=== PATIENT | male | born 1950 | race Hispanic/Latino ===

== ENCOUNTER 2018-08-22 16:34 | Inpatient (IN) | payer MEDICARE ==
[~2018-08-22] VITALS: Ht 165.1 cm; Wt 90.5 kg
[~2018-08-22 16:34] MED LIST: ASPIR 8181 MG PO; ATORVASTATIN CA40 MG PO; Albuterol/Ipratropium NEB; BENZONATATE100 MG PO; CENTRUM SILVER1 EAC4; FLAGYL500 MG PO; FLOMAX0.4 MG PO; FUROSEMIDE40 MG PO; GLIPIZIDE10 MG PO; Guaifenesin/Dextromethorphan PO; ISOSORBIDE MONO20 MG PO; ISOSORBIDE MONO30 MG PO; LEVOTHYROXINE25 MCG PO; LISINOPRIL10 MG PO; LISINOPRIL2.5 MG PO; LYRICA75 MG; METFORMIN HCL500 MG PO; METOPROLOL TART25 MG PO; NITROSTAT0.4 MG PO; NORVASC10 MG PO; OMEPRAZOLE40 MG PO; PROSCAR5 MG PO; RELION NOV100 UNIT/1 SQ; TRAZODONE HCL50 MG PO
[2018-08-22] MEDS ORDERED: METHYLPREDNISOLONE SOD SUCC 125 MG/2ML VIAL IV ONE (17:00)
[2018-08-22] MEDS ORDERED: ALBUTEROL/IPRATROPIUM 3 ML NEB NEB ONE (17:00)
[2018-08-22 17:11] LABS: BASOPHILS % 0.7 % (0.0-1.0); EOSINOPHILS # (AUTO) 0.3 (0.0-0.4); EOSINOPHILS % 6.5 % (0.0-6.0); HEMATOCRIT 31.6 % (38.2-49.6); HEMOGLOBIN 9.9 g/dL (14.0-18.0); LYMPHOCYTES # (AUTO) 0.7 (1.0-3.2); LYMPHOCYTES % 17.6 % (18.0-39.1); MEAN CORPUSCULAR HEMOGLOBIN 27.1 pg (28-32); MEAN CORPUSCULAR HGB CONC 31.3 g/dL (31-35); MEAN CORPUSCULAR VOLUME 86.6 fL (81-99); MONOCYTES # (AUTO) 0.8 (0.2-0.8); MONOCYTES % 18.8 % (4.4-11.3); NEUTROPHILS # (AUTO) 2.3 (2.1-6.9); NEUTROPHILS % 56.2 % (38.7-80.0); PLATELET COUNT 176 x10e3/uL (140-360); RED BLOOD COUNT 3.65 x10e6/uL (4.3-5.7); RED CELL DISTRIBUTION WIDTH 16.5 % (11.7-14.4)
[2018-08-22 17:19] LABS: INR 1.1; PROTHROMBIN TIME 14.7 seconds (11.9-14.5)
[2018-08-22 17:20] LABS: PARTIAL THROMBOPLASTIN TIME 34.3 seconds (23.8-35.5)
[2018-08-22 17:30] LABS: ALBUMIN 3.4 g/dL (3.5-5.0); CALCIUM 8.5 mg/dL (8.4-10.2); CREATINE KINASE MB 2.5 ng/mL (0-5.0); CREATININE, SERUM 1.49 mg/dL (0.72-1.25)
--- NOTE | 2018-08-22 18:43 | Diagnostic Imaging Report ---
EXAMINATION: CHEST 2 VIEWS INDICATION: ^WHEEZING ^[id number] ^1735 COMPARISON: None available FINDINGS: PA and lateral views. Lateral view is motion degraded. TUBES and LINES: Pacer/defibrillator wires terminate in the right atrium and right ventricle. LUNGS: Lungs are well inflated. There is no evidence of pneumonia or pulmonary edema. PLEURA: No pleural effusion or pneumothorax. Mild eventration of the right diaphragm. HEART AND MEDIASTINUM: The heart is enlarged. Pulmonary venous vasculature is prominent. BONES AND SOFT TISSUES: No focal osseous lesions. Second median sternotomy wire is fractured (counting superior to inferior). Soft tissues are unremarkable. UPPER ABDOMEN: No free air under the diaphragm. IMPRESSION: Cardiomegaly with pulmonary venous congestion. This may be chronic. No acute pulmonary process. Fractured sternotomy wire as described above. Signed by: Dr. Chanda Solis MD on 08/22/2018 6:40 PM
[2018-08-22] MEDS ORDERED: DEXTROSE 50% SYRINGE 50 ML IV PRN (19:45)
[2018-08-22] MEDS ORDERED: FUROSEMIDE INJ 10 MG/ML 4 ML VIAL IV ONE (19:45)
--- OUTSIDE RECORDS SUMMARY | 2018-08-22 20:06 | XMS REPORT ---
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 Allergies, Adverse Reactions, Alerts This patient has no known allergies or adverse reactions. Medications This patient has no known medications. Results Test Description Test Time Test Comments Text Results Atomic Results Result Comments CHEST 2 VIEWS 2018-08-22 18:38:00 [place] [address] Patient Name: KATHY DAVIES MR #: [id number] : 1950 Age/Sex: 68/M Req #: [id number] Adm Physician: Ordered by: ERICK LOZADA MD Report #: [id number] Location: ER Room/Bed: Procedure: [id number] DX/CHEST 2 VIEWS Exam Date: 08/22/18 Exam Time: 1735 REPORT STATUS: Signed EXAMINATION: CHEST 2 VIEWS INDICATION: WHEEZING [id number] COMPARISON: None available FINDINGS: PA and lateral views. Lateral view is motion degraded. TUBES and LINES: Pacer/defibrillator wires terminate in the right atrium and right ventricle. LUNGS: Lungs are well inflated. There is no evidence of pneumonia or pulmonary edema. PLEURA: No pleural effusion or pneumothorax. Mild eventration of the right diaphragm. HEART AND MEDIASTINUM: The heart is enlarged. Pulmonary venous vasculature is prominent. BONES AND SOFT TISSUES: No focal osseous lesions. Second median sternotomy wire is fractured (counting superior to inferior). Soft tissues are unremarkable. UPPER ABDOMEN: No free air under the diaphragm. IMPRESSION: Cardiomegaly with pulmonary venous congestion. This may be chronic. No acute pulmonary process. Fractured sternotomy wire as described above. Signed by: Dr. Vero Lopez MD on 08/22/2018 6:40 PM Dictated By: VERO LOPEZ MD 39 Transcribed By: JALEN on 08/22/181839 COPY TO: ERICK LOZADA MD
[2018-08-22] MEDS ORDERED: CENTRUM SILVER1 EAC3 PO (20:13)
[2018-08-22] MEDS ORDERED: TORSEMIDE20 MG PO (20:18)
[2018-08-22] MEDS ORDERED: SYMBICORT 80-10.2 GM (20:18)
[2018-08-22] MEDS ORDERED: GABAPENTIN300 MG PO (20:50)
[2018-08-22] MEDS: FUROSEMIDE INJ 10 MG/ML 4 ML VIAL IV SCH (20:52)
[2018-08-22] MEDS: INSULIN LISPRO 100 UNIT/1 ML 3ML VIAL SQ SCH (21:00)
[2018-08-22 21:32] LABS: CLARITY,URINE CLEAR (CLEAR); COLOR,URINE YELLOW (YELLOW)
[2018-08-22 21:33] LABS: BILIRUBIN,URINE NEGATIVE (NEGATIVE); KETONES,URINE NEGATIVE (NEGATIVE); LEUKOCYTE ESTERASE ,URINE NEGATIVE (NEGATIVE); NITRITE,URINE NEGATIVE (NEGATIVE); PROTEIN,URINE DIPSTICK NEGATIVE (NEGATIVE); URINE UROBILINOGEN 0.2 mg/dL (0.2 - 1)
[2018-08-22 21:34] LABS: BACTERIA,URINE FEW /HPF; EPITHELIAL CELLS,URINE FEW /LPF; WBC,URINE (MAN) 0-5 /HPF (0-5)
[2018-08-22 21:38] VITALS: BP 171/77
[2018-08-22 22:05] VITALS: BP 171/77
[2018-08-22 22:45] VITALS: BP 144/70
[2018-08-23] VITALS (8 sets, daily range): BP systolic 124–153; BP diastolic 58–73
[2018-08-23 03:04] LABS: CREATINE KINASE MB 2.1 ng/mL (0-5.0)
[2018-08-23] MEDS ORDERED: INFLUENZA VIRUS VAC SPLIT INJ 0.5 ML SYR IM SCH (04:07)
[2018-08-23] MEDS ORDERED: PNEUMOCOCCAL VACCINE POLYVALENT 23 MCG/0.5 ML VIAL IM SCH (04:07)
[2018-08-23 06:03] LABS: BASOPHILS % 0.3 % (0.0-1.0); HEMATOCRIT 31.3 % (38.2-49.6); HEMOGLOBIN 9.8 g/dL (14.0-18.0); LYMPHOCYTES # (AUTO) 0.5 (1.0-3.2); LYMPHOCYTES % 11.9 % (18.0-39.1); MEAN CORPUSCULAR HEMOGLOBIN 26.8 pg (28-32); MEAN CORPUSCULAR HGB CONC 31.3 g/dL (31-35); MEAN CORPUSCULAR VOLUME 85.5 fL (81-99); MONOCYTES # (AUTO) 0.1 (0.2-0.8); MONOCYTES % 1.6 % (4.4-11.3); NEUTROPHILS # (AUTO) 3.2 (2.1-6.9); NEUTROPHILS % 85.9 % (38.7-80.0); PLATELET COUNT 171 x10e3/uL (140-360); RED BLOOD COUNT 3.66 x10e6/uL (4.3-5.7); RED CELL DISTRIBUTION WIDTH 16.2 % (11.7-14.4)
[2018-08-23 06:49] LABS: ALBUMIN 3.4 g/dL (3.5-5.0); ANION GAP 12.3 mmol/L (8-16); CALCIUM 8.6 mg/dL (8.4-10.2); CREATININE, SERUM 1.42 mg/dL (0.72-1.25); POTASSIUM 4.3 mmol/L (3.5-5.1)
--- NOTE | 2018-08-23 07:03 | NUR ---
REPORT GIVEN TO ONCOMING NURSE,WALKING ROUNDS MADE.PT RESTING IN BED WITH NO S/S OF DISTRESS.
--- NOTE | 2018-08-23 07:20 | NUR ---
PT RESTING IN BED AA0X3. PT DENIES ANY PAIN. PT IS JAPANESE SPEAKING BUT UNDERSTANDS [place]ONE[place]. PT HAS A RIGHT WRIST 18 THAT IS SL . PATENT AND DRY. PT IS AWARE OF DAILY WEIGHTS AND DIURETIC TREATMENT FOR NOW . WILL CONTINUE TO CARE, SIDE RAILSX2, BED WHEELS LOCKED, CALL LIGHT IS WITHIN EASY REACH, INSTRUCTED TO CALL FOR ASSISTANCE IF NEEDED
[2018-08-23 07:37] LABS: LYMPHOCYTES % (MANUAL) 14 % (19-48); NEUTROPHILS % (MANUAL) 86 % (40-74); PLATELET ESTIMATE ADEQUATE; PLATELET MORPHOLOGY COMMENT NORMAL; RBC MORPHOLOGY COMMENT NORMAL
[2018-08-23] MEDS: FUROSEMIDE INJ 10 MG/ML 4 ML VIAL IV SCH ×2 (08:28→21:05)
[2018-08-23] MEDS: INSULIN LISPRO 100 UNIT/1 ML 3ML VIAL SQ SCH ×4 (08:29→21:09)
--- NOTE | 2018-08-23 12:26 | NUR ---
BLOOD SUGAR OF NOON VITALS IS 416 ORDERED A STAT BLOOD GLUCOSE PER PROTOCOL
--- NOTE | 2018-08-23 13:02 | NUR ---
NOTIFIED MD FLOOD REGARDING BS READING . STATES HE WILL TAKE CARE OF IT, ARRIVING SOON TO ROUND
[2018-08-23] MEDS ORDERED: AMLODIPINE BESYL5 MG PO (13:47)
[2018-08-23] MEDS: ALBUTEROL/IPRATROPIUM 3 ML NEB NEB SCH ×2 (15:00→21:15)
[2018-08-23] MEDS ORDERED: ISOSORBIDE DINITRATE 20 MG TAB PO SCH (17:00)
[2018-08-23] MEDS ORDERED: HYDRALAZINE HCL 10 MG TAB PO SCH (17:00)
--- NOTE | 2018-08-23 17:42 | Diagnostic Imaging Report ---
EXAM: CT Chest without contrast INDICATION: Shortness of breath. COMPARISON: Chest radiograph 08/22/2018. TECHNIQUE: Chest was scanned utilizing a multidetector helical scanner from the lung apex through the level of the adrenal glands without administration of IV contrast. Coronal and sagittal reformations were obtained. Routine protocol was performed. RADIATION DOSE: Total DLP: 535.9 mGy*cm Dose modulation, iterative reconstruction, and/or weight based adjustment of the mA/kV was utilized to reduce the radiation dose to as low as reasonably achievable. COMPLICATIONS: None FINDINGS: LINES/ TUBES: None. LUNGS AND AIRWAYS: The central airways are patent. There is diffuse mild bronchial wall thickening. There are scattered ground glass opacities in the right upper lobe, for example on series 3, image 28 and image 50 and in the left lower lobe on image 33. There are a cluster of nodules within the dependent right upper lobe on image 49. No evidence of consolidative pneumonia. PLEURA: The pleural spaces are clear. HEART AND MEDIASTINUM: The thyroid gland is normal. No mediastinal, hilar or axillary lymphadenopathy. There is four-chamber cardiomegaly. There is a left-sided AICD device with leads within the right atrium and right ventricle. There is extensive coronary atherosclerosis. Scattered atherosclerotic calcifications of the thoracic aorta and branch vessels. Aortic valve calcification. Mild dilation of the main pulmonary artery measuring 3.1 cm. UPPER ABDOMEN: Limited non-contrast views of the upper abdomen show no abnormality within the visualized liver, spleen, adrenal glands, or pancreas. BONES: No acute osseous abnormality. No suspicious lytic or blastic lesions. Status post median sternotomy with sternal wire configuration unchanged. IMPRESSION: Scattered groundglass opacities in the right upper and left lower lobe and dependent clustered nodules in the right upper lobe. Findings are likely infectious in etiology. Follow-up chest CT is suggested in 3 months to assess for resolution. Cardiomegaly. Extensive coronary atherosclerosis. Enlarged main pulmonary artery, suggestive of pulmonary arterial hypertension. Signed by: Dr. Cyrus Haskins MD on 08/23/2018 5:39 PM
[2018-08-23] MEDS ORDERED: HUMULIN 70/30 VIAL SQ SCH (21:00)
[2018-08-23] MEDS: BENZONATATE 100 MG CAP PO SCH (21:08)
[2018-08-23] MEDS: ATORVASTATIN 40 MG TAB PO SCH (21:08)
[2018-08-23] MEDS: INSULIN ASPART 70/30 100 UNITS/ML VIAL SC SCH (21:09)
[2018-08-24] VITALS (7 sets, daily range): BP systolic 130–165; BP diastolic 61–76
[2018-08-24] MEDS ORDERED: ACETAMINOPHEN/CODEINE 300MG - 30MG TAB PO PRN (05:30)
--- NOTE | 2018-08-24 05:30 | NUR ---
PT C/O COUGH AND PAIN "ALL OVER". CALL PLACED TO DR FLOOD AND NOTIFIED.N/O RECEIVED AND ENTERED.
[2018-08-24] MEDS: LEVOTHYROXINE SODIUM 25 MCG TABLET PO SCH (06:20)
[2018-08-24 06:49] LABS: BASOPHILS % 0.4 % (0.0-1.0); EOSINOPHILS # (AUTO) 0.1 (0.0-0.4); EOSINOPHILS % 0.9 % (0.0-6.0); HEMATOCRIT 30.8 % (38.2-49.6); HEMOGLOBIN 9.7 g/dL (14.0-18.0); LYMPHOCYTES # (AUTO) 0.8 (1.0-3.2); LYMPHOCYTES % 10.2 % (18.0-39.1); MEAN CORPUSCULAR HEMOGLOBIN 26.6 pg (28-32); MEAN CORPUSCULAR HGB CONC 31.5 g/dL (31-35); MEAN CORPUSCULAR VOLUME 84.6 fL (81-99); MONOCYTES # (AUTO) 1.1 (0.2-0.8); MONOCYTES % 14.5 % (4.4-11.3); NEUTROPHILS # (AUTO) 5.6 (2.1-6.9); NEUTROPHILS % 73.7 % (38.7-80.0); PLATELET COUNT 190 x10e3/uL (140-360); RED BLOOD COUNT 3.64 x10e6/uL (4.3-5.7); RED CELL DISTRIBUTION WIDTH 16.3 % (11.7-14.4)
[2018-08-24] MEDS: ALBUTEROL/IPRATROPIUM 3 ML NEB NEB SCH ×4 (07:24→20:15)
--- NOTE | 2018-08-24 07:26 | NUR ---
REPORT GIVEN TO ONCOMING NURSE,WALKING ROUNDS DONE.PT RESTING IN BED WITH NO S/S OF DISTRESS.
[2018-08-24 07:48] LABS: THYROID STIMULATING HORMONE 5.879 uIU/mL (0.350-4.940)
[2018-08-24 07:53] LABS: CHOL/HDL RATIO 3.5 (3.9-4.7)
[2018-08-24 08:27] LABS: ANION GAP 15.8 mmol/L (8-16); CALCIUM 8.2 mg/dL (8.4-10.2); CREATININE, SERUM 1.54 mg/dL (0.72-1.25); MAGNESIUM 2.4 MG/DL (1.3-2.1); POTASSIUM 3.8 mmol/L (3.5-5.1)
[2018-08-24] MEDS: HUMULIN 70/30 VIAL SQ SCH (08:30)
[2018-08-24] MEDS: INSULIN LISPRO 100 UNIT/1 ML 3ML VIAL SQ SCH ×4 (08:30→21:00)
[2018-08-24] MEDS ORDERED: ISOSORBIDE DINITRATE 20 MG TAB PO SCH (09:00)
[2018-08-24] MEDS: PANTOPRAZOLE SOD 40 MG TABEC PO SCH (09:00)
[2018-08-24] MEDS ORDERED: HYDRALAZINE HCL 10 MG TAB PO SCH (09:00)
[2018-08-24] MEDS: ASPIRIN 81 MG CHEW TAB PO SCH (10:00)
[2018-08-24] MEDS: FUROSEMIDE INJ 10 MG/ML 4 ML VIAL IV SCH (10:00)
[2018-08-24] MEDS: GABAPENTIN 300 MG CAP PO SCH (10:00)
[2018-08-24] MEDS: OCUVITE PRESERVISION TABLET PO SCH (10:00)
--- NOTE | 2018-08-24 11:11 | NUR ---
MD FLOOD INTO SEE PT, DISCUSSED POC
--- NOTE | 2018-08-24 11:45 | NUR ---
SPOKE WITH MD RUBALCAVA, AWARE OF CONSULT
[2018-08-24] MEDS: DOXYCYCLINE HYCLATE TABLET 100 MG TAB PO SCH ×2 (12:30→22:59)
[2018-08-24] MEDS: CEFEPIME 1GM/NS 0.9% 50 ML 50 ML IV SCH ×2 (15:00→22:46)
[2018-08-24] MEDS ORDERED: SODIUM CHLORIDE 0.9% 250ML 250 ML ONE (15:21)
[2018-08-24] MEDS: ISOSORBIDE DINITRATE 20 MG TAB PO SCH ×2 (16:00→21:30)
[2018-08-24] MEDS: HYDRALAZINE HCL 10 MG TAB PO SCH ×2 (16:00→21:30)
--- NOTE | 2018-08-24 17:19 | NUR ---
Nutrition Screen Note RD Recommendation for Physician: - Continue current ADA diet Plan of Care: RD following, monitoring for tolerance and adequacy Nutrition reason for involvement: Nutrition Risk Trigger- MST Primary Diagnose(s): CHF exacerbation, renal insufficiency PMH: CHF, DM2, HTN, hypercholesterolemia, CAD, CKD3, CABG Ht:65 in Wt:196 lb BMI:32.6 kg/m2 IBW:[address] Assessment: (08/24) 68 YOM admitted for CHF exacerbation, seen today per MST screen. Pt discussed during am rounds. Pt declined to answer questions and education at time of visit, stated "No, no no. Equatorial [place], Equ[place]", however pt was able to communicate clearly in Grenadian in several sentences that he wanted to see his RN and how he was feeling. No family present to provide nutrition hx. Spoke with RN, she stated he is able to speak Grenadian. RN reports good po intake and no GI distress. Pt with no signs of malnutrition per physical assessment. Chart reviewed. Skin intact. LBM 08/24 x 2. Labs and meds reviewed. Will monitor and continue to follow. Current Diet: 1500 ADA Malnutrition Evaluation (08/24/18) The patient does not meet criteria for a specified degree of malnutrition at this time. Will re-evaluate at follow-up as appropriate. Unable to complete assessment, pt reports he is unable to answer questions. No signs of malnutrition per physical assessment. Diet Education Needs Assessment: Diet education indicated, pt declined. Nutrition Care Level: Low Signed: Opal Colin RD, LD, [facility]
--- NOTE | 2018-08-24 17:29 | NUR ---
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
--- NOTE | 2018-08-24 18:04 | NUR ---
PT AMBULATING IN HALLWAY, STEADY GAIT
[2018-08-24] MEDS: INSULIN ASPART 70/30 100 UNITS/ML VIAL SC SCH (21:00)
--- NOTE | 2018-08-24 21:05 | NUR ---
spoke wit dr shook. blood sugar 84 tongiht. pt has been in the 200's throi day and tonight accu check is 84. stated to hold [facility] dose of 15u novolog.
[2018-08-24] MEDS: ATORVASTATIN 40 MG TAB PO SCH (21:30)
[2018-08-24] MEDS: BENZONATATE 100 MG CAP PO SCH (21:30)
[2018-08-24] MEDS: HEPARIN SOD (PORCINE) 5,000 UNIT/ML VIAL SC SCH (21:32)
[2018-08-24] MEDS ORDERED: PREDNISONE 20 MG TAB PO ONE (23:15)
[2018-08-25] VITALS: BP 143/65
[2018-08-25 04:00] VITALS: BP 144/75
[2018-08-25 06:17] LABS: BASOPHILS % 0.2 % (0.0-1.0); EOSINOPHILS % 0.5 % (0.0-6.0); HEMATOCRIT 30.2 % (38.2-49.6); HEMOGLOBIN 9.4 g/dL (14.0-18.0); LYMPHOCYTES # (AUTO) 0.6 (1.0-3.2); LYMPHOCYTES % 9.6 % (18.0-39.1); MEAN CORPUSCULAR HEMOGLOBIN 26.3 pg (28-32); MEAN CORPUSCULAR HGB CONC 31.1 g/dL (31-35); MEAN CORPUSCULAR VOLUME 84.6 fL (81-99); MONOCYTES # (AUTO) 0.3 (0.2-0.8); NEUTROPHILS # (AUTO) 5.6 (2.1-6.9); NEUTROPHILS % 85.4 % (38.7-80.0); PLATELET COUNT 178 x10e3/uL (140-360); RED BLOOD COUNT 3.57 x10e6/uL (4.3-5.7); RED CELL DISTRIBUTION WIDTH 16.1 % (11.7-14.4)
[2018-08-25 06:37] LABS: ANION GAP 14.4 mmol/L (8-16); CALCIUM 7.6 mg/dL (8.4-10.2); CREATININE, SERUM 1.37 mg/dL (0.72-1.25); POTASSIUM 4.4 mmol/L (3.5-5.1)
[2018-08-25] MEDS: LEVOTHYROXINE SODIUM 25 MCG TABLET PO SCH (06:41)
[2018-08-25] MEDS: CEFEPIME 1GM/NS 0.9% 50 ML 50 ML IV SCH ×2 (06:41→14:42)
--- NOTE | 2018-08-25 06:57 | Consultation ---
DATE OF CONSULTATION: 08/24/2018 Pulmonary Medicine Consult. REFERRING PHYSICIAN: Dr. Manrique. REASON FOR REFERRAL: Abnormal chest radiography. HISTORY OF PRESENT ILLNESS: Mr. Weller is a pleasant 68-year-old gentleman with abnormal chest radiography. The patient came to the emergency room on August 24, 2018. The patient complained of wheezing. Wheezing lasted for one week so far. However, he has had a cough that was probably started about two weeks ago. He was seen by his PCP and he was given a Z-Sherwin and another medication . CT chest shows very scant bilateral ground-glass opacities with mild nodular form, especially in the right upper lobe, although these are scant. Mean pulmonary artery diameter is 31 mm. No history of asthma. Zabx-rq-jnmzdhur GERD with symptoms weekly. No evidence of any significant respiratory ailments. PAST MEDICAL HISTORY: CHF, coronary artery disease, hypertension, diabetes, hyperlipidemia, thyroid disease, GERD, CKD, and CABG 2010. MEDICATIONS: Medication list reviewed per his chart record. ALLERGIES: METOPROLOL. SOCIAL HISTORY: No alcohol at this time, no drugs ever. However, from age [age], he was a smoker of one pack per day and furthermore, he had heavy drinking during this time frame. FAMILY HISTORY: Noncontributory. REVIEW OF SYSTEMS: GENERAL: No weight loss. HEENT: No thyroid disease. ENDOCRINE: No history of [place]'s. PULMONARY: No hemoptysis. CARDIAC: No recent HI. GI: No constipation. : No blood in the urine. NEUROLOGIC: No seizures. DERMATOLOGIC: No rash. PSYCHIATRIC: No depression. PHYSICAL EXAMINATION: VITAL SIGNS: Afebrile, vital signs noted per the chart record. GENERAL: In no acute distress, alert and calm with intermittent cough noted. HEENT: Normocephalic and atraumatic. NECK: Supple. Throat midline. LUNGS: Bilateral air entry, rare rhonchi, but mostly clear. CARDIOVASCULAR: S1 and S2. No murmurs, rubs, or gallops. ABDOMEN: Soft and nontender. EXTREMITIES: No clubbing. No cyanosis. There is no edema. INTEGUMENT: No rash or purpura. LABORATORY DATA: 4 white count, 32 hematocrit, and 176 platelets. Chemistries were 3.8 potassium, creatinine 1.54, and BNP 672. TSH 5.8. Albumin is 3.4. Influenza assay is negative. Echocardiogram with 35-40% LVEF, RV moderately enlarged, 3.8 to 4.1 cm, and RVSP 59.6. Moderate MR and moderate TR. IMPRESSION AND PLAN: 1. Abnormal chest radiography, scattered ground-glass opacities, most likely inflammatory/probably infectious in etiology. 2. Systolic congestive heart failure, appears stable now. Possible exacerbation on admission. However, no high evidence when the CAT scan was done the following day. 3. History of chronic smoker, quit at age 39. Possible chronic obstructive pulmonary disease. 4. Mild hypoxemia, 93% saturation on admit, room air. 5. Ykmj-ct-eszwszlv gastroesophageal reflux disease. 6. History of diabetes. 7. Hypertension. 8. Chronic kidney disease. 9. Other medical history as above. I agree to continue the antibiotics at this time. The opacities were scant and probably did not require more than a short course of antibiotics. We will have repeat CT chest in 3-6 months interval to reassess the nodularity as long as the patient keeps getting better. Check HIV test as well as LDH. Cardiac optimization per other physicians and there is a possibility that the patient could have some fluid on admit, but by the time CAT scan was done, there was no evidence of this significant. Thank you very much, Dr. Manrique, for allowing me a chance to participate in the care of Mr. Weller. Please call for any questions. MD CHRISTIE Bhatti/FAROOQ /[id number]
[2018-08-25 07:14] LABS: HIV 1&2 AB SCREEN NON-REACTIVE (NONREACTIVE)
[2018-08-25] MEDS: ALBUTEROL/IPRATROPIUM 3 ML NEB NEB SCH ×3 (07:15→14:30)
--- NOTE | 2018-08-25 07:24 | NUR ---
PATIENT IN BED RESTING WITH NO RESPIRATORY DISTRESS. DENIED PAIN AT THIS TIME. REDNESS NOTED TO LOWER EXTREMITIES. BED IN LOWER POSITION, CALL LIGHT AT REACH.
[2018-08-25 07:25] VITALS: BP 122/73
[2018-08-25] MEDS: INSULIN LISPRO 100 UNIT/1 ML 3ML VIAL SQ SCH ×3 (07:30→16:30)
[2018-08-25] MEDS: HUMULIN 70/30 VIAL SQ SCH (07:30)
[2018-08-25 08:00] VITALS: BP 122/73
[2018-08-25] MEDS: PANTOPRAZOLE SOD 40 MG TABEC PO SCH (08:02)
[2018-08-25] MEDS: HEPARIN SOD (PORCINE) 5,000 UNIT/ML VIAL SC SCH (09:00)
[2018-08-25] MEDS: HYDRALAZINE HCL 10 MG TAB PO SCH ×2 (09:20→14:43)
[2018-08-25] MEDS: OCUVITE PRESERVISION TABLET PO SCH (09:21)
[2018-08-25] MEDS: GABAPENTIN 300 MG CAP PO SCH (09:21)
[2018-08-25] MEDS: ISOSORBIDE DINITRATE 20 MG TAB PO SCH ×2 (09:21→14:43)
[2018-08-25] MEDS: ASPIRIN 81 MG CHEW TAB PO SCH (09:21)
--- NOTE | 2018-08-25 12:04 | NUR ---
PATIENT SITTING AT BED SIDE TALKING ON THE PHONE, NO COMPLAIN VOICED. CALL LIGHT AT REACH.
[2018-08-25 12:46] VITALS: BP 124/59
--- NOTE | 2018-08-25 13:00 | NUR ---
SPOKE WITH MD REGARDING FLUCTUATING HR. NO NEW ORDER RECEIVED.
[2018-08-25] MEDS: DOXYCYCLINE HYCLATE TABLET 100 MG TAB PO SCH (13:01)
--- NOTE | 2018-08-25 18:25 | NUR ---
PATIENT DISCHARGED HOME. DISCHARGE INSTRUCTIONS, PRESCRIPTIONS, AND FOLLOW UP GIVEN TO PATIENT, HE VERBALIZED UNDERSTANDING. IV TO RIGHT WRIST REMOVED WITH TIP INTACT. ALL PERSONAL ITEMS TAKEN WITH PATIENT. REFUSED WHEEL CHAIR, BUT WAS ACCOMPANIED TO FRONT LOBBY BY HOSPITAL STAFF IN STABLE CONDITION.
--- NOTE | 2018-08-25 20:37 | Progress Note ---
DATE: Pulmonary Critical Care Progress Note I am covering for Dr. Mathews today. SUBJECTIVE: The patient feels better. He is less wheezing and less coughing. He is not complaining of dyspnea and is eager to go home. OBJECTIVE: VITAL SIGNS: The patient is afebrile. The vital signs are stable. HEENT: Shows no facial swelling or erythema. CARDIAC: Reveals regular rate and rhythm with normal S1 and S2. LUNGS: Auscultation of lungs shows clear breath sounds bilaterally. There is no wheezing. ABDOMEN: Soft, nontender. There is no rebound or guarding. EXTREMITIES: Show no leg edema or calf tenderness. IMPRESSION: 1. Cudtx-zn-ryucito systolic congestive heart failure. 2. Pulmonary hypertension secondary to underlying cardiac disease. 3. Chronic obstructive pulmonary disease. 4. Diabetes. 5. Hypertension. PLAN: 1. The patient is going home. 2. Complete antibiotics at home. 3. Continue current cardiac regimen. 4. The patient to follow up with Irena Eddy. Andrés Sotelo MD [facility] /[id number]
--- NOTE | 2018-08-26 03:34 | Discharge Summary ---
PRIMARY CARE DOCTOR: Dr. Chrissie Neal. FINAL DIAGNOSES: Acute respiratory distress, likely due to pneumonia and mild acute systolic congestive heart failure. SECONDARY DIAGNOSES: 1. Pulmonary hypertension. 2. Hyponatremia. 3. Right greater than left leg swelling, but no deep venous thrombosis. 4. Uncontrolled diabetes due to steroids, but that is getting better. 5. Stage 3 chronic kidney disease, stable. CONSULTANTS: Dr. Mathews, litigation claim representative. PROCEDURES/STUDIES PERFORMED: 1. Right leg venous doppler did not show any DVT. 2. Chest CT, which shows scattered ground-glass opacity in the right upper and left lower lobe. Findings are likely infectious in etiology. 3. Echocardiogram showed an EF of 35% to 40%. HISTORY: Per H and P. HOSPITAL COURSE: The patient initially was diuresed with IV Lasix. He takes p.o. torsemide at home. The patient slowly improved. However, given unclear etiology, chest CT was done, which suggested of infectious etiology. The patient did receive a course of Z-Sherwin about 2 weeks ago without improvement. Therefore, IV cefepime and p.o. doxycycline were started. The patient did well. Currently, he is pretty much back to his baseline. I discussed with Dr. Mathews. At this time, he will go home today on three more days of Levaquin. I have updated his PCP about this hospitalization as well. The patient will follow up with his PCP in 1 week. The patient was seen and examined today. It took 33 minutes total to discharge this patient today. CONDITION ON DISCHARGE: Improved. DISCHARGE MEDICATIONS: Please see medication reconciliation form. MD VIKTORIA Napoles/FAROOQ /[id number] cc: [facility]
== END 2018-08-25 18:25 | disposition home or self-care (01) | DRG 291 ==
LOC: ER 16:34 → ERHOLD 20:03 → MED/SURG 21:29 → OBSVTOIN 08-24 17:01
PROVIDERS: ADMIT Internal Medicine; ATTEND Internal Medicine
DX: I13.0 Hypertensive heart and chronic kidney disease with heart failure and stage 1 through stage 4 chronic kidney disease, or unspecified chronic kidney disease (principal); I50.23 Acute on chronic systolic (congestive) heart failure; J18.9 Pneumonia, unspecified organism; E87.1 Hypo-osmolality and hyponatremia; D50.0 Iron deficiency anemia secondary to blood loss (chronic); I25.10 Atherosclerotic heart disease of native coronary artery without angina pectoris; Z95.1 Presence of aortocoronary bypass graft; I25.2 Old myocardial infarction; E78.5 Hyperlipidemia, unspecified; K21.9 Gastro-esophageal reflux disease without esophagitis; Z88.8 Allergy status to other drugs, medicaments and biological substances; Z83.3 Family history of diabetes mellitus; Z82.49 Family history of ischemic heart disease and other diseases of the circulatory system; E11.22 Type 2 diabetes mellitus with diabetic chronic kidney disease; N18.3 Chronic kidney disease, stage 3 (moderate); Z87.891 Personal history of nicotine dependence; R09.02 Hypoxemia; J44.9 Chronic obstructive pulmonary disease, unspecified; R06.03 Acute respiratory distress; T38.0X5A Adverse effect of glucocorticoids and synthetic analogues, initial encounter; Y92.230 Patient room in hospital as the place of occurrence of the external cause; E11.65 Type 2 diabetes mellitus with hyperglycemia; Z79.4 Long term (current) use of insulin; Z79.82 Long term (current) use of aspirin
CPT/HCPCS: 36415; 71046; 71250; 80048; 80053; 80061; 81001; 82550; 82553; 82947; 82948; 83615; 83735; 83880; 84443; 84484; 85025; 85610; 85730; 87390; 87400; 93005; 93306; 93971; 94640; 99284; G0378; G0433; G0435; J0692; J1644; J1815; J1940; J2930; J7050; J7512

== ENCOUNTER 2018-09-11 10:43 | Inpatient (IN) | payer MEDICARE ==
[~2018-09-11] VITALS: Ht 165.1 cm; Wt 91.3 kg
[~2018-09-11 10:43] MED LIST changes: +AMLODIPINE BESYL5 MG PO; +CENTRUM SILVER1 EAC3 PO; +GABAPENTIN300 MG PO; +SYMBICORT 80-10.2 GM; +TORSEMIDE20 MG PO
--- NOTE | 2018-09-11 11:40 | NUR ---
BEDSIDE BLADDER SCAN COMPLETE, APPROX 300 CC NOTED. DANIELLE COATES MADE AWARE. RECEIVED OREDERS FOR MURPHY CATH INSERTION FOR ACUTE URINARY RETENTION.
[2018-09-11 12:04] LABS: BASOPHILS % 0.4 % (0.0-1.0); EOSINOPHILS % 0.4 % (0.0-6.0); HEMATOCRIT 33.7 % (38.2-49.6); HEMOGLOBIN 10.6 g/dL (14.0-18.0); LYMPHOCYTES # (AUTO) 0.8 (1.0-3.2); LYMPHOCYTES % 11.2 % (18.0-39.1); MEAN CORPUSCULAR HGB CONC 31.5 g/dL (31-35); MEAN CORPUSCULAR VOLUME 82.8 fL (81-99); MONOCYTES # (AUTO) 0.7 (0.2-0.8); MONOCYTES % 9.7 % (4.4-11.3); NEUTROPHILS # (AUTO) 5.7 (2.1-6.9); NEUTROPHILS % 77.9 % (38.7-80.0); PLATELET COUNT 214 x10e3/uL (140-360); RED BLOOD COUNT 4.07 x10e6/uL (4.3-5.7); RED CELL DISTRIBUTION WIDTH 16.1 % (11.7-14.4)
[2018-09-11 12:24] LABS: INR 1.1; PROTHROMBIN TIME 14.7 seconds (11.9-14.5)
[2018-09-11 12:25] LABS: PARTIAL THROMBOPLASTIN TIME 33.3 seconds (23.8-35.5)
[2018-09-11 12:33] LABS: ALBUMIN 3.2 g/dL (3.5-5.0); ALBUMIN/GLOBULIN RATIO 0.8 (0.8-2.0); ANION GAP 14.4 mmol/L (8-16); CALCIUM 8.6 mg/dL (8.4-10.2); CHOL/HDL RATIO 2.2 (3.9-4.7); CREATININE, SERUM 1.52 mg/dL (0.72-1.25); MAGNESIUM 2.2 MG/DL (1.3-2.1); POTASSIUM 4.4 mmol/L (3.5-5.1)
[2018-09-11 12:35] LABS: BILIRUBIN,URINE NEGATIVE (NEGATIVE); CLARITY,URINE HAZY (CLEAR); COLOR,URINE YELLOW (YELLOW); KETONES,URINE NEGATIVE (NEGATIVE); LEUKOCYTE ESTERASE ,URINE TRACE (NEGATIVE); NITRITE,URINE POSITIVE (NEGATIVE); PROTEIN,URINE DIPSTICK NEGATIVE (NEGATIVE); URINE UROBILINOGEN 0.2 mg/dL (0.2 - 1)
[2018-09-11 12:39] LABS: CREATINE KINASE MB 2.6 ng/mL (0-5.0)
[2018-09-11] MEDS ORDERED: SODIUM CHLORIDE 0.9% 1000ML 1,000 ML IV ONE (12:45)
[2018-09-11 12:49] LABS: WBC,URINE (MAN) 0-5 /HPF (0-5)
[2018-09-11] MEDS ORDERED: SODIUM CHLORIDE 0.9% 1000ML 1,000 ML ONE (12:49)
[2018-09-11 12:50] LABS: EPITHELIAL CELLS,URINE FEW /LPF; RBC,URINE 0-5 /HPF (0-5)
[2018-09-11 12:51] LABS: BACTERIA,URINE MODERATE /HPF
--- NOTE | 2018-09-11 13:10 | Diagnostic Imaging Report ---
EXAMINATION: CHEST SINGLE (PORTABLE) INDICATION: Shortness of breath. COMPARISON: None FINDINGS: TUBES and LINES: Left-sided AICD device in unchanged position. LUNGS: Lungs are well inflated. There is central vascular congestion. There is no evidence of pneumonia or pulmonary edema. PLEURA: No pleural effusion or pneumothorax. HEART AND MEDIASTINUM: The cardiomediastinal silhouette is enlarged and unchanged. BONES AND SOFT TISSUES: No acute osseous abnormality. Status post median sternotomy. UPPER ABDOMEN: No free air under the diaphragm. IMPRESSION: Cardiomegaly with central vascular congestion. No evidence of pulmonary edema. Signed by: Dr. Cyrus Haskins MD on 09/11/2018 1:07 PM
--- NOTE | 2018-09-11 13:38 | Diagnostic Imaging Report ---
EXAMINATION: CT of the abdomen and pelvis with contrast. TECHNIQUE: Spiral CT images of the abdomen and pelvis were performed from the lung bases to the lesser trochanters after the intravenous administration of 100 cc of Isovue 370 and the oral administration of Redicat. Coronal and sagittal reformatted images were obtained. COMPARISON: CT abdomen and pelvis 09/03/2018 CLINICAL HISTORY:Abdominal swelling DISCUSSION: ABDOMEN/PELVIS: LOWER THORAX:Subsegmental atelectasis in bilateral lower lobes and right middle lobe. Mild to moderate cardiomegaly with enlargement of the right atrium. Distal portion of cardiac wires in the right atrium and right ventricle.. HEPATOBILIARY: No focal hepatic lesions. No intra or extrahepatic biliary ductal dilation. GALLBLADDER: No radio-opaque stones or sludge. No wall thickening. SPLEEN: No splenomegaly. PANCREAS: No focal masses or ductal dilatation. ADRENALS: No adrenal nodules. KIDNEYS/URETERS: No hydronephrosis, stones, or solid mass lesions. PELVIC ORGANS/BLADDER: Ware catheter in place. Small foci of air are again seen in the nondependent portion of the bladder lumen, likely related to catheter. Stable mild circumferential bladder wall thickening. Stable enlarged prostate PERITONEUM/RETROPERITONEUM: Small volume perihepatic and perisplenic ascites which measure simple fluid density, which is slightly increased since the prior exam. Small amount of ascites in the pelvis. LYMPH NODES: No intra-abdominal, retroperitoneal, pelvic or inguinal lymphadenopathy. VESSELS: The celiac trunk,superior and inferior mesenteric and bilateral renal arteries are patent The portal, superior mesenteric and splenic veins are patent. Atherosclerotic calcification of the abdominal aorta and iliac vessels. An accessory right renal artery is again identified. GI TRACT: No bowel dilation or evidence of obstruction. No pericolonic inflammatory changes. Stable small hiatal hernia. BONES AND SOFT TISSUE: No aggressive lytic lesions. Degenerative disc changes in the lumbosacral spine, predominantly L5-S1, with grade 1 anterolisthesis secondary to bilateral pars interarticularis defects. Stable L3 vertebral body hemangioma. No soft tissue abnormalities. IMPRESSION: 1. No acute abdominopelvic abnormalities. 2. Slight interval increase in small volume simple perihepatic and perisplenic ascites when compared to prior exam. 3. Stable mild circumferential bladder wall thickening, likely reflecting bladder outlet obstruction from an enlarged prostate. Signed by: Dr. Dale Ferrer M.D. on 09/11/2018 1:35 PM
[2018-09-11] MEDS ORDERED: SODIUM CHLORIDE 0.9% 1000ML 1,000 ML IV SCH (14:02)
--- NOTE | 2018-09-11 14:10 | NUR ---
PT C/O BEING HYPOGLYCEMIC. GLUCOSE CHECKED, CURRENTLY AT 49, DANIELLE COATES MADE AWARE. PT REQUESTED DIET COKEJAXON MADE AWARE OF THIS AND APPROVED. WILL CONTINUE TO MONITOR.
[2018-09-11] MEDS ORDERED: ONDANSETRON HCL INJ 2MG/ML 2ML 2 MG/ML VIAL IV PRN (14:15)
--- NOTE | 2018-09-11 14:58 | NUR ---
BEDSIDE GLUCOSE 48, PT REMAINS AAOX3, COMPLANINS OF FEELING HYPOGLYCEMIC. ENMk COATES MADE AWARE, VERBAL ORDER FOR 1 AMP D50 RECEVIVED, BEING ADMINISTERED AT THIS TIME.
[2018-09-11] MEDS ORDERED: DEXTROSE 50% SYRINGE 50 ML IV ONE (15:04)
[2018-09-11] MEDS ORDERED: SODIUM CHLORIDE 0.9% 50ML 50 ML ONE (15:10)
[2018-09-11] MEDS ORDERED: IOPAMIDOL 370 MG/ML 200 ML INFUS..BTL INJ ONE (15:11)
[2018-09-11 16:00] VITALS: BP 115/70
[2018-09-11 16:14] VITALS: BP 133/80
[2018-09-11 16:27] VITALS: BP 134/84
[2018-09-11] MEDS ORDERED: INFLUENZA VIRUS VAC SPLIT INJ 0.5 ML SYR IM SCH (16:30)
[2018-09-11] MEDS ORDERED: PNEUMOCOCCAL VACCINE POLYVALENT 23 MCG/0.5 ML VIAL IM SCH (16:30)
--- NOTE | 2018-09-11 19:07 | NUR ---
received report from day nurse. patient is resting comfortably in. bed is in lowest position and call villafana is within reach. will continue to monitor patient.
[2018-09-11 20:00] VITALS: BP 119/78
[2018-09-11 20:21] LABS: CREATINE KINASE MB 2.3 ng/mL (0-5.0)
[2018-09-12] VITALS (11 sets, daily range): BP systolic 98–139; BP diastolic 57–78
[2018-09-12 06:32] LABS: BASOPHILS % 0.4 % (0.0-1.0); EOSINOPHILS # (AUTO) 0.1 (0.0-0.4); EOSINOPHILS % 0.9 % (0.0-6.0); HEMATOCRIT 32.3 % (38.2-49.6); HEMOGLOBIN 10.3 g/dL (14.0-18.0); LYMPHOCYTES # (AUTO) 1.3 (1.0-3.2); LYMPHOCYTES % 15.7 % (18.0-39.1); MEAN CORPUSCULAR HEMOGLOBIN 25.9 pg (28-32); MEAN CORPUSCULAR HGB CONC 31.9 g/dL (31-35); MEAN CORPUSCULAR VOLUME 81.4 fL (81-99); MONOCYTES # (AUTO) 1.1 (0.2-0.8); MONOCYTES % 13.4 % (4.4-11.3); NEUTROPHILS # (AUTO) 5.5 (2.1-6.9); NEUTROPHILS % 69.2 % (38.7-80.0); PLATELET COUNT 240 x10e3/uL (140-360); RED BLOOD COUNT 3.97 x10e6/uL (4.3-5.7); RED CELL DISTRIBUTION WIDTH 16.1 % (11.7-14.4)
[2018-09-12 06:50] LABS: ANION GAP 14.3 mmol/L (8-16); CALCIUM 8.3 mg/dL (8.4-10.2); CREATININE, SERUM 1.61 mg/dL (0.72-1.25); POTASSIUM 4.3 mmol/L (3.5-5.1)
--- NOTE | 2018-09-12 06:59 | Diagnostic Imaging Report ---
EXAMINATION: CHEST SINGLE (PORTABLE) INDICATION: Shortness of breath. COMPARISON: Chest x-ray 09/11/2018 FINDINGS: TUBES and LINES: Left-sided AICD device in unchanged position. LUNGS: Lungs are well inflated. There is central vascular congestion. There is no evidence of pneumonia. PLEURA: No pleural effusion or pneumothorax. HEART AND MEDIASTINUM: The cardiomediastinal silhouette is enlarged and unchanged. BONES AND SOFT TISSUES: No acute osseous abnormality. Status post median sternotomy. UPPER ABDOMEN: No free air under the diaphragm. IMPRESSION: Cardiomegaly with central vascular congestion. Signed by: DR. Dl Lui MD on 09/12/2018 6:56 AM
--- NOTE | 2018-09-12 07:08 | NUR ---
lab called to report a blood sugar of 56. patient is alert and talking. patient has been offered 3 cups of orange juice which he drank. MD notified. MD states continue to monitor patient's blood sugar. Will continue to monitor patient.
[2018-09-12 07:09] LABS: CREATINE KINASE MB 2.5 ng/mL (0-5.0)
[2018-09-12] MEDS: FUROSEMIDE INJ 10 MG/ML 4 ML VIAL IV SCH ×2 (11:26→20:54)
[2018-09-12] MEDS: INSULIN LISPRO 100 UNIT/1 ML 3ML VIAL SQ SCH ×3 (11:30→20:55)
[2018-09-12] MEDS: GABAPENTIN 300 MG CAP PO SCH (17:41)
--- NOTE | 2018-09-12 19:00 | NUR ---
received report from day nurse. patient is resting comfortably in bed. bed is in lowest position and call villafana is within reach. no complaints of pain or discomfort noted. will continue to monitor patient.
[2018-09-12] MEDS: ATORVASTATIN 40 MG TAB PO SCH (20:54)
[2018-09-12] MEDS: HEPARIN SOD (PORCINE) 5,000 UNIT/ML VIAL SC SCH (20:54)
[2018-09-12] MEDS: TAMSULOSIN HCL 0.4 MG CAP PO SCH (20:54)
[2018-09-13] VITALS (7 sets, daily range): BP systolic 102–143; BP diastolic 56–80
[2018-09-13 05:30] LABS: BASOPHILS % 0.6 % (0.0-1.0); EOSINOPHILS # (AUTO) 0.1 (0.0-0.4); EOSINOPHILS % 1.7 % (0.0-6.0); HEMATOCRIT 29.4 % (38.2-49.6); HEMOGLOBIN 9.5 g/dL (14.0-18.0); LYMPHOCYTES # (AUTO) 0.8 (1.0-3.2); MEAN CORPUSCULAR HEMOGLOBIN 26.1 pg (28-32); MEAN CORPUSCULAR HGB CONC 32.3 g/dL (31-35); MEAN CORPUSCULAR VOLUME 80.8 fL (81-99); MONOCYTES # (AUTO) 1.1 (0.2-0.8); MONOCYTES % 16.2 % (4.4-11.3); NEUTROPHILS # (AUTO) 4.9 (2.1-6.9); NEUTROPHILS % 70.2 % (38.7-80.0); PLATELET COUNT 182 x10e3/uL (140-360); RED BLOOD COUNT 3.64 x10e6/uL (4.3-5.7); RED CELL DISTRIBUTION WIDTH 16.1 % (11.7-14.4)
[2018-09-13] MEDS: LEVOTHYROXINE SODIUM 50 MCG TAB PO SCH (05:44)
[2018-09-13 05:49] LABS: BILIRUBIN,DIRECT 0.6 mg/dL (0.0-0.5); CALCIUM 8.2 mg/dL (8.4-10.2); CREATININE, SERUM 1.46 mg/dL (0.72-1.25); MAGNESIUM 2.2 MG/DL (1.3-2.1)
--- NOTE | 2018-09-13 06:10 | Diagnostic Imaging Report ---
EXAMINATION: CHEST SINGLE (PORTABLE) INDICATION: CHF. COMPARISON: Chest x-ray 09/12/2018 FINDINGS: TUBES and LINES: Left-sided AICD device in unchanged position. LUNGS: Central vascular congestion with increased mild interstitial edema. There is no evidence of pneumonia. PLEURA: Likely small right pleural effusion. No pneumothorax. HEART AND MEDIASTINUM: The cardiomediastinal silhouette is enlarged and unchanged.. Mediastinal surgical clips. BONES AND SOFT TISSUES: No acute osseous abnormality. Status post median sternotomy. UPPER ABDOMEN: No free air under the diaphragm. IMPRESSION: Cardiomegaly with mild interstitial edema and small right pleural effusion. Signed by: DR. Dl Lui MD on 09/13/2018 6:07 AM
[2018-09-13 06:11] LABS: THYROID STIMULATING HORMONE 4.714 uIU/mL (0.350-4.940)
--- NOTE | 2018-09-13 06:49 | NUR ---
report given to day nurse. patient is resting comfortably in bed
[2018-09-13] MEDS: INSULIN LISPRO 100 UNIT/1 ML 3ML VIAL SQ SCH ×4 (08:23→20:55)
[2018-09-13] MEDS: GABAPENTIN 300 MG CAP PO SCH ×2 (08:36→16:45)
[2018-09-13] MEDS: ASPIRIN 81 MG CHEW TAB PO SCH (08:36)
[2018-09-13] MEDS: FUROSEMIDE INJ 10 MG/ML 4 ML VIAL IV SCH ×2 (08:36→20:51)
[2018-09-13] MEDS: HEPARIN SOD (PORCINE) 5,000 UNIT/ML VIAL SC SCH ×2 (08:36→20:54)
--- NOTE | 2018-09-13 12:19 | NUR ---
SW Assessment completed with [facility] spanish medical interpreter Elli [id number]: Patient lives: At home with his and son Admit/Transfer: Admit Hospital/ER visits since last admit: Patient has had 3 hospitalization within the last 6 months for the same condition. He states he has followed up with his MD after each visit. POA/Emergency contact: Rosie Weller [phone] Current/Previous Home Health: Patient has no history of home care services. PCP/Follow-up Care: Chrissie Neal MD Current/Previous DME: n/A Medications (referring to index hospitalization or the first time you were in the hospital) a. Were changes made in your medications when you were in the hospital on [date of index hospitalization]? Yes No Not sure Explain: Note: If no or not sure, please skip to question d b. Did you understand the changes? Yes No Explain: c. Were you able to obtain your new medications right away? Yes No n/a SNF only Explain: d. Were you able to take your medications like the doctor wanted you to? Yes No Explain: e. Did the hospital give you an accurate, easy to understand list of medications when you left? Yes No n/a SNF only Explain: Scale of 1-10 how comfortable does patient feel with disease management in outpatient settin and up Other Services: Employment Status: Retired Areas of Concerns: Referral Needs: for zhu. However, patient is requesting to go into the office for follow up on his zhu Education Needs: IMM/ST given and signed (if applicable): IMM Goal for discharge:
--- NOTE | 2018-09-13 12:20 | NUR ---
CM Communication for Home Health services for Zhu check. Patient would prefer to have a zhu check at the MD office or other clinic. He is willing to go out into the community for aftercare. RN has been notified regarding patient's request.
--- NOTE | 2018-09-13 19:00 | NUR ---
received report from day nurse. patient is resting comfortably in bed. bed is in lowest position and call villafana is within reach. will continue to monitor patient.
[2018-09-13] MEDS: ATORVASTATIN 40 MG TAB PO SCH (20:51)
[2018-09-13] MEDS: TAMSULOSIN HCL 0.4 MG CAP PO SCH (20:51)
[2018-09-14] VITALS: BP 128/72
[2018-09-14 04:00] VITALS: BP 126/69
[2018-09-14] MEDS: LEVOTHYROXINE SODIUM 50 MCG TAB PO SCH (05:47)
[2018-09-14 06:17] LABS: ALBUMIN 3.1 g/dL (3.5-5.0); ANION GAP 10.9 mmol/L (8-16); BILIRUBIN,DIRECT 0.7 mg/dL (0.0-0.5); CALCIUM 8.2 mg/dL (8.4-10.2); CREATININE, SERUM 1.28 mg/dL (0.72-1.25); MAGNESIUM 2.4 MG/DL (1.3-2.1); POTASSIUM 3.9 mmol/L (3.5-5.1)
--- NOTE | 2018-09-14 07:00 | NUR ---
report given to day nurse. patient is resting comfortably in bed. bed is in lowest position and call villafana is within reach.
[2018-09-14 07:30] VITALS: BP 121/74
[2018-09-14 08:30] VITALS: BP 121/74
[2018-09-14] MEDS: HEPARIN SOD (PORCINE) 5,000 UNIT/ML VIAL SC SCH (09:35)
[2018-09-14] MEDS: ASPIRIN 81 MG CHEW TAB PO SCH (09:35)
[2018-09-14] MEDS: GABAPENTIN 300 MG CAP PO SCH (09:35)
[2018-09-14] MEDS: FUROSEMIDE INJ 10 MG/ML 4 ML VIAL IV SCH (09:35)
[2018-09-14] MEDS: INSULIN LISPRO 100 UNIT/1 ML 3ML VIAL SQ SCH ×3 (09:35→16:30)
[2018-09-14 12:27] VITALS: BP 134/78
[2018-09-14] MEDS ORDERED: ONDANSETRON HCL 4 MG ORAL DISINTEGRATING TAB PO PRN (13:15)
--- NOTE | 2018-09-14 13:24 | NUR ---
MET W THE PT, DR. FLOOD AND PABLO HODGSON AT THE BEDSIDE REGARDING HOME MURPHY CARE. PT STATES HE WILL NOT NEED HH AND WILL F/U W HIS PCP.
[2018-09-14 16:00] VITALS: BP 138/84
--- NOTE | 2018-09-14 16:45 | NUR ---
patient alert and oriented. discharge instructions given to patient and concerning zhu care, both verbalized understanding. IV discontinued, catheter in tact and small dressing applied. patient to be wheeled out to personal auto for to drive home.
--- NOTE | 2018-09-15 04:50 | Discharge Summary ---
PRIMARY CARE DOCTOR: Dr. Chrissie Neal. FINAL DIAGNOSES: 1. Urinary retention with urine culture negative urinary tract infection. 2. Acute systolic congestive heart failure, better. 3. Hyponatremia, resolved. 4. Stage 3 chronic kidney disease, stable. 5. Hypertension. 6. Diabetes. 7. Hypothyroidism. CONSULTANTS: None. PROCEDURES/STUDIES PERFORMED: CT of the abdomen and pelvis, which was benign. HISTORY: Per H and P. HOSPITAL COURSE: The patient had recurrent urinary retention. Last time a week ago in the emergency room, a straight cath was done and the patient was sent home. However, same thing happened again at this time, we will leave the Ware catheter in. The patient already has been taking Flomax for a week now. Apparently, at this time has been working. The patient was instructed to continue. The patient refused home health for his Ware care. He said he knows how to take care of it. He has had it before. The patient will follow up with [facility] urologist. I have informed his [facility] primary care doctor about this already. The patient did have pyuria, hence UTI. However, his urine culture was negative, likely partially treated. The patient received three doses of IV Rocephin, which should suffice. He does not need any more antibiotics. The patient was also in acute systolic CHF. The patient diuresed well with IV Lasix. His creatinine in fact got a little better. At the time of discharge, it is 1.28. The patient will continue his oral torsemide at home. The patient was seen and examined today. His LFTs got better, likely reflecting resolving hepatic congestion and also his TSH is normal. CONDITION ON DISCHARGE: Improved. DISCHARGE MEDICATIONS: Please see medication reconciliation form. MD VIKTORIA Napoles/FAROOQ /[id number]
== END 2018-09-14 16:50 | disposition home or self-care (01) | DRG 291 ==
LOC: ER 10:43 → ERHOLD 14:04 → IMCU 15:37 → OBSVTOIN 09-12 11:22
PROVIDERS: ADMIT Internal Medicine; ATTEND Internal Medicine
DX: I13.0 Hypertensive heart and chronic kidney disease with heart failure and stage 1 through stage 4 chronic kidney disease, or unspecified chronic kidney disease (principal); I50.23 Acute on chronic systolic (congestive) heart failure; N39.0 Urinary tract infection, site not specified; E87.1 Hypo-osmolality and hyponatremia; Z95.810 Presence of automatic (implantable) cardiac defibrillator; I25.10 Atherosclerotic heart disease of native coronary artery without angina pectoris; E03.9 Hypothyroidism, unspecified; E11.9 Type 2 diabetes mellitus without complications; N18.3 Chronic kidney disease, stage 3 (moderate); R09.02 Hypoxemia; R33.9 Retention of urine, unspecified; K76.1 Chronic passive congestion of liver
CPT/HCPCS: 36415; 51700; 71045; 74177; 80048; 80053; 80061; 80076; 81001; 82150; 82550; 82553; 82948; 83690; 83735; 83880; 84443; 84484; 85025; 85610; 85730; 87086; 90732; 93005; 99285; G0378; J1644; J1940; J7030; J7799; Q9967

== ENCOUNTER 2018-09-17 17:04 | Inpatient (IN) | payer MEDICARE ==
[~2018-09-17] VITALS: Ht 165.1 cm; Wt 82.1 kg
[2018-09-17] MEDS ORDERED: MORPHINE SULFATE 2 MG/ML SYR 1ML IV STA (18:08)
[2018-09-17] MEDS ORDERED: SODIUM CHLORIDE 0.9% 1000ML 1,000 ML IV STA (18:08)
[2018-09-17] MEDS ORDERED: MORPHINE SULFATE INJ 4 MG/ML INJ 1ML IV ONE (18:15)
[2018-09-17 18:54] LABS: BASOPHILS % 0.3 % (0.0-1.0); EOSINOPHILS # (AUTO) 0.2 (0.0-0.4); EOSINOPHILS % 3.4 % (0.0-6.0); HEMATOCRIT 31.2 % (38.2-49.6); HEMOGLOBIN 9.7 g/dL (14.0-18.0); LYMPHOCYTES # (AUTO) 0.9 (1.0-3.2); LYMPHOCYTES % 12.6 % (18.0-39.1); MEAN CORPUSCULAR HEMOGLOBIN 25.9 pg (28-32); MEAN CORPUSCULAR HGB CONC 31.1 g/dL (31-35); MEAN CORPUSCULAR VOLUME 83.4 fL (81-99); MONOCYTES # (AUTO) 0.9 (0.2-0.8); MONOCYTES % 12.6 % (4.4-11.3); NEUTROPHILS % 70.7 % (38.7-80.0); PLATELET COUNT 171 x10e3/uL (140-360); RED BLOOD COUNT 3.74 x10e6/uL (4.3-5.7); RED CELL DISTRIBUTION WIDTH 16.4 % (11.7-14.4)
[2018-09-17 19:00] LABS: CLARITY,URINE SL CLOUDY (CLEAR); COLOR,URINE YELLOW (YELLOW); LEUKOCYTE ESTERASE ,URINE TRACE (NEGATIVE); NITRITE,URINE NEGATIVE (NEGATIVE); PROTEIN,URINE DIPSTICK 2+ (NEGATIVE)
[2018-09-17 19:01] LABS: BILIRUBIN,URINE NEGATIVE (NEGATIVE); KETONES,URINE NEGATIVE (NEGATIVE); URINE UROBILINOGEN 0.2 mg/dL (0.2 - 1)
[2018-09-17 19:04] LABS: INR 1.07; PROTHROMBIN TIME 14.4 seconds (11.9-14.5)
[2018-09-17 19:05] LABS: PARTIAL THROMBOPLASTIN TIME 37.3 seconds (23.8-35.5)
[2018-09-17 19:07] LABS: BACTERIA,URINE MODERATE /HPF; EPITHELIAL CELLS,URINE MODERATE /LPF; RBC,URINE >50 /HPF (0-5)
[2018-09-17 19:13] LABS: ALBUMIN 3.3 g/dL (3.5-5.0); ALBUMIN/GLOBULIN RATIO 0.9 (0.8-2.0); CALCIUM 8.6 mg/dL (8.4-10.2); CREATININE, SERUM 1.31 mg/dL (0.72-1.25); MAGNESIUM 2.1 MG/DL (1.3-2.1)
[2018-09-17 19:19] LABS: CREATINE KINASE MB 3.3 ng/mL (0-5.0)
--- NOTE | 2018-09-17 19:49 | Diagnostic Imaging Report ---
EXAM: Scrotal Ultrasound INDICATION: Testicular pain and swelling ^PAIN/swelling ^[id number] ^[birth year]05 ^Y COMPARISON: None TECHNIQUE: Transverse and longitudinal images were obtained of the scrotum with grayscale imaging, color Doppler and spectral waveform analysis. FINDINGS: Right testis: Size: 2.9 x 3.7 x 2.4 cm, normal in size. Echogenicity: Normal Mass/Cysts: None Left testis: Size: 3.4 x 2.8 x 2.4 cm, normal in size. Echogenicity: Normal Mass/Cysts: None Epididymis: Appearance: Normal in size without increased vascularity. Mass/Cysts: None Extratesticular: Masses: None Fluid collections: Small right hydrocele. Small right varicocele. Doppler: Normal arterial flow to both testes and symmetrical flow on color Doppler evaluation is seen. No evidence of testicular torsion. IMPRESSION: 1. No evidence of testicular torsion. 2. Small right hydrocele. Small right varicocele. Moderate scrotal swelling/edema. Signed by: Dr. David Fox M.D. on 09/17/2018 7:46 PM
--- NOTE | 2018-09-17 19:49 | Diagnostic Imaging Report ---
EXAM: Scrotal Ultrasound INDICATION: Testicular pain and swelling ^PAIN/swelling ^[id number] ^[birth year]05 ^Y COMPARISON: None TECHNIQUE: Transverse and longitudinal images were obtained of the scrotum with grayscale imaging, color Doppler and spectral waveform analysis. FINDINGS: Right testis: Size: 2.9 x 3.7 x 2.4 cm, normal in size. Echogenicity: Normal Mass/Cysts: None Left testis: Size: 3.4 x 2.8 x 2.4 cm, normal in size. Echogenicity: Normal Mass/Cysts: None Epididymis: Appearance: Normal in size without increased vascularity. Mass/Cysts: None Extratesticular: Masses: None Fluid collections: Small right hydrocele. Small right varicocele. Doppler: Normal arterial flow to both testes and symmetrical flow on color Doppler evaluation is seen. No evidence of testicular torsion. IMPRESSION: 1. No evidence of testicular torsion. 2. Small right hydrocele. Small right varicocele. Moderate scrotal swelling/edema. Signed by: Dr. David Fox M.D. on 09/17/2018 7:46 PM
[2018-09-17] MEDS ORDERED: CEFTRIAXONE SOD 1 GM/NS 50 ML 50 ML IV ONE (21:15)
[2018-09-17] MEDS ORDERED: SODIUM CHLORIDE 0.9% 1000ML 1,000 ML ONE (21:39)
--- NOTE | 2018-09-17 22:26 | Diagnostic Imaging Report ---
EXAMINATION: CT of the abdomen and pelvis with contrast. TECHNIQUE: Helical CT images of the abdomen and pelvis were performed from the lung bases to the lesser trochanters after the intravenous administration of 100 cc of Isovue 300. Coronal and sagittal reformatted images were obtained.Dose modulation, iterative reconstruction, and/or weight based adjustment of the mA/kV was utilized to reduce the radiation dose to as low as reasonably achievable. COMPARISON: abdominal pain CLINICAL HISTORY:Abdominal pain and distention DISCUSSION: ABDOMEN/PELVIS: LOWER THORAX:Unremarkable. HEPATOBILIARY: No focal hepatic lesions. No intra-or extrahepatic biliary ductal dilation. Probable small gallstones. SPLEEN: No splenomegaly. PANCREAS: No focal masses or ductal dilatation. ADRENALS: No adrenal nodules. KIDNEYS/URETERS: No hydronephrosis, stones, or solid mass lesions. PELVIC ORGANS/BLADDER: Ware catheter within the bladder. Circumferential wall thickening. PERITONEUM/RETROPERITONEUM: Mild ascites LYMPH NODES: No intra-abdominal, retroperitoneal, pelvic or inguinal lymphadenopathy. VESSELS: Vascular calcifications. No aneurysm. GI TRACT: Scattered diverticulosis. No distention or wall thickening. BONES AND SOFT TISSUE: No bony destructive lesions. Pars defect L5. IMPRESSION: No acute CT finding. Stable ascites. Probable small gallstones. Decompressed bladder with Ware. Signed by: Dr. Ramo Arnold M.D. on 09/17/2018 10:23 PM
[2018-09-17] MEDS ORDERED: SODIUM CHLORIDE 0.9% 50ML 50 ML ONE (22:44)
[2018-09-17] MEDS ORDERED: IOPAMIDOL 370 MG/ML 200 ML INFUS..BTL INJ ONE (22:44)
[2018-09-18] VITALS (7 sets, daily range): BP systolic 108–147; BP diastolic 71–84
[2018-09-18] MEDS ORDERED: DEXTROSE 50% SYRINGE 50 ML IV PRN
--- NOTE | 2018-09-18 01:49 | NUR ---
PATIENT RECEIVED FROM EMERGENCY DEPARTMENT PER STRETCHER AT 0015. HE'S ALERT AND ORIENTED X3, NO RESPIRATORY DISTRESS OBSERVED AND HE C/O MILD PAIN TO THE SCROTUM BUT REFUSED PAIN MEDICATION WHEN OFFER. PATIENT IS AZERI SPEAKING WITH MINIMAL SINHALA, TRACK LEADER LINE WAS ACCESS TO OBTAIN MEDICAL HISTORY FROM THE PATIENT. EDEMA TO THE PENIS AND SCROTUM, MURPHY CATHETER INTACT. NON PITTING EDEMA TO THE LEGS WITH REDNESS TO THE LEGS. IV HEPLOCK INTACT TO THE RIGHT WRIST, CALL LIGHT WITHIN EASY REACH AND BED ALARM ON.
[2018-09-18] MEDS: ONDANSETRON HCL INJ 2MG/ML 2ML 2 MG/ML VIAL IV PRN (05:13)
[2018-09-18] MEDS: MORPHINE SULFATE INJ 4 MG/ML INJ 1ML IV PRN (05:13)
--- NOTE | 2018-09-18 05:13 | NUR ---
PATIENT C/O PAIN TO THE SCROTUM WITH PAIN SCORE #8, MEDICATED WITH MORPHINE AND ZOFRAN ORDERED. BED ALARM ON, CALL LIGHT WITHIN EASY REACH AND PATIENT INSTRUCTED TO CALL FOR ASSISTANCE NEEDED.
--- NOTE | 2018-09-18 06:50 | NUR ---
HANDOFF REPORT RECEIVED, PATIENT AWARE OF CHANGE AND IN NO DISTRESS. CALL VARGAS WITHIN REACH AND BED IN LOWEST POSITION.
[2018-09-18] MEDS ORDERED: INSULIN REGULAR, HUMAN 100 UNIT/1 ML 3ML VIAL SQ SCH (07:30)
[2018-09-18 08:03] LABS: BASOPHILS % 0.4 % (0.0-1.0); EOSINOPHILS # (AUTO) 0.2 (0.0-0.4); EOSINOPHILS % 4.1 % (0.0-6.0); HEMATOCRIT 29.3 % (38.2-49.6); HEMOGLOBIN 9.1 g/dL (14.0-18.0); LYMPHOCYTES # (AUTO) 0.7 (1.0-3.2); LYMPHOCYTES % 13.9 % (18.0-39.1); MEAN CORPUSCULAR HEMOGLOBIN 26.1 pg (28-32); MEAN CORPUSCULAR HGB CONC 31.1 g/dL (31-35); MONOCYTES # (AUTO) 0.7 (0.2-0.8); MONOCYTES % 13.9 % (4.4-11.3); NEUTROPHILS # (AUTO) 3.2 (2.1-6.9); NEUTROPHILS % 67.3 % (38.7-80.0); PLATELET COUNT 133 x10e3/uL (140-360); RED BLOOD COUNT 3.49 x10e6/uL (4.3-5.7); RED CELL DISTRIBUTION WIDTH 16.7 % (11.7-14.4)
[2018-09-18 08:30] LABS: ANION GAP 13.1 mmol/L (8-16); BLOOD UREA NITROGEN 32 mg/dL (7-26); BUN/CREATININE RATIO 27 (6-25); CALCIUM 8.2 mg/dL (8.4-10.2); CARBON DIOXIDE 26 mmol/L (22-29); CHLORIDE 100 mmol/L (98-107); CREATININE, SERUM 1.17 mg/dL (0.72-1.25); EST GLOMERULAR FILTRATION RATE > 60 ML/MIN (60-); GLUCOSE 74 mg/dL (74-118); MAGNESIUM 2.5 MG/DL (1.3-2.1); POTASSIUM 4.1 mmol/L (3.5-5.1); SODIUM 135 mmol/L (136-145)
[2018-09-18] MEDS ORDERED: CEFTRIAXONE SOD 1 GM/NS 50 ML 50 ML IV SCH (09:00)
[2018-09-18] MEDS: CARVEDILOL 3.125 MG TAB PO SCH ×2 (10:52→21:00)
[2018-09-18] MEDS: GABAPENTIN 300 MG CAP PO SCH ×2 (10:52→16:38)
[2018-09-18] MEDS ORDERED: FUROSEMIDE INJ 10 MG/ML 4 ML VIAL IV NR (11:00)
--- NOTE | 2018-09-18 11:15 | Diagnostic Imaging Report ---
Chest, 1 view, 09/18/2018. History: History of CHF. Comparison: 09/13/2018. Findings: The cardiomediastinal silhouette and pulmonary vasculature are prominent. There is no focal consolidation or pleural effusion. Hazy bilateral perihilar opacities are present, grossly unchanged. Median sternotomy wires and left subclavian pacer are unchanged in position. There are no acute osseous or soft tissue abnormalities. Impression: Mild CHF without significant change. Signed by: Rex Yap on 09/18/2018 11:12 AM
[2018-09-18] MEDS: INSULIN LISPRO 100 UNIT/1 ML 3ML VIAL SQ SCH ×3 (11:29→21:32)
--- NOTE | 2018-09-18 18:55 | NUR ---
handoff report given to material handler 1st shift, patient aware of change. call villafana within reach and bed in lowest position. at bedside
--- NOTE | 2018-09-18 19:06 | NUR ---
Report received and walking rounds complete.
[2018-09-18] MEDS ORDERED: FUROSEMIDE INJ 10 MG/ML 4 ML VIAL IV SCH (21:00)
[2018-09-18] MEDS ORDERED: NON-FORMULARY MEDICATION (Atorvastatin Calcium 40 MG) PO SCH (21:00)
[2018-09-18] MEDS: FUROSEMIDE INJ 10 MG/ML 2 ML VIAL IV SCH (21:32)
[2018-09-18] MEDS: ATORVASTATIN 40 MG TAB PO SCH (21:32)
[2018-09-19] VITALS (7 sets, daily range): BP systolic 109–133; BP diastolic 71–81
[2018-09-19] MEDS: LEVOTHYROXINE SODIUM 50 MCG TAB PO SCH (05:33)
[2018-09-19 05:40] LABS: BASOPHILS # (AUTO) 0.1 (0.0-0.1); EOSINOPHILS # (AUTO) 0.3 (0.0-0.4); EOSINOPHILS % 5.3 % (0.0-6.0); HEMATOCRIT 31.2 % (38.2-49.6); HEMOGLOBIN 9.7 g/dL (14.0-18.0); LYMPHOCYTES # (AUTO) 0.9 (1.0-3.2); LYMPHOCYTES % 18.1 % (18.0-39.1); MEAN CORPUSCULAR HEMOGLOBIN 26.1 pg (28-32); MEAN CORPUSCULAR HGB CONC 31.1 g/dL (31-35); MEAN CORPUSCULAR VOLUME 84.1 fL (81-99); MONOCYTES # (AUTO) 0.9 (0.2-0.8); MONOCYTES % 17.5 % (4.4-11.3); NEUTROPHILS # (AUTO) 2.9 (2.1-6.9); NEUTROPHILS % 57.9 % (38.7-80.0); PLATELET COUNT 146 x10e3/uL (140-360); RED BLOOD COUNT 3.71 x10e6/uL (4.3-5.7); RED CELL DISTRIBUTION WIDTH 16.5 % (11.7-14.4)
[2018-09-19 05:54] LABS: ANION GAP 12.5 mmol/L (8-16); CALCIUM 8.1 mg/dL (8.4-10.2); CREATININE, SERUM 1.54 mg/dL (0.72-1.25); MAGNESIUM 2.3 MG/DL (1.3-2.1); POTASSIUM 4.5 mmol/L (3.5-5.1)
--- NOTE | 2018-09-19 06:22 | Diagnostic Imaging Report ---
Examination: Single AP view of the chest. COMPARISON: 09/18/2018 INDICATION: Congestive heart failure DISCUSSION: Lines/tubes: Sternotomy wires. Multi lead cardiac device. Lungs: Pulmonary venous congestion. Pleura: No pleural effusion or pneumothorax. Heart and mediastinum: Cardiomegaly Bones and soft tissues: No acute bony abnormalities. IMPRESSION: 1. Cardiomegaly with pulmonary venous congestion, stable Signed by: Dr. Ramo Arnold M.D. on 09/19/2018 6:19 AM
--- NOTE | 2018-09-19 07:08 | NUR ---
report given and walking rounds complete
[2018-09-19] MEDS: INSULIN LISPRO 100 UNIT/1 ML 3ML VIAL SQ SCH ×4 (07:20→21:38)
[2018-09-19] MEDS ORDERED: LEVOTHYROXINE SODIUM 25 MCG TABLET PO SCH (09:00)
[2018-09-19] MEDS: GABAPENTIN 300 MG CAP PO SCH ×2 (09:07→16:14)
[2018-09-19] MEDS: ASPIRIN 81 MG CHEW TAB PO SCH (09:07)
[2018-09-19] MEDS: CARVEDILOL 3.125 MG TAB PO SCH ×2 (09:07→21:38)
[2018-09-19] MEDS: FUROSEMIDE INJ 10 MG/ML 2 ML VIAL IV SCH ×2 (09:07→21:37)
--- NOTE | 2018-09-19 19:12 | NUR ---
Report received and walking rounds complete. Pt resting in bed and in no apparent distress. Pt family at bedside. All safety measures ensured.
[2018-09-19] MEDS: ATORVASTATIN 40 MG TAB PO SCH (21:38)
[2018-09-19] MEDS: TAMSULOSIN HCL 0.4 MG CAP PO SCH (21:38)
[2018-09-20] VITALS (8 sets, daily range): BP systolic 116–137; BP diastolic 73–82
--- NOTE | 2018-09-20 05:40 | Diagnostic Imaging Report ---
Examination: Single AP view of the chest. COMPARISON: 09/19/2018 INDICATION: Congestive heart failure DISCUSSION: Lines/tubes: Sternotomy wires. Multi lead cardiac device. Lungs: Pulmonary venous congestion. Pleura: No pleural effusion or pneumothorax. Heart and mediastinum: Cardiomegaly Bones and soft tissues: No acute bony abnormalities. Degenerative changes in the thoracic spine. IMPRESSION: 1. Cardiomegaly with pulmonary venous congestion, stable Signed by: Dr. Ramo Arnold M.D. on 09/20/2018 5:37 AM
[2018-09-20] MEDS: LEVOTHYROXINE SODIUM 50 MCG TAB PO SCH (06:09)
[2018-09-20 06:30] LABS: BASOPHILS # (AUTO) 0.1 (0.0-0.1); BASOPHILS % 0.7 % (0.0-1.0); EOSINOPHILS # (AUTO) 0.3 (0.0-0.4); EOSINOPHILS % 4.3 % (0.0-6.0); HEMATOCRIT 31.3 % (38.2-49.6); HEMOGLOBIN 9.6 g/dL (14.0-18.0); LYMPHOCYTES # (AUTO) 0.8 (1.0-3.2); LYMPHOCYTES % 11.6 % (18.0-39.1); MEAN CORPUSCULAR HEMOGLOBIN 25.9 pg (28-32); MEAN CORPUSCULAR HGB CONC 30.7 g/dL (31-35); MEAN CORPUSCULAR VOLUME 84.4 fL (81-99); MONOCYTES # (AUTO) 0.9 (0.2-0.8); MONOCYTES % 13.4 % (4.4-11.3); NEUTROPHILS # (AUTO) 4.7 (2.1-6.9); NEUTROPHILS % 69.6 % (38.7-80.0); PLATELET COUNT 156 x10e3/uL (140-360); RED BLOOD COUNT 3.71 x10e6/uL (4.3-5.7); RED CELL DISTRIBUTION WIDTH 16.3 % (11.7-14.4)
--- NOTE | 2018-09-20 07:22 | NUR ---
Report given and walking rounds complete.
[2018-09-20] MEDS: INSULIN LISPRO 100 UNIT/1 ML 3ML VIAL SQ SCH ×4 (07:30→21:29)
[2018-09-20 07:59] LABS: ANION GAP 11.4 mmol/L (8-16); CALCIUM 8.3 mg/dL (8.4-10.2); CREATININE, SERUM 1.54 mg/dL (0.72-1.25); MAGNESIUM 2.3 MG/DL (1.3-2.1); POTASSIUM 4.4 mmol/L (3.5-5.1)
[2018-09-20] MEDS: FUROSEMIDE INJ 10 MG/ML 2 ML VIAL IV SCH ×2 (09:01→21:25)
[2018-09-20] MEDS: ASPIRIN 81 MG CHEW TAB PO SCH (09:01)
[2018-09-20] MEDS: GABAPENTIN 300 MG CAP PO SCH ×2 (09:02→17:15)
[2018-09-20] MEDS: CARVEDILOL 3.125 MG TAB PO SCH ×2 (09:02→21:25)
--- NOTE | 2018-09-20 12:33 | NUR ---
TERRENCE notified Lynn pt nurse that pt has MDRO urine cx and is not on any antibiotics. She will call and notify Dr. Manrique. TERRENCE also notified Dr. Manrique of this, and that pt is 2 day obs.
[2018-09-20] MEDS ORDERED: FUROSEMIDE INJ 10 MG/ML 2 ML VIAL IV NR (13:45)
--- NOTE | 2018-09-20 17:45 | NUR ---
Pt A&O x3, no c/o pain at this time. NC at 2LPM, no breakdown noted to nares. Skin intact. Pitting edema noted to BLE, redness noted. Swelling noted to penis and scrotum, elevated at this time. Ware intact, patent and draining dark yellow urine with sediment noted. Call light within reach, bed in lowest position for pt's safety.
[2018-09-20] MEDS: MORPHINE SULFATE INJ 4 MG/ML INJ 1ML IV PRN (18:50)
[2018-09-20] MEDS: ONDANSETRON HCL INJ 2MG/ML 2ML 2 MG/ML VIAL IV PRN (18:50)
--- NOTE | 2018-09-20 18:50 | NUR ---
16Fr. zhu cath reinserted at this time. Swelling noted to scrotum and penis, c/o pain during reinsertion. Drainage noted to meatus. Dried yellow secretions noted around meatus.
--- NOTE | 2018-09-20 19:10 | NUR ---
Report received and walking rounds complete. Pt resting in bed and in no apparent distress. All safety measures ensured. Pt scrotum and penis still swollen and zhu in place.
[2018-09-20] MEDS: ATORVASTATIN 40 MG TAB PO SCH (21:25)
[2018-09-20] MEDS: HEPARIN SOD (PORCINE) 5,000 UNIT/ML VIAL SC SCH (21:25)
[2018-09-20] MEDS: TAMSULOSIN HCL 0.4 MG CAP PO SCH (21:25)
[2018-09-21] VITALS (8 sets, daily range): BP systolic 112–140; BP diastolic 66–79
[2018-09-21] MEDS: LEVOTHYROXINE SODIUM 50 MCG TAB PO SCH (06:06)
--- NOTE | 2018-09-21 06:13 | Diagnostic Imaging Report ---
Examination: Single AP view of the chest. COMPARISON: 09/20/2018 INDICATION: Congestive heart failure DISCUSSION: Lines/tubes: Sternotomy wires. Multi lead cardiac device. Lungs: Pulmonary venous congestion. Pleura: No pleural effusion or pneumothorax. Heart and mediastinum: Cardiomegaly Bones and soft tissues: No acute bony abnormalities. IMPRESSION: 1. Cardiomegaly with pulmonary venous congestion, increased Signed by: Dr. Ramo Arnold M.D. on 09/21/2018 6:10 AM
[2018-09-21 06:32] LABS: BASOPHILS # (AUTO) 0.1 (0.0-0.1); BASOPHILS % 0.9 % (0.0-1.0); EOSINOPHILS # (AUTO) 0.2 (0.0-0.4); EOSINOPHILS % 4.2 % (0.0-6.0); HEMATOCRIT 31.8 % (38.2-49.6); HEMOGLOBIN 9.7 g/dL (14.0-18.0); LYMPHOCYTES # (AUTO) 0.8 (1.0-3.2); LYMPHOCYTES % 14.8 % (18.0-39.1); MEAN CORPUSCULAR HEMOGLOBIN 25.7 pg (28-32); MEAN CORPUSCULAR HGB CONC 30.5 g/dL (31-35); MEAN CORPUSCULAR VOLUME 84.1 fL (81-99); MONOCYTES # (AUTO) 0.9 (0.2-0.8); MONOCYTES % 16.3 % (4.4-11.3); NEUTROPHILS # (AUTO) 3.4 (2.1-6.9); NEUTROPHILS % 63.6 % (38.7-80.0); PLATELET COUNT 169 x10e3/uL (140-360); RED BLOOD COUNT 3.78 x10e6/uL (4.3-5.7); RED CELL DISTRIBUTION WIDTH 16.3 % (11.7-14.4)
[2018-09-21 06:54] LABS: ANION GAP 12.6 mmol/L (8-16); CALCIUM 8.1 mg/dL (8.4-10.2); CREATININE, SERUM 1.76 mg/dL (0.72-1.25); POTASSIUM 4.6 mmol/L (3.5-5.1)
[2018-09-21] MEDS: ASPIRIN 81 MG CHEW TAB PO SCH (08:27)
[2018-09-21] MEDS: CARVEDILOL 3.125 MG TAB PO SCH ×2 (08:27→21:17)
[2018-09-21] MEDS: GABAPENTIN 300 MG CAP PO SCH ×2 (08:27→17:35)
[2018-09-21] MEDS: FUROSEMIDE INJ 10 MG/ML 2 ML VIAL IV SCH (08:27)
[2018-09-21] MEDS: HEPARIN SOD (PORCINE) 5,000 UNIT/ML VIAL SC SCH ×2 (09:00→21:26)
[2018-09-21] MEDS: INSULIN LISPRO 100 UNIT/1 ML 3ML VIAL SQ SCH ×4 (12:17→21:26)
[2018-09-21] MEDS ORDERED: FUROSEMIDE INJ 10 MG/ML 4 ML VIAL IV ONE (12:30)
[2018-09-21] MEDS ORDERED: METOLAZONE 5 MG TAB PO SCH ×2 (12:30→12:45)
[2018-09-21] MEDS ORDERED: ONDANSETRON HCL 4 MG ORAL DISINTEGRATING TAB PO PRN (14:45)
--- NOTE | 2018-09-21 16:42 | Consultation ---
DATE OF CONSULTATION: 09/21/2018 REASON FOR CONSULTATION: CHF exacerbation. HISTORY OF PRESENT ILLNESS: Mr. Weller is a 68-year-old gentleman with past medical history of hypertension, hypercholesteremia, BPH, coronary artery disease with prior history of 3-vessel CABG done to YEH to LAD on last heart catheterization, advanced ischemic cardiomyopathy with primary prevention ICD, who presents to this institution with progressively increased abdominal girth, weight gain, worsening lower extremity edema, scrotal edema, and just overall malaise with nearly upright orthopnea and difficult to control volume status. The patient reports that he had difficulty urinating from his scrotal edema and he had a catheter placed in his bladder. He denies any chest pain or discomfort. He reports his symptoms have been grossly worsening over the past month or two. He maintains that he takes his medications, but cannot recall them off the top of his head. The patient denies any ICD firing. In terms of diet, he does not seem to be entirely clear of his dietary restrictions and does not seem to be maintaining a fluid restriction either. Cardiology was consulted for further aid and management. It appears also the patient has underlying diabetes with chronic kidney stage III and his creatinine is hovering in the 1.5 range. PAST MEDICAL HISTORY: 1. Hypertension, essential. 2. Hypercholesterolemia. 3. Type 2 diabetes. 4. BPH. 5. CAD with prior history of CABG. 6. Advanced ischemic cardiomyopathy with EF in the 30% to 35% range. 7. History of ICD implantation. 8. Left heart catheterization in September 2015 showing only having a YEH to LAD as his last remaining conduit with 100% occluded mid LAD, proximal circ, and proximal RCA. FAMILY HISTORY: Mother and father in their 80s, does not known what medical issues they have. SOCIAL HISTORY: He is former smoker, quit 30 years ago. Occasional alcohol, denies any illicit drug use. ALLERGIES: NO KNOWN DRUG ALLERGIES. OUTPATIENT MEDICATIONS: Norvasc 5 mg daily, aspirin 81 mg daily, atorvastatin 40 mg at bedtime, gabapentin 300 mg b.i.d., insulin NPH 20 units subcu at bedtime, Synthroid 50 mcg daily, omeprazole 40 mg daily, and torsemide 40 mg b.i.d. REVIEW OF SYSTEMS: GENERAL: Positive for fatigue, malaise, and weight gain. HEENT: No headache, visual complaints, sore throat, stuffy nose. RESPIRATORY: Denies any pleuritic chest pain. He has exertional dyspnea with minimal activity and nonproductive cough. CARDIOVASCULAR: As per HPI. Denies any palpitations, syncope, or near syncope. GI: Denies any abdominal pain. Does have early satiety. No bright-red blood per rectum, melena, or hematemesis. Positive for constipation. : Positive for decreased urinary frequency and dysuria symptoms. MUSCULOSKELETAL: Positive for leg swelling and lower back pain. Denies any typical claudication symptoms. SKIN: No rashes or breakdown. ID: Denies any infectious issues. NEUROLOGIC: Denies any focal weakness, numbness, tingling, seizures, headache, history of TIA, or stroke. Remainder of review of systems is negative, otherwise as mentioned. PHYSICAL EXAMINATION: VITAL SIGNS: Height of 65 inches, weight of 281 pounds, and BMI is 46.8. Temperature of 98.4, pulse 113, respiratory rate 21, blood pressure is 140/66, and O2 saturation 98% on 2 L nasal cannula. GENERAL: This is a chronically ill appearing gentleman, who is lying at a 45-degree inclined on his bed. He is currently in mild respiratory distress. HEENT: Normocephalic and atraumatic. Pupils are equal, round, and reactive to light. Extraocular movements are intact. Oropharynx is clear. NECK: There is no elevation of jugular venous pulsation carotid bruits bilaterally. CARDIOVASCULAR: Tachycardiac. Normal S1 and S2. Positive 3/6 systolic murmur at left lower sternal border and 2 to 3/6 systolic murmur at apex. There is left shoulder ICD and old sternotomy scar. LUNGS: Diminished bibasilar breath sounds and some crackles at both bases compatible with volume overload. ABDOMEN: Distended with fluid wave difficult to obtain for hepatosplenomegaly. BACK: No costovertebral angle tenderness. EXTREMITIES: Warm with 3+ edema on the right and 2 to 3+ edema on the left. There is an old SVG harvest scar on the right leg. NEUROLOGIC: Cranial nerves 2 through 12 are intact. Strength is 5/5 and grossly nonfocal. : There is a Ware in place. PSYCH: Normal fluent speech. Appropriate affect. No anxiety or delusion. LABORATORY DATA: White count of 5.3, hemoglobin 9.7, hematocrit 32, and platelets of 169. Sodium 136, potassium 4.6, chloride 101, bicarb 27, BUN 48, creatinine 1.76, glucose 151, calcium 8.1, BNP 957, INR 1.07. UA showed 2+ protein. EKG revealed sinus tachycardiac, delayed R and S wave transition with no ST-T wave changes. Chest x-ray reveals pulmonary venous congestion. Echocardiogram reviewed from 09/21/2018 revealing EF to be around 30% to 35% and appears to have moderate MR and moderate TR with an ICD lead in place. DIAGNOSES: 1. Acute on chronic decompensated systolic or diastolic heart failure. 2. Chronic kidney disease, stage 3, likely secondary to hypertensive and diabetic nephrosclerosis. 3. Ascites. 4. Coronary artery disease with prior history of coronary artery bypass graft down to last remaining conduit YEH to LAD. 5. History of implantable cardioverter-defibrillator implantation. 6. Benign prostatic hypertrophy. 7. Scrotal edema. 8. Hypercholesterolemia. 9. Tachycardia secondary to increased neurohormonal activation for prognostic sign. PLAN/RECOMMENDATIONS: 1. From Cardiovascular standpoint, appreciate primary team and multidisciplinary evaluation. 2. The patient appears to be grossly volume overload, significantly short of breath. We will go ahead and resume aggressive diuretic therapy. We will give him test dose of metolazone and Lasix combination and check labs in the morning. 3. Strict I's and O's, daily weights. 4. A 2 g sodium restriction diet. 5. Telemetry monitoring. 6. The patient denies any angina. He will not pursue ischemic risk stratification at this time. 7. We will continue to follow. Thank you for this referral. MD SABIHA Franklin/FAROOQ /[id number]
[2018-09-21 16:55] LABS: CLARITY,URINE SL CLOUDY (CLEAR); COLOR,URINE YELLOW (YELLOW); LEUKOCYTE ESTERASE ,URINE TRACE (NEGATIVE); NITRITE,URINE NEGATIVE (NEGATIVE); PROTEIN,URINE DIPSTICK NEGATIVE (NEGATIVE)
[2018-09-21 16:56] LABS: BILIRUBIN,URINE NEGATIVE (NEGATIVE); KETONES,URINE NEGATIVE (NEGATIVE); RBC,URINE 21-50 /HPF (0-5); URINE UROBILINOGEN 0.2 mg/dL (0.2 - 1)
[2018-09-21 16:57] LABS: CREATININE,URINE RANDOM 20.88 mg/dL (63-166); TOTAL PROTEIN, URINE 7.2 mg/dL (1-14)
[2018-09-21] MEDS: CIPROFLOXACIN 400 MG/D5W 200ML 200 ML IV SCH (17:35)
--- NOTE | 2018-09-21 18:32 | Consultation ---
DATE OF CONSULTATION: HISTORY OF PRESENT ILLNESS: History is predominantly from the patient's . He is very sleepy and is really not participating in exam. Most of his workup and primary care physicians are in [place]. He is just here in [place]. He was admitted with congestive heart failure, edema, anasarca, and scrotal edema. Apparently, he has a history of urinary retention, I am told. Urology apparently has been consulted. Renal consulted for management of acute kidney injury and significant edema. Labs show sodium 136, potassium 4.6, chloride 101, bicarbonate 27, BUN 48, creatinine of 1.76. BNP is 957. ALLERGIES: NO APPARENT DRUG ALLERGIES. PAST MEDICAL HISTORY: Longstanding history of diabetes, hypertension, history of congestive heart failure, peripheral neuropathy, history of hypothyroidism. MEDICATIONS: He is currently on morphine p.r.n., ondansetron p.r.n., Flomax 0.4 mg at bedtime. He is also on insulin, levothyroxine, gabapentin 300 mg p.o. b.i.d., Lasix 40 mg IV q.12 which has been discontinued. Carvedilol 3.125 mg p.o. q.12, atorvastatin. PHYSICAL EXAMINATION: GENERAL: Awake, alert, and oriented x3, in no apparent distress. VITAL SIGNS: Blood pressure of 130/60, pulse rate 80. HEAD AND NECK: Cornea clear. Mucosa moist. LUNGS: Bibasilar rales. HEART: S1, S2 audible. Soft 2-3/6 ejection systolic murmur at left sternal border. ABDOMEN: Obese, soft, and nontender. Flanks full. Scrotal edema noted. LOWER EXTREMITIES: About 2+ edema bilateral. Workup also included an urinalysis, shows specific gravity of 1.020 with urine dipstick positive protein more than 50 with urine wbc of 11 to 20. Urine culture result shows Staphylococcus auricularis in the urine at any rate, which is resistant to ceftriaxone and Cipro. IMPRESSION: 1. Acute kidney injury, multifactorial. Definitely on exam suggestive of probable nephrotic syndrome, underlying diabetic nephropathy. He does see a railway switchman in [place]. 2. He has been told to have chronic kidney disease. They have not been told exactly what level. 3. He does have other stigmata of chronic kidney disease. Urology is consulted for urinary retention and BPH. Workup ordered and medications adjusted. Please see orders, discussed with . MD KYRIE Maldonado/FAROOQ /[id number]
[2018-09-21] MEDS: MORPHINE SULFATE INJ 4 MG/ML INJ 1ML IV PRN (18:43)
--- NOTE | 2018-09-21 19:00 | NUR ---
received report from day nurse. patient is resting comfortably in bed. bed is in lowest position and call villafana is within reach. will continue to monitor patient.
[2018-09-21] MEDS: ATORVASTATIN 40 MG TAB PO SCH (21:17)
[2018-09-21] MEDS: TAMSULOSIN HCL 0.4 MG CAP PO SCH (21:17)
[2018-09-21] MEDS: BUMETANIDE INJ 0.25MG/ML 4ML VIAL IV SCH (21:26)
[2018-09-22] VITALS (7 sets, daily range): BP systolic 108–133; BP diastolic 63–80
[2018-09-22] MEDS: MORPHINE SULFATE INJ 4 MG/ML INJ 1ML IV PRN (01:37)
[2018-09-22 05:34] LABS: BASOPHILS % 0.9 % (0.0-1.0); EOSINOPHILS # (AUTO) 0.4 (0.0-0.4); EOSINOPHILS % 8.4 % (0.0-6.0); HEMATOCRIT 30.3 % (38.2-49.6); HEMOGLOBIN 9.3 g/dL (14.0-18.0); LYMPHOCYTES # (AUTO) 0.8 (1.0-3.2); LYMPHOCYTES % 16.8 % (18.0-39.1); MEAN CORPUSCULAR HEMOGLOBIN 25.5 pg (28-32); MEAN CORPUSCULAR HGB CONC 30.7 g/dL (31-35); MEAN CORPUSCULAR VOLUME 83.2 fL (81-99); MONOCYTES # (AUTO) 0.8 (0.2-0.8); NEUTROPHILS # (AUTO) 2.6 (2.1-6.9); NEUTROPHILS % 56.7 % (38.7-80.0); PLATELET COUNT 156 x10e3/uL (140-360); RED BLOOD COUNT 3.64 x10e6/uL (4.3-5.7); RED CELL DISTRIBUTION WIDTH 16.1 % (11.7-14.4)
[2018-09-22] MEDS: BUMETANIDE INJ 0.25MG/ML 4ML VIAL IV SCH ×3 (05:34→22:18)
[2018-09-22] MEDS: LEVOTHYROXINE SODIUM 50 MCG TAB PO SCH (05:34)
[2018-09-22 05:57] LABS: ALBUMIN 2.9 g/dL (3.5-5.0); ALBUMIN/GLOBULIN RATIO 0.9 (0.8-2.0); ANION GAP 8.5 mmol/L (8-16); CREATININE, SERUM 1.75 mg/dL (0.72-1.25); MAGNESIUM 2.5 MG/DL (1.3-2.1); POTASSIUM 3.5 mmol/L (3.5-5.1)
--- NOTE | 2018-09-22 06:03 | Diagnostic Imaging Report ---
EXAMINATION: CHEST SINGLE (PORTABLE) INDICATION: ^CHF COMPARISON: Chest x-ray 09/21/2018 FINDINGS: AP view TUBES and LINES: Left-sided AICD with 2 leads. LUNGS: Lungs are well inflated. There are bibasilar atelectasis. There is stable perihilar interstitial opacities, consistent with interstitial edema. PLEURA: No pleural effusion or pneumothorax. HEART AND MEDIASTINUM: Cardiac size is moderately enlarged. There are atherosclerotic calcifications within the aorta. BONES AND SOFT TISSUES: No acute osseous lesion. Soft tissues are unremarkable. UPPER ABDOMEN: No free air under the diaphragm. IMPRESSION: Stable moderate cardiomegaly with interstitial edema. Signed by: Dr. Yo Coats M.D. on 09/22/2018 5:59 AM
[2018-09-22 06:17] LABS: THYROID STIMULATING HORMONE 9.009 uIU/mL (0.350-4.940)
--- NOTE | 2018-09-22 07:06 | NUR ---
Report given to day nurse. patient is resting comfortably in the bed. bed is in lowest position and call villafana is within reach.
[2018-09-22] MEDS: INSULIN LISPRO 100 UNIT/1 ML 3ML VIAL SQ SCH ×4 (07:36→22:18)
[2018-09-22] MEDS: GABAPENTIN 300 MG CAP PO SCH ×2 (08:35→16:50)
[2018-09-22] MEDS: METOLAZONE 5 MG TAB PO SCH (08:36)
[2018-09-22] MEDS: CARVEDILOL 3.125 MG TAB PO SCH ×2 (08:36→22:11)
[2018-09-22] MEDS: ASPIRIN 81 MG CHEW TAB PO SCH (08:36)
[2018-09-22] MEDS: HEPARIN SOD (PORCINE) 5,000 UNIT/ML VIAL SC SCH ×2 (08:44→22:14)
--- NOTE | 2018-09-22 12:33 | Diagnostic Imaging Report ---
EXAM: Renal Ultrasound INDICATION: Renal sufficiency. COMPARISON: CT abdomen/pelvis 09/17/2018. TECHNIQUE: Transverse and longitudinal images of the kidneys and bladder were obtained. FINDINGS: Right Kidney: Length: Measures 10.3 cm Appearance: Normal echogenicity. Collecting system: No hydronephrosis Stones: None Cyst/Mass: None Left Kidney: Length: Measures 11.4 cm Appearance: Normal echogenicity. Collecting system: No hydronephrosis Stones: None Cyst/Mass: None Bladder: Partially decompressed with Ware catheter in place. Other: The prostate is not visualized. Incidental small volume ascites in the upper abdomen. IMPRESSION: Unremarkable sonographic appearance of the kidneys. Ware catheter within a partially decompressed bladder. Incidental small volume ascites in the upper abdomen. Signed by: Dr. Cyrus Haskins MD on 09/22/2018 12:30 PM
[2018-09-22] MEDS ORDERED: LACTULOSE SYRUP 20 GM/30 ML UDC PO NR (14:30)
[2018-09-22] MEDS: CIPROFLOXACIN 400 MG/D5W 200ML 200 ML IV SCH (16:50)
[2018-09-22] MEDS: LACTOBACILLUS ACIDOPHILUS CAPSULE PO SCH (16:50)
[2018-09-22] MEDS ORDERED: POTASSIUM CHLORIDE 20 MEQ TAB CR PO NR (17:30)
--- NOTE | 2018-09-22 19:05 | NUR ---
Received report from previous nurse. Call light within reach.
[2018-09-22] MEDS: ATORVASTATIN 40 MG TAB PO SCH (22:11)
[2018-09-22] MEDS: TAMSULOSIN HCL 0.4 MG CAP PO SCH (22:11)
[2018-09-23] VITALS (8 sets, daily range): BP systolic 108–134; BP diastolic 57–74
[2018-09-23 05:56] LABS: BASOPHILS % 0.4 % (0.0-1.0); EOSINOPHILS # (AUTO) 0.3 (0.0-0.4); EOSINOPHILS % 5.1 % (0.0-6.0); HEMATOCRIT 29.7 % (38.2-49.6); HEMOGLOBIN 9.2 g/dL (14.0-18.0); LYMPHOCYTES # (AUTO) 0.7 (1.0-3.2); LYMPHOCYTES % 15.1 % (18.0-39.1); MEAN CORPUSCULAR HEMOGLOBIN 25.5 pg (28-32); MEAN CORPUSCULAR VOLUME 82.3 fL (81-99); MONOCYTES # (AUTO) 0.8 (0.2-0.8); MONOCYTES % 17.2 % (4.4-11.3); PLATELET COUNT 153 x10e3/uL (140-360); RED BLOOD COUNT 3.61 x10e6/uL (4.3-5.7); RED CELL DISTRIBUTION WIDTH 16.4 % (11.7-14.4)
[2018-09-23 06:19] LABS: ANION GAP 11.6 mmol/L (8-16); CALCIUM 8.3 mg/dL (8.4-10.2); CREATININE, SERUM 1.69 mg/dL (0.72-1.25); POTASSIUM 3.6 mmol/L (3.5-5.1)
[2018-09-23] MEDS: BUMETANIDE INJ 0.25MG/ML 4ML VIAL IV SCH ×3 (06:23→21:13)
[2018-09-23] MEDS: LEVOTHYROXINE SODIUM 50 MCG TAB PO SCH (06:23)
--- NOTE | 2018-09-23 07:21 | NUR ---
GAVE REPORT TO ONCOMING NURSE. PATIENT IN BED. SCROTUM ELEVATED. CALL LIGHT WITHIN REACH.
[2018-09-23] MEDS: INSULIN LISPRO 100 UNIT/1 ML 3ML VIAL SQ SCH ×4 (07:45→21:22)
[2018-09-23] MEDS: METOLAZONE 5 MG TAB PO SCH (09:30)
[2018-09-23] MEDS: ASPIRIN 81 MG CHEW TAB PO SCH (09:30)
[2018-09-23] MEDS: CARVEDILOL 3.125 MG TAB PO SCH ×2 (09:30→21:12)
[2018-09-23] MEDS: HEPARIN SOD (PORCINE) 5,000 UNIT/ML VIAL SC SCH ×2 (09:30→21:16)
[2018-09-23] MEDS: GABAPENTIN 300 MG CAP PO SCH ×2 (09:30→17:37)
[2018-09-23] MEDS: LACTOBACILLUS ACIDOPHILUS CAPSULE PO SCH ×2 (09:30→17:37)
[2018-09-23] MEDS ORDERED: LACTULOSE SYRUP 20 GM/30 ML UDC PO ONE (13:45)
--- NOTE | 2018-09-23 15:32 | Diagnostic Imaging Report ---
Examination: Single AP view of the chest. COMPARISON: 09/22/2018 INDICATION: Chest pain, cough DISCUSSION: See impression IMPRESSION: 1. Lungs remain well-inflated and without focal consolidation. 2. Stable moderate cardiomegaly with left subclavian approach cardiac device, postsurgical changes of the mediastinum, and interstitial edema relative to 09/22/2018. Signed by: Dr. Henok Duran M.D. on 09/23/2018 3:29 PM
[2018-09-23] MEDS: CIPROFLOXACIN 400 MG/D5W 200ML 200 ML IV SCH (17:37)
[2018-09-23] MEDS: ATORVASTATIN 40 MG TAB PO SCH (21:12)
[2018-09-23] MEDS: TAMSULOSIN HCL 0.4 MG CAP PO SCH (21:12)
--- NOTE | 2018-09-23 22:22 | NUR ---
Gave face to face report to Hayden SHAH for patient going to room 107.
[2018-09-24] VITALS (7 sets, daily range): BP systolic 109–138; BP diastolic 56–67
[2018-09-24] MEDS: LEVOTHYROXINE SODIUM 50 MCG TAB PO SCH (06:03)
[2018-09-24] MEDS: BUMETANIDE INJ 0.25MG/ML 4ML VIAL IV SCH ×3 (06:03→21:35)
[2018-09-24 06:18] LABS: BASOPHILS % 0.9 % (0.0-1.0); EOSINOPHILS # (AUTO) 0.3 (0.0-0.4); EOSINOPHILS % 6.6 % (0.0-6.0); HEMATOCRIT 30.2 % (38.2-49.6); HEMOGLOBIN 9.4 g/dL (14.0-18.0); LYMPHOCYTES % 21.6 % (18.0-39.1); MEAN CORPUSCULAR HEMOGLOBIN 25.7 pg (28-32); MEAN CORPUSCULAR HGB CONC 31.1 g/dL (31-35); MEAN CORPUSCULAR VOLUME 82.5 fL (81-99); MONOCYTES # (AUTO) 0.8 (0.2-0.8); MONOCYTES % 17.1 % (4.4-11.3); NEUTROPHILS # (AUTO) 2.5 (2.1-6.9); NEUTROPHILS % 53.6 % (38.7-80.0); PLATELET COUNT 160 x10e3/uL (140-360); RED BLOOD COUNT 3.66 x10e6/uL (4.3-5.7); RED CELL DISTRIBUTION WIDTH 16.2 % (11.7-14.4)
[2018-09-24 06:44] LABS: ALBUMIN/GLOBULIN RATIO 0.9 (0.8-2.0); ANION GAP 12.3 mmol/L (8-16); CALCIUM 8.8 mg/dL (8.4-10.2); CREATININE, SERUM 1.42 mg/dL (0.72-1.25); POTASSIUM 3.3 mmol/L (3.5-5.1)
[2018-09-24 06:57] LABS: ANION GAP 11.4 mmol/L (8-16); CALCIUM 8.5 mg/dL (8.4-10.2); CREATININE, SERUM 1.38 mg/dL (0.72-1.25); POTASSIUM 3.4 mmol/L (3.5-5.1)
[2018-09-24] MEDS: METOLAZONE 5 MG TAB PO SCH (08:55)
[2018-09-24] MEDS: LACTOBACILLUS ACIDOPHILUS CAPSULE PO SCH ×2 (08:55→17:44)
[2018-09-24] MEDS: GABAPENTIN 300 MG CAP PO SCH ×2 (08:55→17:44)
[2018-09-24] MEDS: ASPIRIN 81 MG CHEW TAB PO SCH (08:56)
[2018-09-24] MEDS: HEPARIN SOD (PORCINE) 5,000 UNIT/ML VIAL SC SCH ×2 (08:56→21:37)
[2018-09-24] MEDS: INSULIN LISPRO 100 UNIT/1 ML 3ML VIAL SQ SCH ×4 (08:56→21:37)
[2018-09-24] MEDS: CARVEDILOL 3.125 MG TAB PO SCH ×2 (08:56→21:36)
[2018-09-24] MEDS ORDERED: CITRATE OF MAGNESIA 300ML BOTTLE PO NR (16:00)
[2018-09-24] MEDS: CIPROFLOXACIN 400 MG/D5W 200ML 200 ML IV SCH (17:44)
[2018-09-24] MEDS ORDERED: POTASSIUM CHLORIDE 20 MEQ TAB CR PO ONE (21:00)
[2018-09-24] MEDS: TAMSULOSIN HCL 0.4 MG CAP PO SCH (21:35)
[2018-09-24] MEDS: ATORVASTATIN 40 MG TAB PO SCH (21:35)
[2018-09-25] VITALS (8 sets, daily range): BP systolic 111–129; BP diastolic 56–69
[2018-09-25] MEDS: BUMETANIDE INJ 0.25MG/ML 4ML VIAL IV SCH ×2 (06:09→21:51)
[2018-09-25] MEDS: LEVOTHYROXINE SODIUM 50 MCG TAB PO SCH (06:09)
[2018-09-25 06:32] LABS: BASOPHILS % 0.6 % (0.0-1.0); EOSINOPHILS # (AUTO) 0.4 (0.0-0.4); EOSINOPHILS % 6.8 % (0.0-6.0); HEMATOCRIT 31.5 % (38.2-49.6); HEMOGLOBIN 9.8 g/dL (14.0-18.0); LYMPHOCYTES # (AUTO) 1.1 (1.0-3.2); LYMPHOCYTES % 20.9 % (18.0-39.1); MEAN CORPUSCULAR HEMOGLOBIN 25.7 pg (28-32); MEAN CORPUSCULAR HGB CONC 31.1 g/dL (31-35); MEAN CORPUSCULAR VOLUME 82.7 fL (81-99); MONOCYTES % 18.8 % (4.4-11.3); NEUTROPHILS # (AUTO) 2.7 (2.1-6.9); NEUTROPHILS % 52.7 % (38.7-80.0); PLATELET COUNT 177 x10e3/uL (140-360); RED BLOOD COUNT 3.81 x10e6/uL (4.3-5.7); RED CELL DISTRIBUTION WIDTH 16.2 % (11.7-14.4)
[2018-09-25 06:54] LABS: ANION GAP 14.9 mmol/L (8-16); CALCIUM 9.4 mg/dL (8.4-10.2); CREATININE, SERUM 1.5 mg/dL (0.72-1.25); MAGNESIUM 2.3 MG/DL (1.3-2.1); POTASSIUM 3.9 mmol/L (3.5-5.1)
[2018-09-25] MEDS: INSULIN LISPRO 100 UNIT/1 ML 3ML VIAL SQ SCH ×4 (08:27→21:51)
[2018-09-25] MEDS: HEPARIN SOD (PORCINE) 5,000 UNIT/ML VIAL SC SCH ×2 (08:27→21:51)
[2018-09-25] MEDS: ASPIRIN 81 MG CHEW TAB PO SCH (08:28)
[2018-09-25] MEDS: LACTOBACILLUS ACIDOPHILUS CAPSULE PO SCH ×2 (08:28→17:42)
[2018-09-25] MEDS: GABAPENTIN 300 MG CAP PO SCH ×2 (08:28→17:42)
[2018-09-25] MEDS: CARVEDILOL 3.125 MG TAB PO SCH ×2 (08:28→21:51)
[2018-09-25] MEDS: METOLAZONE 5 MG TAB PO SCH (08:28)
[2018-09-25] MEDS ORDERED: ZOLPIDEM TARTRA10 MG PO (18:16)
[2018-09-25] MEDS ORDERED: Farxiga PO (18:16)
[2018-09-25] MEDS ORDERED: MYRBETRIQ50 MG PO (18:16)
[2018-09-25] MEDS ORDERED: LISINOPRIL2.5 MG PO (18:16)
[2018-09-25] MEDS ORDERED: PIOGLITAZONE HC45 MG PO (18:16)
[2018-09-25] MEDS ORDERED: FLOMAX0.4 MG PO (18:16)
[2018-09-25] MEDS ORDERED: METFORMIN HCL500 MG PO (18:16)
[2018-09-25] MEDS ORDERED: TYLENOL WITH C1 EACH PO (18:16)
[2018-09-25] MEDS ORDERED: PRAVASTATIN SOD10 MG PO (18:16)
[2018-09-25] MEDS ORDERED: GLUCOSAMINE CH1 EAC2 PO (18:16)
--- NOTE | 2018-09-25 19:22 | NUR ---
WALKING ROUNDS PERFORMED, RECEIVED PT LAYING SEMI FOWLERS IN BED, AAOX3, RR EVEN AND NON-LABORED, ON RA. NO S/SX OF DISTRESS NOTED. LEFT PT LAYING SEMI FOWLERS IN BED, BED IN LOW LOCKED POSITION, SIDE RAILS UPX2, CALL LIGHT AND PHONE WITHIN REACH.
[2018-09-25] MEDS: TAMSULOSIN HCL 0.4 MG CAP PO SCH (21:51)
[2018-09-25] MEDS: ATORVASTATIN 40 MG TAB PO SCH (21:51)
[2018-09-26] VITALS (7 sets, daily range): BP systolic 109–121; BP diastolic 57–73
[2018-09-26] MEDS: LEVOTHYROXINE SODIUM 50 MCG TAB PO SCH (05:51)
[2018-09-26] MEDS: BUMETANIDE INJ 0.25MG/ML 4ML VIAL IV SCH (05:51)
[2018-09-26 06:36] LABS: BASOPHILS % 0.9 % (0.0-1.0); EOSINOPHILS # (AUTO) 0.3 (0.0-0.4); EOSINOPHILS % 6.5 % (0.0-6.0); HEMATOCRIT 30.4 % (38.2-49.6); HEMOGLOBIN 9.4 g/dL (14.0-18.0); LYMPHOCYTES # (AUTO) 1.1 (1.0-3.2); LYMPHOCYTES % 24.5 % (18.0-39.1); MEAN CORPUSCULAR HEMOGLOBIN 25.7 pg (28-32); MEAN CORPUSCULAR HGB CONC 30.9 g/dL (31-35); MEAN CORPUSCULAR VOLUME 83.1 fL (81-99); MONOCYTES # (AUTO) 0.7 (0.2-0.8); MONOCYTES % 16.2 % (4.4-11.3); NEUTROPHILS # (AUTO) 2.2 (2.1-6.9); NEUTROPHILS % 51.7 % (38.7-80.0); PLATELET COUNT 170 x10e3/uL (140-360); RED BLOOD COUNT 3.66 x10e6/uL (4.3-5.7); RED CELL DISTRIBUTION WIDTH 16.1 % (11.7-14.4)
[2018-09-26 06:49] LABS: ANION GAP 11.6 mmol/L (8-16); CALCIUM 9.2 mg/dL (8.4-10.2); CREATININE, SERUM 1.43 mg/dL (0.72-1.25); POTASSIUM 3.6 mmol/L (3.5-5.1)
[2018-09-26] MEDS: CARVEDILOL 3.125 MG TAB PO SCH ×2 (09:00→21:13)
[2018-09-26] MEDS: INSULIN LISPRO 100 UNIT/1 ML 3ML VIAL SQ SCH ×4 (09:00→21:13)
[2018-09-26] MEDS: HEPARIN SOD (PORCINE) 5,000 UNIT/ML VIAL SC SCH (09:00)
[2018-09-26] MEDS: ASPIRIN 81 MG CHEW TAB PO SCH (09:00)
[2018-09-26] MEDS: LACTOBACILLUS ACIDOPHILUS CAPSULE PO SCH ×2 (09:01→16:59)
[2018-09-26] MEDS: GABAPENTIN 300 MG CAP PO SCH ×2 (09:01→16:59)
[2018-09-26] MEDS: METOLAZONE 5 MG TAB PO SCH (09:01)
[2018-09-26] MEDS: TAMSULOSIN HCL 0.4 MG CAP PO SCH (21:13)
[2018-09-26] MEDS: ATORVASTATIN 40 MG TAB PO SCH (21:13)
[2018-09-27] VITALS: BP 130/70
[2018-09-27 04:00] VITALS: BP 113/59
[2018-09-27] MEDS: LEVOTHYROXINE SODIUM 50 MCG TAB PO SCH (05:19)
[2018-09-27 06:21] LABS: ANION GAP 12.4 mmol/L (8-16); CALCIUM 9.1 mg/dL (8.4-10.2); CREATININE, SERUM 1.23 mg/dL (0.72-1.25); MAGNESIUM 2.2 MG/DL (1.3-2.1); POTASSIUM 3.4 mmol/L (3.5-5.1)
[2018-09-27 07:54] VITALS: BP 107/57
[2018-09-27] MEDS: ASPIRIN 81 MG CHEW TAB PO SCH (08:10)
[2018-09-27] MEDS: INSULIN LISPRO 100 UNIT/1 ML 3ML VIAL SQ SCH ×2 (08:10→11:30)
[2018-09-27] MEDS: GABAPENTIN 300 MG CAP PO SCH (08:11)
[2018-09-27] MEDS: CARVEDILOL 3.125 MG TAB PO SCH (08:11)
[2018-09-27] MEDS: METOLAZONE 5 MG TAB PO SCH (08:11)
[2018-09-27] MEDS: LACTOBACILLUS ACIDOPHILUS CAPSULE PO SCH (08:11)
[2018-09-27] MEDS ORDERED: BUMETANIDE 1 MG TAB PO SCH (09:00)
[2018-09-27 09:29] VITALS: BP 107/57
[2018-09-27] MEDS ORDERED: TORSEMIDE10 MG PO (11:40)
[2018-09-27 11:46] VITALS: BP 108/58
--- NOTE | 2018-09-28 08:50 | Discharge Summary ---
PRIMARY CARE DOCTOR: Dr. Chrissie Neal. FINAL DIAGNOSIS: Acute systolic decompensated congestive heart failure, resolving. SECONDARY DIAGNOSES: 1. Massive volume overload. 2. Severe scrotal edema. 3. Stage 3 chronic kidney disease, stable. 4. Diabetes. 5. Hypertension. 6. Previous AICD. 7. Hypothyroidism. 8. Coronary artery disease. 9. Urinary retention. CONSULTANTS: 1. Dr. Mccann, Urology. 2. Dr. Blanco, Cardiology. 3. Dr. Menchaca, Nephrology. PROCEDURE/STUDIES PERFORMED: 1. Scrotal ultrasound. 2. Renal ultrasound. 3. Abdominal CT. HISTORY: Per H and P. HOSPITAL COURSE: The patient was massively volume overloaded in addition to acute CHF. The patient was diuresed very aggressively with IV Bumex. Luckily, his kidney remained stable while we diuresed him. Of note, the patient was here for 9 days and we were able to achieve a negative fluid balance of almost 19 L. The patient's scrotal edema has pretty much resolved. The patient will go home and continue his torsemide. The patient will also go home with Ware catheter as well for his urinary retention. The patient will follow up with [facility] urologist. Prostate surgery was offered by Urology; however, at this time, patient will like it to be done with [facility] urologist. The patient was seen and examined today. I took 32 minutes total to discharge this patient. CONDITION ON DISCHARGE: Improved. DISCHARGE MEDICATIONS: Please see medication reconciliation form. MD VIKTORIA Napoles/FAROOQ /[id number] cc: [facility]
== END 2018-09-27 13:08 | disposition home or self-care (01) | DRG 291 ==
LOC: ER 17:04 → ERHOLD 09-18 00:08 → IMCU 09-18 02:33 → OBSVTOIN 09-21 16:07 → MED/SURG 09-23 22:55
PROVIDERS: ADMIT Internal Medicine; ATTEND Internal Medicine
DX: I13.0 Hypertensive heart and chronic kidney disease with heart failure and stage 1 through stage 4 chronic kidney disease, or unspecified chronic kidney disease (principal); I50.23 Acute on chronic systolic (congestive) heart failure; R18.8 Other ascites; N17.9 Acute kidney failure, unspecified; N18.4 Chronic kidney disease, stage 4 (severe); Z68.42 Body mass index [BMI] 45.0-49.9, adult; N50.82 Scrotal pain; N40.1 Benign prostatic hyperplasia with lower urinary tract symptoms; R33.8 Other retention of urine; I25.10 Atherosclerotic heart disease of native coronary artery without angina pectoris; N41.9 Inflammatory disease of prostate, unspecified; E11.22 Type 2 diabetes mellitus with diabetic chronic kidney disease; E78.5 Hyperlipidemia, unspecified; Z95.1 Presence of aortocoronary bypass graft; Z83.3 Family history of diabetes mellitus; Z82.49 Family history of ischemic heart disease and other diseases of the circulatory system; E78.00 Pure hypercholesterolemia, unspecified; Z95.810 Presence of automatic (implantable) cardiac defibrillator; Z87.891 Personal history of nicotine dependence; R00.0 Tachycardia, unspecified; D69.6 Thrombocytopenia, unspecified; E66.01 Morbid (severe) obesity due to excess calories; Z22.321 Carrier or suspected carrier of Methicillin susceptible Staphylococcus aureus; K59.00 Constipation, unspecified; R07.89 Other chest pain; Z79.4 Long term (current) use of insulin
CPT/HCPCS: 36415; 71045; 74177; 76770; 76870; 80048; 80053; 81001; 82150; 82550; 82553; 82570; 82948; 83605; 83690; 83735; 83880; 84156; 84443; 84484; 85025; 85610; 85730; 87040; 87086; 87186; 93005; 93976; 96372; 96374; 96376; 99284; G0378; J0696; J1644; J1940; J2270; J2405; J7030; Q9967

== ENCOUNTER 2018-10-21 10:28 | Inpatient (IN) | payer MEDICARE ==
[~2018-10-21] VITALS: Ht 167.6 cm; Wt 89.8 kg
[~2018-10-21 10:28] MED LIST changes: +Farxiga PO; +GLUCOSAMINE CH1 EAC2 PO; +MYRBETRIQ50 MG PO; +PIOGLITAZONE HC45 MG PO; +PRAVASTATIN SOD10 MG PO; +TORSEMIDE10 MG PO; +TYLENOL WITH C1 EACH PO; +ZOLPIDEM TARTRA10 MG PO
[2018-10-21 13:25] LABS: BILIRUBIN,URINE NEGATIVE (NEGATIVE); CLARITY,URINE SL CLOUDY (CLEAR); COLOR,URINE YELLOW (YELLOW); KETONES,URINE NEGATIVE (NEGATIVE); LEUKOCYTE ESTERASE ,URINE 1+ (NEGATIVE); NITRITE,URINE NEGATIVE (NEGATIVE); PROTEIN,URINE DIPSTICK TRACE (NEGATIVE); URINE UROBILINOGEN 0.2 mg/dL (0.2 - 1)
[2018-10-21 13:27] LABS: AMORPHOUS SEDIMENT,URINE MODERATE (FEW); BACTERIA,URINE MODERATE /HPF; EPITHELIAL CELLS,URINE FEW /LPF
[2018-10-21] MEDS: PHENAZOPYRIDINE HCL 100 MG TAB PO SCH ×2 (13:29→18:00)
[2018-10-21] MEDS ORDERED: CEFTRIAXONE SOD 1 GM VIAL IV ONE (14:00)
[2018-10-21] MEDS ORDERED: CEFTRIAXONE SOD 1 GM/NS 50 ML 50 ML IV ONE ×2 (14:15)
[2018-10-21 14:31] LABS: BASOPHILS % 0.4 % (0.0-1.0); EOSINOPHILS # (AUTO) 0.2 (0.0-0.4); HEMATOCRIT 31.3 % (38.2-49.6); LYMPHOCYTES # (AUTO) 1.1 (1.0-3.2); LYMPHOCYTES % 13.9 % (18.0-39.1); MEAN CORPUSCULAR HEMOGLOBIN 25.5 pg (28-32); MEAN CORPUSCULAR HGB CONC 31.9 g/dL (31-35); MEAN CORPUSCULAR VOLUME 79.8 fL (81-99); MONOCYTES # (AUTO) 0.7 (0.2-0.8); MONOCYTES % 9.3 % (4.4-11.3); NEUTROPHILS # (AUTO) 5.6 (2.1-6.9); NEUTROPHILS % 74.1 % (38.7-80.0); PLATELET COUNT 193 x10e3/uL (140-360); RED BLOOD COUNT 3.92 x10e6/uL (4.3-5.7)
[2018-10-21 14:52] LABS: ALBUMIN 3.4 g/dL (3.5-5.0); ALBUMIN/GLOBULIN RATIO 0.9 (0.8-2.0); CALCIUM 8.5 mg/dL (8.4-10.2); CREATININE, SERUM 1.54 mg/dL (0.72-1.25)
[2018-10-21] MEDS ORDERED: DEXTROSE 50% SYRINGE 50 ML IV PRN (16:15)
[2018-10-21] MEDS ORDERED: ONDANSETRON HCL INJ 2MG/ML 2ML 2 MG/ML VIAL IV PRN (16:15)
[2018-10-21] MEDS: SODIUM CHLORIDE 0.9% 1000ML 1,000 ML IV SCH ×2 (17:46→22:00)
[2018-10-21] MEDS: INSULIN REGULAR, HUMAN 100 UNIT/1 ML 3ML VIAL SQ SCH ×2 (20:33→21:00)
--- NOTE | 2018-10-21 21:30 | NUR ---
received pt from ER to room 208, AAOx3, no resp distress, 16F z[address] in place and with hematuria, pt ambulates by self with steady gait, able to verbalize needs, bed in lowest and locked position with call light in reach
[2018-10-21 23:12] VITALS: BP 124/88
[2018-10-21 23:17] VITALS: BP 124/88
[2018-10-22] VITALS (8 sets, daily range): BP systolic 97–128; BP diastolic 52–78
[2018-10-22 06:03] LABS: BASOPHILS # (AUTO) 0.1 (0.0-0.1); BASOPHILS % 0.9 % (0.0-1.0); EOSINOPHILS # (AUTO) 0.1 (0.0-0.4); EOSINOPHILS % 1.4 % (0.0-6.0); HEMOGLOBIN 9.9 g/dL (14.0-18.0); LYMPHOCYTES # (AUTO) 0.9 (1.0-3.2); LYMPHOCYTES % 13.3 % (18.0-39.1); MEAN CORPUSCULAR HEMOGLOBIN 25.1 pg (28-32); MEAN CORPUSCULAR HGB CONC 30.9 g/dL (31-35); MONOCYTES # (AUTO) 0.8 (0.2-0.8); MONOCYTES % 11.9 % (4.4-11.3); NEUTROPHILS # (AUTO) 4.7 (2.1-6.9); NEUTROPHILS % 72.2 % (38.7-80.0); PLATELET COUNT 191 x10e3/uL (140-360); RED BLOOD COUNT 3.95 x10e6/uL (4.3-5.7); RED CELL DISTRIBUTION WIDTH 16.9 % (11.7-14.4)
[2018-10-22 06:24] LABS: ANION GAP 12.5 mmol/L (8-16); CALCIUM 8.3 mg/dL (8.4-10.2); CREATININE, SERUM 1.65 mg/dL (0.72-1.25); POTASSIUM 4.5 mmol/L (3.5-5.1)
--- NOTE | 2018-10-22 07:00 | NUR ---
RCD PT AT BED PT IS ALERT AND ORIENTED PT RESTING ON BED NO SIGNS OF ANY DISTRESS NOTED MURPHY DRAINING BY GRAVITY IV PATENT BED LOW AND LOCKED CALL LIGHT IN REACH
[2018-10-22] MEDS: INSULIN REGULAR, HUMAN 100 UNIT/1 ML 3ML VIAL SQ SCH (07:30)
[2018-10-22] MEDS: PHENAZOPYRIDINE HCL 100 MG TAB PO SCH (09:00)
[2018-10-22] MEDS ORDERED: ASPIRIN 325 MG TAB PO SCH (11:00)
[2018-10-22] MEDS: ASPIRIN 81 MG CHEW TAB PO SCH (11:00)
[2018-10-22] MEDS: INSULIN LISPRO 100 UNIT/1 ML 3ML VIAL SQ SCH ×3 (11:30→21:00)
--- NOTE | 2018-10-22 13:25 | Diagnostic Imaging Report ---
EXAMINATION: CHEST SINGLE (PORTABLE) INDICATION: CHF. COMPARISON: Chest radiograph 09/23/2018. FINDINGS: TUBES and LINES: Left-sided AICD with dual leads in unchanged position. LUNGS: Lungs are moderately inflated. There are bibasilar patchy opacities, likely atelectasis. There are mild perihilar and interstitial opacities. PLEURA: No pleural effusion or pneumothorax. HEART AND MEDIASTINUM: Cardiac size is moderately enlarged. There are atherosclerotic calcifications within the aorta. BONES AND SOFT TISSUES: No acute osseous abnormality. Status post median sternotomy. The second from superior median sternotomy wire is broken, as before. UPPER ABDOMEN: No free air under the diaphragm. IMPRESSION: Moderate cardiomegaly with mild pulmonary interstitial edema. Signed by: Dr. Cyrus Haskins MD on 10/22/2018 1:22 PM
[2018-10-22] MEDS: BUMETANIDE INJ 0.25MG/ML 4ML VIAL IV SCH ×2 (14:00→21:21)
[2018-10-22] MEDS ORDERED: CEFTRIAXONE SOD 1 GM/NS 50 ML 50 ML IV SCH (15:00)
--- NOTE | 2018-10-22 15:56 | NUR ---
PT orders received from Dr. Manrique on 10/21/18. RN reported pt was walking in room with steady gait. Pt reported to live at home in single story home with . Previous level of function was independent with all ADLs and RW only for long distances. Pt owns a RW. Pt demonstrated independent bed mobility, sitting and standing balance, sit<>stand, and transfers. Pt demonstrated safe gait with and without RW for 120' each without LOB or falls. A hospital RW was left with patient to use while admitted for safety. Pt encouraged to walk in the hallways during the day with RW and notify nursing if leaving the unit. PT discharging patient from therapy services at this time. Addendum: 10/22/18 at 1557 by Izzy Hernandez PT Amended: Links added.
--- NOTE | 2018-10-22 18:39 | NUR ---
PT RESTING ON BED BED SIDE REPORT GIVEN TO ONCOMING NURSE
--- NOTE | 2018-10-22 19:05 | NUR ---
Patient visited in room during nursing rounds. Patient alert and oriented x3. No distress or discomfort noted. Patient ambulatory with walker in and out of room prn. Ware catheter in place for urinary retention draining clear yellow urine. Call villafana within reach. Will monitor closely.
[2018-10-22] MEDS ORDERED: NON-FORMULARY MEDICATION (Zolpidem Tartrate 10 MG) PO SCH (21:00)
[2018-10-22] MEDS: ZOLPIDEM TARTRATE 10 MG TAB PO SCH (21:00)
[2018-10-22] MEDS: PRAVASTATIN 20 MG TAB PO SCH (21:21)
[2018-10-22] MEDS: HEPARIN SOD (PORCINE) 5,000 UNIT/ML VIAL SC SCH (21:23)
[2018-10-23] VITALS (7 sets, daily range): BP systolic 100–127; BP diastolic 59–78
--- NOTE | 2018-10-23 06:00 | NUR ---
Patient sitting up on side of bed awake. Pt in stable condition. Will hand off to dayshift RN pt care.
[2018-10-23] MEDS: BUMETANIDE INJ 0.25MG/ML 4ML VIAL IV SCH ×3 (06:06→22:00)
[2018-10-23] MEDS: LEVOTHYROXINE SODIUM 25 MCG TABLET PO SCH (06:06)
[2018-10-23 06:42] LABS: BASOPHILS # (AUTO) 0.1 (0.0-0.1); BASOPHILS % 1.2 % (0.0-1.0); EOSINOPHILS # (AUTO) 0.1 (0.0-0.4); EOSINOPHILS % 2.2 % (0.0-6.0); HEMATOCRIT 30.7 % (38.2-49.6); HEMOGLOBIN 9.8 g/dL (14.0-18.0); LYMPHOCYTES # (AUTO) 1.1 (1.0-3.2); LYMPHOCYTES % 18.8 % (18.0-39.1); MEAN CORPUSCULAR HEMOGLOBIN 25.4 pg (28-32); MEAN CORPUSCULAR HGB CONC 31.9 g/dL (31-35); MEAN CORPUSCULAR VOLUME 79.5 fL (81-99); MONOCYTES # (AUTO) 0.8 (0.2-0.8); MONOCYTES % 13.1 % (4.4-11.3); NEUTROPHILS # (AUTO) 3.9 (2.1-6.9); NEUTROPHILS % 64.5 % (38.7-80.0); PLATELET COUNT 200 x10e3/uL (140-360); RED BLOOD COUNT 3.86 x10e6/uL (4.3-5.7); RED CELL DISTRIBUTION WIDTH 16.8 % (11.7-14.4)
[2018-10-23 07:00] LABS: ANION GAP 15.4 mmol/L (8-16); CALCIUM 8.4 mg/dL (8.4-10.2); CREATININE, SERUM 1.81 mg/dL (0.72-1.25); MAGNESIUM 2.5 MG/DL (1.3-2.1); POTASSIUM 4.4 mmol/L (3.5-5.1)
[2018-10-23 07:13] LABS: ALBUMIN 3.1 g/dL (3.5-5.0)
[2018-10-23] MEDS: TAMSULOSIN HCL 0.4 MG CAP PO SCH (08:58)
[2018-10-23] MEDS: ASPIRIN 81 MG CHEW TAB PO SCH (08:58)
[2018-10-23] MEDS: HEPARIN SOD (PORCINE) 5,000 UNIT/ML VIAL SC SCH ×2 (08:58→21:00)
[2018-10-23] MEDS ORDERED: NON-FORMULARY MEDICATION (Pravastatin Sodium 10 MG) PO SCH (09:00)
[2018-10-23] MEDS: INSULIN LISPRO 100 UNIT/1 ML 3ML VIAL SQ SCH ×4 (09:00→21:00)
[2018-10-23] MEDS ORDERED: ONDANSETRON HCL 4 MG ORAL DISINTEGRATING TAB PO PRN (10:15)
[2018-10-23] MEDS ORDERED: VANCOMYCIN 1GM/NS 250 ML 250 ML IV ONE (12:15)
[2018-10-23 12:48] LABS: ANION GAP 15.6 mmol/L (8-16); CALCIUM 8.4 mg/dL (8.4-10.2); CREATININE, SERUM 1.78 mg/dL (0.72-1.25); POTASSIUM 4.6 mmol/L (3.5-5.1)
--- NOTE | 2018-10-23 13:04 | NUR ---
BMP results called to Dr. Manrique
--- NOTE | 2018-10-23 16:46 | NUR ---
IMM EXPLAINED TO PT, SIGNED BY PT AND PLACED IN CHART COPY TO PT IN CARE TRANSITIONS FOLDER
[2018-10-23] MEDS: CARVEDILOL 3.125 MG TAB PO SCH (17:15)
--- NOTE | 2018-10-23 19:26 | NUR ---
Patient received lying in bed. AAO x 3. Patient had no complaints of pain. Penis /Scrotum noted to be swollen. MD aware. Respirations even and non-labored. Ware catheter draining clear pale yellow urine. Fall precautions implemented. Patient instructed to call for assistance when needed. Call light within reach.
[2018-10-23] MEDS: PRAVASTATIN 20 MG TAB PO SCH (21:28)
[2018-10-23] MEDS: ZOLPIDEM TARTRATE 10 MG TAB PO SCH (21:28)
--- NOTE | 2018-10-23 21:32 | NUR ---
Patient winced in pain when penis/scrotum was assessed. Dr. Kelechi Manrique notified. New order received for Tylenol #3.
[2018-10-23] MEDS: ACETAMINOPHEN/CODEINE 300MG - 30MG TAB PO PRN (22:18)
[2018-10-24] VITALS (8 sets, daily range): BP systolic 102–137; BP diastolic 59–89
[2018-10-24] MEDS: ACETAMINOPHEN/CODEINE 300MG - 30MG TAB PO PRN ×2 (04:21→15:44)
[2018-10-24] MEDS: BUMETANIDE INJ 0.25MG/ML 4ML VIAL IV SCH ×3 (05:42→22:18)
[2018-10-24] MEDS: LEVOTHYROXINE SODIUM 25 MCG TABLET PO SCH (05:42)
[2018-10-24 05:51] LABS: ALBUMIN 3.3 g/dL (3.5-5.0); ANION GAP 14.4 mmol/L (8-16); CALCIUM 8.5 mg/dL (8.4-10.2); CREATININE, SERUM 1.81 mg/dL (0.72-1.25); MAGNESIUM 2.5 MG/DL (1.3-2.1); POTASSIUM 4.4 mmol/L (3.5-5.1)
[2018-10-24 05:56] LABS: BASOPHILS # (AUTO) 0.1 (0.0-0.1); BASOPHILS % 1.2 % (0.0-1.0); EOSINOPHILS # (AUTO) 0.2 (0.0-0.4); EOSINOPHILS % 3.4 % (0.0-6.0); HEMATOCRIT 32.8 % (38.2-49.6); HEMOGLOBIN 10.6 g/dL (14.0-18.0); LYMPHOCYTES # (AUTO) 1.2 (1.0-3.2); LYMPHOCYTES % 19.9 % (18.0-39.1); MEAN CORPUSCULAR HEMOGLOBIN 25.3 pg (28-32); MEAN CORPUSCULAR HGB CONC 32.3 g/dL (31-35); MEAN CORPUSCULAR VOLUME 78.3 fL (81-99); MONOCYTES # (AUTO) 0.6 (0.2-0.8); MONOCYTES % 10.5 % (4.4-11.3); NEUTROPHILS # (AUTO) 3.8 (2.1-6.9); NEUTROPHILS % 64.8 % (38.7-80.0); PLATELET COUNT 215 x10e3/uL (140-360); RED BLOOD COUNT 4.19 x10e6/uL (4.3-5.7); RED CELL DISTRIBUTION WIDTH 16.6 % (11.7-14.4)
[2018-10-24] MEDS: INSULIN LISPRO 100 UNIT/1 ML 3ML VIAL SQ SCH ×4 (07:30→22:20)
--- NOTE | 2018-10-24 07:37 | NUR ---
Walking rounds done. Shift report given to oncoming nurse.
[2018-10-24] MEDS: TAMSULOSIN HCL 0.4 MG CAP PO SCH (09:58)
[2018-10-24] MEDS: ASPIRIN 81 MG CHEW TAB PO SCH (09:58)
[2018-10-24] MEDS: HEPARIN SOD (PORCINE) 5,000 UNIT/ML VIAL SC SCH ×2 (09:58→22:19)
[2018-10-24] MEDS: CARVEDILOL 3.125 MG TAB PO SCH ×2 (09:58→16:40)
[2018-10-24] MEDS: CIPROFLOXACIN 250 MG TAB PO SCH (16:40)
[2018-10-24] MEDS: LACTOBACILLUS ACIDOPHILUS CAPSULE PO SCH (16:40)
--- NOTE | 2018-10-24 19:07 | Diagnostic Imaging Report ---
EXAM: Scrotal Ultrasound with Duplex INDICATION: ^SCROTAL EDEMA COMPARISON: Testicular ultrasound 09/17/2018. TECHNIQUE: Transverse and longitudinal images were obtained of the scrotum with grayscale imaging, color Doppler and spectral waveform analysis. FINDINGS: Right testis: Size: 3.6 x 2.3 x 2.6 cm, normal in size. Echogenicity: Normal Mass/Cysts: None Left testis: Size: 3.2 x 2.2 x 2.8 cm, normal in size. Echogenicity: Normal Mass/Cysts: None Epididymis: Appearance: Normal in size without increased vascularity. Mass/Cysts: None Extratesticular: Masses: None Hydrocele: Small bilateral varicocele. Varicocele: None Soft tissue: Thickening and heterogeneity. Doppler: Normal arterial flow to both testes and symmetrical flow on color Doppler evaluation is seen. No evidence of testicular torsion. IMPRESSION: 1. No evidence of testicular torsion. 2. Normal testes. 3. Mild bilateral varicoceles. 4. Unchanged scrotal edema. Signed by: Dr. Yo Coats M.D. on 10/24/2018 7:03 PM
[2018-10-24] MEDS: ZOLPIDEM TARTRATE 10 MG TAB PO SCH (22:18)
[2018-10-24] MEDS: PRAVASTATIN 20 MG TAB PO SCH (22:18)
[2018-10-25] VITALS (8 sets, daily range): BP systolic 108–133; BP diastolic 57–84
[2018-10-25 05:22] LABS: BASOPHILS # (AUTO) 0.1 (0.0-0.1); EOSINOPHILS # (AUTO) 0.3 (0.0-0.4); EOSINOPHILS % 6.5 % (0.0-6.0); HEMATOCRIT 31.2 % (38.2-49.6); HEMOGLOBIN 9.7 g/dL (14.0-18.0); LYMPHOCYTES % 20.2 % (18.0-39.1); MEAN CORPUSCULAR HEMOGLOBIN 25.1 pg (28-32); MEAN CORPUSCULAR HGB CONC 31.1 g/dL (31-35); MEAN CORPUSCULAR VOLUME 80.8 fL (81-99); MONOCYTES # (AUTO) 0.6 (0.2-0.8); MONOCYTES % 12.1 % (4.4-11.3); PLATELET COUNT 193 x10e3/uL (140-360); RED BLOOD COUNT 3.86 x10e6/uL (4.3-5.7); RED CELL DISTRIBUTION WIDTH 16.7 % (11.7-14.4)
[2018-10-25] MEDS: BUMETANIDE INJ 0.25MG/ML 4ML VIAL IV SCH ×3 (05:31→21:06)
[2018-10-25] MEDS: LEVOTHYROXINE SODIUM 25 MCG TABLET PO SCH (05:31)
[2018-10-25 05:42] LABS: ALBUMIN 3.2 g/dL (3.5-5.0); ANION GAP 12.3 mmol/L (8-16); BILIRUBIN,DIRECT 0.8 mg/dL (0.0-0.5); CALCIUM 8.5 mg/dL (8.4-10.2); CREATININE, SERUM 1.62 mg/dL (0.72-1.25); MAGNESIUM 2.2 MG/DL (1.3-2.1); POTASSIUM 4.3 mmol/L (3.5-5.1)
--- NOTE | 2018-10-25 06:54 | Diagnostic Imaging Report ---
EXAMINATION: CHEST SINGLE (PORTABLE) INDICATION: ^PICKARD ^[id number] ^[id number] COMPARISON: 11/01/2018 FINDINGS: AP view TUBES and LINES: Stable dual-lead left chest wall cardiac device. LUNGS: Lungs are well inflated. Pulmonary vascular congestion and mild interstitial edema. PLEURA: No significant pleural effusion or pneumothorax. HEART AND MEDIASTINUM: The cardiomediastinal silhouette is enlarged. Median sternotomy wires are again seen. Aorta is mildly calcified and tortuous. BONES AND SOFT TISSUES: No acute osseous lesion. Soft tissues are unremarkable. UPPER ABDOMEN: No free air under the diaphragm. IMPRESSION: Enlarged cardiomediastinal silhouette, mild central vascular congestion and interstitial edema, not significantly changed from prior exam.. Signed by: Dr. Nghia Tavera MD on 10/25/2018 6:51 AM
--- NOTE | 2018-10-25 06:56 | NUR ---
report given to day nurse. patient is resting comfortably in bed. bed is in lowest position and call villafana is within reach.
[2018-10-25] MEDS: INSULIN LISPRO 100 UNIT/1 ML 3ML VIAL SQ SCH ×4 (07:30→21:06)
[2018-10-25] MEDS: ASPIRIN 81 MG CHEW TAB PO SCH (09:18)
[2018-10-25] MEDS: LACTOBACILLUS ACIDOPHILUS CAPSULE PO SCH ×2 (09:18→17:19)
[2018-10-25] MEDS: TAMSULOSIN HCL 0.4 MG CAP PO SCH (09:18)
[2018-10-25] MEDS: HEPARIN SOD (PORCINE) 5,000 UNIT/ML VIAL SC SCH ×2 (09:18→21:06)
[2018-10-25] MEDS: CIPROFLOXACIN 250 MG TAB PO SCH ×2 (09:18→17:18)
[2018-10-25] MEDS: CARVEDILOL 3.125 MG TAB PO SCH ×2 (09:19→17:19)
--- NOTE | 2018-10-25 19:56 | NUR ---
WALKING ROUNDS PERFORMED, RECEIVED PT LAYING SEMI FOWLERS IN BED, AAOX3, RR EVEN AND NON-LABORED, ON RA. NO S/SX OF DISTRESS NOTED. MURPHY INTACT DRAINING TO BEDSIDE BAG. LEFT PT LAYING SEMI FOWLERS IN BED, BED IN LOW LOCKED POSITION, SIDE RAILS UPX2, CALL LIGHT AND PHONE WITHIN REACH.
[2018-10-25] MEDS: ZOLPIDEM TARTRATE 10 MG TAB PO SCH (21:06)
[2018-10-25] MEDS: PRAVASTATIN 20 MG TAB PO SCH (21:06)
--- NOTE | 2018-10-25 23:35 | NUR ---
PT AMBULATING IN [place] WITH WALKER. STEADY GAIT NOTED.
[2018-10-26] VITALS (7 sets, daily range): BP systolic 94–123; BP diastolic 62–77
--- NOTE | 2018-10-26 00:46 | NUR ---
PT AMBULATING IN [place] WITH WALKER. STEADY GAIT NOTED.
[2018-10-26] MEDS: LEVOTHYROXINE SODIUM 25 MCG TABLET PO SCH (05:46)
[2018-10-26] MEDS: BUMETANIDE INJ 0.25MG/ML 4ML VIAL IV SCH ×3 (05:46→22:00)
[2018-10-26 06:10] LABS: ANION GAP 11.7 mmol/L (8-16); CALCIUM 8.3 mg/dL (8.4-10.2); CREATININE, SERUM 1.37 mg/dL (0.72-1.25); POTASSIUM 3.7 mmol/L (3.5-5.1)
--- NOTE | 2018-10-26 07:00 | NUR ---
RECEIVED BEDSIDE SHIFT CHANGE REPORT FROM MARY SHAH. PT DENIES NEEDS AT THIS TIME.
--- NOTE | 2018-10-26 07:03 | NUR ---
PT IS AAOX3, RR EVEN AND NON-LABORED. NO S/SX OF DISTRESS NOTED. LEFT PT LAYING SEMI FOWLERS IN BED, BED IN LOW LOCKED POSITION, SIDE RAILS UPX2, CALL LIGHT AND PHONE WITHIN REACH.
[2018-10-26] MEDS: INSULIN LISPRO 100 UNIT/1 ML 3ML VIAL SQ SCH ×4 (07:30→20:21)
[2018-10-26] MEDS: CIPROFLOXACIN 250 MG TAB PO SCH ×2 (09:50→16:12)
[2018-10-26] MEDS: ASPIRIN 81 MG CHEW TAB PO SCH (09:50)
[2018-10-26] MEDS: TAMSULOSIN HCL 0.4 MG CAP PO SCH (09:50)
[2018-10-26] MEDS: LACTOBACILLUS ACIDOPHILUS CAPSULE PO SCH ×2 (09:50→16:13)
[2018-10-26] MEDS: HEPARIN SOD (PORCINE) 5,000 UNIT/ML VIAL SC SCH ×2 (09:50→21:00)
[2018-10-26] MEDS: CARVEDILOL 3.125 MG TAB PO SCH ×2 (09:51→16:13)
--- NOTE | 2018-10-26 14:26 | NUR ---
Nutrition Screen Note RD Recommendation for Physician: - Continue current ADA diet Plan of Care: RD following, monitoring for tolerance and adequacy Nutrition reason for involvement: Early LOS Primary Diagnose(s): UTI, renal insufficiency, urinary retention PMH: CHF, DM2, HTN, hypercholesterolemia, CAD, CKD3, CABG, AICD placement, hypothyroidism Ht: 66 in Wt: 203.06 lb BMI: 32.8 kg/m2 IBW: [address] Assessment: (10/26) 68 YOM admitted for UTI, seen today for early LOS. Pt discussed during am rounds. Pt declined to answer questions at time of visit, stated "No, no no." Pt known from prior admit and is able to speak Italian, does not want to speak with RD at this time. No family present to provide nutrition hx. Pt with 50-100% meal intake and no GI distress, LBM 10/25. Skin intact. Pt with no signs of malnutrition per physical assessment. Chart reviewed. Skin intact. Labs and meds reviewed. Will monitor and continue to follow. Current Diet: 1800 ADA Malnutrition Evaluation (10/26/18) The patient does not meet criteria for a specified degree of malnutrition at this time. Will re-evaluate at follow-up as appropriate. Unable to complete assessment, pt reports he is unable to answer questions. No signs of malnutrition per physical assessment. Diet Education Needs Assessment: Diet education indicated, pt declined. Nutrition Care Level: Low Signed: Opal Colin RD, LD, [facility]
--- NOTE | 2018-10-26 19:00 | NUR ---
BEDSIDE SHIFT REPORT GIVEN TO BRICK TENDER RN. PT DENIES NEEDS AT THIS TIME.
[2018-10-26] MEDS: ZOLPIDEM TARTRATE 10 MG TAB PO SCH (20:35)
[2018-10-26] MEDS: PRAVASTATIN 20 MG TAB PO SCH (20:35)
[2018-10-27] VITALS (9 sets, daily range): BP systolic 101–124; BP diastolic 60–78
[2018-10-27] MEDS: BUMETANIDE INJ 0.25MG/ML 4ML VIAL IV SCH ×3 (05:55→21:11)
[2018-10-27] MEDS: LEVOTHYROXINE SODIUM 25 MCG TABLET PO SCH (05:58)
[2018-10-27 06:14] LABS: ANION GAP 12.9 mmol/L (8-16); CALCIUM 8.8 mg/dL (8.4-10.2); CREATININE, SERUM 1.52 mg/dL (0.72-1.25); POTASSIUM 3.9 mmol/L (3.5-5.1)
--- NOTE | 2018-10-27 07:00 | NUR ---
RECEIVED BEDSIDE SHIFT CHANGE REPORT FROM EDWARD RN. PT DENIES NEEDS AT THIS TIME.
[2018-10-27] MEDS: INSULIN LISPRO 100 UNIT/1 ML 3ML VIAL SQ SCH ×4 (07:30→20:54)
--- NOTE | 2018-10-27 09:13 | NUR ---
CALLED DR FLOOD REGARDING PT/INR BEFORE GIVING HEPARIN. PER DR FLOOD, OKAY TO GIVE SINCE SUBCUTANEOUS INJECTION.
[2018-10-27] MEDS: ASPIRIN 81 MG CHEW TAB PO SCH (09:24)
[2018-10-27] MEDS: LACTOBACILLUS ACIDOPHILUS CAPSULE PO SCH (09:24)
[2018-10-27] MEDS: TAMSULOSIN HCL 0.4 MG CAP PO SCH (09:24)
[2018-10-27] MEDS: CARVEDILOL 3.125 MG TAB PO SCH ×2 (09:24→17:19)
[2018-10-27] MEDS: CIPROFLOXACIN 250 MG TAB PO SCH (09:24)
--- NOTE | 2018-10-27 09:37 | NUR ---
CALLED DR. FLOOD ABOUT MURPHY CATH. ORDER TO KEEP AND PT WILL BE DISCHARGING HOME WITH MURPHY. Addendum: 10/27/18 at 0739 by Burt Echeverria RN ALSO RECEIVED AN ORDER FOR LACTULOSE.
[2018-10-27] MEDS: HEPARIN SOD (PORCINE) 5,000 UNIT/ML VIAL SC SCH ×2 (09:53→21:11)
[2018-10-27] MEDS ORDERED: LACTULOSE SYRUP 20 GM/30 ML UDC PO NR (10:00)
--- NOTE | 2018-10-27 19:00 | NUR ---
BEDSIDE SHIFT REPORT GIVEN TO GERIATRIC NURSE RN. PT DENIES NEEDS AT THIS TIME
[2018-10-27] MEDS: PRAVASTATIN 20 MG TAB PO SCH (21:10)
[2018-10-27] MEDS: ZOLPIDEM TARTRATE 10 MG TAB PO SCH (21:10)
[2018-10-28] VITALS (9 sets, daily range): BP systolic 98–131; BP diastolic 53–98
[2018-10-28 05:20] LABS: BASOPHILS % 0.8 % (0.0-1.0); EOSINOPHILS # (AUTO) 0.3 (0.0-0.4); EOSINOPHILS % 5.1 % (0.0-6.0); HEMATOCRIT 31.3 % (38.2-49.6); HEMOGLOBIN 9.6 g/dL (14.0-18.0); LYMPHOCYTES # (AUTO) 0.9 (1.0-3.2); LYMPHOCYTES % 18.6 % (18.0-39.1); MEAN CORPUSCULAR HEMOGLOBIN 24.8 pg (28-32); MEAN CORPUSCULAR HGB CONC 30.7 g/dL (31-35); MEAN CORPUSCULAR VOLUME 80.9 fL (81-99); MONOCYTES # (AUTO) 0.7 (0.2-0.8); MONOCYTES % 13.3 % (4.4-11.3); PLATELET COUNT 190 x10e3/uL (140-360); RED BLOOD COUNT 3.87 x10e6/uL (4.3-5.7); RED CELL DISTRIBUTION WIDTH 17.2 % (11.7-14.4)
[2018-10-28 05:36] LABS: ANION GAP 14.5 mmol/L (8-16); CALCIUM 8.9 mg/dL (8.4-10.2); CREATININE, SERUM 1.41 mg/dL (0.72-1.25); POTASSIUM 3.5 mmol/L (3.5-5.1)
[2018-10-28] MEDS: LEVOTHYROXINE SODIUM 25 MCG TABLET PO SCH (06:32)
[2018-10-28] MEDS: BUMETANIDE INJ 0.25MG/ML 4ML VIAL IV SCH ×3 (06:32→22:00)
[2018-10-28] MEDS: INSULIN LISPRO 100 UNIT/1 ML 3ML VIAL SQ SCH ×4 (09:00→21:00)
[2018-10-28] MEDS: TAMSULOSIN HCL 0.4 MG CAP PO SCH (09:00)
[2018-10-28] MEDS: ASPIRIN 81 MG CHEW TAB PO SCH (09:00)
[2018-10-28] MEDS: CARVEDILOL 3.125 MG TAB PO SCH ×2 (09:00→16:04)
[2018-10-28] MEDS: HEPARIN SOD (PORCINE) 5,000 UNIT/ML VIAL SC SCH ×2 (09:00→21:00)
[2018-10-28] MEDS ORDERED: POTASSIUM CHLORIDE 20 MEQ TAB CR PO NR (10:00)
--- NOTE | 2018-10-28 10:59 | NUR ---
IMM letter delivered and explained to pt. He verbalized understanding. Signed copy placed in chart. Copy to pt's transition of care folder.
--- NOTE | 2018-10-28 19:00 | NUR ---
Patient refused bed alarm.
--- NOTE | 2018-10-28 19:14 | NUR ---
Report given to oncoming nurse of patient's status. Resting in bed. NO s/s of acute distress noted. Call light within reach.
--- NOTE | 2018-10-28 19:46 | NUR ---
Received change of shift report from AM nurse. Walking rounds completed.
--- NOTE | 2018-10-28 20:15 | NUR ---
Patient states he fell. IV leaking and patient with scratch to right side of head. Patient states he fell on floor due to lock not on bed. Called and s/w Dr Babb. Orders received for stat CT of brain no contrast. Called nest to shanon Weller and Rosie Delaney voice mail not set up. Patient had a camera technician. Patient states dont tell no one that he is ok. Will f/up with MD after test results.
--- NOTE | 2018-10-28 20:30 | NUR ---
Post fall vitals BP 120/70 110 20 96% sat on RA. Patient IV leaking and a small cut to right side of forehead. Cut cleaned and bandaid applied. D/C IV and restart 22G to right hand x1 stick. Patient tolerated well. MD notified and orders received. CT of brain with no contrast. Called family Rhys and Joaquín Weller and both recorder unable to leave message. Q2hour Neuro check listed under interventions. Patient states I am ok dont tell anyone.
[2018-10-28] MEDS: ZOLPIDEM TARTRATE 10 MG TAB PO SCH (21:00)
[2018-10-28] MEDS: PRAVASTATIN 20 MG TAB PO SCH (21:00)
--- NOTE | 2018-10-28 21:00 | NUR ---
Post fall vitals 110/74 100 20 no temp.
--- NOTE | 2018-10-28 22:03 | Diagnostic Imaging Report ---
History:Fall, laceration to the forehead Comparison studies: None Technique: Axial images were obtained from the skull base to the vertex. Coronal and sagittal images reconstructed from the axial data. Dose modulation, iterative reconstruction, and/or weight based adjustment of the mA/kV was utilized to reduce the radiation dose to as low as reasonably achievable. Intravenous contrast: None Findings: Scalp/skull: No abnormalities. Extra-axial spaces: No masses. No fluid collections. Brain sulci: Mildly prominent. Ventricles: Mild compensatory dilatation. No hydrocephalus. Parenchyma: No abnormal densities. No masses, hemorrhage, acute or chronic cortical vascular insults. Sellar/suprasellar region: No abnormalities. Craniocervical junction: Patent foramen magnum. No Chiari one malformation. Incidental findings: Atherosclerotic calcifications in the carotid siphons and vertebral arteries. Impression: 1. No acute abnormalities. 2. Mild age-related generalized volume loss. Signed by: Dr. Fady Albarado M.D. on 10/28/2018 9:59 PM
[2018-10-29] VITALS: BP 101/63
[2018-10-29 01:00] VITALS: BP 120/77
[2018-10-29 04:00] VITALS: BP 118/73
[2018-10-29] MEDS: BUMETANIDE INJ 0.25MG/ML 4ML VIAL IV SCH ×2 (05:19→12:51)
[2018-10-29] MEDS: LEVOTHYROXINE SODIUM 25 MCG TABLET PO SCH (05:20)
[2018-10-29 05:52] LABS: CALCIUM 8.9 mg/dL (8.4-10.2); CREATININE, SERUM 1.4 mg/dL (0.72-1.25)
--- NOTE | 2018-10-29 06:00 | NUR ---
Patient up walking in room. Encourage to go to bed. Patient refused to go to bed. Walking in room.
--- NOTE | 2018-10-29 07:02 | NUR ---
Received patient semi fowlers position, side rails upx2, call light within reach. Resting with eyes closed. Arousable to verbal stimuli. Respirations even and unlabored. Will continue to monitor.
[2018-10-29 07:18] VITALS: BP 97/62
[2018-10-29 07:50] VITALS: BP 97/62
[2018-10-29] MEDS: CARVEDILOL 3.125 MG TAB PO SCH (08:32)
[2018-10-29] MEDS: TAMSULOSIN HCL 0.4 MG CAP PO SCH (08:32)
[2018-10-29] MEDS: HEPARIN SOD (PORCINE) 5,000 UNIT/ML VIAL SC SCH (08:32)
[2018-10-29] MEDS: ASPIRIN 81 MG CHEW TAB PO SCH (08:32)
[2018-10-29] MEDS: INSULIN LISPRO 100 UNIT/1 ML 3ML VIAL SQ SCH ×2 (08:33→12:51)
--- NOTE | 2018-10-29 12:19 | NUR ---
Dr. Manrique aware of HR 109. No new orders
[2018-10-29 12:25] VITALS: BP 114/72
--- NOTE | 2018-10-29 13:32 | NUR ---
Left hand IV discontinued. No signs of infiltration noted. 2x2 gauze and tape placed. Taken via wheelchair to personal car. AAOX4 to time, person, place, situation. Respirations even and unlabored. 16 F zhu draining clear yellow urine. Discharge instructions and personal belongings taken with patient. No rx available at this time.
[2018-10-29] MEDS ORDERED: SODIUM CHLORIDE 0.9% 250ML 250 ML ONE (16:01)
--- NOTE | 2018-10-29 16:14 | Discharge Summary ---
PRIMARY CARE DOCTOR: Dr. Chrissie Neal. FINAL DIAGNOSIS: Acute systolic congestive heart failure. SECONDARY DIAGNOSES: 1. Urinary retention with scrotal edema. 2. Enterococcus urinary tract infection secondary to chronic Ware catheter, present on admission. 3. Fluid overload. 4. Diabetes. 5. Coronary artery disease. 6. Hypothyroidism with normal recent TSH. CONSULTANTS: None. PROCEDURES/STUDIES PERFORMED: 1. Scrotal ultrasound shows mild bilateral varicoceles. 2. Head CT did not show any bleed. HISTORY: Per H and P. HOSPITAL COURSE: The patient came in again with urinary retention. Ware catheter was placed in the ER. I personally called his [facility] primary care doctor. We have arranged another urologist for him to see, that appointment will be tomorrow. This is likely due to prostate enlargement. The patient also regained all of the 20-30 pounds weight that I diuresed off just last month, therefore the patient was started on IV Bumex again. He has stage 3 chronic kidney disease. He tolerated his diuresis well. At this time, the patient will be going home with Ware catheter and he will see Dr. Cortez, the new urologist for further evaluation. The patient was seen and examined today. I took 32 minutes total to discharge this patient. The patient was advised to weigh himself every day. He is to continue his torsemide. If he notice a weight gain, he is supposed to call his [facility] physician. CONDITION ON DISCHARGE: Improved. DISCHARGE MEDICATIONS: Please see medication reconciliation form. MD VIKTORIA Napoles/FAROOQ /[id number] cc: [facility]
== END 2018-10-29 13:32 | disposition home or self-care (01) | DRG 698 ==
LOC: ER 10:28 → ERHOLD 17:01 → MED/SURG2 21:28
PROVIDERS: ADMIT Internal Medicine; ATTEND Internal Medicine
DX: T83.511A Infection and inflammatory reaction due to indwelling urethral catheter, initial encounter (principal); I50.21 Acute systolic (congestive) heart failure; I13.0 Hypertensive heart and chronic kidney disease with heart failure and stage 1 through stage 4 chronic kidney disease, or unspecified chronic kidney disease; E87.1 Hypo-osmolality and hyponatremia; N17.9 Acute kidney failure, unspecified; N40.1 Benign prostatic hyperplasia with lower urinary tract symptoms; N39.0 Urinary tract infection, site not specified; R33.8 Other retention of urine; N18.3 Chronic kidney disease, stage 3 (moderate); E11.22 Type 2 diabetes mellitus with diabetic chronic kidney disease; N50.89 Other specified disorders of the male genital organs; N47.1 Phimosis; Y84.6 Urinary catheterization as the cause of abnormal reaction of the patient, or of later complication, without mention of misadventure at the time of the procedure; B95.2 Enterococcus as the cause of diseases classified elsewhere; E11.42 Type 2 diabetes mellitus with diabetic polyneuropathy; E03.9 Hypothyroidism, unspecified; I25.10 Atherosclerotic heart disease of native coronary artery without angina pectoris; R53.81 Other malaise; K76.1 Chronic passive congestion of liver; I86.1 Scrotal varices; Z87.891 Personal history of nicotine dependence; Z95.1 Presence of aortocoronary bypass graft; Z95.5 Presence of coronary angioplasty implant and graft; Z79.84 Long term (current) use of oral hypoglycemic drugs
CPT/HCPCS: 36415; 51700; 70450; 71045; 76870; 80048; 80053; 80076; 81001; 82948; 83735; 83880; 84100; 85025; 87086; 87186; 93976; 97139; 99284; J0696; J1644; J3370; J7030; J7050

== ENCOUNTER 2018-11-14 14:09 | Inpatient (IN) | payer MEDICARE ==
[~2018-11-14] VITALS: Ht 165.1 cm; Wt 96.6 kg
--- OUTSIDE RECORDS SUMMARY | 2018-11-14 14:14 | XMS REPORT | Clinical Summary ---
Author Author [facility] Address Unknown Phone Unavailable Care Team Providers Care Manager Clinical Research Name Role Phone PCP Unavailable Allergies Not on File Medications Not on file Active Problems Not on file Social History Date Tobacco Use Types Packs/Day Years Used Never Assessed Sex Assigned at Date Recorded Not on file Industry Job Start Date Occupation Not on file Not on file Not on file Travel End Travel History Travel Start No recent travel history available. Last Filed Vital Signs Not on file Plan of Treatment Care Team Description Date Type Specialty Luigi Pierre MD [address] [address] [phone] 11/18/2018 Hospital Encounter Luigi Pierre MD [address] [address] [phone] L CATH & CORONARY ANGIOS 11/18/2018 Surgery Results Not on fileafter 11/13/2017 Insurance Payer Benefit Subscriber ID Type Phone Address Plan / Group [facility] xxxxxxxxxxx [facility] xxxxxxxxxxx [phone] [facility] (Home) [place] [address]
[2018-11-14] MEDS ORDERED: CEFEPIME 1GM/NS 0.9% 50 ML 50 ML IV NR (15:00)
[2018-11-14 16:23] LABS: BASOPHILS % 0.3 % (0.0-1.0); EOSINOPHILS # (AUTO) 0.2 (0.0-0.4); EOSINOPHILS % 1.7 % (0.0-6.0); HEMATOCRIT 31.4 % (38.2-49.6); HEMOGLOBIN 9.9 g/dL (14.0-18.0); LYMPHOCYTES # (AUTO) 0.3 (1.0-3.2); LYMPHOCYTES % 2.7 % (18.0-39.1); MEAN CORPUSCULAR HEMOGLOBIN 24.7 pg (28-32); MEAN CORPUSCULAR HGB CONC 31.5 g/dL (31-35); MEAN CORPUSCULAR VOLUME 78.3 fL (81-99); MONOCYTES % 9.2 % (4.4-11.3); NEUTROPHILS # (AUTO) 9.2 (2.1-6.9); NEUTROPHILS % 85.6 % (38.7-80.0); PLATELET COUNT 194 x10e3/uL (140-360); RED BLOOD COUNT 4.01 x10e6/uL (4.3-5.7); RED CELL DISTRIBUTION WIDTH 17.4 % (11.7-14.4)
[2018-11-14 16:27] LABS: BILIRUBIN,URINE NEGATIVE (NEGATIVE); CLARITY,URINE SL CLOUDY (CLEAR); COLOR,URINE YELLOW (YELLOW); KETONES,URINE NEGATIVE (NEGATIVE); LEUKOCYTE ESTERASE ,URINE LARGE (NEGATIVE); NITRITE,URINE NEGATIVE (NEGATIVE); PROTEIN,URINE DIPSTICK 1+ (NEGATIVE); URINE UROBILINOGEN 1 mg/dL (0.2 - 1)
[2018-11-14 16:47] LABS: ALBUMIN 3.6 g/dL (3.5-5.0); CALCIUM 8.7 mg/dL (8.4-10.2); CREATININE, SERUM 1.63 mg/dL (0.72-1.25)
[2018-11-14 16:48] LABS: BACTERIA,URINE MODERATE /HPF; EPITHELIAL CELLS,URINE FEW /LPF; RBC,URINE 21-50 /HPF (0-5); WBC,URINE (MAN) >50 /HPF (0-5)
[2018-11-14 16:54] LABS: B-TYPE NATRIURETIC PEPTIDE2 420.9 pg/mL (0-100)
[2018-11-14 17:00] LABS: CREATINE KINASE MB 1.5 ng/mL (0-5.0)
--- NOTE | 2018-11-14 17:10 | NUR ---
back from ct and given a snack for a blood sugar of 50 per lab
[2018-11-14] MEDS: VANCOMYCIN 1GM/NS 250 ML 250 ML IV NR ×2 (17:16→17:41)
--- NOTE | 2018-11-14 17:32 | Diagnostic Imaging Report ---
EXAMINATION: CHEST SINGLE (PORTABLE) INDICATION: Cough. Avery a pop on the chest today. COMPARISON: 11/01/2018 FINDINGS: AP view TUBES and LINES: Stable dual-lead left chest wall cardiac device. LUNGS: Lungs are well inflated. Pulmonary vascular congestion and mild interstitial edema. There is no evidence of pneumonia or pulmonary edema. PLEURA: No significant pleural effusion or pneumothorax. HEART AND MEDIASTINUM: The cardiomediastinal silhouette is enlarged. Median sternotomy wires are again seen. Aorta is mildly calcified and tortuous. BONES AND SOFT TISSUES: No acute osseous lesion. Soft tissues are unremarkable. UPPER ABDOMEN: No free air under the diaphragm. IMPRESSION: Mild bilateral pulmonary venous congestion. Signed by: Dr. Wili Roberts M.D. on 11/14/2018 5:29 PM
--- NOTE | 2018-11-14 17:45 | Diagnostic Imaging Report ---
EXAM: CT Abdomen and Pelvis WITHOUT contrast INDICATION: Fever. Pain. COMPARISON: None. TECHNIQUE: Abdomen and pelvis were scanned utilizing a multidetector helical scanner from the lung base to the pubic symphysis without administration of IV contrast. Absence of intravenous contrast decreases sensitivity for detection of focal lesions and vascular pathology. Coronal and sagittal reformations were obtained. Routine protocol was performed. IV CONTRAST: None. ORAL CONTRAST: Water RADIATION DOSE: Total DLP: 1145.09 mGy*cm Estimated effective dose: (DLP x 0.015 x size factor) mSv COMPLICATIONS: None FINDINGS: LINES and TUBES: None. LOWER THORAX: Pacemaker leads. The cardiac silhouette is mildly enlarged. Groundglass nodular densities in the posterior left lower lobe, and to lesser degree right lung base, suggestive of infectious or inflammatory etiology, or aspiration. HEPATOBILIARY: No focal hepatic lesions. No biliary ductal dilation. GALLBLADDER: There are a few small stones in the gallbladder. No wall thickening. SPLEEN: No splenomegaly. PANCREAS: No focal masses or ductal dilatation. ADRENALS: No adrenal nodules KIDNEYS/URETERS: No hydronephrosis. No cystic or solid mass lesions. No stones. GI TRACT: No abnormal distention, wall thickening, or evidence of bowel obstruction. Appendix is normal. PELVIC ORGANS/BLADDER: The prostate is enlarged measuring 6.3 cm in transverse dimension. Ware catheter within decompressed urinary bladder. LYMPH NODES: No lymphadenopathy. VESSELS: There is moderate atherosclerotic disease in the aorta and major arterial branches. PERITONEUM / RETROPERITONEUM: Small volume of ascites. BONES: Grade 1 isthmic anterolisthesis of L5 in relation to S1. SOFT TISSUES: Anasarca. Small fat-containing right inguinal hernia. There is fluid attenuation surrounding the base of the kidneys. IMPRESSION: 1. Small volume of fluid about the base of the penis and inferior pubis may be in part related to anasarca. 2. Bibasilar groundglass nodular densities, left greater than right may represent aspiration, infectious or inflammatory etiology. 3. Small volume ascites. 4. Cholelithiasis. No biliary dilatation. Signed by: Dr. Wili Roberts M.D. on 11/14/2018 5:42 PM
[2018-11-14 17:49] LABS: ANISOCYTOSIS SLIGHT; LYMPHOCYTES % (MANUAL) 2 % (19-48); MICROCYTOSIS SLIGHT; MONOCYTES % (MANUAL) 4 % (3.4-9.0); NEUTROPHILS % (MANUAL) 94 % (40-74)
[2018-11-14 17:50] LABS: OVALOCYTES FEW; PLATELET ESTIMATE ADEQUATE; PLATELET MORPHOLOGY COMMENT NORMAL; RBC MORPHOLOGY COMMENT NORMAL
[2018-11-14] MEDS ORDERED: ACETAMINOPHEN/CODEINE 300MG - 30MG TAB PO NR (18:45)
[2018-11-14] MEDS ORDERED: CEFEPIME HCL 1 GM VIAL IV SCH (18:45)
--- OUTSIDE RECORDS SUMMARY | 2018-11-14 19:04 | XMS REPORT | Clinical Summary ---
Author Author [facility] Address Unknown Phone Unavailable Care Team Providers Care Teamsite Developer Name Role Phone PCP Unavailable Allergies Not [...] Date Type Specialty Luigi Pierre MD [address] [address] [phone] 11/18/2018 Hospital Encounter Luigi Pierre MD [address] [address] [phone] L CATH & CORONARY ANGIOS 11/18/2018 Surgery Results Not on fileafter 11/13/2017 Insurance Payer Benefit Subscriber ID Type Phone Address Plan / Group [facility] xxxxxxxxxxx [facility] xxxxxxxxxxx [phone] [facility] (Home) [place] [address]
--- NOTE | 2018-11-14 20:35 | Diagnostic Imaging Report ---
CT chest without enhancement CPT code: 11035 INDICATION: Persistent cough, possible pacemaker firing TECHNIQUE: Thin collimation axial images obtained from the thoracic inlet to the level of the diaphragm without intravenous contrast. Dose reduction techniques used: Automated exposure control, adjustment of the mAs and/or kVp according to patient size, standardized low-dose protocol, and/or iterative reconstruction technique. RADIATION DOSE: Total DLP: 590.6 mGy*cm Estimated effective dose: (DLP x 0.015 x size factor) mSv CTDIvol has been reviewed. It is below the limits set by the Radiation Protocol Committee (RPC). COMPARISON: CT abdomen/pelvis 1701 hours. CHEST FINDINGS: Lymph nodes: No enlarged axillary or supraclavicular lymph nodes. Prominent mediastinal lymph nodes. A right paratracheal lymph node measures 15 mm. No enlarged subcarinal or hilar lymph nodes given the lack of intravenous contrast. Thyroid: Diminutive. No mass. Mediastinum: Cardiomegaly with cardiac bypass changes. Dual-lead pacemaker terminates in the right atrium and right ventricle. No pericardial effusion. Main pulmonary artery measures 2.9 cm. Ascending aorta measures 3.7 cm. Small hiatal hernia. Lungs: Right: Diffusely hyperinflated. Patchy airspace opacities in the posterior lower lobe. Subsegmental atelectasis in the upper lobe and middle lobe. No discrete mass. Left: Diffusely hyperinflated. Multifocal airspace opacities in the upper and lower lobes. Airways: Diffuse bronchial wall thickening. No intraluminal filling defects Pleura: No pleural effusion or pleural based mass.. ABDOMEN FINDINGS: Diffuse abdominal ascites. Subcentimeter intraluminal gallstone. No mass or lymphadenopathy in the visualized portions of the upper abdomen. Bones: Median sternotomy is well-healed there are subcentimeter bone islands in the right humeral head. No destructive lesions Soft tissues: Unremarkable.. IMPRESSION: 1. Multifocal airspace opacities, left lung more severe than the right, suggestive of pneumonia. Aspiration pneumonia is included in the differential. 2. Small hiatal hernia. 3. Prominent mediastinal lymph nodes may be reactive. 4. Cardiomegaly and postoperative changes as described above. 5. Ascites. Cholelithiasis. Signed by: Dr. Chanda Solis MD on 11/14/2018 8:32 PM
--- NOTE | 2018-11-14 20:53 | NUR ---
Pt received from ER. Pt A&O and in no apparent distress. Pt Bengali speaking. Pt on room air, tele, and zhu cath with leg bag. Pt has swelling to penis and testicles. Pt ambulates with straight cane. All safety measures ensured, bed alarm on, and pt call villafana near.
[2018-11-14 20:54] VITALS: BP 106/62
[2018-11-14 20:55] VITALS: BP 106/62
[2018-11-14] MEDS ORDERED: ACETAMINOPHEN/CODEINE 300MG - 30MG TAB PO PRN (21:30)
[2018-11-14] MEDS ORDERED: CEFEPIME 1GM/NS 0.9% 50 ML 50 ML IV SCH (22:00)
[2018-11-14] MEDS ORDERED: HYDRALAZINE HCL 20 MG/ML VIAL IV PRN (22:00)
[2018-11-14] MEDS ORDERED: DEXTROSE 50% SYRINGE 50 ML IV PRN (22:00)
[2018-11-14] MEDS: ACETAMINOPHEN/CODEINE 300MG - 30MG TAB PO SCH (22:18)
[2018-11-14] MEDS: DOXYCYCLINE 100MG/NS 100ML 100 ML IV SCH (22:50)
[2018-11-15] VITALS (8 sets, daily range): BP systolic 97–126; BP diastolic 56–70
--- NOTE | 2018-11-15 02:25 | NUR ---
Pt resting in bed and in no apparent distress. Pt states pain is "ok" for now with no complaints.
--- NOTE | 2018-11-15 04:31 | History and Physical ---
PRIMARY CARE DOCTOR: Irena PowellSurjit. HOSPITAL PHYSICIAN: Dr. Ramo Manrique. CHIEF COMPLAINT: Chest pain. HISTORY OF PRESENT ILLNESS: Mr. Weller is a pleasant 68-year-old gentleman with chest pain. Quality consistent with chest tightness. He had concerns that his ICD could have been going off. There was associated shortness of breath. For the last 2 weeks, he has had increasing chest congestion. He has had mild increased phlegm, slightly yellow. No fevers. When he came to the emergency room, the emergency room doctor evaluated on telemetry to rule out any shocks. The patient although went for CAT scan and was found to have bilateral pneumonia, mainly in the left side. The patient was admitted. PAST MEDICAL HISTORY: Hypertension, hyperlipidemia, diabetes, BPH with urinary retention and Ware, coronary artery disease, history of CABG, AICD, EF 30% to 35%, left heart catheterization results in the computer, possible thyroid disease. MEDICATIONS: Medication list reviewed per the chart record. Outpatient diuretic and torsemide. His other medicines include metformin. ALLERGIES: METOPROLOL. SOCIAL HISTORY: No drugs. No alcohol currently, but he had heavy drinking when he was younger. He smoked from age 11 to 39, one pack per day. FAMILY HISTORY: Noncontributory. REVIEW OF SYSTEMS: GENERAL: No unexplained weight gain. HEENT: No mouth ulcers. ENDOCRINE: No recent thyroid dyscontrol. PULMONARY: No asthma. CARDIAC: Surgery in 2010, no recent heart attacks. GI: No GI bleeding. : No pus from Ware. NEUROLOGIC: No seizures. DERMATOLOGIC: No rashes. PSYCHIATRIC: No depression. OBJECTIVE: VITAL SIGNS: Afebrile, vital signs noted and reviewed per the chart record. GENERAL: In no acute distress, mostly alert and calm, although there is some anxiety regarding his condition and why he is not feeling better recently. HEENT: Normocephalic and atraumatic. NECK: Supple. Throat midline. LUNGS: Bilateral air entry is decreased, rare rhonchi only on coughing, otherwise clear. CARDIOVASCULAR: S1 and S2. No murmurs, rubs, or gallops. ABDOMEN: Soft, nontender, obese. EXTREMITIES: No clubbing. No cyanosis. There is 2+ edema. INTEGUMENT: No rash or purpura. He does have thin skin with some stasis changes, venous stasis to legs partially seen. LABORATORY DATA: Sodium 134, BUN 39, creatinine 1.6, glucose 59. Hematocrit 31, white count 11, platelets 194. BNP 421. Previous HIV was negative. CT scan of chest on August 23, 2018, did not show same pattern pneumonia at that time. IMPRESSION AND PLAN: 1. Chest tightness, pneumonia. 2. Fluid overload, mainly extrapulmonary. 3. Chronic systolic heart failure. 4. Coronary artery disease, status post coronary artery bypass grafting in the past, 2010. 5. Mild hyponatremia. 6. Ntce-co-ohilhryc gastroesophageal reflux disease. 7. Diabetes. 8. Hyperlipidemia. 9. Chronic kidney disease, reported stage 3. 10. History of AICD. 11. Hypoglycemia. 12. Mild elevation of LFTs. 13. Benign prostatic hypertrophy and urinary retention with chronic Ware. At this time, we wish to continue the current treatment. Diuretics will be converted to IV and we will titrate accordingly for the body edema. Antibiotics will be expanded to cover for pneumonia. We will follow up closely. The patient's antibiotic coverage will be tailored for healthcare associated sources. Continue Ware. Follow up cultures to finalization. We will review with the emergency room regarding the pacemaker/AICD. Continue diabetes management, we will follow along closely. Thank you very much, Dr. Neal, for allowing me a chance to participate in the care of Mr. Weller. Please call for questions. MD CHRISTIE Bhatti/FAROOQ /[id number]
[2018-11-15] MEDS: CEFEPIME 1GM/NS 0.9% 50 ML 50 ML IV SCH ×2 (05:23→16:40)
[2018-11-15 05:35] LABS: BASOPHILS # (AUTO) 0.1 (0.0-0.1); BASOPHILS % 0.9 % (0.0-1.0); EOSINOPHILS # (AUTO) 1.1 (0.0-0.4); EOSINOPHILS % 13.3 % (0.0-6.0); HEMATOCRIT 31.8 % (38.2-49.6); HEMOGLOBIN 9.6 g/dL (14.0-18.0); LYMPHOCYTES # (AUTO) 0.8 (1.0-3.2); LYMPHOCYTES % 9.8 % (18.0-39.1); MEAN CORPUSCULAR HEMOGLOBIN 24.3 pg (28-32); MEAN CORPUSCULAR HGB CONC 30.2 g/dL (31-35); MEAN CORPUSCULAR VOLUME 80.5 fL (81-99); MONOCYTES % 12.3 % (4.4-11.3); NEUTROPHILS # (AUTO) 5.1 (2.1-6.9); NEUTROPHILS % 63.3 % (38.7-80.0); PLATELET COUNT 180 x10e3/uL (140-360); RED BLOOD COUNT 3.95 x10e6/uL (4.3-5.7); RED CELL DISTRIBUTION WIDTH 17.4 % (11.7-14.4)
[2018-11-15 05:59] LABS: ALBUMIN 3.3 g/dL (3.5-5.0); ANION GAP 16.5 mmol/L (8-16); CALCIUM 8.6 mg/dL (8.4-10.2); CREATININE, SERUM 2.05 mg/dL (0.72-1.25); POTASSIUM 4.5 mmol/L (3.5-5.1)
[2018-11-15] MEDS: VANCOMYCIN 1GM/NS 250 ML 250 ML IV SCH ×2 (06:13→08:46)
[2018-11-15] MEDS: ACETAMINOPHEN/CODEINE 300MG - 30MG TAB PO SCH ×4 (06:23→16:37)
--- NOTE | 2018-11-15 06:56 | Diagnostic Imaging Report ---
EXAMINATION: CHEST SINGLE (PORTABLE) COMPARISON: CT chest and chest x-ray 11/14/2018 INDICATION: Pneumonia ^?pna DISCUSSION: Frontal view of the chest obtained at 0626 hours. HEART AND MEDIASTINUM: Stable postoperative changes from cardiac bypass. LINES: Dual-lead pacemaker wires terminate in the right atrium and right ventricle LUNGS: Patchy airspace opacities in the left lung identified on CT are poorly visualized by x-ray. Mild vascular congestion. No interstitial edema. PLEURA: No large effusions. No pneumothorax. Mild eventration of the right diaphragm is stable. BONES AND SOFT TISSUES: The second median sternotomy wire is fractured, counting down. The soft tissues are normal. IMPRESSION: Cardiomegaly and pulmonary vascular congestion. Pulmonary infiltrates identified on CT are poorly visualized by x-ray. Signed by: Dr. Chanda Solis MD on 11/15/2018 6:53 AM
--- NOTE | 2018-11-15 07:03 | NUR ---
Bedside report and walking rounds complete. Pt is resting in bed in NAD. He is awake and alertx3, mostly Icelandic speaking. POC discussed. Tele#7, SR @72. Patient instructed to call for assistance as needed and verbalized understanding. Call villafana within reach.
--- NOTE | 2018-11-15 07:07 | NUR ---
Bedside report and walking rounds complete.
[2018-11-15] MEDS: INSULIN LISPRO 100 UNIT/1 ML 3ML VIAL SQ SCH ×4 (08:00→21:00)
[2018-11-15] MEDS ORDERED: VANCOMYCIN 1GM/NS 250 ML 250 ML IV SCH (09:00)
[2018-11-15] MEDS ORDERED: GABAPENTIN 300 MG CAP PO SCH (09:00)
[2018-11-15] MEDS: LISINOPRIL 2.5 MG TAB PO SCH (09:04)
[2018-11-15] MEDS: FUROSEMIDE INJ 10 MG/ML 4 ML VIAL IV SCH (09:04)
[2018-11-15] MEDS: TAMSULOSIN HCL 0.4 MG CAP PO SCH (09:04)
[2018-11-15] MEDS: LEVOTHYROXINE SODIUM 25 MCG TABLET PO SCH (09:05)
[2018-11-15] MEDS: DOXYCYCLINE 100MG/NS 100ML 100 ML IV SCH ×2 (09:08→22:16)
--- NOTE | 2018-11-15 14:41 | NUR ---
INTERNAL MEDICINE Encounter 11/15/18 Dr Manrique Coverage SUBJECTIVE: PATIENT complains of swollen scrotum still. Limits his functionality. very concerned. He received IV lasix yesterday and urinated a lot he says. cxr c/w mild overload pattern (although CT chest showed minimal overload). No large dyspnea now REVIEW OF SYSTEMS: no weight loss unexplained, no rash OBJECTIVE: VITAL SIGNS: vital signs noted and reviewed per the chart record. GENERAL: no acute distress, mostly alert and calm HEENT: Normocephalic and atraumatic. NECK: Supple. Throat midline. LUNGS: Bilateral air entry is decreased, rare rhonchi only CARDIOVASCULAR: S1 and S2. No murmurs, rubs, or gallops. ABDOMEN: Soft, nontender, mildly obese. EXTREMITIES: No clubbing. No cyanosis. 2+ edema. INTEGUMENT: No rash or purpura. +bilateral stockings LABORATORY DATA: cr 2.1. 4.5 k. 8 wbc. 32 hct. 180 plt IMPRESSION AND PLAN: 1. Health care associated pneumonia, gram negative. 2. Fluid overload, mainly extrapulmonary. Significant scrotal edema. 3. Chronic systolic heart failure. 4. Coronary artery disease, s/p coronary artery bypass grafting 2010. 5. Mild hyponatremia. 6. Poxg-qz-mjmoylpa gastroesophageal reflux disease. 7. Diabetes. 8. Hyperlipidemia. 9. Chronic kidney disease, reported stage 3. 10. Hx AICD. 11. Hypoglycemia. 12. Mild elevation of LFTs. 13. Benign prostatic hypertrophy and urinary retention with chronic Ware. Gentle diuretics , follow lytes/Cr. Scrotal elevation Antibiotics for pneumonia. Continue Ware. Cardiology consult to review AICD/chest pains if not done before Continue diabetes management, we will follow along closely. Thank you very much, Dr. Neal, for allowing me a chance to participate in the care of Mr. Weller. Please call for questions.
--- NOTE | 2018-11-15 15:00 | NUR ---
Visit made by the Spiritual Care Department Pastoral Visitor, Juan Hinojosa. PV provided pastoral presence, hospitality, and supportive listening. Pastoral Visitor informed pt/family of the scope of [employer] and availability. EDWARD AKHTAR Review Scheduling Coordinator Spiritual Care Department O: [phone] Pager: [phone] ([phone] number calling from)
--- NOTE | 2018-11-15 19:02 | NUR ---
Bedside report and walking rounds complete. Pt resting in bed and in no apparent distress. Pt on 2LNC and tele. All safety measures ensured and pt call villafana near. Pt encouraged to use call villafana for assistance.
--- NOTE | 2018-11-15 23:50 | Consultation ---
DATE OF CONSULTATION: 11/15/2018 Urology Consultation REASON FOR CONSULTATION: Urinary tract infections, edema and urinary retention. HISTORY OF PRESENT ILLNESS: Yovany Weller is a 68-year-old man with recurrent urinary retention. The patient has a chronic Ware catheter in place. It is unclear when it was changed last. The patient has had multiple admissions. He has had a history of gross hematuria in the past. He is currently admitted and was found to have urinary tract infection as well. The patient has gone to the [facility] urolog[facility] and the [facility] urologist told him that he needs to first address his heart and has gone to the vaccine key customer leader and the vaccine key customer leader has told him he first needs to address his urinary system. The patient was admitted with anasarca and urological consultation was also sort. PAST MEDICAL AND SURGICAL HISTORY: 1. Coronary artery disease, status post coronary artery bypass x4. 2. Hypertension. 3. Hyperlipidemia. 4. Diabetes mellitus. 5. BPH. 6. Status post AICD implantation. 7. Ejection fraction of 30% to 35%. 8. Possible thyroid disease. 9. Obesity. ALLERGIES: NONE KNOWN. CURRENT MEDICATIONS: Please refer to MAR. SOCIAL HISTORY: The patient quit smoking many years ago. He is retired from [employer]. He has supportive family at the bedside. FAMILY HISTORY: Noncontributory to the active urological problems. REVIEW OF SYSTEMS: Discussed as above in history of present illness and past medical history, otherwise negative for all systems. PHYSICAL EXAMINATION: GENERAL: Very pleasant 68-year-old male, lying in bed, in no apparent distress. He is currently afebrile. VITAL SIGNS: Currently stable. ABDOMEN: Soft, obese, nondistended, nontender without costovertebral angle tenderness. GENITOURINARY: The patient has severe penoscrotal edema with secondary phimosis. Testes are not well palpable in the scrotum. There is no sign of drainable abscess or infection. There is a Ware catheter in place draining yellow urine out. For the remaining physical examination systems, please refer to the admission history and physical on the chart. LABORATORY STUDIES: Urine culture shows Enterococcus species and final culture and sensitivities are pending. White blood cell count is 8040, hemoglobin 9.6 and platelets 180,000. The patient's creatinine is 2.05, it was 1.63 upon admission. Sodium is low at 130. CT scan of the abdomen and pelvis was done without contrast. It reveals gallstones, but no hydronephrosis. BPH was noted with Ware catheter in an appropriate position within the bladder. ASSESSMENT: 1. Chronic urinary retention. 2. Chronic urinary catheter. 3. Urinary tract infection, present on admission. 4. Penoscrotal edema. 5. Anemia. 6. Acute on chronic renal insufficiency. 7. Microhematuria. 8. Gross hematuria in the past. 9. Obstructive benign prostatic hypertrophy. 10. Phimosis. 11. Gallstones. PLAN: 1. Leave the Ware catheter in place for now. 2. Await urine culture and sensitivity and adjust antibiotics accordingly. 3. I instructed the nurse to elevate the scrotum at all times with a rolled towel. 4. The patient needs urological evaluation including ideally a urodynamic study, probably needs a transurethral resection of the prostate for his chronic urinary retention. Cardiac workup is pending including what sounds like a heart catheterization. 5. Ongoing urological followup as well as urological intervention is warranted. 6. I defer the hematological and electrolyte abnormalities to the primary physician. 7. Serial scrotal examinations will be warranted once the patient's edema has been corrected. Thank you very much for involving us in the care of your patient. We will be happy to follow along with you as well as outpatient. Sen Mccann MD OH/MODL /[id number]
[2018-11-16] VITALS: BP 94/59
--- NOTE | 2018-11-16 02:05 | NUR ---
Pt sleeping in bed and in no apparent distress. O2 in place.
[2018-11-16 04:00] VITALS: BP 101/67
[2018-11-16] MEDS: CEFEPIME 1GM/NS 0.9% 50 ML 50 ML IV SCH ×2 (05:31→17:16)
[2018-11-16] MEDS: ACETAMINOPHEN/CODEINE 300MG - 30MG TAB PO SCH ×5 (05:45→23:01)
[2018-11-16 06:15] LABS: ANION GAP 14.7 mmol/L (8-16); CALCIUM 8.6 mg/dL (8.4-10.2); CREATININE, SERUM 2.21 mg/dL (0.72-1.25); MAGNESIUM 2.7 MG/DL (1.3-2.1); POTASSIUM 4.7 mmol/L (3.5-5.1)
--- NOTE | 2018-11-16 07:20 | NUR ---
Bedside report and walking rounds complete.
[2018-11-16 07:53] VITALS: BP 115/64
[2018-11-16] MEDS: INSULIN LISPRO 100 UNIT/1 ML 3ML VIAL SQ SCH ×4 (08:15→21:00)
[2018-11-16] MEDS: GABAPENTIN 400 MG CAP PO SCH (09:34)
[2018-11-16] MEDS: TAMSULOSIN HCL 0.4 MG CAP PO SCH (09:34)
[2018-11-16] MEDS: FUROSEMIDE INJ 10 MG/ML 4 ML VIAL IV SCH ×2 (09:34→17:00)
[2018-11-16] MEDS: VANCOMYCIN 1GM/NS 250 ML 250 ML IV SCH (09:34)
[2018-11-16] MEDS: LISINOPRIL 2.5 MG TAB PO SCH (09:35)
[2018-11-16] MEDS: LEVOTHYROXINE SODIUM 25 MCG TABLET PO SCH (09:35)
[2018-11-16 11:11] VITALS: BP 120/74
[2018-11-16] MEDS: DOXYCYCLINE 100MG/NS 100ML 100 ML IV SCH (11:23)
[2018-11-16] MEDS ORDERED: METOLAZONE 5 MG TAB PO NR (12:00)
--- NOTE | 2018-11-16 14:29 | NUR ---
RECD PT FROM OBS UNIT VIA BED AAOX3 ,S/L TO RT HAND ,TENDER TO TOUCH ,RESTARTED TO IV TO RT FA 20 G.SCROTUM SWOLLEN ELEVATED WITH TOWELS
[2018-11-16 15:55] VITALS: BP 118/74
[2018-11-16] MEDS ORDERED: SODIUM CHLORIDE 0.9% 250ML 250 ML ONE (16:34)
[2018-11-16] MEDS: METOPROLOL TARTRATE 25 MG TAB PO SCH (17:00)
--- NOTE | 2018-11-16 18:06 | NUR ---
PT UP IN BED REFUSED PAIN MEDS ,
--- NOTE | 2018-11-16 18:58 | Consultation ---
DATE OF CONSULTATION: 11/16/2018 REASON FOR CONSULTATION: Cardiac evaluation. CHIEF COMPLAINT: Left popping sound in the chest. HISTORY OF PRESENT ILLNESS: This is a 68-year-old male with history of hypertension; hypercholesterolemia; BPH with urinary retention any recurrent UTIs; CAD, status post CABG, three vessel, status post left heart catheterization in 2015, with Dr. Kevin, showing patent YEH to LAD, advanced ischemic cardiomyopathy status post ICD. The patient presents to [facility] ER after apparently having a popping sound in his left chest wall, became frightened and thought it was his ICD, so he came to the hospital for evaluation. On CT, apparently the patient was noted with possible pneumonia, volume overload, so was admitted for further evaluation. Cardiology was consulted to evaluate the patient. The patient is seen in the room in no acute distress, reports that he was bending over prior to admission and felt a pop in his left chest, so came to the hospital for evaluation. However, does report for the past several weeks, coughing, shortness of breath, and intermittent fevers. Reports sick contacts. Also reports some orthopnea and of course lower extremity edema. The patient denies any chest pain, shortness of breath. Also reports was seeing Dr. Alba as his wound care center consultant, however, has changed and has no appointment with any wound care center consultant in the [facility] this coming Friday. Currently denies any chest pain, shortness of breath at this time. PAST MEDICAL HISTORY: Hypertension, hypercholesterolemia, diabetes, BPH with urinary retention and recurrent UTIs, CAD status post prior CABG and ischemic cardiomyopathy with an EF of 30%, status post ICD placement; history of left heart catheterization in September [address] Kevin apparently and had only a YEH to LAD that was open. SURGICAL HISTORY: 1. Left heart catheterization in 2016. 2. Dual-chamber ICD in 2016. FAMILY HISTORY: Mother and father in their 80s of unknown cause. SOCIAL HISTORY: He is a former smoker, quit about 30 years ago. Occasionally drinks alcohol. ALLERGIES: NO KNOWN ALLERGIES. HOME MEDICATIONS: Include Tylenol with codeine, gabapentin 600 mg p.o. daily, levothyroxine 0.75 mg daily, lisinopril 5 mg daily, metformin 1000 mg b.i.d., Flomax 0.4 mg daily, and torsemide 40 mg p.o. b.i.d. REVIEW OF SYSTEMS: GENERAL: Positive weight gain. Positive for fatigue, weakness, intermittent chills, fevers. SKIN: No rashes or bruises. HEENT: Denies any nausea, vomiting, vision changes, any blurred vision, double vision, any earaches, any tinnitus, epistaxis, sore throat, swollen gums. CARDIAC: Denies any chest pain. Positive for shortness of breath, dyspnea on exertion, orthopnea, PND, or lower extremity edema. RESPIRATORY: Positive shortness of breath. Positive for cough, productive. GASTROINTESTINAL: Reports good appetite. Denies any nausea, vomiting, diarrhea, constipation, any hematochezia, any melena. URINARY: Positive for frequency or urgency. Positive for dysuria. Denies any hematuria. VASCULAR: Positive for lower extremity edema. MUSCULOSKELETAL: Positive for generalized muscle weakness, generalized joint pain. HEMATOLOGY: Denies any bruising or bleeding. ENDOCRINE: Denies any heat or cold intolerance, any polyuria, positive vision. PHYSICAL EXAMINATION: VITAL SIGNS: Height is 6 feet 5 inches, weight 206 pounds, temperature 98.8, pulse 66, respiratory rate 19, blood pressure 115/64, pulse ox 100% on room air. LABORATORY DATA: Sodium 132, potassium 4.7, chloride 92, bicarb 30, BUN 55, and creatinine 2.2. BNP 420. White count 8, hemoglobin 9.6, hematocrit 31, and platelets 180. UA showing positive leukocyte esterase. Urine WBCs greater than 50,000. Chest x-ray showing pulmonary venous congestion. CT chest multifocal opacities greater on left than the right. ASSESSMENT: 1. Questionable ICD firing. 2. Pneumonia. 3. Benign prostatic hypertrophy/urinary retention/urinary tract infection. 4. Fmwoz-wv-igalbek congestive heart failure. 5. Coronary artery disease, status post CABG with a YEH to LAD, patent graft. 6. Chronic kidney disease, stage 3. PLAN: The patient presents with a popping sound in his left chest wall, questionable ICD fired. We will interrogate ICD and about to evaluate. 1. We will continue's heart failure therapy. However, his kidney function is limiting on medications that we can use. We will suggest holding off his TIMA inhibitor to his kidney function is rising. 2. The patient reports anthony an appointment with a [facility] consultant [facility] on Friday. For now we will just continued for medical therapy. Thank you very much for this consult. We will continue to monitor the patient and adjust cardiac therapy as clinic course dictates. Dictated by Henok Muniz, KALEY Blas Blanco MD DC/FAROOQ /[id number]
[2018-11-16 20:00] VITALS: BP 80/55
--- NOTE | 2018-11-16 20:00 | NUR ---
Received change of shift report from AM nurse. Rounds completed.
--- NOTE | 2018-11-16 20:49 | Consultation ---
DATE OF CONSULTATION: 11/16/2018 ID Consult REASON FOR CONSULTATION: Urinary tract infection due to Enterococcus. Thank you, Dr. Mathews, for asking me to see this patient who was admitted through the emergency department. HISTORY OF PRESENT ILLNESS: The patient is a 68-year-old man, referred for urinary tract infection due to Enterococcus. The patient speaks Belarusian only. Therefore, information was obtained through professional radio installer automobile via video. The patient was admitted through the emergency department for bilateral pneumonia. He presented to the emergency department on 11/13/2018 with a popping discomfort in the chest. He was having mild cough and shortness of breath prior. He denies fever, chills, and pleuritic chest pain. Also, he has had scrotal swelling and intermittent urethral discomfort, but denies hematuria and suprapubic or flank pain. He has chronic indwelling Ware catheter. In the emergency department, he was noted to have temperature of 100.4 degrees Fahrenheit, pulse rate 96, respiratory rate 18, blood pressure 97/63, and oxygen saturation 94% on 2 L of oxygen by nasal cannula. Initial laboratory studies show blood leukocyte count of 10,770, neutrophils 94, BUN 39, creatinine 1.63, and abnormal urinalysis. A chest CT scan showed multifocal airspace opacities. PAST MEDICAL HISTORY: Diabetes mellitus type 2, hypertension, hyperlipidemia, coronary artery disease, cardiomyopathy, hypothyroidism, BPH. PAST SURGICAL HISTORY: Coronary artery bypass and AICD implant. ALLERGIES: METOPROLOL. MEDICATIONS: The current antibiotics are cefepime 1 g IV piggyback q.12h., vancomycin 1 g IV piggyback every other day, and doxycycline 100 mg IV piggyback q.24h. IMMUNIZATIONS: Pneumococcal vaccination status cannot be verified at this time. FAMILY HISTORY: Noncontributory. SOCIAL HISTORY: He quit smoking cigarettes many years ago. He smoked for 28 years. No alcohol or recreational drug use. REVIEW OF SYSTEMS: As per history of present illness. PHYSICAL EXAMINATION: GENERAL: In no acute distress. VITAL SIGNS: T-max 98.8, pulse 70, respiratory rate 20, blood pressure 120/74. Weight 206 pounds. HEENT: Normocephalic. There is no icterus or injection of conjunctivae. There is no ear or nasal discharge. Moist oral mucosa. No pharyngeal erythema or exudate. NECK: Supple. No meningismus. LUNGS: With few basal rales bilaterally. HEART: With normal S1 and S2. ABDOMEN: Protuberant, but soft and nontender. EXTREMITIES: There is 2+ edema of the legs bilaterally. Dorsalis pedis and posterior tibial pulses are palpable. SKIN: There is no acute erythema. SHOP WELDER: Awake, alert, and oriented to person, place, and time. Nonfocal. Decreased sensation to monofilament test of the feet. LABORATORY AND DIAGNOSTICS: On 11/15/2018, WBC 8040, hemoglobin 9.6, platelet 180,000, neutrophils 63.3, lymphocytes 9.8, monocytes 12.3, eosinophils 13.3. BUN 55, creatinine 2.21, blood glucose 178. Urine culture is growing Enterococcus species. IMPRESSION: 1. Multifocal pneumonia, present on admission. 2. ? Ware catheter-associated urinary tract infection due to Enterococcus, present on admission. 3. Coronary artery disease. 4. Benign prostatic hypertrophy. 5. Diabetes mellitus type 2. 6. Hypothyroidism. PLAN: 1. Await urine isolate and sensitivity. 2. Stop doxycycline. MD LELIA Doll/FAROOQ /[id number]
[2018-11-16] MEDS: ATORVASTATIN 40 MG TAB PO SCH (21:00)
[2018-11-16] MEDS ORDERED: ATORVASTATIN 20 MG TAB PO SCH (21:00)
--- NOTE | 2018-11-16 21:10 | NUR ---
INTERNAL MEDICINE Encounter 11/16/18 Dr Manrique Coverage SUBJECTIVE: Patient with continued fluid excess. Creatinine increased minimally. i discussed with who recommends abx for the urinary culture. Cultures growing enterococcus for now, await sensitivities REVIEW OF SYSTEMS: no weight loss unexplained, no rash OBJECTIVE: VITAL SIGNS: vital signs noted and reviewed per the chart record. GENERAL: no acute distress, mostly alert and calm HEENT: Normocephalic and atraumatic. NECK: Supple. Throat midline. LUNGS: Bilateral air entry is decreased, rare rhonchi only CARDIOVASCULAR: S1 and S2. No murmurs, rubs, or gallops. ABDOMEN: Soft, nontender, mildly obese. EXTREMITIES: No clubbing. No cyanosis. 2+ edema. INTEGUMENT: No rash or purpura. +bilateral stockings LABORATORY DATA: cr 2.21, 4.7 k. 32 hct. IMPRESSION AND PLAN: 1. Health care associated pneumonia, gram negative. Acquired prior to admit. 1. Enterococcal UTI, catheter associated. Acquired prior to admit 2. Fluid overload, mainly extrapulmonary. Significant scrotal edema. 3. Chronic systolic heart failure. 4. Coronary artery disease, s/p coronary artery bypass grafting 2010. 5. Mild hyponatremia. 6. Eajb-am-zjlfpghj gastroesophageal reflux disease. 7. Diabetes. 8. Hyperlipidemia. 9. Chronic kidney disease, reported stage 3. 10. Hx AICD. 11. Hypoglycemia. 12. Mild elevation of LFTs. 13. Benign prostatic hypertrophy and urinary retention with chronic Ware. Gentle diuretics , follow lytes/Cr. Scrotal elevation Antibiotics for pneumonia. SAMUEL wants antibiotics for UTI, await sensitivity. ID consult in case home abx are warranted Continue Ware. Continue diabetes management, we will follow along closely. Hold discharge , await abx guidance Thank you very much, Dr. Neal, for allowing me a chance to participate in the care of Mr. Weller. Please call for questions.
--- NOTE | 2018-11-16 21:21 | NUR ---
Patient jumped out of bed and asked for my assisst to the bathroom with a cane. Patient legs became weak and I sat him down on the floor. BP 106/69 with no temp HR 81. Patient asst back to bed. Patient did not hit any body parts on the floor. Tiana magallon sup informed.
--- NOTE | 2018-11-16 22:17 | NUR ---
Patient placed in chair at bedside. 2 person asst.
[2018-11-17] VITALS (8 sets, daily range): BP systolic 91–140; BP diastolic 52–66
--- NOTE | 2018-11-17 01:00 | NUR ---
Patient refused siderail to be up. Also refused to stay in bed. Nausea appear to have decreased.
[2018-11-17] MEDS: ONDANSETRON HCL INJ 2MG/ML 2ML 2 MG/ML VIAL IV PRN ×2 (01:20→07:30)
[2018-11-17] MEDS ORDERED: PROMETHAZINE 12.5MG/ NACL 0.9% 12.5 MG/50 ML BAG IV PRN (02:30)
--- NOTE | 2018-11-17 04:43 | NUR ---
Patient continue to try to get out of bed. Encouraged patient several times to stay in bed. Bed alarm on.
[2018-11-17] MEDS: CEFEPIME 1GM/NS 0.9% 50 ML 50 ML IV SCH ×2 (05:16→17:06)
[2018-11-17] MEDS: LEVOTHYROXINE SODIUM 75 MCG TAB PO SCH (06:00)
[2018-11-17] MEDS: ACETAMINOPHEN/CODEINE 300MG - 30MG TAB PO SCH ×3 (06:00→17:59)
[2018-11-17 06:38] LABS: ALBUMIN 3.4 g/dL (3.5-5.0); ANION GAP 18.5 mmol/L (8-16); CALCIUM 8.5 mg/dL (8.4-10.2); CREATININE, SERUM 2.38 mg/dL (0.72-1.25); POTASSIUM 4.5 mmol/L (3.5-5.1)
--- NOTE | 2018-11-17 07:01 | NUR ---
S/W DR Mathews regarding coffee ground emesis. Orders received and completed.
[2018-11-17] MEDS: INSULIN LISPRO 100 UNIT/1 ML 3ML VIAL SQ SCH ×4 (07:30→21:00)
--- NOTE | 2018-11-17 07:30 | NUR ---
pt up on side of bed vomiting,coffe ground emesis,dr notified,medicated.
--- NOTE | 2018-11-17 08:45 | NUR ---
PT ASSISTED UP TO BR C/O NAUSEA AGAIN,REFUSED MEDICATION,STATED FEELS TO SICK
[2018-11-17] MEDS: GABAPENTIN 400 MG CAP PO SCH (09:00)
[2018-11-17] MEDS: TAMSULOSIN HCL 0.4 MG CAP PO SCH (09:00)
[2018-11-17] MEDS: VANCOMYCIN 1GM/NS 250 ML 250 ML IV SCH (09:00)
[2018-11-17] MEDS: FUROSEMIDE INJ 10 MG/ML 4 ML VIAL IV SCH (09:00)
[2018-11-17] MEDS: METOPROLOL TARTRATE 25 MG TAB PO SCH ×2 (09:00→17:06)
[2018-11-17] MEDS: ASPIRIN 81 MG ENTERIC COATED PO SCH (09:00)
[2018-11-17 09:42] LABS: BASOPHILS % 0.6 % (0.0-1.0); EOSINOPHILS % 0.3 % (0.0-6.0); HEMATOCRIT 32.1 % (38.2-49.6); HEMOGLOBIN 10.3 g/dL (14.0-18.0); LYMPHOCYTES # (AUTO) 0.5 (1.0-3.2); LYMPHOCYTES % 6.8 % (18.0-39.1); MEAN CORPUSCULAR HEMOGLOBIN 25.1 pg (28-32); MEAN CORPUSCULAR HGB CONC 32.1 g/dL (31-35); MEAN CORPUSCULAR VOLUME 78.1 fL (81-99); MONOCYTES # (AUTO) 0.6 (0.2-0.8); MONOCYTES % 8.1 % (4.4-11.3); NEUTROPHILS % 83.9 % (38.7-80.0); PLATELET COUNT 188 x10e3/uL (140-360); RED BLOOD COUNT 4.11 x10e6/uL (4.3-5.7); RED CELL DISTRIBUTION WIDTH 17.5 % (11.7-14.4)
[2018-11-17] MEDS ORDERED: PANTOPRAZOLE 40 MG 10ML VIAL IV SCH (10:00)
--- NOTE | 2018-11-17 12:00 | NUR ---
PT SLEEPING DENIESPAIN,REFUSES PAIN MEDS.
--- NOTE | 2018-11-17 15:00 | NUR ---
PT TRANSPORTED TO [facility] VIA W/C.
[2018-11-17] MEDS ORDERED: BISACODYL 10 MG SUPP PR NR (15:15)
--- NOTE | 2018-11-17 16:00 | NUR ---
RETURNED TO ROOM.
--- NOTE | 2018-11-17 16:24 | Diagnostic Imaging Report ---
Exam: Abdominal film Clinical History: Anasarca, vomiting Comparison: CT abdomen and pelvis 11/14/2018 DISCUSSION: The bowel gas pattern shows no dilated, air-filled loops of bowel. Gas and fecal material is noted throughout the colon. No mass effect or organomegaly. No abnormal calcifications. Multiple phleboliths. Regional skeletal structures intact. Median sternotomy wires and AICD leads partially visualized. IMPRESSION: Nonobstructive bowel gas pattern. Signed by: Dr. Henok Duran M.D. on 11/17/2018 4:20 PM
--- NOTE | 2018-11-17 16:33 | Diagnostic Imaging Report ---
EXAMINATION: Renal ultrasound. CLINICAL HISTORY :Chronic kidney disease COMPARISON: CT abdomen and pelvis 11/14/2018 TECHNIQUE: Grayscale and color Doppler evaluation of the kidneys and bladder was performed in transverse and longitudinal planes. DISCUSSION: RIGHT KIDNEY: The right kidney measures 10.2 cm in length and shows normal echogenicity. No hydronephrosis, shadowing calculi or solid mass lesions. LEFT KIDNEY: The left kidney measures 11.3 cm in length and shows normal echogenicity. No hydronephrosis, shadowing calculi or solid mass lesions. BLADDER: Decompressed around a Ware catheter. Incidental note of ascites. IMPRESSION: Unremarkable sonographic appearance of the kidneys. Signed by: Dr. Henok Duran M.D. on 11/17/2018 4:30 PM
[2018-11-17] MEDS ORDERED: METOLAZONE 5 MG TAB PO STA (16:43)
[2018-11-17] MEDS: LACTOBACILLUS ACIDOPHILUS CAPSULE PO SCH (17:06)
[2018-11-17] MEDS: ENOXAPARIN 30 MG/0.3 ML SYR SC SCH (17:06)
--- NOTE | 2018-11-17 17:31 | NUR ---
Nutrition Screen Note RD Recommendation for Physician: -Rec ADAT to cardiac/ ADA 1800 diet Plan of Care: RD following, monitoring for tolerance and adequacy Nutrition reason for involvement: Diagnosis Primary Diagnose(s): PNA, UTI, fluid overload, CHF PMH: Hypertension, hyperlipidemia, diabetes, BPH with urinary retention and Ware, coronary artery disease, history of CABG, AICD, EF 30% to 35%, left heart catheterization results in the computer, possible thyroid disease. Ht: 65in Wt:206lb BMI: 34.3kg/m2 IBW: 136lb RD Assessment: (11/17) Chart reviewed. Labs and meds reviewed. 68yo M, who was admitted for chest pain and SOB. Czech speaking only. Pt was discussed during AM rounds. Per RN, pt had coffee ground emesis this AM and was given medications for nausea. + Bowel sound. Currently on clear liquid diet. KUB showed non-obstructive bowel gas pattern. Last admission on 10/2018 showed weight at 198lb; no recent weight loss suspected. Will continue to monitor and follow. Current Diet: clear liquid diet Malnutrition Evaluation (11/17/2018) The patient does not meet criteria for a specified degree of malnutrition at this time. Will re-evaluate at follow-up as appropriate. Diet Education Needs Assessment: Diet education indicated, pt is not appropriate at this time. Nutrition Care Level: low Signed: Nakia Linares, MS, RD, LD
--- NOTE | 2018-11-17 18:00 | NUR ---
PT IN BED RESTING NO DISTRESS NOTED,DENIES PAIN ,REFUSES MEDS
[2018-11-17 18:17] LABS: BILIRUBIN,URINE NEGATIVE (NEGATIVE); CLARITY,URINE CLEAR (CLEAR); COLOR,URINE YELLOW (YELLOW); KETONES,URINE NEGATIVE (NEGATIVE); LEUKOCYTE ESTERASE ,URINE SMALL (NEGATIVE); NITRITE,URINE NEGATIVE (NEGATIVE); PROTEIN,URINE DIPSTICK NEGATIVE (NEGATIVE); URINE UROBILINOGEN 0.2 mg/dL (0.2 - 1)
[2018-11-17 18:30] LABS: BACTERIA,URINE MODERATE /HPF; EPITHELIAL CELLS,URINE FEW /LPF; WBC,URINE (MAN) 0-5 /HPF (0-5)
[2018-11-17 18:53] LABS: TOTAL PROTEIN, URINE < 6.8 mg/dL (1-14)
[2018-11-17 18:58] LABS: CREATININE,URINE RANDOM 36.82 mg/dL (63-166)
--- NOTE | 2018-11-17 19:00 | NUR ---
Report and round completed, Patient resting in bed with family at bedside. Call light within reach. Will continue to monitor.
[2018-11-17] MEDS: ATORVASTATIN 40 MG TAB PO SCH (21:10)
--- NOTE | 2018-11-17 21:18 | NUR ---
Left message with Kay Cohen office: Dr Simpson sew on operator: paged. Awaiting call back.
--- NOTE | 2018-11-17 21:23 | NUR ---
Dr Simpson called back: Clarification on bumetanide 2 mg IV Q 8hrs. Patient BP earlier 99/57, 61, rechecked and current bp 92/53, 60. Hold for SBP less than 85.
[2018-11-17] MEDS: BUMETANIDE INJ 0.25MG/ML 4ML VIAL IV SCH (22:06)
[2018-11-18] VITALS (8 sets, daily range): BP systolic 94–124; BP diastolic 52–80
--- NOTE | 2018-11-18 | Consultation ---
DATE OF CONSULTATION: 11/17/2018 HISTORY OF PRESENT ILLNESS: This is a 68-year-old gentleman with longstanding history of diabetes at least 30 years duration with diabetic retinopathy, neuropathy and nephropathy, history of coronary artery disease, status post coronary artery bypass surgery, history of recurrent admission due to congestive heart failure, anasarca, and scrotal edema. He has been admitted with the similar complaints. He does not see any inspector of weights and measures as an outpatient. Currently, he is lying supine, in no apparent distress. Admits to dyspnea on exertion. Denies PND. Denies fever, cough. Does have abdominal pain. No nausea, vomiting, or diarrhea. Workup here showed right kidney 10.2 cm, left kidney 11.3 cm. He has an indwelling Ware catheter. Had an abdominal x-ray done, please see official report, shows nonobstructive bowel gas pattern. Had a chest x-ray, please see official report, shows cardiomegaly, pulmonary vascular congestion. LABORATORY TEST: Shows white count 7.1, hemoglobin 10.3. Sodium 131, potassium 4.5 with a creatinine 2.38. Bilirubin 1.7, AST 35, alkaline phosphate 153, albumin 3.4, total protein 6.8. Urinalysis shows specific gravity 1.010, dipstick positive protein with 21 to 50 RBC, more than 50 WBC. Urine culture shows Enterococcus faecalis, which is resistant only to tetracycline, was sensitive to ampicillin and Cipro, vancomycin and linezolid. SOCIAL HISTORY: Does not smoke or drink. Used to drink in the past, as quit. FAMILY HISTORY: Significant for diabetes. PAST MEDICAL HISTORY: History of hypothyroidism, hyperlipidemia, type 2 diabetes with end-organ damage, history of hypertension. CURRENT MEDICATIONS: Gabapentin 400 mg daily, insulin sliding scale, metoprolol 25 p.o. b.i.d., levothyroxine 75 mcg daily, promethazine p.r.n., Flomax 0.4 mg daily, aspirin enteric-coated one tablet once a day. He is on daily IV vancomycin, cefepime 1 g IV q.12 hours. PHYSICAL EXAMINATION: GENERAL: Awake, alert, lying supine in no apparent distress with a prominent abdomen. VITAL SIGNS: Blood pressure is 119/58, pulse rate 63, afebrile, oxygen saturation 97% on room air. HEAD AND NECK: Cornea clear. Mucosa moist. Neck veins distended. LUNGS: Decreased air entry bilateral in lower zones. HEART: 2 to 3/6 ejection systolic murmur heard over left sternal border. ABDOMEN: Distended, soft, flanks full, 1+ flank edema. : Penile and scrotal edema. EXTREMITIES: Lower extremity about 2 to 3+ edema with chronic skin changes, some excoriations. IMPRESSION: Significant 3rd spacing edema, cztvh-sy-topyqry kidney failure, congestive heart failure, generalized edema, anasarca. Plan on diuresing. Total bilirubin is elevated. Suspect passive liver congestion, must rule out underlying fatty liver and cirrhosis. Most likely nephrotic syndrome due to diabetic nephropathy and diabetic kidney disease, which is chronic with an acute kidney injury component, workup ordered. Back in August this year, his serum creatinine was 1.37. Plan on discontinuing Lasix, discontinue vancomycin. We will obtain vancomycin random level in the morning, diurese with Bumex, one time dose of Zaroxolyn today. Serum sodium level noted most likely secondary to increased total body water. Please see orders. MD KYRIE Maldonado/FAROOQ /[id number]
[2018-11-18] MEDS: LEVOTHYROXINE SODIUM 75 MCG TAB PO SCH (05:54)
[2018-11-18] MEDS: CEFEPIME 1GM/NS 0.9% 50 ML 50 ML IV SCH (05:54)
[2018-11-18] MEDS: BUMETANIDE INJ 0.25MG/ML 4ML VIAL IV SCH ×3 (05:54→21:30)
[2018-11-18] MEDS: ACETAMINOPHEN/CODEINE 300MG - 30MG TAB PO SCH ×5 (05:54→20:07)
--- NOTE | 2018-11-18 06:00 | NUR ---
Patient resting in bed, no issues or concerns. Call light within reach. Will continue to monitor.
[2018-11-18 06:06] LABS: ANION GAP 12.9 mmol/L (8-16); CALCIUM 8.3 mg/dL (8.4-10.2); CREATININE, SERUM 2.51 mg/dL (0.72-1.25); POTASSIUM 3.9 mmol/L (3.5-5.1)
[2018-11-18 06:12] LABS: BASOPHILS % 0.7 % (0.0-1.0); EOSINOPHILS # (AUTO) 0.1 (0.0-0.4); EOSINOPHILS % 1.7 % (0.0-6.0); HEMATOCRIT 28.2 % (38.2-49.6); HEMOGLOBIN 9.1 g/dL (14.0-18.0); LYMPHOCYTES # (AUTO) 0.9 (1.0-3.2); LYMPHOCYTES % 17.1 % (18.0-39.1); MEAN CORPUSCULAR HEMOGLOBIN 24.7 pg (28-32); MEAN CORPUSCULAR HGB CONC 32.3 g/dL (31-35); MEAN CORPUSCULAR VOLUME 76.4 fL (81-99); MONOCYTES # (AUTO) 0.8 (0.2-0.8); MONOCYTES % 15.3 % (4.4-11.3); NEUTROPHILS # (AUTO) 3.5 (2.1-6.9); NEUTROPHILS % 64.8 % (38.7-80.0); PLATELET COUNT 187 x10e3/uL (140-360); RED BLOOD COUNT 3.69 x10e6/uL (4.3-5.7); RED CELL DISTRIBUTION WIDTH 17.3 % (11.7-14.4)
--- NOTE | 2018-11-18 07:15 | NUR ---
PATIENT IN BED RESTING WITH NO RESPIRATORY DISTRESS. REDNESS AND SWELLING TO SCROTUM, ELEVATED; MURPHY CATHETER WITH CLEAR YELLOW URINE, TELE BOX [address] BED IN LOWER POSITION, CALL LIGHT AT REACH.
[2018-11-18] MEDS: INSULIN LISPRO 100 UNIT/1 ML 3ML VIAL SQ SCH ×4 (07:30→20:05)
--- NOTE | 2018-11-18 07:30 | NUR ---
Left message with Dr Menchaca answering service ( [place]) lab alert. Awaiting call back.
--- NOTE | 2018-11-18 07:36 | NUR ---
Return call from MD Dr Menchaca. Notified vanc trough level 23.7. Last dose vanc 11/17/18 0900 and vanc d/c. No new orders.
[2018-11-18] MEDS: METOPROLOL TARTRATE 25 MG TAB PO SCH ×2 (08:51→17:00)
[2018-11-18] MEDS: GABAPENTIN 400 MG CAP PO SCH (08:51)
[2018-11-18] MEDS: ASPIRIN 81 MG ENTERIC COATED PO SCH (08:51)
[2018-11-18] MEDS: TAMSULOSIN HCL 0.4 MG CAP PO SCH (08:51)
[2018-11-18] MEDS: LACTOBACILLUS ACIDOPHILUS CAPSULE PO SCH ×2 (08:51→17:24)
[2018-11-18] MEDS ORDERED: ALBUMIN 5% 0.05 GM/ML BTL IV ONE (10:30)
--- NOTE | 2018-11-18 11:42 | NUR ---
MD IN TO SEE PATIENT, NEW ORDER RECEIVED TO ADVANCE DIET FROM CLEAR LIQUID TO RENAL DIET. PATIENT IN BED WITH CALL ,LIGHT AT REACH.
[2018-11-18] MEDS ORDERED: ALBUMIN 5% 250ML 500 ML IV ONE (12:00)
[2018-11-18] MEDS ORDERED: LACTULOSE SYRUP 20 GM/30 ML UDC PO NR (12:00)
[2018-11-18] MEDS: PIPER-TAZ 3.375 GM 50 ML IV SCH (14:13)
[2018-11-18] MEDS ORDERED: ONDANSETRON HCL 4 MG ORAL DISINTEGRATING TAB PO PRN (15:30)
--- NOTE | 2018-11-18 16:19 | NUR ---
PATIENT AMBULATED IN ROOM WITH PHYSICAL THERAPY, BACK IN BED WITH CALL LIGHT AT REACH.
[2018-11-18] MEDS: ENOXAPARIN 30 MG/0.3 ML SYR SC SCH (17:24)
[2018-11-18 20:28] LABS: CREATININE,URINE RANDOM 22.07 mg/dL (63-166)
[2018-11-18 20:32] LABS: TOTAL PROTEIN, URINE < 6.8 mg/dL (1-14)
[2018-11-18] MEDS: ATORVASTATIN 40 MG TAB PO SCH (21:30)
[2018-11-19] VITALS (8 sets, daily range): BP systolic 103–119; BP diastolic 53–65
[2018-11-19] MEDS: ACETAMINOPHEN/CODEINE 300MG - 30MG TAB PO SCH ×4 (00:32→18:00)
[2018-11-19] MEDS: PIPER-TAZ 3.375 GM 50 ML IV SCH ×2 (01:27→14:24)
[2018-11-19 05:36] LABS: BASOPHILS % 0.7 % (0.0-1.0); EOSINOPHILS # (AUTO) 0.4 (0.0-0.4); EOSINOPHILS % 9.3 % (0.0-6.0); HEMATOCRIT 28.3 % (38.2-49.6); HEMOGLOBIN 8.8 g/dL (14.0-18.0); LYMPHOCYTES # (AUTO) 0.9 (1.0-3.2); LYMPHOCYTES % 20.6 % (18.0-39.1); MEAN CORPUSCULAR HEMOGLOBIN 24.4 pg (28-32); MEAN CORPUSCULAR HGB CONC 31.1 g/dL (31-35); MEAN CORPUSCULAR VOLUME 78.6 fL (81-99); MONOCYTES # (AUTO) 0.7 (0.2-0.8); MONOCYTES % 15.5 % (4.4-11.3); NEUTROPHILS # (AUTO) 2.3 (2.1-6.9); NEUTROPHILS % 53.7 % (38.7-80.0); PLATELET COUNT 171 x10e3/uL (140-360); RED CELL DISTRIBUTION WIDTH 17.2 % (11.7-14.4)
[2018-11-19 05:44] LABS: ANION GAP 12.4 mmol/L (8-16); CALCIUM 8.5 mg/dL (8.4-10.2); CREATININE, SERUM 2.2 mg/dL (0.72-1.25); MAGNESIUM 2.4 MG/DL (1.3-2.1); POTASSIUM 3.4 mmol/L (3.5-5.1)
[2018-11-19] MEDS: LEVOTHYROXINE SODIUM 75 MCG TAB PO SCH (06:34)
[2018-11-19] MEDS: BUMETANIDE INJ 0.25MG/ML 4ML VIAL IV SCH ×3 (06:34→23:00)
--- NOTE | 2018-11-19 07:05 | NUR ---
PATIENT IN BED RESTING WITH NO RESPIRATORY DISTRESS. SCROTUM SWELLING ELEVATED. MURPHY CATHETER WITH CLEAR YELLOW URINE. DENIED PAIN, BED IN LOWER POSITION, CALL LIGHT AT REACH.
--- NOTE | 2018-11-19 07:09 | NUR ---
REPORT GIVEN TO DAY NURSE. PATIENT IS STABLE, VOICES NO PAIN OR DISTRESS.
[2018-11-19] MEDS: INSULIN LISPRO 100 UNIT/1 ML 3ML VIAL SQ SCH ×4 (07:30→21:00)
[2018-11-19] MEDS: ASPIRIN 81 MG ENTERIC COATED PO SCH (08:52)
[2018-11-19] MEDS: TAMSULOSIN HCL 0.4 MG CAP PO SCH (08:52)
[2018-11-19] MEDS: GABAPENTIN 400 MG CAP PO SCH (08:53)
[2018-11-19] MEDS: METOPROLOL TARTRATE 25 MG TAB PO SCH ×2 (08:53→17:10)
[2018-11-19] MEDS: LACTOBACILLUS ACIDOPHILUS CAPSULE PO SCH ×2 (08:53→17:10)
--- NOTE | 2018-11-19 11:03 | NUR ---
PATIENT SITTING AT BED SIDE TALKING ON THE PHONE, NO COMPLAIN VOICED. CALL LIGHT AT REACH.
[2018-11-19] MEDS ORDERED: LACTULOSE SYRUP 20 GM/30 ML UDC PO ONE (11:30)
--- NOTE | 2018-11-19 12:44 | NUR ---
PATIENT C/O CONSTIPATION, MD NOTIFIED, NEW ORDER RECEIVED FOR LACTULOSE. PATIENT REFUSED MEDICATION, MD NOTIFIED AND NEW ORDER RECEIVED.
[2018-11-19] MEDS ORDERED: BISACODYL 5 MG TAB EC PO ONE ×2 (13:00→13:30)
[2018-11-19] MEDS ORDERED: BISACODYL 5 MG TAB EC PO SCH (13:15)
--- NOTE | 2018-11-19 14:19 | NUR ---
DISCUSSED IN ROUNDS SCROTAL EDEMA IS LESS PLAN IS TO DISCHARGE 6/7.
--- NOTE | 2018-11-19 16:28 | NUR ---
PATIENT AMBULATING IN HALLWAY WITH PHYSICAL THERAPY, NO DISTRESS NOTED. WILL CONTINUE TO MONITOR.
[2018-11-19] MEDS: ENOXAPARIN 30 MG/0.3 ML SYR SC SCH (17:10)
[2018-11-19] MEDS ORDERED: POTASSIUM CHLORIDE 20 MEQ TAB CR PO ONE (18:39)
[2018-11-19] MEDS ORDERED: METOLAZONE 5 MG TAB PO ONE (18:45)
[2018-11-19] MEDS ORDERED: ALBUMIN 25% 25GM 100ML 0.25 GM/ML BTL IV ONE (18:45)
[2018-11-19] MEDS ORDERED: ALBUMIN 25% 12.5GM 50ML 200 ML IV ONE (19:00)
[2018-11-19] MEDS: ATORVASTATIN 40 MG TAB PO SCH (20:45)
[2018-11-20] VITALS: BP 105/56
[2018-11-20] MEDS: ACETAMINOPHEN/CODEINE 300MG - 30MG TAB PO SCH ×2 (00:20→05:23)
[2018-11-20 03:47] LABS: BASOPHILS % 0.4 % (0.0-1.0); EOSINOPHILS # (AUTO) 0.3 (0.0-0.4); EOSINOPHILS % 6.9 % (0.0-6.0); HEMATOCRIT 29.3 % (38.2-49.6); LYMPHOCYTES # (AUTO) 0.6 (1.0-3.2); LYMPHOCYTES % 12.4 % (18.0-39.1); MEAN CORPUSCULAR HEMOGLOBIN 24.5 pg (28-32); MEAN CORPUSCULAR HGB CONC 30.7 g/dL (31-35); MEAN CORPUSCULAR VOLUME 79.6 fL (81-99); MONOCYTES # (AUTO) 0.7 (0.2-0.8); MONOCYTES % 15.1 % (4.4-11.3); NEUTROPHILS # (AUTO) 2.9 (2.1-6.9); PLATELET COUNT 151 x10e3/uL (140-360); RED BLOOD COUNT 3.68 x10e6/uL (4.3-5.7); RED CELL DISTRIBUTION WIDTH 17.3 % (11.7-14.4)
[2018-11-20 04:00] VITALS: BP 97/53
[2018-11-20 04:04] LABS: ANION GAP 14.7 mmol/L (8-16); CALCIUM 8.6 mg/dL (8.4-10.2); POTASSIUM 3.7 mmol/L (3.5-5.1)
[2018-11-20] MEDS: PIPER-TAZ 3.375 GM 50 ML IV SCH ×2 (04:30→13:55)
[2018-11-20] MEDS: LEVOTHYROXINE SODIUM 75 MCG TAB PO SCH (05:22)
[2018-11-20] MEDS: BUMETANIDE INJ 0.25MG/ML 4ML VIAL IV SCH ×2 (05:22→14:04)
--- NOTE | 2018-11-20 07:30 | NUR ---
REC'D PT AAOX3, MURPHY HANGING BELOW BLADDER HANGING ON TO BED RAIL, IV TO RIGHT FA 20 GAUGE. ASSISTED PATIENT TO WASH HANDS FOR BREAKFAST. NO S/S OF DISTRESS. PATIENT ON ROOM AIR. NON-SKID SOCKS TO BILATERAL FEET. PT SITTING ON SIDE OF THE BED TO EAT BREAKFAST. SIDE RAILS UPX2, CALL VARGAS WITHIN REACH, AND BED IN LOWEST POSITION.
[2018-11-20] MEDS: INSULIN LISPRO 100 UNIT/1 ML 3ML VIAL SQ SCH ×2 (07:45→11:45)
[2018-11-20 08:00] VITALS: BP 107/53
[2018-11-20] MEDS: METOPROLOL TARTRATE 25 MG TAB PO SCH (09:00)
[2018-11-20] MEDS: GABAPENTIN 400 MG CAP PO SCH (09:51)
[2018-11-20] MEDS: LACTOBACILLUS ACIDOPHILUS CAPSULE PO SCH (09:51)
[2018-11-20] MEDS: ASPIRIN 81 MG ENTERIC COATED PO SCH (09:51)
[2018-11-20] MEDS: TAMSULOSIN HCL 0.4 MG CAP PO SCH (09:51)
--- NOTE | 2018-11-20 11:00 | NUR ---
CALL RECEIVED FROM PT'S SON DUC TO DISCUSS PT'S DC PLAN. STATES HE THOUGHT THE FATHER WOULD BE TRANSFERRING TO [facility] FOR HIS HEART CATH. CM EXPLAINED THE PT WILL NEED TO RESCHEDULE HIS PROCEDURE W THE SUPERVIS[employer]ESSING. EXPLAINED TO THE SON I SPOKE W HIS FATHER ON 11/18/18 REGARDING THE TRANSFER REQUEST AND FATHER AGREED TO F/U W HIS SUPER[employer]ESS[employer] PRIOR TO DC. SON VERBALIZED UNDERSTANDING. STATES IT WOULD BE EASIER, BECAUSE HE WORKED AT [employer] IN [place] [facility]. DISCUSSED THE IMPORTANCE OF THE PT MAKING AND KEEPING ALL F/U APPOINTMENTS. SON VERIFIED PT HAS A MANAGER TRANSITION AND PCP PARTICIPATING IN HIS FATHER'S CARE AN OUTPT. INSTRUCTED THE SON TO MAKE ALL APPOINTMENTS NOW TO PREVENT THE PT FROM MISSING HIS F/U CARE. VERBALIZED UNDERSTANDING. INFORMED THE SON THE PT WILL PROBABLY DC HOME TODAY OR TOMORROW. VERBALIZED UNDERSTANDING.
[2018-11-20 12:00] VITALS: BP 116/56
--- NOTE | 2018-11-20 12:52 | NUR ---
CM SPOKE W DR. FLOOD REGARDING DC PLAN. DOC STATES THE PT IS RESPONDING WELL TO HIS TREATMENT AND ANTICIPATE DC DATE TOMORROW. WE DISCUSSED HOME HEALTH FOR THE PT. DOC STATES THE PT WILL NEED PHYSICAL THERAPY, BUT IN THE PAST HAS BEEN RESISTANT TO ASSISTANCE FROM A NURSE WITH HIS MURPHY CARE. CM WILL ENTER ORDER FOR HOME PT AND SN TO EVAL AND TREAT. CM ENCOURAGED PT AND SON TO MAKE HIS APPOINTMENTS PRIOR TO DC. DR. FLOOD HAS ORDERED A WALKER FOR THE PT.
--- NOTE | 2018-11-20 13:10 | NUR ---
Patient weighed on standing scale. Dr. Manrique standing next to patient evaluating disease process. Assisted patient back to bed. Side rails up x2, call villafana within reach, and bed in lowest position.
--- NOTE | 2018-11-20 13:47 | NUR ---
HOME HEALTH DISCHARGE NOTE PATIENT ADDRESS WHERE SERVICE WILL BE RECEIVED: [address] [place] [id number] PATIENT CONTACT NUMBER: [phone] NAME OF HOME HEALTH COMPANY: [facility] TELEPHONE/FAX NUMBER OF COMPANY: OFF: [phone] / FAX: [phone] ADDRESS OF [facility]: [address] [place] [address] [address], [place] [address] SERVICES TO RECEIVE: SKILLED NURSE TO EVALUATE AND TREAT ( FOR ADMISSION ), PHYSICAL THERAPY TO EVALUATE AND TREAT ANTICIPATED DATE SERVICES WILL BEGIN: 11/21/2018 Please call the company above if you have not received a call to schedule a home visit within 24 hours of discharge.
[2018-11-20] MEDS ORDERED: BUMETANIDE2 MG PO (15:35)
[2018-11-20 16:00] VITALS: BP 112/58
--- NOTE | 2018-11-20 16:45 | NUR ---
Patient IV removed and no complications to site. Discharge instructions given and explained to patient and . Explained the follow ups for cardiology, nephrology, PCP, and to also make appointment for heart cath procedure outpatient. Also educated on wearing MIRA hose to prevent edema per Dr. Menchaca. Patient escorted via wheelchair and taken to 's car.
--- NOTE | 2018-11-21 05:05 | Discharge Summary ---
FINAL DIAGNOSIS: Acute CHF. SECONDARY DIAGNOSES: 1. AICD firing correctly. 2. Urinary retention with chronic Ware catheter. 3. Pneumonia, status post IV antibiotics. 4. Stage 3 chronic kidney disease, stable. 5. Diabetes, stable. CONSULTANTS: 1. Dr. Plummer, ID. 2. Dr. Menchaca, Nephrology. 3. Dr. Blanco, Cardiology. 4. Dr. Mccann, Urology. PROCEDURES/STUDIES PERFORMED: 1. Renal ultrasound. 2. Chest CT. 3. Abdominal CT. HISTORY: Per H and P. HOSPITAL COURSE: The patient was admitted for chest pain and this was due to his AICD firing correctly. The patient was also found to be volume overloaded with acute systolic CHF. Initially, IV Lasix was started, however, the patient did not diurese well with it . Nephrology was consulted and this was switched to IV Bumex, which he diuresed very well. On the day of discharge, the patient's weight is 190 pounds. He lost about more than 30 pounds while here. His creatinine remained stable. Again, he underwent a course of IV antibiotics for his pneumonia and UTI. 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 We will have to reschedule this. This is done for cardiac clearance for his TURP. We will also switch his torsemide at home to p.o. Bumex 2 mg p.o. b.i.d. The patient will follow up with his primary care doctor in one week. I have updated her about this hospitalization. The patient was seen and examined today. It took 33 minutes total to discharge this patient. CONDITION ON DISCHARGE: Improved. DISCHARGE MEDICATIONS: Please see medication reconciliation form. Yiching MD VIKTORIA Arreguin/FAROOQ /[id number]
== END 2018-11-20 16:48 | disposition home or self-care (01) | DRG 698 ==
LOC: ER 14:09 → ERHOLD 18:44 → IMCU 21:52 → OBSVTOIN 11-15 16:10 → MED/SURG3 11-16 14:45
PROVIDERS: ADMIT Internal Medicine; ATTEND Internal Medicine
DX: T83.518A Infection and inflammatory reaction due to other urinary catheter, initial encounter (principal); J15.9 Unspecified bacterial pneumonia; I50.23 Acute on chronic systolic (congestive) heart failure; N39.0 Urinary tract infection, site not specified; I13.0 Hypertensive heart and chronic kidney disease with heart failure and stage 1 through stage 4 chronic kidney disease, or unspecified chronic kidney disease; E87.1 Hypo-osmolality and hyponatremia; N18.3 Chronic kidney disease, stage 3 (moderate); E11.22 Type 2 diabetes mellitus with diabetic chronic kidney disease; Z79.4 Long term (current) use of insulin; Z95.810 Presence of automatic (implantable) cardiac defibrillator; I25.10 Atherosclerotic heart disease of native coronary artery without angina pectoris; Z95.1 Presence of aortocoronary bypass graft; K21.9 Gastro-esophageal reflux disease without esophagitis; E11.649 Type 2 diabetes mellitus with hypoglycemia without coma; N40.1 Benign prostatic hyperplasia with lower urinary tract symptoms; R33.8 Other retention of urine; R94.5 Abnormal results of liver function studies; B95.2 Enterococcus as the cause of diseases classified elsewhere; E03.9 Hypothyroidism, unspecified
CPT/HCPCS: 36415; 71045; 71250; 74018; 74176; 76770; 80048; 80053; 80202; 81001; 82550; 82553; 82570; 82948; 83605; 83690; 83735; 83880; 84156; 84484; 85025; 87086; 87186; 97139; 99284; G0378; J0692; J1650; J1940; J2405; J2543; J2550; J3370; J7050; P9047

== ENCOUNTER 2019-04-07 10:48 | Inpatient (IN) | payer MEDICARE ==
[~2019-04-07] VITALS: Ht 165.1 cm; Wt 67.7 kg
[~2019-04-07 10:48] MED LIST changes: +BUMETANIDE2 MG PO
--- NOTE | 2019-04-07 11:04 | NUR ---
ATTEMPTED EKG IN TRIAGE MULTIPLE TIMES, BUT COULD NOT D/T ELECTRICAL INTERFERRENCE. WILL DO IN ROOM
[2019-04-07 11:18] LABS: BASOPHILS % 0.8 % (0.0-1.0); EOSINOPHILS # (AUTO) 0.2 (0.0-0.4); EOSINOPHILS % 3.9 % (0.0-6.0); HEMATOCRIT 31.4 % (38.2-49.6); HEMOGLOBIN 10.1 g/dL (14.0-18.0); LYMPHOCYTES # (AUTO) 0.7 (1.0-3.2); LYMPHOCYTES % 17.1 % (18.0-39.1); MEAN CORPUSCULAR HEMOGLOBIN 28.4 pg (28-32); MEAN CORPUSCULAR HGB CONC 32.2 g/dL (31-35); MEAN CORPUSCULAR VOLUME 88.2 fL (81-99); MONOCYTES # (AUTO) 0.4 (0.2-0.8); MONOCYTES % 11.1 % (4.4-11.3); NEUTROPHILS # (AUTO) 2.6 (2.1-6.9); NEUTROPHILS % 67.1 % (38.7-80.0); PLATELET COUNT 142 x10e3/uL (140-360); RED BLOOD COUNT 3.56 x10e6/uL (4.3-5.7); RED CELL DISTRIBUTION WIDTH 15.6 % (11.7-14.4)
[2019-04-07] MEDS ORDERED: DEXTROSE 50% SYRINGE 50 ML IV PRN (11:30)
[2019-04-07 11:32] LABS: BILIRUBIN,URINE NEGATIVE (NEGATIVE); CLARITY,URINE CLEAR (CLEAR); COLOR,URINE YELLOW (YELLOW); INR 1.3; KETONES,URINE NEGATIVE (NEGATIVE); LEUKOCYTE ESTERASE ,URINE SMALL (NEGATIVE); NITRITE,URINE NEGATIVE (NEGATIVE); PROTEIN,URINE DIPSTICK 1+ (NEGATIVE); PROTHROMBIN TIME 16.8 seconds (11.9-14.5); URINE UROBILINOGEN 0.2 mg/dL (0.2 - 1)
[2019-04-07 11:33] LABS: PARTIAL THROMBOPLASTIN TIME 39.1 seconds (23.8-35.5)
[2019-04-07 11:44] LABS: ALANINE AMINOTRANSFERASE 14 IU/L (0-55); ALBUMIN 3.6 g/dL (3.5-5.0); ALBUMIN/GLOBULIN RATIO 0.8 (0.8-2.0); ALKALINE PHOSPHATASE 280 IU/L (40-150); ANION GAP 12.9 mmol/L (8-16); BLOOD UREA NITROGEN 22 mg/dL (7-26); BUN/CREATININE RATIO 20 (6-25); CALCIUM 9.7 mg/dL (8.4-10.2); CARBON DIOXIDE 27 mmol/L (22-29); CHLORIDE 96 mmol/L (98-107); CREATINE KINASE 75 IU/L (30-200); CREATININE, SERUM 1.08 mg/dL (0.72-1.25); EST GLOMERULAR FILTRATION RATE > 60 ML/MIN (60-); GLUCOSE 175 mg/dL (74-118); LIPASE 12 U/L (8-78); POTASSIUM 3.9 mmol/L (3.5-5.1); SODIUM 132 mmol/L (136-145)
[2019-04-07] MEDS ORDERED: FAMOTIDINE 20 MG/2 ML VIAL IV ONE (12:00)
[2019-04-07] MEDS ORDERED: FUROSEMIDE INJ 10 MG/ML 4 ML VIAL IV SCH ×2 (12:00)
[2019-04-07 12:02] LABS: AMORPHOUS SEDIMENT,URINE FEW (FEW); BACTERIA,URINE MANY /HPF; EPITHELIAL CELLS,URINE MODERATE /LPF
--- NOTE | 2019-04-07 12:14 | Diagnostic Imaging Report ---
Chest, 1 view, 04/07/2019. History: Shortness of breath. Comparison: 11/15/2018. Findings: The right cardiac silhouette is completely obscured by dense right mid and lower lung opacity which also obscures the right hemidiaphragm. Vascular prominence is noted on the left without evidence of left consolidation or effusion. Left subclavian dual-lead pacer and median sternotomy wires are again noted. There are no acute osseous or soft tissue abnormalities. Impression: Findings suggestive of right middle and lower lung consolidation/atelectasis with probable right pleural effusion. Signed by: Rex Yap on 04/07/2019 12:11 PM
[2019-04-07] MEDS: INSULIN REGULAR, HUMAN 100 UNIT/1 ML 3ML VIAL SQ SCH ×3 (12:44→21:00)
[2019-04-07] MEDS ORDERED: METOLAZONE 5 MG TAB PO ONE (12:45)
--- NOTE | 2019-04-07 14:45 | NUR ---
patient arrived to unit via stretcher, alert and oriented. call villafana within reach and bed in lowest position.
[2019-04-07 14:50] VITALS: BP 165/68
[2019-04-07 14:54] VITALS: BP 165/68
[2019-04-07] MEDS: GABAPENTIN 300 MG CAP PO SCH ×2 (15:50→21:05)
[2019-04-07] MEDS: APIXABAN 5 MG TABLET PO SCH (17:10)
[2019-04-07] MEDS: CARVEDILOL 3.125 MG TAB PO SCH (17:10)
--- NOTE | 2019-04-07 19:37 | History and Physical ---
PRIMARY CARE PHYSICIAN: Dr. Neal with [facility]. CHIEF COMPLAINT: Dyspnea and cough. HISTORY OF PRESENT ILLNESS: This is a 68-year-old male with past medical history of CHF, diabetes, CAD, hypothyroidism, and BPH, presented to the ER with complaints of dyspnea that has been going on for few days. He reports having cough, yellowish with chills and mild chest pain that is nonradiating. He denies any fever, dizziness, diaphoresis, nausea, vomiting, abdominal pain. He was admitted for further evaluation and management of dyspnea, given his history of systolic CHF. PAST MEDICAL HISTORY: 1. Systolic congestive heart failure. 2. Diabetes type 2. 3. CAD. 4. Hypothyroidism. 5. Prostate enlargement. 6. Gastroesophageal reflux disease. PAST SURGICAL HISTORY: Pacemaker placement. FAMILY MEDICAL HISTORY: The patient does not know of his family medical history. SOCIAL HISTORY: He denies any tobacco, alcohol, or illicit drug use. ALLERGIES: NO KNOWN DRUG ALLERGIES. REVIEW OF SYSTEMS: GENERAL: Fatigue. HEENT: No head trauma. LUNGS: No shortness of breath with exertion. CARDIOVASCULAR: No chest pain. GI: No nausea or vomiting. NEUROLOGIC: Alert and oriented. MUSCULOSKELETAL: Bilateral lower extremity 2+ edema. SKIN: No rash. PSYCH: No hallucination. PHYSICAL EXAMINATION: VITAL SIGNS: Temperature 98.2, pulse is 74, respirations 16, blood pressure is 138/74, pulse ox is 99% on room air. GENERAL: No acute distress. HEENT: Normocephalic, atraumatic. PERRLA. NECK: Supple. LUNGS: Decreased breath sounds. CARDIOVASCULAR: Pacemaker in place. Regular rate and rhythm. GI: Abdomen is soft and nontender. NEUROLOGIC: Alert, awake and oriented x3. MUSCULOSKELETAL: Moves all extremities. Bilateral lower extremity edema noted, pitting. SKIN: Dry and intact. LABORATORY DATA: WBC 3.8, hemoglobin 10.1, hematocrit 31.4, platelets 142. Sodium 132, potassium is 3.9, BUN is 22, creatinine is 1.08, estimated GFR is greater than 50, glucose is 175, lactic acid is 0.7, calcium is 9.7, magnesium is 4.0, AST 23, ALT 14. Troponin 0.05, BNP 1474. Lipase is 12. Coagulation PT is 16.8, INR 1.3, APTT 39.1. Urine is yellow and clear, small leukocyte esterase, +1 protein and RBCs 11 to 20, and many bacteria. Blood and urine culture pending. Chest x-ray findings suggestive of right middle and lower lobe consolidation, atelectasis with probable right pleural effusion. IMPRESSION AND PLAN: 1. Acute systolic congestive heart failure exacerbation. He was started on Lasix 80 mg IV in the ER. We will continue per Cardiology. Echocardiogram has been ordered, pending results. We will continue beta-blockers, TIMA inhibitors and Lasix. 2. Hyponatremia sodium 132. We will continue to monitor. 3. Diabetes type 2. We will continue sliding scale coverage as needed. We will check hemoglobin A1c. Last one was in 2016, which was 9.2. 4. Hypothyroidism. We will continue levothyroxine at 75 mcg. 5. Coronary artery disease. Continue home medication. 6. Benign prostatic hypertrophy. We will continue Flomax. 7. Gastroesophageal reflux disease. We will start Pepcid. 8. Has history of urinary retention, likely due to benign prostatic hyperplasia. We will continue to monitor and place a Ware as needed. 9. Deep vein thrombosis prophylaxis, is on Eliquis. We will continue diuresing, we will await on blood and urine cultures. We will hold off on antibiotics as this is most likely CHF exacerbation and not pneumonia. Await on echo and repeat BMP in the morning. Dictated by INA Caballero Ady Manrique MD MY/MODL /[id number] Seen and examined on 04/09/19. Agree with the findings and plan as documented by INA Romero. MTDD
--- NOTE | 2019-04-07 19:57 | Consultation ---
DATE OF CONSULTATION: 04/07/2019 Cardiology Consultation REASON FOR CONSULTATION: CHF. HISTORY OF PRESENT ILLNESS: Mr. Weller is a 68-year-old gentleman with history of hypertension, hypercholesterolemia, advanced ischemic cardiomyopathy with CAD, prior history of CABG with only one patent graft YEH to LAD supplying his heart, CHF, EF of about 20%, [place] [employer] 3 to 4 heart failure symptoms at baseline, has a previous dual-chamber ICD with the last ICD shock back in November of 2018 for appropriate indication. The patient is on systemic anticoagulant therapy for presumed atrial fibrillation and takes Eliquis 5 mg b.i.d. He presents to this institution with one month history of progressively worsening exertional fatigue, increased lower extremity swelling, right greater than left lower extremity, increased abdominal girth, early satiety and upright orthopnea and PND. He reports taking his diuretic therapy, which is Bumex 2 mg b.i.d., however, may not be entirely compliant with his dietary therapy and has missed some medications on occasion. The patient comes back in. His x-ray shows severe large right-sided pleural effusion, pulmonary edema pattern and a BNP that is elevated at 1474. The patient denies any chest pain or discomfort. He has not had any more ICD shocks. Denies any anginal symptoms. PAST MEDICAL HISTORY: 1. Hypertension, essential. 2. Hypercholesterolemia. 3. Type 2 diabetes. 4. BPH with prior history of urinary retention and recurrent UTIs. 5. CAD with prior history of CABG with known only one vessel remaining YEH to the LAD as evidenced on his last heart catheterization in 2015. 6. ICD implanted back in 2016, dual-chamber. PAST SURGICAL HISTORY: 1. History of left heart cardiac catheterization in 2016. 2. History of CABG three-vessel in the remote past. 3. History of dual-chamber ICD in 2016. FAMILY HISTORY: Mother and father in their 80s, unknown cause. SOCIAL HISTORY: He is a former smoker, quit 30 years ago. Occasionally drinks alcohol. No illicit drug use. ALLERGIES: NO KNOWN DRUG ALLERGIES. HOME MEDICATIONS: Include gabapentin 300 mg t.i.d., Synthroid 75 mcg daily, lisinopril 5 mg daily, Coreg 3.125 mg b.i.d., Bumex 2 mg b.i.d., and Flomax. REVIEW OF SYSTEMS: GENERAL: Positive for weight gain, fatigue, and generalized malaise. No fevers or chills. HEENT: No headaches, visual complaints, sore throat, or stuffy nose. RESPIRATORY: Denies any pleuritic chest pain. Has severe exertional dyspnea and dyspnea at rest. CARDIOVASCULAR: As per HPI. GI: Denies any abdominal pain. Positive for early satiety. No nausea or vomiting, bright red blood per rectum, melena, or hematemesis. : Positive for urinary frequency, urgency, and dysuria. MUSCULOSKELETAL: Positive for generalized weakness. HEMATOLOGY: Positive for easy bruising. No bleeding. MUSCULOSKELETAL: Positive for severe edema, right greater than left lower extremity. ENDOCRINE: Denies any heat or cold intolerance. NEUROLOGIC: Denies any focal weakness, numbness, or tingling. He does utilize a cane for ambulatory aid. PSYCH: Denies any anxiety or depression. PHYSICAL EXAMINATION: VITAL SIGNS: Height of 65 inches, weight of 213 pounds, BMI is 35.4, temperature of 97.5, pulse 62, respiratory rate of 22, O2 saturation 95% on room air, and blood pressure 140/63. GENERAL: This is a well-nourished, well-developed gentleman, who is currently in no apparent distress. HEENT: Normocephalic and atraumatic. Pupils are equal, round, and reactive to light. Extraocular movements are intact. Oropharynx is clear. NECK: Elevation of jugular venous pulsation to the angle of the mandible. CARDIOVASCULAR: Regular rate and rhythm. Normal S1 and S2. Positive S3 and gallop. LUNGS: Show absent breath sounds one-half to two-thirds of upper lung field on the right and trace crackles on the left. There is a left shoulder ICD site and there is an old sternotomy scar. ABDOMEN: Soft, protuberant, and distended with positive fluid wave. No hepatosplenomegaly. BACK: No costovertebral angle tenderness. EXTREMITIES: Warm with 3 to 4+ edema on the right leg, 2+ edema to the left leg. NEUROLOGIC: Cranial nerves II through XII are intact. Strength is 5/5. Grossly nonfocal. PSYCH: Normal fluent speech. Appropriate affect. No anxiety or delusions. LABORATORY DATA: White count of 3.8, hemoglobin 10.1, hematocrit 31.4, and platelets of 142. Sodium 132, potassium 3.9, chloride 96, bicarb 27, BUN 22, creatinine 1.08, glucose of 175, and calcium of 9.7. AST 23, ALT 14, and alkaline phosphatase 280. Total protein of 8.2 and albumin of 3.6. BNP is 1474. Troponin is less than 0.05. INR is 1.3. UA shows 0 white cells. EKG reveals sinus rhythm with a lot of artifact, delayed R and S wave transition, and no ST-T wave changes. Chest x-ray is remarkable for large right middle and lower lung consolidation type pattern with right pleural effusion. DIAGNOSES: 1. [id number] decompensated systolic/diastolic heart failure with known EF of about 20% to 25%. 2. History of dual-chamber ICD. 3. Coronary artery disease with prior history of coronary artery bypass grafting with only last remaining conduit YEH to LAD. 4. Hypertension, essential. 5. Hypercholesterolemia. 6. Type 2 diabetes with complications. PLAN/RECOMMENDATIONS: 1. We will switch his IV diuretic therapy to IV Lasix, as I suspect that the bioavailability of the Bumex is pretty much poorer, as he is with significant abdominal edema and gut edema. 2. We will check lower extremity venous duplex to evaluate asymmetry in his lower extremities. 3. We will continue his Eliquis therapy to try to ascertain more information that the indication for maybe it is atrial fibrillation. 4. Continue Coreg and lisinopril therapy. 5. Aggressive risk factor modification and medical therapy. 6. We will continue to follow this patient with you. Thank you for this referral. MD SABIHA Franklin/MODL /[id number]
[2019-04-07 20:00] VITALS: BP 153/70
[2019-04-07 20:30] LABS: CREATINE KINASE MB 1.9 ng/mL (0-5.0)
[2019-04-07 21:00] VITALS: BP 153/70
[2019-04-07] MEDS ORDERED: FAMOTIDINE 20 MG/2 ML VIAL IV SCH (21:00)
[2019-04-07] MEDS: FUROSEMIDE INJ 10 MG/ML 4 ML VIAL IV SCH (21:05)
[2019-04-08] VITALS (8 sets, daily range): BP systolic 113–155; BP diastolic 57–70
[2019-04-08 05:23] LABS: BASOPHILS % 0.7 % (0.0-1.0); EOSINOPHILS # (AUTO) 0.2 (0.0-0.4); EOSINOPHILS % 4.5 % (0.0-6.0); HEMATOCRIT 31.5 % (38.2-49.6); HEMOGLOBIN 10.1 g/dL (14.0-18.0); LYMPHOCYTES # (AUTO) 0.8 (1.0-3.2); LYMPHOCYTES % 20.2 % (18.0-39.1); MEAN CORPUSCULAR HEMOGLOBIN 28.5 pg (28-32); MEAN CORPUSCULAR HGB CONC 32.1 g/dL (31-35); MEAN CORPUSCULAR VOLUME 88.7 fL (81-99); MONOCYTES # (AUTO) 0.6 (0.2-0.8); MONOCYTES % 13.7 % (4.4-11.3); NEUTROPHILS # (AUTO) 2.4 (2.1-6.9); NEUTROPHILS % 60.7 % (38.7-80.0); PLATELET COUNT 138 x10e3/uL (140-360); RED BLOOD COUNT 3.55 x10e6/uL (4.3-5.7); RED CELL DISTRIBUTION WIDTH 15.6 % (11.7-14.4)
[2019-04-08 05:45] LABS: CHOL/HDL RATIO 3.1 (3.9-4.7)
[2019-04-08 05:47] LABS: ALANINE AMINOTRANSFERASE 18 IU/L (0-55); ALBUMIN 3.4 g/dL (3.5-5.0); ALBUMIN/GLOBULIN RATIO 0.8 (0.8-2.0); ALKALINE PHOSPHATASE 253 IU/L (40-150); ANION GAP 17.8 mmol/L (8-16); BLOOD UREA NITROGEN 26 mg/dL (7-26); BUN/CREATININE RATIO 55 (6-25); CALCIUM 9.5 mg/dL (8.4-10.2); CARBON DIOXIDE 28 mmol/L (22-29); CHLORIDE 98 mmol/L (98-107); CREATININE, SERUM 0.47 mg/dL (0.72-1.25); EST GLOMERULAR FILTRATION RATE > 60 ML/MIN (60-); GLUCOSE 107 mg/dL (74-118); POTASSIUM 3.8 mmol/L (3.5-5.1); SODIUM 140 mmol/L (136-145)
[2019-04-08 05:52] LABS: CREATINE KINASE MB 2.3 ng/mL (0-5.0)
[2019-04-08] MEDS: LEVOTHYROXINE SODIUM 75 MCG TAB PO SCH (05:58)
[2019-04-08 06:07] LABS: THYROID STIMULATING HORMONE 3.081 uIU/mL (0.350-4.940)
[2019-04-08] MEDS: INSULIN REGULAR, HUMAN 100 UNIT/1 ML 3ML VIAL SQ SCH ×4 (07:30→20:49)
--- NOTE | 2019-04-08 08:57 | Diagnostic Imaging Report ---
EXAMINATION: CHEST SINGLE (PORTABLE) INDICATION: Shortness of breath COMPARISON: Chest radiograph of 04/07/2019 FINDINGS: LINES/TUBES:Left chest AICD unchanged. EKG leads overlie the chest. LUNGS:The left lung is well inflated. The right lung remains low in volume. Unchanged patchy opacities at the right lung base. There is perihilar fullness and indistinctness of the pulmonary vasculature. PLEURA:Unchanged moderate right pleural effusion. MEDIASTINUM: Cardiomediastinal silhouette is stably enlarged. Atherosclerotic calcifications of the thoracic aorta. BONES/SOFT TISSUES:No acute osseous injury. ABDOMEN:No free air under the diaphragm. IMPRESSION: Unchanged moderate left pleural effusion and patchy opacity at the right lower lung zone, most likely subsegmental atelectasis. Unchanged cardiomegaly and mild pulmonary edema. Signed by: Avril Cordoba MD on 04/08/2019 8:53 AM
[2019-04-08] MEDS: LISINOPRIL 2.5 MG TAB PO SCH (09:00)
[2019-04-08] MEDS: APIXABAN 5 MG TABLET PO SCH ×2 (09:00→17:05)
[2019-04-08] MEDS ORDERED: LISINOPRIL 2.5 MG TAB PO SCH (09:00)
[2019-04-08] MEDS: GABAPENTIN 300 MG CAP PO SCH ×3 (09:00→20:44)
[2019-04-08] MEDS: FUROSEMIDE INJ 10 MG/ML 4 ML VIAL IV SCH ×2 (09:00→20:44)
[2019-04-08] MEDS: CARVEDILOL 3.125 MG TAB PO SCH ×2 (09:00→17:05)
--- NOTE | 2019-04-08 11:45 | NUR ---
spoke with Henok ROCHE concerning patient's fluid intake. Per [employer] LIBRARY CLERK, restrict to 1500 mL/day.
[2019-04-08] MEDS ORDERED: METOLAZONE 5 MG TAB PO SCH (12:15)
--- NOTE | 2019-04-08 16:00 | NUR ---
PT DISCUSSED IN BARRIER ROUNDS PT DIAERESIS HAS 3PLUS EDEMA GMLOS OF 2 PROJECTED DC IS 04/09.
--- NOTE | 2019-04-08 17:02 | NUR ---
Nutrition Screen Note RD Recommendation for Physician: - Add 2 gm Na to current diet. Fluid restriction per MD. Plan of Care: RD following, monitoring for tolerance and adequacy Nutrition reason for involvement: Nutrition Risk Trigger- dx screen Primary Diagnose(s): CHD, dyspnea PMH: CHF, DM, CAD, GERD Ht: 65 in Wt: 170.19 lb BMI: 28.3 kg/m2 IBW: [address] Assessment: (04/08) 68 YOM admitted for CHF, seen today per dx screen for HF. Pt discussed during am rounds, RN provided CHD education per reported lack of understanding of the dx. Pt Polish speaking only, no family present. No reported poor intake or wt loss at admit, no poor meal intake or GI distress per RN. Pt receptive to diet education at time of visit, RD provided diet education materials in Polish, pt read through them, and verbalized understanding. Chart reviewed. Labs and meds reviewed. Will monitor and continue to follow. Current Diet: 1600 ADA Malnutrition Evaluation (04/08/19) The patient does not meet criteria for a specified degree of malnutrition at this time. Will re-evaluate at follow-up as appropriate. Diet Education Needs Assessment: Diet education indicated, materials provided 04/08. Learner(s): pt Barriers: language- pt is Polish speaking only Cultural/Language Modifications: education materials provided in Polish Readiness: ready Method: handouts Topics: heart failure nutrition therapy- Na and fluid emphasized Understanding/Compliance: LUKAS Diet tolerance: tolerating po Nutrition Care Level: Low Signed: Opal Colin RD, LD, [facility]
[2019-04-08] MEDS: CEFTRIAXONE SOD 1 GM/NS 50 ML 50 ML IV SCH (17:05)
[2019-04-08] MEDS ORDERED: SODIUM CHLORIDE 0.9% 250ML 250 ML ONE (17:08)
--- NOTE | 2019-04-08 18:04 | Progress Note ---
DATE: 04/08/2019 DRESSING ROOM ATTENDANT: Dr. Blanco with Cardiology. CHIEF COMPLAINT: Shortness of breath and bilateral lower extremity edema. SUBJECTIVE: Seen lying in bed with improved shortness of breath. He still has 2+ bilateral lower extremity swelling, right greater than left. He denies any cough, any fever, chills, nausea, or vomiting. He denies any chest pain. We will continue strict I and O. PHYSICAL EXAMINATION: VITAL SIGNS: Temperature is 96.2, pulse is 60, respirations 19, blood pressure is 144/69, pulse ox is 94% on room air. GENERAL: No acute distress. HEENT: Normocephalic and atraumatic. NECK: Supple and midline. CARDIOVASCULAR: Pacemaker in place, regular rate. LUNGS: Decreased breath sounds. ABDOMEN: Soft and nontender. NEUROLOGIC: Alert, awake, and oriented x3. MUSCULOSKELETAL: Moves all extremities. 2+ edema noted in the bilateral lower extremities. SKIN: Dry and intact. PSYCH: Calm. LABORATORY DATA: WBC is 4.0, hemoglobin is 10.1, hematocrit is 31.5, platelet is 138. Sodium is 140, potassium is 3.8, BUN is 26, creatinine is 0.47, estimated GFR is greater than 50. Glucose is 107. MICROBIOLOGY: Urine culture is positive for gram-negative bacilli, identification and susceptibility pending. Blood culture is negative. IMPRESSION AND PLAN: 1. Acute systolic congestive heart failure exacerbation. Continue Lasix at 80 mg IV q.8 hours. Cardiology has been on the case. We will resume his other medications, beta-blockers, TIMA inhibitors, and statin. Echo pending final results. 2. Urinary tract infection. Urine culture is positive for gram-negative bacillus. We will start on Rocephin until sensitivity comes back. 3. Hyponatremia, now resolved. 4. Diabetes type 2. We will continue with sliding scale coverage as needed. 5. Hypothyroidism. We will continue on Synthroid 75 mcg. 6. Coronary artery disease. Continue on carvedilol, Eliquis and TIMA inhibitors. 7. Benign prostatic hypertrophy. We will continue Flomax. 8. Gastroesophageal reflux disease. Continue Pepcid. 9. Deep vein thrombosis prophylaxis. Continue Eliquis. We will continue with Lasix, start Rocephin for UTI. Anticipate discharge home tomorrow if continues to improve. Dictated by INA Caballero Yiching MD ADILIA Arreguin /[id number]
[2019-04-09] VITALS (8 sets, daily range): BP systolic 117–144; BP diastolic 59–73
[2019-04-09] MEDS: LEVOTHYROXINE SODIUM 75 MCG TAB PO SCH (05:40)
--- NOTE | 2019-04-09 07:10 | NUR ---
The pt. is awake and alert at rounds and denies pain or discomfort at this time.
[2019-04-09] MEDS: INSULIN REGULAR, HUMAN 100 UNIT/1 ML 3ML VIAL SQ SCH ×4 (07:30→20:55)
[2019-04-09] MEDS: FUROSEMIDE INJ 10 MG/ML 4 ML VIAL IV SCH ×2 (09:50→21:02)
[2019-04-09] MEDS: CARVEDILOL 3.125 MG TAB PO SCH ×2 (09:51→17:00)
[2019-04-09] MEDS: GABAPENTIN 300 MG CAP PO SCH ×3 (09:51→21:02)
[2019-04-09] MEDS: APIXABAN 5 MG TABLET PO SCH ×2 (09:51→17:45)
[2019-04-09] MEDS: LISINOPRIL 2.5 MG TAB PO SCH (09:51)
--- NOTE | 2019-04-09 11:09 | NUR ---
IMM GIVEN HENNY, FILED IN CHART AND COPY LEFT IN ROOM FOR PT AND FAMILY, PT STATES UNABLE TO SIGN BUT UNDERSTANDS AND WILL GIVE HIS COPY TO FAMILY.
--- NOTE | 2019-04-09 16:31 | NUR ---
DISCUSSED IN BARRIER ROUNDS NOT GETTING THORACENTESIS BECAUSE ON BLOOD THINNERS AND CANT DO FOR 48 HOURS PT WAS DIAERESED ON LASIX, AND STILL HAS EDEMA.
[2019-04-09] MEDS: CEFTRIAXONE SOD 1 GM/NS 50 ML 50 ML IV SCH (16:45)
--- NOTE | 2019-04-09 17:00 | NUR ---
I spoke with "s associate concerning the Thoracentesis being on hold due to the pt. being on blood thinner.
--- NOTE | 2019-04-09 17:10 | Diagnostic Imaging Report ---
Examination: Single AP view of the chest. COMPARISON: None. INDICATION: Pleural effusion DISCUSSION: Lines/tubes: Multi lead cardiac device. Sternotomy wires. Lungs: Pulmonary venous congestion. Right lower lung atelectasis/consolidation. Pleura: Stable moderate size right pleural effusion. Heart and mediastinum: Prominent heart size. Bones and soft tissues: No acute bony abnormalities. IMPRESSION: Stable right pleural effusion and adjacent atelectasis/consolidation. Stable pulmonary venous congestion Signed by: Dr. Ramo Arnold M.D. on 04/09/2019 5:06 PM
--- NOTE | 2019-04-09 18:10 | Progress Note ---
DATE: 04/09/2019 CONSULTING PHYSICIAN: Dr. Blanco with Cardiology. CHIEF COMPLAINT: Shortness of breath and bilateral lower extremity edema. SUBJECTIVE: In bed with no acute distress. Shortness of breath is improving some. He denies any fever, chills, cough, nausea, vomiting, or dysuria. PHYSICAL EXAMINATION: VITAL SIGNS: Temperature is 97.6, pulse is 60, respirations 18, blood pressure 136/62, and pulse is 97% on room air. GENERAL: No acute distress. HEENT: Normocephalic, atraumatic. NECK: Supple. Midline. CARDIOVASCULAR: Pacemaker in place. Regular rate. LUNGS: Decreased breath sounds. ABDOMEN: Soft and nontender. NEUROLOGIC: Alert, awake, and oriented x3. MUSCULOSKELETAL: Moves all extremities. 2+ edema on right greater than the left. SKIN: Dry and intact. PSYCH: Normal affect. LABORATORY DATA: Labs have been reviewed. Urine culture shows E. coli. Blood culture has been negative. Venous Doppler negative for DVT. IMPRESSION AND PLAN: 1. Acute systolic congestive heart failure with exacerbation. Continue aggressive diuresis with Lasix 80 mg IV q.8 hours. Echo with ejection fraction of 35% with moderate MR. We will continue with beta-blockers, TIMA, and statin. 2. Urinary tract infection. Urine culture is positive for Escherichia coli. Continue Rocephin while he is here. 3. Pleural effusion. Chest x-ray from yesterday showed moderate pleural effusion. Since his breathing has improved, we will repeat chest x-ray to re-evaluate. 4. Hyponatremia, now resolved. 5. Diabetes type 2. Continue sliding scale insulin coverage as needed. 6. Hypothyroidism. We will continue with Synthroid 75 mcg daily. 7. Coronary artery disease. Continue carvedilol, statin, and TIMA inhibitors. 8. Benign prostatic hyperplasia. Continue Flomax. 9. Gastroesophageal reflux disease. Continue Pepcid. 10. Deep vein thrombosis prophylaxis. Continue Eliquis. PLAN: We will continue with aggressive diuresis with Lasix 80 mg IV, and Rocephin for urinary tract infection. We will repeat chest x-ray to evaluate pleural effusion. Dictated by Kitty Romero, INA Ady Manrique MD MY/MODL /[id number]
[2019-04-10] VITALS (7 sets, daily range): BP systolic 121–128; BP diastolic 58–60
[2019-04-10] MEDS: LEVOTHYROXINE SODIUM 75 MCG TAB PO SCH (05:47)
[2019-04-10 06:02] LABS: BASOPHILS # (AUTO) 0.1 (0.0-0.1); BASOPHILS % 1.5 % (0.0-1.0); EOSINOPHILS # (AUTO) 0.3 (0.0-0.4); HEMATOCRIT 32.7 % (38.2-49.6); HEMOGLOBIN 10.6 g/dL (14.0-18.0); LYMPHOCYTES # (AUTO) 1.1 (1.0-3.2); LYMPHOCYTES % 26.2 % (18.0-39.1); MEAN CORPUSCULAR HEMOGLOBIN 28.3 pg (28-32); MEAN CORPUSCULAR HGB CONC 32.4 g/dL (31-35); MEAN CORPUSCULAR VOLUME 87.4 fL (81-99); MONOCYTES # (AUTO) 0.6 (0.2-0.8); NEUTROPHILS % 49.1 % (38.7-80.0); PLATELET COUNT 178 x10e3/uL (140-360); RED BLOOD COUNT 3.74 x10e6/uL (4.3-5.7); RED CELL DISTRIBUTION WIDTH 15.6 % (11.7-14.4)
[2019-04-10 06:24] LABS: ALBUMIN 3.6 g/dL (3.5-5.0); ALBUMIN/GLOBULIN RATIO 0.8 (0.8-2.0); ANION GAP 14.7 mmol/L (8-16); CREATININE, SERUM 1.32 mg/dL (0.72-1.25); POTASSIUM 3.7 mmol/L (3.5-5.1)
--- NOTE | 2019-04-10 07:00 | NUR ---
Morning rounds completed and the pt. is currently sleeping peacefully. Bed rails are up times 2.
[2019-04-10] MEDS: INSULIN REGULAR, HUMAN 100 UNIT/1 ML 3ML VIAL SQ SCH ×4 (07:30→21:00)
[2019-04-10] MEDS: FUROSEMIDE INJ 10 MG/ML 4 ML VIAL IV SCH ×2 (08:59→21:00)
[2019-04-10] MEDS: APIXABAN 5 MG TABLET PO SCH ×2 (09:01→17:58)
[2019-04-10] MEDS: CARVEDILOL 3.125 MG TAB PO SCH ×2 (09:01→17:58)
[2019-04-10] MEDS: GABAPENTIN 300 MG CAP PO SCH ×3 (09:01→21:00)
[2019-04-10] MEDS: LISINOPRIL 2.5 MG TAB PO SCH (09:02)
--- NOTE | 2019-04-10 13:23 | Progress Note ---
DATE: 04/10/2019 CONSULTING PHYSICIAN: Dr. Blanco with Cardiology. CHIEF COMPLAINT: Shortness of breath and bilateral lower extremity edema. SUBJECTIVE: Sitting up in chair with improving shortness of breath. He denies any fever, chills, cough, nausea, or vomiting. Bilateral lower extremities are improving some. PHYSICAL EXAMINATION: VITAL SIGNS: Temperature 96.9, pulse is 60, respirations 18, blood pressure is 127/59, pulse ox is 96% on room air. GENERAL: No acute distress. HEENT: Normocephalic, atraumatic. NECK: Supple and midline. CARDIOVASCULAR: Pacemaker in place. Regular rate. LUNGS: Decreased breath sounds. ABDOMEN: Soft and nontender. NEUROLOGIC: Alert, awake, and oriented x3. MUSCULOSKELETAL: Moves all extremities. 2+ edema, right greater than left. SKIN: Dry and intact. PSYCH: Normal affect. LABORATORY DATA: WBC 4.13, hemoglobin is 10.6, hematocrit is 32.7, and platelet is 178. Chemistry; sodium is 136, potassium is 3.7, CO2 is 32, anion gap 14.7, BUN is 36, creatinine is 1.32. Estimated GFR is 54. Chest x-ray as of yesterday, stable right pleural effusion and consolidation, stable pulmonary venous congestion. IMPRESSION AND PLAN: 1. Acute systolic congestive heart failure with exacerbation. Continue aggressive diuresis with Lasix IV. Echo with ejection fraction of 35% with moderate to severe MR. Continue beta blockers, TIMA inhibitors, and statin as blood pressure allows. 2. Acute kidney injury. Creatinine is 1.3. We will continue to monitor closely. 3. Urinary tract infection. Urine culture positive for Escherichia coli. We will continue with Rocephin. 4. Moderate pleural effusion. Chest x-ray has been stable, breathing is improving some with diuresis. We will continue to monitor closely. 5. Hyponatremia, now resolved. 6. Diabetes type 2. Continue sliding scale insulin coverage as needed. 7. Hypothyroidism. We will continue with Synthroid 75 mcg daily. 8. Coronary artery disease, last heart catheterization was a few weeks ago per patient. Continue beta blockers, statin, aspirin and blood thinners. 9. Benign prostatic hypertrophy. Continue Flomax. 10. Gastroesophageal reflux disease. Continue Pepcid. 11. Deep vein thrombosis prophylaxis, on Eliquis. Plan is to continue with aggressive diuresis and antibiotics for UTI. Dictated by Kitty Romero, ANP Haliching MD NAI Arreguin/FAROOQ /[id number]
[2019-04-10] MEDS: CEFTRIAXONE SOD 1 GM/NS 50 ML 50 ML IV SCH (17:58)
[2019-04-11] VITALS (9 sets, daily range): BP systolic 125–142; BP diastolic 58–63
[2019-04-11 05:29] LABS: ALBUMIN 3.5 g/dL (3.5-5.0); ALBUMIN/GLOBULIN RATIO 0.8 (0.8-2.0); ANION GAP 16.6 mmol/L (8-16); CALCIUM 8.9 mg/dL (8.4-10.2); CREATININE, SERUM 1.21 mg/dL (0.72-1.25); POTASSIUM 3.6 mmol/L (3.5-5.1)
[2019-04-11] MEDS: LEVOTHYROXINE SODIUM 75 MCG TAB PO SCH (05:50)
[2019-04-11] MEDS: INSULIN REGULAR, HUMAN 100 UNIT/1 ML 3ML VIAL SQ SCH ×4 (07:30→22:00)
[2019-04-11] MEDS: CARVEDILOL 3.125 MG TAB PO SCH ×2 (10:46→17:23)
[2019-04-11] MEDS: GABAPENTIN 300 MG CAP PO SCH ×3 (10:46→22:00)
[2019-04-11] MEDS: FUROSEMIDE INJ 10 MG/ML 4 ML VIAL IV SCH ×2 (10:46→22:00)
[2019-04-11] MEDS: LISINOPRIL 2.5 MG TAB PO SCH (10:46)
[2019-04-11] MEDS: APIXABAN 5 MG TABLET PO SCH ×2 (10:46→17:23)
--- NOTE | 2019-04-11 16:55 | Progress Note ---
DATE: 04/11/2019 CONSULTING PHYSICIAN: Dr. Blanco with Cardiology. CHIEF COMPLAINT: Shortness of breath and bilateral lower extremity edema. SUBJECTIVE: In bed with improving shortness of breath and bilateral lower extremity edema. No events overnight, resting with no acute distress. PHYSICAL EXAMINATION: VITAL SIGNS: Temperature 96.9, pulse is 60, respirations 18, blood pressure is 142/62, and pulse ox is 98% on room air. GENERAL: No acute distress. HEENT: Normocephalic and atraumatic. NECK: Supple and midline. CARDIOVASCULAR: Regular rate. Pacemaker in place. LUNGS: Decreased breath sounds. ABDOMEN: Soft and nontender. NEUROLOGIC: Alert, awake, and oriented x3. MUSCULOSKELETAL: Moves all extremities. Bilateral lower extremity edema +1. SKIN: Dry and intact. LABORATORY DATA: Sodium 137, potassium 3.6, carbon dioxide 31, creatinine is 1.21, BUN is 37, and glucose 150. IMPRESSION AND PLAN: 1. Acute systolic congestive heart failure with exacerbation. Continue aggressive diuresis with Lasix 80 mg IV every 12 hours. We will continue with beta lila, TIMA inhibitors, and statin. 2. Acute kidney injury. Creatinine is 1.2, improving. 3. Urinary tract infection. Urine culture positive with Escherichia coli. We will continue with Rocephin per sensitivity. 4. Moderate pleural effusion. Chest x-ray has been stable, breathing is improving. We will continue with diuresis and monitor closely. 5. Hyponatremia, now resolved. 6. Diabetes type 2. Continue sliding scale insulin coverage. 7. Hypothyroidism. Continue Synthroid 75 mcg daily. 8. Coronary artery disease. Continue on beta lila, statin, and aspirin. 9. History of atrial fibrillation. Rate is controlled on beta lila. Continue Eliquis for CVA prophylaxis. 10. Benign prostatic hypertrophy. Continue Flomax. 11. Gastroesophageal reflux disease. Continue Pepcid. 12. Deep vein thrombosis prophylaxis, on Eliquis. 13. Disposition. Anticipate discharge home in 1 to 2 days once cleared by Cardiology. Dictated by INA Caballero Haliching Ramo Manrique MD MY/MODL /[id number]
[2019-04-11] MEDS: CEFTRIAXONE SOD 1 GM/NS 50 ML 50 ML IV SCH (17:59)
[2019-04-12] VITALS: BP 114/58
[2019-04-12 04:00] VITALS: BP 119/60
[2019-04-12 05:57] LABS: ALBUMIN 3.4 g/dL (3.5-5.0); ALBUMIN/GLOBULIN RATIO 0.7 (0.8-2.0); ANION GAP 16.6 mmol/L (8-16); CALCIUM 9.7 mg/dL (8.4-10.2); CREATININE, SERUM 1.22 mg/dL (0.72-1.25); POTASSIUM 3.6 mmol/L (3.5-5.1)
[2019-04-12] MEDS: LEVOTHYROXINE SODIUM 75 MCG TAB PO SCH (05:57)
--- NOTE | 2019-04-12 07:00 | NUR ---
BEDSIDE SHIFT REPORT RECEIVED FROM THE HEALTH SAFETY SPECIALIST RN. PT DENIES NEEDS AT THIS TIME.
[2019-04-12] MEDS: INSULIN REGULAR, HUMAN 100 UNIT/1 ML 3ML VIAL SQ SCH ×3 (07:30→17:05)
--- NOTE | 2019-04-12 07:30 | NUR ---
EDUCATED PT ABOUT FALL PRECAUTIONS. CALL LIGHT WITH IN EASY REACH. INSTRUCTED PT TO USE CALL LIGHT FOR ALL NEEDS. PT VERBALIZED UNDERSTANDING. BED IS LOCKED AND LOW. SIDE RAILS X2. BED ALARM IS ON. DENIES NEEDS AT THIS TIME.
[2019-04-12 08:00] VITALS: BP 107/55
[2019-04-12] MEDS ORDERED: LIDOCAINE HCL 1% LOCAL INJ 20 ML VIAL ONE (08:34)
[2019-04-12 08:42] VITALS: BP 107/55
[2019-04-12] MEDS: FUROSEMIDE INJ 10 MG/ML 4 ML VIAL IV SCH (08:51)
[2019-04-12] MEDS: APIXABAN 5 MG TABLET PO SCH ×2 (08:52→16:10)
[2019-04-12] MEDS: CARVEDILOL 3.125 MG TAB PO SCH ×2 (08:52→16:10)
[2019-04-12] MEDS: GABAPENTIN 300 MG CAP PO SCH ×2 (08:52→15:55)
[2019-04-12] MEDS: LISINOPRIL 2.5 MG TAB PO SCH (10:00)
--- NOTE | 2019-04-12 11:00 | NUR ---
BEKA RIVERO NP REGARDING THORACENTESIS ORDER. CANCEL ORDER. INFORMED THE SAME TO ORION BROOKS.
[2019-04-12 12:00] VITALS: BP 120/66
--- NOTE | 2019-04-12 13:32 | NUR ---
IMM letter delivered and discussed with pt. He verbalized understanding. States he is ready to go home. Signed copy placed in chart. Serbian copy to pt. Pt states he will call his family and they will be able to provide transportation on discharge.
[2019-04-12] MEDS ORDERED: LASIX40 MG PO (13:33)
[2019-04-12] MEDS ORDERED: CIPRO500 MG PO (13:35)
--- NOTE | 2019-04-12 13:45 | NUR ---
PAGEGuilherme HAHN REGARDING PT D/C. OKAY TO D/C PT PER DR. HAHN.
--- NOTE | 2019-04-12 13:50 | NUR ---
INFORMED PT ABOUT D/C ORDER. PT IS WAITING FOR FAMILY MEMBER TO COME AND FILM CRITIC. PER THE PT, HIS WILL BE HERE BY 5.30 PM. INFORMED THE SAME TO CALL CENTER OPERATOR.
--- NOTE | 2019-04-12 14:05 | NUR ---
CULTURAL LINK USED TO COMMUNICATE BETTER WITH THE PT. ID NO [id number], KHLOE. PT IS OKAY WITH THE RIDE . PT FAMILY WILL BE HOME BY 5.30 PER THE PT.
--- NOTE | 2019-04-12 14:15 | NUR ---
PT INFORMED HE LIKES TO GO HOME WITH HIS . PT INFORMED HIS ALREADY TO COME AND PICK HIM. EXPECTED ARRIVAL 5.30 PM. INFORMED THE SAME TO HAND FORMER.
[2019-04-12] MEDS: CEFTRIAXONE SOD 1 GM/NS 50 ML 50 ML IV SCH (15:58)
[2019-04-12 16:00] VITALS: BP 142/67
--- NOTE | 2019-04-12 17:50 | NUR ---
PT ARRIVED TO FARM [employer]W LEADER THE PT.
--- NOTE | 2019-04-12 18:00 | NUR ---
PT DISCHARGED HOME SAFELY WITH . PT ESCORTED VIA WHEEL CHAIR TO THE FRONT ENTRANCE.RX GIVEN. TELE AND IV REMOVED. TIP INTACT. PRESSURE DRESSING APPLIED. PT DENIED FURTHER NEEDS.
--- NOTE | 2019-04-13 05:24 | Discharge Summary ---
PRIMARY CARE DOCTOR: Dr. Neal with [facility]. FINAL DIAGNOSES: 1. Acute systolic congestive heart failure with exacerbation. 2. Diabetes type 2. 3. Hyponatremia. 4. Urinary tract infection. 5. Hypothyroidism. 6. Coronary artery disease. 7. Benign prostatic hypertrophy. 8. Gastroesophageal reflux disease. 9. Atrial fibrillation. 10. Urinary retention. CONSULTANTS: Dr. Blanco with Cardiology. PROCEDURES: None. HISTORY: Per HPI. HOSPITAL COURSE: This is a 68-year-old male, who presented to the ER with complaints of shortness of breath and bilateral lower extremity edema, pitting +2 to 3. He was started on aggressive IV diuresis, Lasix 80 mg q.12. Cardiology was consulted for further evaluation. He was resumed on his home medication for CAD. Echo was done, which showed EF of 35% with [id number] MR. Bilateral lower extremity venous Doppler was done, which was negative for DVT. Chest x-ray was suggestive of right middle and lower lobe consolidation with atelectases, probable with pleural effusion, which was stable. His shortness of breath continued to improve with diuresis. UA and urine culture showed E coli, for which he was started on Rocephin. He will be discharged on Cipro for the remainder of the days to complete his treatment for UTI. Today, he is cleared by Cardiology and will discharge home to follow up with Cardiology and his PCP in 1 to 2 weeks. PHYSICAL EXAMINATION: VITAL SIGNS: Temperature is 96.4, pulse is 60, respirations 15, blood pressure 107/55, and pulse ox 91% on room air. GENERAL: No acute distress. HEENT: Normocephalic, atraumatic. NECK: Supple. CARDIOVASCULAR: Regular rate. Pacemaker in place. LUNGS: Decreased breath sounds. ABDOMEN: Soft and nontender. NEUROLOGIC: Alert, awake, and oriented x3. MUSCULOSKELETAL: Moves all extremities. Trace edema noted. SKIN: Dry and intact. CONDITION AT DISCHARGE: Improved and stable. DISCHARGE MEDICATIONS: Please see med list. FOLLOWUP: Follow up with PCP and Cardiology in 1 to 2 weeks. TIME SPENT: Total time of discharge is 35 minutes. Dictated by INA Caballero Ady Manrique MD MY/MODL /[id number] cc: Dr. Ángel Verduzco
== END 2019-04-12 18:18 | disposition home or self-care (01) | DRG 291 ==
LOC: ER 10:48 → ERHOLD 12:02 → MED/SURG2 14:55
PROVIDERS: ADMIT Internal Medicine; ATTEND Internal Medicine
DX: I13.0 Hypertensive heart and chronic kidney disease with heart failure and stage 1 through stage 4 chronic kidney disease, or unspecified chronic kidney disease (principal); I50.21 Acute systolic (congestive) heart failure; E87.1 Hypo-osmolality and hyponatremia; N39.0 Urinary tract infection, site not specified; N17.9 Acute kidney failure, unspecified; E03.9 Hypothyroidism, unspecified; I25.10 Atherosclerotic heart disease of native coronary artery without angina pectoris; K21.9 Gastro-esophageal reflux disease without esophagitis; E78.00 Pure hypercholesterolemia, unspecified; N18.3 Chronic kidney disease, stage 3 (moderate); E11.22 Type 2 diabetes mellitus with diabetic chronic kidney disease; I25.5 Ischemic cardiomyopathy; Z95.1 Presence of aortocoronary bypass graft; Z95.810 Presence of automatic (implantable) cardiac defibrillator; I48.0 Paroxysmal atrial fibrillation; Z79.01 Long term (current) use of anticoagulants; B96.20 Unspecified Escherichia coli [E. coli] as the cause of diseases classified elsewhere; N40.1 Benign prostatic hyperplasia with lower urinary tract symptoms; R33.8 Other retention of urine
CPT/HCPCS: 36415; 71045; 80053; 80061; 81001; 82550; 82553; 82948; 83036; 83605; 83690; 83735; 83880; 84443; 84484; 85025; 85610; 85730; 87040; 87086; 87186; 93005; 93306; 93970; 96372; 99284; J0696; J1817; J1940; J2001; J7050

== ENCOUNTER 2020-09-22 19:18 | Inpatient (IN) | payer MEDICARE ==
[~2020-09-22] VITALS: Ht 165.1 cm; Wt 67.6 kg
[~2020-09-22 19:18] MED LIST changes: +CIPRO500 MG PO; +LASIX40 MG PO
[2020-09-22 19:41] LABS: BASOPHILS % 0.6 % (0.0-1.0); EOSINOPHILS # (AUTO) 0.2 (0.0-0.4); EOSINOPHILS % 3.7 % (0.0-6.0); HEMATOCRIT 30.9 % (38.2-49.6); HEMOGLOBIN 9.9 g/dL (14.0-18.0); LYMPHOCYTES % 19.3 % (18.0-39.1); MEAN CORPUSCULAR HEMOGLOBIN 27.1 pg (28-32); MEAN CORPUSCULAR VOLUME 84.7 fL (81-99); MONOCYTES # (AUTO) 0.5 (0.2-0.8); NEUTROPHILS # (AUTO) 3.4 (2.1-6.9); PLATELET COUNT 190 x10e3/uL (140-360); RED BLOOD COUNT 3.65 x10e6/uL (4.3-5.7); RED CELL DISTRIBUTION WIDTH 15.8 % (11.7-14.4)
[2020-09-22 19:59] LABS: ALBUMIN 2.1 g/dL (3.5-5.0); ALBUMIN/GLOBULIN RATIO 0.8 (0.8-2.0); ANION GAP 12.7 mmol/L (8-16); CREATININE, SERUM 1.33 mg/dL (0.72-1.25); POTASSIUM 3.7 mmol/L (3.5-5.1)
[2020-09-22 20:03] LABS: CALCIUM 6.9 mg/dL (8.4-10.2)
[2020-09-22 20:06] LABS: CREATINE KINASE MB 4.3 ng/mL (0-5.0)
[2020-09-22] MEDS ORDERED: CALCIUM GLUCONATE 10% INJ 4.65 MEQ in SODIUM CHLORIDE 0.9% 50ML 50 ML IV ONE (21:00)
[2020-09-22] MEDS ORDERED: DEXTROSE 50% SYRINGE 50 ML IV PRN (21:15)
[2020-09-22] MEDS ORDERED: SODIUM CHLORIDE FLUSH 10 ML SYR INJ PRN (21:15)
[2020-09-22] MEDS: FUROSEMIDE INJ 10 MG/ML 4 ML VIAL IV SCH (21:15)
[2020-09-22 21:56] LABS: CLARITY,URINE CLEAR (CLEAR); COLOR,URINE YELLOW (YELLOW); KETONES,URINE NEGATIVE (NEGATIVE); LEUKOCYTE ESTERASE ,URINE TRACE (NEGATIVE); NITRITE,URINE NEGATIVE (NEGATIVE); PROTEIN,URINE DIPSTICK NEGATIVE (NEGATIVE); URINE UROBILINOGEN 0.2 mg/dL (0.2 - 1)
[2020-09-22 22:54] VITALS: BP 119/70
[2020-09-22] MEDS ORDERED: BUMETANIDE1 MG PO (22:59)
[2020-09-22] MEDS ORDERED: OMEPRAZOLE40 MG PO (22:59)
[2020-09-22] MEDS ORDERED: ELIQUIS5 MG PO (22:59)
[2020-09-22] MEDS ORDERED: CARVEDILOL3.125 MG PO (22:59)
[2020-09-22] MEDS ORDERED: ALFUZOSIN HCL10 MG PO (22:59)
[2020-09-22] MEDS ORDERED: ATORVASTATIN CA20 MG PO (22:59)
[2020-09-22] MEDS ORDERED: ASPIRIN81 MG PO (22:59)
[2020-09-22] MEDS ORDERED: FINASTERIDE5 MG PO (22:59)
[2020-09-22 23:00] VITALS: BP 119/70
[2020-09-22 23:18] VITALS: BP 119/70
[2020-09-23] VITALS (8 sets, daily range): BP systolic 110–119; BP diastolic 54–69
[2020-09-23 05:23] LABS: BASOPHILS % 0.9 % (0.0-1.0); EOSINOPHILS # (AUTO) 0.2 (0.0-0.4); EOSINOPHILS % 4.4 % (0.0-6.0); HEMATOCRIT 30.3 % (38.2-49.6); HEMOGLOBIN 9.6 g/dL (14.0-18.0); LYMPHOCYTES # (AUTO) 0.9 (1.0-3.2); LYMPHOCYTES % 19.9 % (18.0-39.1); MEAN CORPUSCULAR HEMOGLOBIN 26.8 pg (28-32); MEAN CORPUSCULAR HGB CONC 31.7 g/dL (31-35); MEAN CORPUSCULAR VOLUME 84.6 fL (81-99); MONOCYTES # (AUTO) 0.6 (0.2-0.8); MONOCYTES % 12.7 % (4.4-11.3); NEUTROPHILS # (AUTO) 2.7 (2.1-6.9); NEUTROPHILS % 61.6 % (38.7-80.0); PLATELET COUNT 181 x10e3/uL (140-360); RED BLOOD COUNT 3.58 x10e6/uL (4.3-5.7); RED CELL DISTRIBUTION WIDTH 15.8 % (11.7-14.4)
[2020-09-23 05:47] LABS: ALBUMIN 2.1 g/dL (3.5-5.0); ALBUMIN/GLOBULIN RATIO 0.8 (0.8-2.0); ANION GAP 10.6 mmol/L (8-16); CALCIUM 7.1 mg/dL (8.4-10.2); CREATININE, SERUM 1.35 mg/dL (0.72-1.25); POTASSIUM 3.6 mmol/L (3.5-5.1)
[2020-09-23 06:11] LABS: CREATINE KINASE MB 3.2 ng/mL (0-5.0)
[2020-09-23] MEDS: INSULIN REGULAR, HUMAN 100 UNIT/1 ML 3ML VIAL SQ SCH ×4 (07:30→21:00)
[2020-09-23] MEDS: FUROSEMIDE INJ 10 MG/ML 4 ML VIAL IV SCH ×2 (08:48→17:17)
[2020-09-23] MEDS: PANTOPRAZOLE SOD 40 MG TABEC PO SCH (10:01)
[2020-09-23] MEDS: LEVOTHYROXINE SODIUM 75 MCG TAB PO SCH (10:01)
[2020-09-23] MEDS: ASPIRIN 81 MG CHEW TAB PO SCH (10:01)
[2020-09-23] MEDS: ALFUZOSIN HCL 10 MG TAB.ER.24H PO SCH (10:14)
[2020-09-23] MEDS: ACETAMINOPHEN/CODEINE 300MG - 30MG TAB PO SCH ×2 (12:14→18:00)
[2020-09-23 16:48] LABS: CREATINE KINASE MB 2.3 ng/mL (0-5.0)
[2020-09-23] MEDS: CARVEDILOL 3.125 MG TAB PO SCH (17:00)
[2020-09-23] MEDS: APIXABAN 5 MG TABLET PO SCH (17:18)
[2020-09-23] MEDS: ATORVASTATIN 20 MG TAB PO SCH (21:35)
[2020-09-24] VITALS (7 sets, daily range): BP systolic 101–132; BP diastolic 49–86
[2020-09-24] MEDS: ACETAMINOPHEN/CODEINE 300MG - 30MG TAB PO SCH ×5 (00:51→23:23)
[2020-09-24] MEDS: LEVOTHYROXINE SODIUM 75 MCG TAB PO SCH (05:51)
[2020-09-24 07:04] LABS: BASOPHILS # (AUTO) 0.1 (0.0-0.1); EOSINOPHILS # (AUTO) 0.3 (0.0-0.4); HEMATOCRIT 31.5 % (38.2-49.6); HEMOGLOBIN 9.9 g/dL (14.0-18.0); LYMPHOCYTES % 18.4 % (18.0-39.1); MEAN CORPUSCULAR HEMOGLOBIN 27.3 pg (28-32); MEAN CORPUSCULAR HGB CONC 31.4 g/dL (31-35); MEAN CORPUSCULAR VOLUME 86.8 fL (81-99); MONOCYTES # (AUTO) 0.6 (0.2-0.8); NEUTROPHILS # (AUTO) 3.3 (2.1-6.9); NEUTROPHILS % 64.4 % (38.7-80.0); PLATELET COUNT 181 x10e3/uL (140-360); RED BLOOD COUNT 3.63 x10e6/uL (4.3-5.7); RED CELL DISTRIBUTION WIDTH 15.9 % (11.7-14.4)
[2020-09-24] MEDS: INSULIN REGULAR, HUMAN 100 UNIT/1 ML 3ML VIAL SQ SCH ×4 (07:23→21:00)
[2020-09-24 07:37] LABS: ALBUMIN 2.1 g/dL (3.5-5.0); ALBUMIN/GLOBULIN RATIO 0.8 (0.8-2.0); ANION GAP 11.4 mmol/L (8-16); CALCIUM 7.1 mg/dL (8.4-10.2); CHOL/HDL RATIO 3.3 (3.9-4.7); CREATININE, SERUM 1.3 mg/dL (0.72-1.25); POTASSIUM 3.4 mmol/L (3.5-5.1)
[2020-09-24 07:57] LABS: THYROID STIMULATING HORMONE 5.931 uIU/mL (0.350-4.940)
[2020-09-24] MEDS: ASPIRIN 81 MG CHEW TAB PO SCH (08:42)
[2020-09-24] MEDS: FUROSEMIDE INJ 10 MG/ML 4 ML VIAL IV SCH ×3 (08:42→21:11)
[2020-09-24] MEDS: CARVEDILOL 3.125 MG TAB PO SCH ×2 (08:42→16:54)
[2020-09-24] MEDS: APIXABAN 5 MG TABLET PO SCH ×2 (08:42→16:54)
[2020-09-24] MEDS: ALFUZOSIN HCL 10 MG TAB.ER.24H PO SCH (08:42)
[2020-09-24] MEDS: FINASTERIDE 5 MG TAB PO SCH (08:43)
[2020-09-24] MEDS: PANTOPRAZOLE SOD 40 MG TABEC PO SCH (08:43)
[2020-09-24] MEDS: GABAPENTIN 300 MG CAP PO SCH (08:43)
[2020-09-24] MEDS ORDERED: POTASSIUM CHLORIDE 10MEQ EA PO ONE (11:30)
[2020-09-24] MEDS: ATORVASTATIN 20 MG TAB PO SCH (21:11)
[2020-09-25] VITALS (9 sets, daily range): BP systolic 92–128; BP diastolic 50–78
[2020-09-25] MEDS: FUROSEMIDE INJ 10 MG/ML 4 ML VIAL IV SCH ×2 (05:52→14:00)
[2020-09-25] MEDS: ACETAMINOPHEN/CODEINE 300MG - 30MG TAB PO SCH ×3 (05:52→18:00)
[2020-09-25 05:58] LABS: BASOPHILS # (AUTO) 0.1 (0.0-0.1); BASOPHILS % 1.2 % (0.0-1.0); EOSINOPHILS # (AUTO) 0.3 (0.0-0.4); EOSINOPHILS % 6.4 % (0.0-6.0); HEMATOCRIT 32.1 % (38.2-49.6); LYMPHOCYTES % 22.9 % (18.0-39.1); MEAN CORPUSCULAR HEMOGLOBIN 26.7 pg (28-32); MEAN CORPUSCULAR HGB CONC 31.2 g/dL (31-35); MEAN CORPUSCULAR VOLUME 85.6 fL (81-99); MONOCYTES # (AUTO) 0.5 (0.2-0.8); MONOCYTES % 10.6 % (4.4-11.3); NEUTROPHILS # (AUTO) 2.5 (2.1-6.9); NEUTROPHILS % 58.7 % (38.7-80.0); PLATELET COUNT 182 x10e3/uL (140-360); RED BLOOD COUNT 3.75 x10e6/uL (4.3-5.7); RED CELL DISTRIBUTION WIDTH 15.9 % (11.7-14.4)
[2020-09-25] MEDS ORDERED: LEVOTHYROXINE SODIUM 50 MCG TAB PO SCH (06:00)
[2020-09-25 06:46] LABS: ALBUMIN 2.2 g/dL (3.5-5.0); ALBUMIN/GLOBULIN RATIO 0.8 (0.8-2.0); ANION GAP 10.2 mmol/L (8-16); CALCIUM 7.3 mg/dL (8.4-10.2); CREATININE, SERUM 1.32 mg/dL (0.72-1.25); POTASSIUM 4.2 mmol/L (3.5-5.1)
[2020-09-25] MEDS: INSULIN REGULAR, HUMAN 100 UNIT/1 ML 3ML VIAL SQ SCH ×4 (07:30→21:00)
[2020-09-25] MEDS: CARVEDILOL 3.125 MG TAB PO SCH (08:15)
[2020-09-25] MEDS: GABAPENTIN 300 MG CAP PO SCH (09:00)
[2020-09-25] MEDS: PANTOPRAZOLE SOD 40 MG TABEC PO SCH (09:00)
[2020-09-25] MEDS: ASPIRIN 81 MG CHEW TAB PO SCH (09:00)
[2020-09-25] MEDS: ALFUZOSIN HCL 10 MG TAB.ER.24H PO SCH (09:00)
[2020-09-25] MEDS: FINASTERIDE 5 MG TAB PO SCH (09:00)
[2020-09-25] MEDS: APIXABAN 5 MG TABLET PO SCH ×2 (09:00→17:00)
[2020-09-25] MEDS: METOPROLOL TARTRATE 25 MG TAB PO SCH ×3 (09:26→18:00)
[2020-09-25] MEDS: ATORVASTATIN 20 MG TAB PO SCH (20:34)
[2020-09-26] VITALS (8 sets, daily range): BP systolic 90–124; BP diastolic 61–80
[2020-09-26] MEDS: ACETAMINOPHEN/CODEINE 300MG - 30MG TAB PO SCH
[2020-09-26] MEDS ORDERED: ACETAMINOPHEN/CODEINE 300MG - 30MG TAB PO PRN (00:45)
[2020-09-26] MEDS: METOPROLOL TARTRATE 25 MG TAB PO SCH ×4 (04:54→17:48)
[2020-09-26] MEDS: LEVOTHYROXINE SODIUM 88 MCG TAB PO SCH (05:28)
[2020-09-26 05:30] LABS: ANION GAP 12.2 mmol/L (8-16); CALCIUM 7.3 mg/dL (8.4-10.2); CREATININE, SERUM 1.4 mg/dL (0.72-1.25); POTASSIUM 4.2 mmol/L (3.5-5.1)
[2020-09-26] MEDS ORDERED: LEVOTHYROXINE SODIUM 50 MCG TAB PO SCH (06:00)
[2020-09-26] MEDS: INSULIN REGULAR, HUMAN 100 UNIT/1 ML 3ML VIAL SQ SCH ×4 (07:30→21:00)
[2020-09-26] MEDS: ASPIRIN 81 MG CHEW TAB PO SCH (08:30)
[2020-09-26] MEDS: FINASTERIDE 5 MG TAB PO SCH (08:30)
[2020-09-26] MEDS: APIXABAN 5 MG TABLET PO SCH ×2 (08:30→17:47)
[2020-09-26] MEDS: ALFUZOSIN HCL 10 MG TAB.ER.24H PO SCH (08:30)
[2020-09-26] MEDS: GABAPENTIN 300 MG CAP PO SCH (08:30)
[2020-09-26] MEDS: PANTOPRAZOLE SOD 40 MG TABEC PO SCH (08:30)
[2020-09-26] MEDS ORDERED: FUROSEMIDE INJ 10 MG/ML 4 ML VIAL IV SCH (09:00)
[2020-09-26] MEDS: FUROSEMIDE INJ 10 MG/ML 4 ML VIAL IV SCH (17:47)
[2020-09-26] MEDS: ATORVASTATIN 20 MG TAB PO SCH (21:06)
[2020-09-27 01:34] VITALS: BP 88/66
[2020-09-27 05:44] VITALS: BP 155/59
[2020-09-27 05:50] LABS: ANION GAP 9.9 mmol/L (8-16); CALCIUM 7.1 mg/dL (8.4-10.2); CREATININE, SERUM 1.39 mg/dL (0.72-1.25); POTASSIUM 3.9 mmol/L (3.5-5.1)
[2020-09-27] MEDS: METOPROLOL TARTRATE 25 MG TAB PO SCH ×3 (05:56→12:00)
[2020-09-27] MEDS: LEVOTHYROXINE SODIUM 88 MCG TAB PO SCH (05:56)
[2020-09-27 07:50] VITALS: BP 107/69
[2020-09-27] MEDS: INSULIN REGULAR, HUMAN 100 UNIT/1 ML 3ML VIAL SQ SCH ×3 (08:00→16:30)
[2020-09-27 08:06] VITALS: BP 107/69
[2020-09-27] MEDS: ALFUZOSIN HCL 10 MG TAB.ER.24H PO SCH (08:15)
[2020-09-27] MEDS: FUROSEMIDE INJ 10 MG/ML 4 ML VIAL IV SCH ×2 (08:15→16:35)
[2020-09-27] MEDS: FINASTERIDE 5 MG TAB PO SCH (08:16)
[2020-09-27] MEDS: PANTOPRAZOLE SOD 40 MG TABEC PO SCH (08:16)
[2020-09-27] MEDS: ASPIRIN 81 MG CHEW TAB PO SCH (08:16)
[2020-09-27] MEDS: GABAPENTIN 300 MG CAP PO SCH (08:16)
[2020-09-27] MEDS: APIXABAN 5 MG TABLET PO SCH ×2 (08:16→16:35)
[2020-09-27] MEDS ORDERED: METOLAZONE 5 MG TAB PO ONE (09:55)
[2020-09-27 11:36] VITALS: BP 94/60
[2020-09-27] MEDS ORDERED: LASIX40 MG PO (15:38)
[2020-09-27] MEDS ORDERED: Levothyroxine Sodium PO (15:38)
[2020-09-27] MEDS ORDERED: METOPROLOL TART50 MG PO (15:40)
[2020-09-27 16:08] VITALS: BP 97/56
== END 2020-09-27 17:40 | disposition home or self-care (01) | DRG 291 ==
LOC: ER 19:24 → ERHOLD 21:06 → MED/SURG2 22:38
PROVIDERS: ADMIT Internal Medicine; ATTEND Internal Medicine
DX: I13.0 Hypertensive heart and chronic kidney disease with heart failure and stage 1 through stage 4 chronic kidney disease, or unspecified chronic kidney disease (principal); I50.23 Acute on chronic systolic (congestive) heart failure; N17.9 Acute kidney failure, unspecified; I48.91 Unspecified atrial fibrillation; E03.9 Hypothyroidism, unspecified; R60.0 Localized edema; E83.51 Hypocalcemia; E11.42 Type 2 diabetes mellitus with diabetic polyneuropathy; Z95.1 Presence of aortocoronary bypass graft; I25.10 Atherosclerotic heart disease of native coronary artery without angina pectoris; K21.9 Gastro-esophageal reflux disease without esophagitis; N40.0 Benign prostatic hyperplasia without lower urinary tract symptoms; Z95.810 Presence of automatic (implantable) cardiac defibrillator; E78.00 Pure hypercholesterolemia, unspecified; N18.9 Chronic kidney disease, unspecified; E11.22 Type 2 diabetes mellitus with diabetic chronic kidney disease; Z79.01 Long term (current) use of anticoagulants; Z20.822 Contact with and (suspected) exposure to COVID-19
CPT/HCPCS: 36415; 71045; 80048; 80053; 80061; 81001; 82550; 82553; 82948; 83880; 84443; 84484; 85025; 93005; 93306; 93970; 96372; 99284; J0610; J1940; U0002

== ENCOUNTER 2020-10-14 08:29 | Emergency (ER) | payer MEDICARE ==
[~2020-10-14] VITALS: Ht 165.1 cm; Wt 67.6 kg
[~2020-10-14 08:29] MED LIST changes: +ALFUZOSIN HCL10 MG PO; +ASPIRIN81 MG PO; +ATORVASTATIN CA20 MG PO; +BUMETANIDE1 MG PO; +CARVEDILOL3.125 MG PO; +ELIQUIS5 MG PO; +FINASTERIDE5 MG PO; +Levothyroxine Sodium PO; +METOPROLOL TART50 MG PO
[2020-10-14 09:24] LABS: BASOPHILS # (AUTO) 0.1 (0.0-0.1); BASOPHILS % 1.4 % (0.0-1.0); EOSINOPHILS # (AUTO) 0.3 (0.0-0.4); EOSINOPHILS % 6.3 % (0.0-6.0); HEMATOCRIT 30.6 % (38.2-49.6); HEMOGLOBIN 9.6 g/dL (14.0-18.0); LYMPHOCYTES # (AUTO) 0.8 (1.0-3.2); MEAN CORPUSCULAR HEMOGLOBIN 26.2 pg (28-32); MEAN CORPUSCULAR HGB CONC 31.4 g/dL (31-35); MEAN CORPUSCULAR VOLUME 83.4 fL (81-99); MONOCYTES # (AUTO) 0.6 (0.2-0.8); MONOCYTES % 12.4 % (4.4-11.3); NEUTROPHILS # (AUTO) 2.7 (2.1-6.9); NEUTROPHILS % 61.7 % (38.7-80.0); PLATELET COUNT 182 x10e3/uL (140-360); RED BLOOD COUNT 3.67 x10e6/uL (4.3-5.7); RED CELL DISTRIBUTION WIDTH 15.3 % (11.7-14.4)
[2020-10-14 09:29] LABS: CLARITY,URINE CLEAR (CLEAR); COLOR,URINE YELLOW (YELLOW)
[2020-10-14 09:30] LABS: KETONES,URINE NEGATIVE (NEGATIVE); LEUKOCYTE ESTERASE ,URINE NEGATIVE (NEGATIVE); NITRITE,URINE NEGATIVE (NEGATIVE); PROTEIN,URINE DIPSTICK NEGATIVE (NEGATIVE); URINE UROBILINOGEN 0.2 mg/dL (0.2 - 1)
[2020-10-14 09:42] LABS: INR 1.06; PARTIAL THROMBOPLASTIN TIME 34.6 seconds (23.8-35.5); PROTHROMBIN TIME 14.4 seconds (11.9-14.5)
[2020-10-14 09:43] LABS: ALBUMIN 2.3 g/dL (3.5-5.0); ALBUMIN/GLOBULIN RATIO 0.8 (0.8-2.0); ANION GAP 11.9 mmol/L (8-16); CALCIUM 7.2 mg/dL (8.4-10.2); CREATININE, SERUM 1.38 mg/dL (0.72-1.25); POTASSIUM 3.9 mmol/L (3.5-5.1)
[2020-10-14 09:50] LABS: CREATINE KINASE MB 4.1 ng/mL (0-5.0)
[2020-10-14 09:55] LABS: BACTERIA,URINE RARE /HPF; EPITHELIAL CELLS,URINE FEW /LPF; RBC,URINE 0-5 /HPF (0-5); WBC,URINE (MAN) 0-5 /HPF (0-5)
[2020-10-14] MEDS ORDERED: FUROSEMIDE INJ 10 MG/ML 4 ML VIAL IV NR (10:15)
== END 2020-10-14 13:03 | disposition home or self-care (01) ==
LOC: ER 08:35
DX: I50.9 Heart failure, unspecified (principal); R06.02 Shortness of breath; E11.65 Type 2 diabetes mellitus with hyperglycemia; I10 Essential (primary) hypertension; R94.31 Abnormal electrocardiogram [ECG] [EKG]; Z20.822 Contact with and (suspected) exposure to COVID-19
CPT/HCPCS: 36415; 71045; 80053; 81001; 82550; 82553; 83735; 83880; 84484; 85025; 85610; 85730; 87086; 93005; 99284; J1940; U0002

== ENCOUNTER 2020-10-18 09:08 | Emergency (ER) | payer MEDICARE ==
[~2020-10-18] VITALS: Ht 165.1 cm; Wt 67.6 kg
[2020-10-18] MEDS ORDERED: FUROSEMIDE INJ 10 MG/ML 4 ML VIAL IV ONE (12:00)
[2020-10-18 12:05] LABS: BASOPHILS % 0.7 % (0.0-1.0); EOSINOPHILS # (AUTO) 0.2 (0.0-0.4); EOSINOPHILS % 4.4 % (0.0-6.0); HEMATOCRIT 31.6 % (38.2-49.6); LYMPHOCYTES % 17.9 % (18.0-39.1); MEAN CORPUSCULAR HEMOGLOBIN 26.2 pg (28-32); MEAN CORPUSCULAR HGB CONC 31.6 g/dL (31-35); MEAN CORPUSCULAR VOLUME 82.7 fL (81-99); MONOCYTES # (AUTO) 0.6 (0.2-0.8); MONOCYTES % 10.4 % (4.4-11.3); NEUTROPHILS # (AUTO) 3.6 (2.1-6.9); NEUTROPHILS % 66.4 % (38.7-80.0); PLATELET COUNT 158 x10e3/uL (140-360); RED BLOOD COUNT 3.82 x10e6/uL (4.3-5.7); RED CELL DISTRIBUTION WIDTH 15.4 % (11.7-14.4)
[2020-10-18 12:21] LABS: INR 0.93; PROTHROMBIN TIME 13.1 seconds (11.9-14.5)
[2020-10-18 12:22] LABS: PARTIAL THROMBOPLASTIN TIME 34.8 seconds (23.8-35.5)
[2020-10-18 12:28] LABS: ALBUMIN 2.5 g/dL (3.5-5.0); ALBUMIN/GLOBULIN RATIO 0.8 (0.8-2.0); ANION GAP 12.1 mmol/L (8-16); CALCIUM 7.8 mg/dL (8.4-10.2); CREATININE, SERUM 1.39 mg/dL (0.72-1.25); MAGNESIUM 2.1 MG/DL (1.3-2.1); POTASSIUM 4.1 mmol/L (3.5-5.1)
[2020-10-18 12:48] LABS: CREATINE KINASE MB 3.1 ng/mL (0-5.0)
[2020-10-18 13:18] LABS: CLARITY,URINE CLEAR (CLEAR); COLOR,URINE YELLOW (YELLOW); KETONES,URINE NEGATIVE (NEGATIVE); LEUKOCYTE ESTERASE ,URINE NEGATIVE (NEGATIVE); NITRITE,URINE NEGATIVE (NEGATIVE); PROTEIN,URINE DIPSTICK NEGATIVE (NEGATIVE); URINE UROBILINOGEN 0.2 mg/dL (0.2 - 1)
[2020-10-18 13:31] LABS: BACTERIA,URINE FEW /HPF; EPITHELIAL CELLS,URINE FEW /LPF; RBC,URINE 0-5 /HPF (0-5); WBC,URINE (MAN) 0-5 /HPF (0-5)
[2020-10-18 16:23] VITALS: BP 124/61
== END 2020-10-18 15:40 | disposition home or self-care (01) ==
LOC: ER 09:24
DX: I50.9 Heart failure, unspecified (principal); R60.9 Edema, unspecified; E11.65 Type 2 diabetes mellitus with hyperglycemia; E11.40 Type 2 diabetes mellitus with diabetic neuropathy, unspecified; I10 Essential (primary) hypertension; I25.10 Atherosclerotic heart disease of native coronary artery without angina pectoris; I25.2 Old myocardial infarction; R94.31 Abnormal electrocardiogram [ECG] [EKG]; Z95.1 Presence of aortocoronary bypass graft; Z95.0 Presence of cardiac pacemaker
CPT/HCPCS: 36415; 71045; 80053; 81001; 82550; 82553; 83735; 83880; 84484; 85025; 85610; 85730; 87086; 93005; 93971; 99284; J1940

== ENCOUNTER 2021-01-22 07:18 | Emergency (ER) | payer MEDICARE ==
[~2021-01-22] VITALS: Ht 165.1 cm; Wt 89.7 kg
[2021-01-22 08:13] LABS: BASOPHILS # (AUTO) 0.1 (0.0-0.1); EOSINOPHILS # (AUTO) 0.3 (0.0-0.4); EOSINOPHILS % 4.6 % (0.0-6.0); HEMATOCRIT 35.2 % (38.2-49.6); LYMPHOCYTES # (AUTO) 1.1 (1.0-3.2); LYMPHOCYTES % 18.6 % (18.0-39.1); MEAN CORPUSCULAR HEMOGLOBIN 26.3 pg (28-32); MEAN CORPUSCULAR HGB CONC 31.3 g/dL (31-35); MONOCYTES # (AUTO) 0.7 (0.2-0.8); MONOCYTES % 11.3 % (4.4-11.3); NEUTROPHILS # (AUTO) 3.9 (2.1-6.9); NEUTROPHILS % 64.3 % (38.7-80.0); PLATELET COUNT 218 x10e3/uL (140-360); RED BLOOD COUNT 4.19 x10e6/uL (4.3-5.7)
[2021-01-22 08:49] LABS: ALBUMIN/GLOBULIN RATIO 0.7 (0.8-2.0); ANION GAP 10.5 mmol/L (8-16); CALCIUM 7.1 mg/dL (8.4-10.2); CREATININE, SERUM 1.34 mg/dL (0.72-1.25); POTASSIUM 4.5 mmol/L (3.5-5.1)
[2021-01-22 08:56] LABS: CREATINE KINASE MB 4.3 ng/mL (0-5.0)
[2021-01-22 09:01] LABS: INR 1.08; PROTHROMBIN TIME 14.2 seconds (11.9-14.5)
[2021-01-22 09:02] LABS: PARTIAL THROMBOPLASTIN TIME 34.3 seconds (23.8-35.5)
[2021-01-22] MEDS ORDERED: LASIX40 MG PO (10:06)
[2021-01-22] MEDS: FUROSEMIDE INJ 10 MG/ML 2 ML VIAL IV ONE (10:35)
[2021-01-22 11:38] VITALS: BP 112/59
== END 2021-01-22 11:40 | disposition home or self-care (01) ==
LOC: ER 07:55
DX: I11.0 Hypertensive heart disease with heart failure (principal); I50.9 Heart failure, unspecified; I25.10 Atherosclerotic heart disease of native coronary artery without angina pectoris; I25.2 Old myocardial infarction; Z98.61 Coronary angioplasty status; Z95.1 Presence of aortocoronary bypass graft; Z95.0 Presence of cardiac pacemaker; K21.9 Gastro-esophageal reflux disease without esophagitis; E11.40 Type 2 diabetes mellitus with diabetic neuropathy, unspecified; N40.1 Benign prostatic hyperplasia with lower urinary tract symptoms; R33.8 Other retention of urine; Z79.01 Long term (current) use of anticoagulants; Z79.899 Other long term (current) drug therapy; Z79.82 Long term (current) use of aspirin
CPT/HCPCS: 36415; 71045; 80053; 82550; 82553; 83880; 84484; 85025; 85610; 85730; 93005; 99284; J1940

== ENCOUNTER 2021-05-21 11:45 | Inpatient (IN) | payer MEDICARE ==
[~2021-05-21] VITALS: Ht 162.6 cm; Wt 84.8 kg
[2021-05-21] MEDS ORDERED: FUROSEMIDE INJ 10 MG/ML 4 ML VIAL IV ONE (12:45)
[2021-05-21 13:02] LABS: BASOPHILS % 0.7 % (0.0-1.0); EOSINOPHILS # (AUTO) 0.1 (0.0-0.4); EOSINOPHILS % 3.3 % (0.0-6.0); HEMATOCRIT 35.1 % (38.2-49.6); HEMOGLOBIN 10.7 g/dL (14.0-18.0); LYMPHOCYTES # (AUTO) 0.8 (1.0-3.2); LYMPHOCYTES % 18.5 % (18.0-39.1); MEAN CORPUSCULAR HEMOGLOBIN 26.4 pg (28-32); MEAN CORPUSCULAR HGB CONC 30.5 g/dL (31-35); MEAN CORPUSCULAR VOLUME 86.5 fL (81-99); MONOCYTES # (AUTO) 0.4 (0.2-0.8); MONOCYTES % 10.4 % (4.4-11.3); NEUTROPHILS # (AUTO) 2.8 (2.1-6.9); NEUTROPHILS % 67.1 % (38.7-80.0); PLATELET COUNT 179 x10e3/uL (140-360); RED BLOOD COUNT 4.06 x10e6/uL (4.3-5.7); RED CELL DISTRIBUTION WIDTH 15.3 % (11.7-14.4)
[2021-05-21 13:12] LABS: INR 0.96; PROTHROMBIN TIME 13.5 seconds (11.9-14.5)
[2021-05-21 13:13] LABS: PARTIAL THROMBOPLASTIN TIME 31.6 seconds (23.8-35.5)
[2021-05-21 13:14] LABS: ANION GAP 10.6 mmol/L (8-16); CALCIUM 7.1 mg/dL (8.4-10.2); POTASSIUM 3.6 mmol/L (3.5-5.1)
[2021-05-21 13:25] LABS: CREATINE KINASE MB 9.3 ng/mL (0-5.0)
[2021-05-21 13:38] LABS: ALBUMIN 1.7 g/dL (3.5-5.0); ALBUMIN/GLOBULIN RATIO 0.6 (0.8-2.0); CREATININE, SERUM 0.96 mg/dL (0.72-1.25)
[2021-05-21] MEDS ORDERED: PROMETHAZINE HCL (IM) 25 MG/ML VIAL IM PRN (14:15)
[2021-05-21] MEDS ORDERED: ONDANSETRON HCL INJ 2MG/ML 2ML 2 MG/ML VIAL IV PRN (14:15)
[2021-05-21] MEDS ORDERED: SODIUM CHLORIDE FLUSH 10 ML SYR INJ PRN (14:15)
[2021-05-21] MEDS ORDERED: Morphine 4mg Syringe 4 MG/ML INJ IV PRN (14:15)
[2021-05-21] MEDS ORDERED: ACETAMINOPHEN 325 MG TAB PO PRN (15:00)
[2021-05-21] MEDS: FAMOTIDINE 20 MG TAB PO SCH (15:32)
[2021-05-21] MEDS: METOLAZONE 5 MG TAB PO SCH (16:30)
[2021-05-21 16:31] LABS: CLARITY,URINE CLEAR (CLEAR); COLOR,URINE YELLOW (YELLOW); KETONES,URINE NEGATIVE (NEGATIVE); LEUKOCYTE ESTERASE ,URINE NEGATIVE (NEGATIVE); MUCUS,URINE FEW (RARE); NITRITE,URINE NEGATIVE (NEGATIVE); PROTEIN,URINE DIPSTICK NEGATIVE (NEGATIVE); RBC,URINE 0-5 /HPF (0-5); URINE UROBILINOGEN 0.2 mg/dL (0.2 - 1); WBC,URINE (MAN) 0-5 /HPF (0-5)
[2021-05-21] MEDS: APIXABAN 5 MG TABLET PO SCH (17:05)
[2021-05-21 17:40] VITALS: BP 112/62
[2021-05-21 18:50] VITALS: BP 112/62
[2021-05-21 18:56] VITALS: BP 112/62
[2021-05-21 20:00] VITALS: BP 111/60
[2021-05-21 20:03] LABS: CREATINE KINASE MB 9.1 ng/mL (0-5.0)
[2021-05-21 21:00] VITALS: BP 111/60
[2021-05-21] MEDS ORDERED: FUROSEMIDE INJ 10 MG/ML 4 ML VIAL IV SCH (21:00)
[2021-05-21] MEDS: METOPROLOL TARTRATE 25 MG TAB PO SCH (21:04)
[2021-05-21] MEDS: ATORVASTATIN 40 MG TAB PO SCH (21:05)
[2021-05-21] MEDS: FUROSEMIDE INJ 10 MG/ML 4 ML VIAL IV SCH (21:05)
[2021-05-22] VITALS (8 sets, daily range): BP systolic 94–119; BP diastolic 42–71
[2021-05-22] MEDS: FAMOTIDINE 20 MG TAB PO SCH (02:15)
[2021-05-22 05:07] LABS: BASOPHILS % 0.7 % (0.0-1.0); EOSINOPHILS # (AUTO) 0.2 (0.0-0.4); EOSINOPHILS % 3.9 % (0.0-6.0); HEMATOCRIT 31.5 % (38.2-49.6); HEMOGLOBIN 9.7 g/dL (14.0-18.0); LYMPHOCYTES # (AUTO) 0.7 (1.0-3.2); LYMPHOCYTES % 17.8 % (18.0-39.1); MEAN CORPUSCULAR HEMOGLOBIN 26.1 pg (28-32); MEAN CORPUSCULAR HGB CONC 30.8 g/dL (31-35); MEAN CORPUSCULAR VOLUME 84.7 fL (81-99); MONOCYTES # (AUTO) 0.5 (0.2-0.8); NEUTROPHILS # (AUTO) 2.6 (2.1-6.9); NEUTROPHILS % 64.4 % (38.7-80.0); PLATELET COUNT 173 x10e3/uL (140-360); RED BLOOD COUNT 3.72 x10e6/uL (4.3-5.7); RED CELL DISTRIBUTION WIDTH 15.1 % (11.7-14.4)
[2021-05-22 05:37] LABS: ALBUMIN 1.7 g/dL (3.5-5.0); ALBUMIN/GLOBULIN RATIO 0.7 (0.8-2.0); ANION GAP 10.5 mmol/L (8-16); CREATININE, SERUM 1.08 mg/dL (0.72-1.25); POTASSIUM 3.5 mmol/L (3.5-5.1)
[2021-05-22 05:39] LABS: THYROID STIMULATING HORMONE 5.653 uIU/mL (0.350-4.940)
[2021-05-22 05:46] LABS: CALCIUM 6.9 mg/dL (8.4-10.2)
[2021-05-22 05:57] LABS: CHOL/HDL RATIO 3.7 (3.9-4.7)
[2021-05-22 06:08] LABS: CREATINE KINASE MB 4.1 ng/mL (0-5.0)
[2021-05-22] MEDS ORDERED: CALCIUM GLUCONATE 10% INJ 4.65 MEQ in SODIUM CHLORIDE 0.9% 50ML 50 ML IV ONE (07:00)
[2021-05-22] MEDS: ASPIRIN 81 MG CHEW TAB PO SCH (08:51)
[2021-05-22] MEDS: ALFUZOSIN HCL 10 MG TAB.ER.24H PO SCH (08:51)
[2021-05-22] MEDS: APIXABAN 5 MG TABLET PO SCH ×2 (08:51→16:57)
[2021-05-22] MEDS: FUROSEMIDE INJ 10 MG/ML 4 ML VIAL IV SCH ×2 (08:51→21:03)
[2021-05-22] MEDS: METOLAZONE 5 MG TAB PO SCH (08:52)
[2021-05-22] MEDS: GABAPENTIN 300 MG CAP PO SCH (08:52)
[2021-05-22] MEDS: FINASTERIDE 5 MG TAB PO SCH (08:52)
[2021-05-22] MEDS: PANTOPRAZOLE SOD 40 MG TABEC PO SCH (08:52)
[2021-05-22] MEDS: METOPROLOL TARTRATE 25 MG TAB PO SCH ×2 (08:52→16:57)
[2021-05-22] MEDS ORDERED: LEVOTHYROXINE SODIUM 100 MCG/VIAL IV SCH (09:00)
[2021-05-22] MEDS: ATORVASTATIN 40 MG TAB PO SCH (21:03)
[2021-05-23] VITALS (8 sets, daily range): BP systolic 104–118; BP diastolic 48–64
[2021-05-23] MEDS: LEVOTHYROXINE SODIUM 100 MCG TAB PO SCH (06:20)
[2021-05-23 07:43] LABS: BASOPHILS % 0.7 % (0.0-1.0); EOSINOPHILS # (AUTO) 0.1 (0.0-0.4); HEMATOCRIT 31.9 % (38.2-49.6); HEMOGLOBIN 9.7 g/dL (14.0-18.0); LYMPHOCYTES # (AUTO) 0.8 (1.0-3.2); LYMPHOCYTES % 18.7 % (18.0-39.1); MEAN CORPUSCULAR HEMOGLOBIN 26.1 pg (28-32); MEAN CORPUSCULAR HGB CONC 30.4 g/dL (31-35); MONOCYTES # (AUTO) 0.6 (0.2-0.8); MONOCYTES % 12.5 % (4.4-11.3); NEUTROPHILS # (AUTO) 2.9 (2.1-6.9); NEUTROPHILS % 65.1 % (38.7-80.0); PLATELET COUNT 172 x10e3/uL (140-360); RED BLOOD COUNT 3.71 x10e6/uL (4.3-5.7); RED CELL DISTRIBUTION WIDTH 15.3 % (11.7-14.4)
[2021-05-23 07:51] LABS: ANION GAP 12.3 mmol/L (8-16); CALCIUM 7.3 mg/dL (8.4-10.2); CREATININE, SERUM 1.22 mg/dL (0.72-1.25); POTASSIUM 3.3 mmol/L (3.5-5.1)
[2021-05-23] MEDS: GABAPENTIN 300 MG CAP PO SCH (09:23)
[2021-05-23] MEDS: ASPIRIN 81 MG CHEW TAB PO SCH (09:23)
[2021-05-23] MEDS: METOPROLOL TARTRATE 25 MG TAB PO SCH ×2 (09:23→16:38)
[2021-05-23] MEDS: FINASTERIDE 5 MG TAB PO SCH (09:23)
[2021-05-23] MEDS: APIXABAN 5 MG TABLET PO SCH ×2 (09:23→16:37)
[2021-05-23] MEDS: ALFUZOSIN HCL 10 MG TAB.ER.24H PO SCH (09:23)
[2021-05-23] MEDS: FUROSEMIDE INJ 10 MG/ML 4 ML VIAL IV SCH ×2 (09:23→20:50)
[2021-05-23] MEDS: PANTOPRAZOLE SOD 40 MG TABEC PO SCH (09:23)
[2021-05-23] MEDS: METOLAZONE 5 MG TAB PO SCH (09:24)
[2021-05-23] MEDS ORDERED: POTASSIUM CHLORIDE 20 MEQ TAB CR PO ONE (10:15)
[2021-05-23] MEDS ORDERED: METOLAZONE 5 MG TAB PO ONE (10:15)
[2021-05-23] MEDS ORDERED: ONDANSETRON HCL 4 MG ORAL DISINTEGRATING TAB PO PRN (15:30)
[2021-05-23] MEDS: ATORVASTATIN 40 MG TAB PO SCH (20:50)
[2021-05-24] VITALS (8 sets, daily range): BP systolic 101–122; BP diastolic 44–68
[2021-05-24] MEDS: LEVOTHYROXINE SODIUM 100 MCG TAB PO SCH (05:10)
[2021-05-24 06:54] LABS: ALBUMIN 1.7 g/dL (3.5-5.0); ALBUMIN/GLOBULIN RATIO 0.6 (0.8-2.0); ANION GAP 11.4 mmol/L (8-16); CALCIUM 7.8 mg/dL (8.4-10.2); CREATININE, SERUM 1.39 mg/dL (0.72-1.25); MAGNESIUM 1.9 MG/DL (1.3-2.1); POTASSIUM 3.4 mmol/L (3.5-5.1)
[2021-05-24] MEDS: ALFUZOSIN HCL 10 MG TAB.ER.24H PO SCH (08:49)
[2021-05-24] MEDS: FUROSEMIDE INJ 10 MG/ML 4 ML VIAL IV SCH ×2 (08:49→20:41)
[2021-05-24] MEDS: ASPIRIN 81 MG CHEW TAB PO SCH (08:49)
[2021-05-24] MEDS: PANTOPRAZOLE SOD 40 MG TABEC PO SCH (08:50)
[2021-05-24] MEDS: FINASTERIDE 5 MG TAB PO SCH (08:50)
[2021-05-24] MEDS: APIXABAN 5 MG TABLET PO SCH ×2 (08:50→16:15)
[2021-05-24] MEDS: GABAPENTIN 300 MG CAP PO SCH (08:50)
[2021-05-24] MEDS: METOPROLOL TARTRATE 25 MG TAB PO SCH ×2 (08:50→16:15)
[2021-05-24] MEDS: METOLAZONE 5 MG TAB PO SCH (08:51)
[2021-05-24] MEDS ORDERED: POTASSIUM CHLORIDE 20 MEQ TAB CR PO ONE (11:15)
[2021-05-24] MEDS ORDERED: MAGNESIUM OXIDE 400 MG TAB PO ONE (11:15)
[2021-05-24] MEDS: ATORVASTATIN 40 MG TAB PO SCH (20:41)
[2021-05-25] VITALS (7 sets, daily range): BP systolic 100–122; BP diastolic 50–64
[2021-05-25] MEDS: LEVOTHYROXINE SODIUM 100 MCG TAB PO SCH (05:18)
[2021-05-25 07:02] LABS: ALBUMIN 1.8 g/dL (3.5-5.0); ALBUMIN/GLOBULIN RATIO 0.6 (0.8-2.0); ANION GAP 13.5 mmol/L (8-16); CALCIUM 7.9 mg/dL (8.4-10.2); CREATININE, SERUM 1.49 mg/dL (0.72-1.25); POTASSIUM 3.5 mmol/L (3.5-5.1)
[2021-05-25] MEDS: METOPROLOL TARTRATE 25 MG TAB PO SCH ×2 (09:00→17:00)
[2021-05-25] MEDS: GABAPENTIN 300 MG CAP PO SCH (09:00)
[2021-05-25] MEDS: ASPIRIN 81 MG CHEW TAB PO SCH (09:23)
[2021-05-25] MEDS: PANTOPRAZOLE SOD 40 MG TABEC PO SCH (09:23)
[2021-05-25] MEDS: ALFUZOSIN HCL 10 MG TAB.ER.24H PO SCH (09:23)
[2021-05-25] MEDS: APIXABAN 5 MG TABLET PO SCH ×2 (09:23→17:00)
[2021-05-25] MEDS: FUROSEMIDE INJ 10 MG/ML 4 ML VIAL IV SCH ×2 (09:23→22:10)
[2021-05-25] MEDS: FINASTERIDE 5 MG TAB PO SCH (09:23)
[2021-05-25] MEDS: METOLAZONE 5 MG TAB PO SCH (09:31)
[2021-05-25] MEDS ORDERED: DEXTROSE 50% SYRINGE 50 ML IV PRN (13:15)
[2021-05-25] MEDS: INSULIN LISPRO 100 UNIT/1 ML 3ML VIAL SQ SCH ×2 (16:29→21:00)
[2021-05-25] MEDS: ATORVASTATIN 40 MG TAB PO SCH (22:10)
[2021-05-26 00:43] VITALS: BP 110/67
[2021-05-26 05:20] VITALS: BP 122/52
[2021-05-26] MEDS: LEVOTHYROXINE SODIUM 100 MCG TAB PO SCH (05:58)
[2021-05-26 06:56] LABS: ALBUMIN 1.9 g/dL (3.5-5.0); ALBUMIN/GLOBULIN RATIO 0.7 (0.8-2.0); ANION GAP 12.1 mmol/L (8-16); CALCIUM 7.5 mg/dL (8.4-10.2); CREATININE, SERUM 1.3 mg/dL (0.72-1.25); POTASSIUM 3.1 mmol/L (3.5-5.1)
[2021-05-26 08:03] VITALS: BP 111/58
[2021-05-26 08:13] VITALS: BP 111/58
[2021-05-26] MEDS ORDERED: POTASSIUM CHLORIDE 20 MEQ TAB CR PO STA (08:23)
[2021-05-26] MEDS: INSULIN LISPRO 100 UNIT/1 ML 3ML VIAL SQ SCH ×4 (08:30→20:26)
[2021-05-26] MEDS: ASPIRIN 81 MG CHEW TAB PO SCH (08:54)
[2021-05-26] MEDS: FUROSEMIDE INJ 10 MG/ML 4 ML VIAL IV SCH ×2 (08:54→21:04)
[2021-05-26] MEDS: PANTOPRAZOLE SOD 40 MG TABEC PO SCH (08:54)
[2021-05-26] MEDS: METOLAZONE 5 MG TAB PO SCH (08:54)
[2021-05-26] MEDS: FINASTERIDE 5 MG TAB PO SCH (08:54)
[2021-05-26] MEDS: APIXABAN 5 MG TABLET PO SCH ×2 (08:54→16:19)
[2021-05-26] MEDS: GABAPENTIN 300 MG CAP PO SCH (08:54)
[2021-05-26] MEDS: ALFUZOSIN HCL 10 MG TAB.ER.24H PO SCH (08:54)
[2021-05-26] MEDS: METOPROLOL TARTRATE 25 MG TAB PO SCH ×2 (08:55→16:20)
[2021-05-26] MEDS: POTASSIUM CHLORIDE 20 MEQ TAB CR PO SCH ×2 (12:06→14:00)
[2021-05-26 20:18] VITALS: BP 105/58
[2021-05-26 21:00] VITALS: BP 105/58
[2021-05-26] MEDS: ATORVASTATIN 40 MG TAB PO SCH (21:04)
[2021-05-27] VITALS (8 sets, daily range): BP systolic 98–122; BP diastolic 48–69
[2021-05-27 06:12] LABS: ALBUMIN 1.9 g/dL (3.5-5.0); ALBUMIN/GLOBULIN RATIO 0.6 (0.8-2.0); ANION GAP 11.6 mmol/L (8-16); CALCIUM 7.8 mg/dL (8.4-10.2); CREATININE, SERUM 1.51 mg/dL (0.72-1.25); MAGNESIUM 1.9 MG/DL (1.3-2.1); POTASSIUM 3.6 mmol/L (3.5-5.1)
[2021-05-27] MEDS: LEVOTHYROXINE SODIUM 100 MCG TAB PO SCH (06:43)
[2021-05-27] MEDS: GABAPENTIN 300 MG CAP PO SCH (08:25)
[2021-05-27] MEDS: METOLAZONE 5 MG TAB PO SCH (08:25)
[2021-05-27] MEDS: APIXABAN 5 MG TABLET PO SCH ×2 (08:25→16:03)
[2021-05-27] MEDS: PANTOPRAZOLE SOD 40 MG TABEC PO SCH (08:25)
[2021-05-27] MEDS: ALFUZOSIN HCL 10 MG TAB.ER.24H PO SCH (08:25)
[2021-05-27] MEDS: FINASTERIDE 5 MG TAB PO SCH (08:25)
[2021-05-27] MEDS: ASPIRIN 81 MG CHEW TAB PO SCH (08:25)
[2021-05-27] MEDS: FUROSEMIDE INJ 10 MG/ML 4 ML VIAL IV SCH (08:25)
[2021-05-27] MEDS: METOPROLOL TARTRATE 25 MG TAB PO SCH ×2 (08:26→16:03)
[2021-05-27] MEDS: INSULIN LISPRO 100 UNIT/1 ML 3ML VIAL SQ SCH ×4 (08:30→21:10)
[2021-05-27] MEDS: BUMETANIDE 1 MG TAB PO SCH (16:03)
[2021-05-27] MEDS: ATORVASTATIN 40 MG TAB PO SCH (21:09)
[2021-05-28 00:51] VITALS: BP 115/48
[2021-05-28 05:20] LABS: BASOPHILS % 0.6 % (0.0-1.0); EOSINOPHILS # (AUTO) 0.3 (0.0-0.4); EOSINOPHILS % 6.3 % (0.0-6.0); HEMATOCRIT 30.7 % (38.2-49.6); HEMOGLOBIN 9.4 g/dL (14.0-18.0); LYMPHOCYTES # (AUTO) 0.8 (1.0-3.2); LYMPHOCYTES % 17.7 % (18.0-39.1); MEAN CORPUSCULAR HEMOGLOBIN 26.2 pg (28-32); MEAN CORPUSCULAR HGB CONC 30.6 g/dL (31-35); MEAN CORPUSCULAR VOLUME 85.5 fL (81-99); MONOCYTES # (AUTO) 0.6 (0.2-0.8); MONOCYTES % 13.4 % (4.4-11.3); NEUTROPHILS # (AUTO) 2.8 (2.1-6.9); NEUTROPHILS % 61.1 % (38.7-80.0); PLATELET COUNT 182 x10e3/uL (140-360); RED BLOOD COUNT 3.59 x10e6/uL (4.3-5.7); RED CELL DISTRIBUTION WIDTH 15.1 % (11.7-14.4)
[2021-05-28 05:34] LABS: ALBUMIN 1.8 g/dL (3.5-5.0); ALBUMIN/GLOBULIN RATIO 0.6 (0.8-2.0); CALCIUM 7.5 mg/dL (8.4-10.2); CREATININE, SERUM 1.36 mg/dL (0.72-1.25)
[2021-05-28 05:53] VITALS: BP 110/57
[2021-05-28] MEDS: LEVOTHYROXINE SODIUM 100 MCG TAB PO SCH (06:15)
[2021-05-28] MEDS: INSULIN LISPRO 100 UNIT/1 ML 3ML VIAL SQ SCH ×2 (07:30→11:30)
[2021-05-28 08:10] VITALS: BP 110/57
[2021-05-28 08:28] VITALS: BP 109/52
[2021-05-28] MEDS ORDERED: POTASSIUM CHLORIDE 10MEQ EA PO ONE (08:30)
[2021-05-28] MEDS: ALFUZOSIN HCL 10 MG TAB.ER.24H PO SCH (08:41)
[2021-05-28] MEDS: METOPROLOL TARTRATE 25 MG TAB PO SCH (08:42)
[2021-05-28] MEDS: ASPIRIN 81 MG CHEW TAB PO SCH (08:42)
[2021-05-28] MEDS: METOLAZONE 5 MG TAB PO SCH (08:42)
[2021-05-28] MEDS: APIXABAN 5 MG TABLET PO SCH (08:42)
[2021-05-28] MEDS: FINASTERIDE 5 MG TAB PO SCH (08:42)
[2021-05-28] MEDS: BUMETANIDE 1 MG TAB PO SCH (08:42)
[2021-05-28] MEDS: PANTOPRAZOLE SOD 40 MG TABEC PO SCH (08:42)
[2021-05-28] MEDS: GABAPENTIN 300 MG CAP PO SCH (08:42)
[2021-05-28] MEDS ORDERED: POTASSIUM CHLORIDE 20 MEQ TAB CR PO ONE (10:30)
[2021-05-28] MEDS ORDERED: SYNTHROID100 MCG PO (12:26)
[2021-05-28] MEDS ORDERED: BUMETANIDE1 MG PO (12:26)
[2021-05-28] MEDS ORDERED: METOLAZONE5 MG PO (12:26)
[2021-05-28] MEDS ORDERED: K-DUR10 MEQ PO (12:26)
[2021-05-28] MEDS ORDERED: LOPRESSOR25 MG PO (12:27)
[2021-05-28 12:29] VITALS: BP 103/60
[2021-05-28] MEDS ORDERED: CALCIUM ACETATE 667 MG GELCAP PO ONE (12:45)
== END 2021-05-28 14:31 | disposition home or self-care (01) | DRG 291 ==
LOC: ER 12:05 → ERHOLD 14:16 → MED/SURG2 17:35 → OBSVTOIN 05-22 15:49
PROVIDERS: ADMIT Internal Medicine; ATTEND Internal Medicine
DX: I11.0 Hypertensive heart disease with heart failure (principal); I50.43 Acute on chronic combined systolic (congestive) and diastolic (congestive) heart failure; E43 Unspecified severe protein-calorie malnutrition; N17.9 Acute kidney failure, unspecified; N50.89 Other specified disorders of the male genital organs; I25.10 Atherosclerotic heart disease of native coronary artery without angina pectoris; D64.9 Anemia, unspecified; E87.6 Hypokalemia; I48.91 Unspecified atrial fibrillation; Z79.01 Long term (current) use of anticoagulants; E78.00 Pure hypercholesterolemia, unspecified; Z95.1 Presence of aortocoronary bypass graft; E11.9 Type 2 diabetes mellitus without complications; E88.09 Other disorders of plasma-protein metabolism, not elsewhere classified; Z68.32 Body mass index [BMI] 32.0-32.9, adult; Z20.822 Contact with and (suspected) exposure to COVID-19
CPT/HCPCS: 36415; 71045; 80048; 80053; 80061; 81001; 82550; 82553; 82948; 83735; 83880; 84443; 84484; 85025; 85610; 85730; 93005; 93306; 94799; 99284; G0378; J0610; J1940; U0002

== ENCOUNTER 2021-06-19 13:39 | Inpatient (IN) | payer MEDICARE ==
[~2021-06-19] VITALS: Ht 162.6 cm; Wt 68.0 kg
[~2021-06-19 13:39] MED LIST changes: +K-DUR10 MEQ PO; +LOPRESSOR25 MG PO; +METOLAZONE5 MG PO; +SYNTHROID100 MCG PO
[2021-06-19] MEDS ORDERED: SODIUM CHLORIDE 0.9% 500ML 500 ML IV ONE (14:45)
[2021-06-19 14:47] LABS: BASOPHILS % 0.2 % (0.0-1.0); HEMATOCRIT 29.7 % (38.2-49.6); HEMOGLOBIN 9.3 g/dL (14.0-18.0); LYMPHOCYTES # (AUTO) 0.7 (1.0-3.2); LYMPHOCYTES % 5.5 % (18.0-39.1); MEAN CORPUSCULAR HEMOGLOBIN 26.4 pg (28-32); MEAN CORPUSCULAR HGB CONC 31.3 g/dL (31-35); MEAN CORPUSCULAR VOLUME 84.4 fL (81-99); MONOCYTES # (AUTO) 1.1 (0.2-0.8); MONOCYTES % 9.3 % (4.4-11.3); NEUTROPHILS # (AUTO) 10.2 (2.1-6.9); NEUTROPHILS % 84.3 % (38.7-80.0); PLATELET COUNT 193 x10e3/uL (140-360); RED BLOOD COUNT 3.52 x10e6/uL (4.3-5.7); RED CELL DISTRIBUTION WIDTH 15.6 % (11.7-14.4)
[2021-06-19 14:55] LABS: INR 1.29; PROTHROMBIN TIME 17.1 seconds (11.9-14.5)
[2021-06-19 14:56] LABS: PARTIAL THROMBOPLASTIN TIME 40.6 seconds (23.8-35.5)
[2021-06-19 15:06] LABS: ALBUMIN 2.3 g/dL (3.5-5.0); ALBUMIN/GLOBULIN RATIO 0.5 (0.8-2.0); ANION GAP 13.8 mmol/L (8-16); CALCIUM 8.3 mg/dL (8.4-10.2); CREATININE, SERUM 1.99 mg/dL (0.72-1.25)
[2021-06-19 15:09] LABS: POTASSIUM 2.8 mmol/L (3.5-5.1)
[2021-06-19] MEDS ORDERED: DEXTROSE 50% SYRINGE 50 ML IV STA ×3 (15:10→17:16)
[2021-06-19 15:13] LABS: CREATINE KINASE MB 0.6 ng/mL (0-5.0)
[2021-06-19] MEDS ORDERED: ACETAMINOPHEN 325 MG TAB ONE (15:16)
[2021-06-19] MEDS ORDERED: ACETAMINOPHEN 1000 MG/100 ML IV ONE (15:30)
[2021-06-19] MEDS ORDERED: ACETAMINOPHEN 325 MG TAB PO ONE (15:30)
[2021-06-19] MEDS ORDERED: POTASSIUM CHLORIDE 20 MEQ TAB CR PO NR (15:30)
[2021-06-19 15:31] LABS: CLARITY,URINE SL CLOUDY (CLEAR); COLOR,URINE YELLOW (YELLOW); KETONES,URINE NEGATIVE (NEGATIVE); LEUKOCYTE ESTERASE ,URINE SMALL (NEGATIVE); NITRITE,URINE NEGATIVE (NEGATIVE); PROTEIN,URINE DIPSTICK 1+ (NEGATIVE); URINE UROBILINOGEN 0.2 mg/dL (0.2 - 1)
[2021-06-19 15:36] LABS: BACTERIA,URINE MANY /HPF; WBC,URINE (MAN) 21-50 /HPF (0-5)
[2021-06-19] MEDS ORDERED: Vancomycin IV 1 GM in SODIUM CHLORIDE 0.9% 250ML 250 ML IV ONE (15:45)
[2021-06-19] MEDS ORDERED: ONDANSETRON HCL INJ 2MG/ML 2ML 2 MG/ML VIAL IV PRN ×2 (16:30→18:15)
[2021-06-19] MEDS ORDERED: D5NS/KCL 20MEQ 1,000 ML IV SCH (17:30)
[2021-06-19] MEDS ORDERED: D5.45%NS/KCL 20MEQ 1,000 ML IV ONE (17:33)
[2021-06-19] MEDS: CEFEPIME 1 GM in SODIUM CHLORIDE 0.9% 50ML 50 ML IV SCH (17:38)
[2021-06-19] MEDS: ACETAMINOPHEN 325 MG TAB PO PRN ×2 (17:39→23:37)
[2021-06-19] MEDS ORDERED: ACETAMINOPHEN 325 MG TAB PO STA (23:24)
[2021-06-20 00:06] LABS: CREATINE KINASE MB 0.6 ng/mL (0-5.0)
[2021-06-20] MEDS: CEFEPIME 1 GM in SODIUM CHLORIDE 0.9% 50ML 50 ML IV SCH ×2 (05:58→17:46)
[2021-06-20 06:02] LABS: BASOPHILS % 0.2 % (0.0-1.0); HEMOGLOBIN 8.5 g/dL (14.0-18.0); LYMPHOCYTES # (AUTO) 0.5 (1.0-3.2); LYMPHOCYTES % 4.8 % (18.0-39.1); MEAN CORPUSCULAR HEMOGLOBIN 26.5 pg (28-32); MEAN CORPUSCULAR HGB CONC 31.5 g/dL (31-35); MEAN CORPUSCULAR VOLUME 84.1 fL (81-99); MONOCYTES # (AUTO) 0.9 (0.2-0.8); MONOCYTES % 9.2 % (4.4-11.3); NEUTROPHILS # (AUTO) 8.1 (2.1-6.9); NEUTROPHILS % 85.2 % (38.7-80.0); PLATELET COUNT 173 x10e3/uL (140-360); RED BLOOD COUNT 3.21 x10e6/uL (4.3-5.7); RED CELL DISTRIBUTION WIDTH 15.9 % (11.7-14.4)
[2021-06-20 06:22] LABS: ALBUMIN 1.8 g/dL (3.5-5.0); ALBUMIN/GLOBULIN RATIO 0.5 (0.8-2.0); ANION GAP 14.2 mmol/L (8-16); CALCIUM 7.4 mg/dL (8.4-10.2); CREATININE, SERUM 2.09 mg/dL (0.72-1.25); POTASSIUM 3.2 mmol/L (3.5-5.1)
[2021-06-20 06:43] LABS: CREATINE KINASE MB 0.7 ng/mL (0-5.0)
[2021-06-20 07:01] LABS: CHOL/HDL RATIO 4.8 (3.9-4.7)
[2021-06-20] MEDS ORDERED: POTASSIUM CHLORIDE 20 MEQ TAB CR PO STA (11:55)
[2021-06-20] MEDS ORDERED: TORSEMIDE20 MG PO (15:41)
[2021-06-20 15:50] VITALS: BP 102/85
[2021-06-20 16:20] VITALS: BP 103/60
[2021-06-20] MEDS ORDERED: SODIUM CHLORIDE 0.9% 250ML 250 ML ONE (16:45)
[2021-06-20 17:14] LABS: CREATINE KINASE MB 0.3 ng/mL (0-5.0)
[2021-06-20 20:58] VITALS: BP 98/61
[2021-06-20] MEDS: GABAPENTIN 300 MG CAP PO SCH (21:20)
[2021-06-20] MEDS: METOPROLOL TARTRATE 25 MG TAB PO SCH (21:20)
[2021-06-20] MEDS: ATORVASTATIN 40 MG TAB PO SCH (21:20)
[2021-06-20] MEDS: APIXABAN 5 MG TABLET PO SCH (21:20)
[2021-06-20 21:21] VITALS: BP 98/61
[2021-06-20] MEDS ORDERED: DEXTROSE 50% SYRINGE 50 ML IV PRN (22:00)
[2021-06-21] VITALS (7 sets, daily range): BP systolic 95–113; BP diastolic 53–65
[2021-06-21] MEDS: CEFEPIME 1 GM in SODIUM CHLORIDE 0.9% 50ML 50 ML IV SCH (04:30)
[2021-06-21 05:00] LABS: BASOPHILS % 0.3 % (0.0-1.0); EOSINOPHILS % 0.4 % (0.0-6.0); HEMATOCRIT 28.8 % (38.2-49.6); LYMPHOCYTES # (AUTO) 0.8 (1.0-3.2); LYMPHOCYTES % 10.8 % (18.0-39.1); MEAN CORPUSCULAR HEMOGLOBIN 26.3 pg (28-32); MEAN CORPUSCULAR HGB CONC 31.3 g/dL (31-35); MEAN CORPUSCULAR VOLUME 84.2 fL (81-99); MONOCYTES # (AUTO) 1.1 (0.2-0.8); MONOCYTES % 14.9 % (4.4-11.3); NEUTROPHILS # (AUTO) 5.2 (2.1-6.9); NEUTROPHILS % 72.8 % (38.7-80.0); PLATELET COUNT 198 x10e3/uL (140-360); RED BLOOD COUNT 3.42 x10e6/uL (4.3-5.7); RED CELL DISTRIBUTION WIDTH 15.9 % (11.7-14.4)
[2021-06-21] MEDS: LEVOTHYROXINE SODIUM 100 MCG TAB PO SCH (05:27)
[2021-06-21 05:36] LABS: ANION GAP 15.1 mmol/L (8-16); CALCIUM 7.4 mg/dL (8.4-10.2); CREATININE, SERUM 2.31 mg/dL (0.72-1.25); MAGNESIUM 2.5 MG/DL (1.3-2.1); POTASSIUM 4.1 mmol/L (3.5-5.1)
[2021-06-21] MEDS ORDERED: ONDANSETRON HCL 4 MG ORAL DISINTEGRATING TAB PO PRN (07:45)
[2021-06-21] MEDS ORDERED: SODIUM CHLORIDE 0.9% 1000ML 500 ML IV ONE (08:15)
[2021-06-21] MEDS: ASPIRIN 81 MG CHEW TAB PO SCH (08:40)
[2021-06-21] MEDS: APIXABAN 5 MG TABLET PO SCH ×2 (08:41→16:49)
[2021-06-21] MEDS: METOPROLOL TARTRATE 25 MG TAB PO SCH ×2 (08:50→16:49)
[2021-06-21] MEDS: INSULIN LISPRO 100 UNIT/1 ML 3ML VIAL SQ SCH ×4 (08:50→20:47)
[2021-06-21] MEDS: INSULIN GLARGINE 100 UNITS/ML VIAL SQ SCH (10:25)
[2021-06-21] MEDS: IRON SUCROSE 100 MG in SODIUM CHLORIDE 0.9% 100 ML 100 ML IV SCH (11:51)
[2021-06-21] MEDS ORDERED: CENTRUM ADULTS1 EACH PO (16:38)
[2021-06-21] MEDS ORDERED: BUMETANIDE1 MG PO (16:38)
[2021-06-21] MEDS ORDERED: CEFTRIAXONE 1 GM in SODIUM CHLORIDE 0.9% 50ML 50 ML IV SCH (17:00)
[2021-06-21] MEDS: ATORVASTATIN 40 MG TAB PO SCH (20:45)
[2021-06-21] MEDS: GABAPENTIN 300 MG CAP PO SCH (20:46)
[2021-06-22 01:42] VITALS: BP 108/54
[2021-06-22 04:59] VITALS: BP 113/56
[2021-06-22 05:04] LABS: BASOPHILS % 0.5 % (0.0-1.0); EOSINOPHILS # (AUTO) 0.4 (0.0-0.4); EOSINOPHILS % 5.7 % (0.0-6.0); LYMPHOCYTES # (AUTO) 0.9 (1.0-3.2); LYMPHOCYTES % 14.1 % (18.0-39.1); MEAN CORPUSCULAR VOLUME 83.8 fL (81-99); MONOCYTES # (AUTO) 0.8 (0.2-0.8); MONOCYTES % 12.6 % (4.4-11.3); NEUTROPHILS # (AUTO) 4.3 (2.1-6.9); NEUTROPHILS % 66.6 % (38.7-80.0); PLATELET COUNT 238 x10e3/uL (140-360); RED BLOOD COUNT 3.46 x10e6/uL (4.3-5.7); RED CELL DISTRIBUTION WIDTH 15.6 % (11.7-14.4)
[2021-06-22 05:25] LABS: ANION GAP 12.5 mmol/L (8-16); CALCIUM 7.4 mg/dL (8.4-10.2); CREATININE, SERUM 1.93 mg/dL (0.72-1.25); POTASSIUM 3.5 mmol/L (3.5-5.1)
[2021-06-22] MEDS: LEVOTHYROXINE SODIUM 100 MCG TAB PO SCH (05:28)
[2021-06-22] MEDS: INSULIN LISPRO 100 UNIT/1 ML 3ML VIAL SQ SCH ×2 (07:30→12:35)
[2021-06-22 08:21] VITALS: BP 100/70
[2021-06-22] MEDS: ASPIRIN 81 MG CHEW TAB PO SCH (08:49)
[2021-06-22] MEDS: APIXABAN 5 MG TABLET PO SCH (08:49)
[2021-06-22] MEDS: METOPROLOL TARTRATE 25 MG TAB PO SCH (08:50)
[2021-06-22] MEDS: INSULIN GLARGINE 100 UNITS/ML VIAL SQ SCH (09:00)
[2021-06-22 09:16] VITALS: BP 100/70
[2021-06-22 12:09] VITALS: BP 99/58
[2021-06-22] MEDS ORDERED: CIPRO250 MG PO (12:16)
[2021-06-22] MEDS: IRON SUCROSE 100 MG in SODIUM CHLORIDE 0.9% 100 ML 100 ML IV SCH (12:34)
[2021-06-22 16:06] VITALS: BP 108/66
== END 2021-06-22 17:04 | disposition home or self-care (01) | DRG 871 ==
LOC: ER 14:12 → ERHOLD 16:52 → MED/SURG2 06-20 15:48
PROVIDERS: ADMIT Internal Medicine; ATTEND Internal Medicine
DX: A41.51 Sepsis due to Escherichia coli [E. coli] (principal); G93.41 Metabolic encephalopathy; N39.0 Urinary tract infection, site not specified; I13.0 Hypertensive heart and chronic kidney disease with heart failure and stage 1 through stage 4 chronic kidney disease, or unspecified chronic kidney disease; I50.22 Chronic systolic (congestive) heart failure; N17.9 Acute kidney failure, unspecified; E87.1 Hypo-osmolality and hyponatremia; R65.20 Severe sepsis without septic shock; N18.30 Chronic kidney disease, stage 3 unspecified; I48.91 Unspecified atrial fibrillation; I25.10 Atherosclerotic heart disease of native coronary artery without angina pectoris; E87.6 Hypokalemia; E03.9 Hypothyroidism, unspecified; D50.9 Iron deficiency anemia, unspecified; Z95.810 Presence of automatic (implantable) cardiac defibrillator; Z95.1 Presence of aortocoronary bypass graft; Z82.49 Family history of ischemic heart disease and other diseases of the circulatory system; Z20.822 Contact with and (suspected) exposure to COVID-19; N40.0 Benign prostatic hyperplasia without lower urinary tract symptoms
CPT/HCPCS: 36415; 51700; 70450; 71045; 80048; 80053; 80061; 81001; 82140; 82550; 82553; 82948; 83540; 83605; 83735; 83880; 84466; 84484; 85025; 85610; 85730; 87040; 87071; 87086; 87186; 87205; 93005; 94799; 97139; 99285; J0692; J0696; J1756; J1815; J2405; J3370; J7030; J7040; J7050; J7799; U0002

== ENCOUNTER 2021-07-15 05:50 | Inpatient (IN) | payer MEDICARE ==
[~2021-07-15] VITALS: Ht 157.5 cm; Wt 78.0 kg
[~2021-07-15 05:50] MED LIST changes: +CENTRUM ADULTS1 EACH PO; +CIPRO250 MG PO
[2021-07-15 06:44] LABS: BASOPHILS % 0.9 % (0.0-1.0); EOSINOPHILS # (AUTO) 0.2 (0.0-0.4); EOSINOPHILS % 4.6 % (0.0-6.0); HEMATOCRIT 33.7 % (38.2-49.6); HEMOGLOBIN 10.3 g/dL (14.0-18.0); LYMPHOCYTES # (AUTO) 0.8 (1.0-3.2); LYMPHOCYTES % 22.9 % (18.0-39.1); MEAN CORPUSCULAR HEMOGLOBIN 26.1 pg (28-32); MEAN CORPUSCULAR HGB CONC 30.6 g/dL (31-35); MEAN CORPUSCULAR VOLUME 85.5 fL (81-99); MONOCYTES # (AUTO) 0.4 (0.2-0.8); MONOCYTES % 10.9 % (4.4-11.3); NEUTROPHILS # (AUTO) 2.1 (2.1-6.9); NEUTROPHILS % 60.4 % (38.7-80.0); PLATELET COUNT 192 x10e3/uL (140-360); RED BLOOD COUNT 3.94 x10e6/uL (4.3-5.7); RED CELL DISTRIBUTION WIDTH 17.1 % (11.7-14.4)
[2021-07-15 06:51] LABS: INR 1.07; PROTHROMBIN TIME 14.7 seconds (11.9-14.5)
[2021-07-15 06:52] LABS: PARTIAL THROMBOPLASTIN TIME 33.6 seconds (23.8-35.5)
[2021-07-15 06:58] LABS: ALBUMIN 1.8 g/dL (3.5-5.0); ALBUMIN/GLOBULIN RATIO 0.6 (0.8-2.0); ANION GAP 13.6 mmol/L (8-16); CALCIUM 7.8 mg/dL (8.4-10.2); CREATININE, SERUM 1.11 mg/dL (0.72-1.25); POTASSIUM 4.6 mmol/L (3.5-5.1)
[2021-07-15 07:05] LABS: CREATINE KINASE MB 4.8 ng/mL (0-5.0)
[2021-07-15] MEDS ORDERED: FUROSEMIDE INJ 10 MG/ML 4 ML VIAL IV ONE (08:15)
[2021-07-15 08:20] LABS: ABG HCO3 34 mmol/L (22-26); ABG PCO2 60 mmHg (35-45); ABG PH 7.36 (7.35-7.45); ABG PO2 115 mmHg (80-105); ABG TCO2 35
[2021-07-15 08:44] LABS: COLOR,URINE YELLOW (YELLOW)
[2021-07-15 08:45] LABS: CLARITY,URINE CLEAR (CLEAR); LEUKOCYTE ESTERASE ,URINE NEGATIVE (NEGATIVE); NITRITE,URINE NEGATIVE (NEGATIVE); PROTEIN,URINE DIPSTICK NEGATIVE (NEGATIVE)
[2021-07-15 08:46] LABS: KETONES,URINE 1+ (NEGATIVE); URINE UROBILINOGEN 0.2 mg/dL (0.2 - 1)
[2021-07-15 08:59] LABS: BACTERIA,URINE FEW /HPF; RBC,URINE 0-5 /HPF (0-5); WBC,URINE (MAN) 0-5 /HPF (0-5)
[2021-07-15 09:00] VITALS: BP 126/66
[2021-07-15] MEDS: APIXABAN 5 MG TABLET PO SCH ×2 (09:45→16:35)
[2021-07-15 09:54] VITALS: BP 126/66
[2021-07-15] MEDS ORDERED: ACETAMINOPHEN 325 MG TAB PO PRN (10:45)
[2021-07-15] MEDS ORDERED: ACETAMINOPHEN/CODEINE 300MG - 30MG TAB PO PRN (10:45)
[2021-07-15] MEDS ORDERED: ONDANSETRON HCL INJ 2MG/ML 2ML 2 MG/ML VIAL IV PRN (10:45)
[2021-07-15] MEDS ORDERED: METOPROLOL SUCC25 MG PO (11:13)
[2021-07-15] MEDS ORDERED: ACETAZOLAMIDE 250 MG TAB PO ONE (11:30)
[2021-07-15 11:37] VITALS: BP 120/67
[2021-07-15] MEDS: ALFUZOSIN HCL 10 MG TAB.ER.24H PO SCH (14:27)
[2021-07-15 15:44] VITALS: BP 121/73
[2021-07-15] MEDS: FUROSEMIDE INJ 10 MG/ML 4 ML VIAL IV SCH ×2 (16:35→20:46)
[2021-07-15] MEDS: METOPROLOL TARTRATE 25 MG TAB PO SCH (16:35)
[2021-07-15] MEDS ORDERED: FUROSEMIDE INJ 10 MG/ML 4 ML VIAL IV SCH (17:00)
[2021-07-15] MEDS ORDERED: ALBUMIN 25% 12.5GM 0.25 GM/ML BTL IV ONE (19:00)
[2021-07-15 20:00] VITALS: BP 108/70
[2021-07-15] MEDS: GABAPENTIN 300 MG CAP PO SCH (20:46)
[2021-07-15] MEDS: ATORVASTATIN 40 MG TAB PO SCH (20:46)
[2021-07-15 21:30] VITALS: BP 108/70
[2021-07-16] VITALS (8 sets, daily range): BP systolic 105–117; BP diastolic 53–95
[2021-07-16] MEDS: LEVOTHYROXINE SODIUM 100 MCG TAB PO SCH (06:00)
[2021-07-16 06:15] LABS: EOSINOPHILS # (AUTO) 0.3 (0.0-0.4); EOSINOPHILS % 8.6 % (0.0-6.0); HEMATOCRIT 31.5 % (38.2-49.6); HEMOGLOBIN 9.6 g/dL (14.0-18.0); LYMPHOCYTES # (AUTO) 0.7 (1.0-3.2); LYMPHOCYTES % 24.1 % (18.0-39.1); MEAN CORPUSCULAR HEMOGLOBIN 26.5 pg (28-32); MEAN CORPUSCULAR HGB CONC 30.5 g/dL (31-35); MONOCYTES # (AUTO) 0.6 (0.2-0.8); MONOCYTES % 19.3 % (4.4-11.3); NEUTROPHILS # (AUTO) 1.4 (2.1-6.9); NEUTROPHILS % 46.7 % (38.7-80.0); PLATELET COUNT 183 x10e3/uL (140-360); RED BLOOD COUNT 3.62 x10e6/uL (4.3-5.7)
[2021-07-16 06:33] LABS: ALBUMIN 1.9 g/dL (3.5-5.0); ALBUMIN/GLOBULIN RATIO 0.7 (0.8-2.0); CALCIUM 7.8 mg/dL (8.4-10.2); CREATININE, SERUM 1.21 mg/dL (0.72-1.25)
[2021-07-16 07:37] LABS: MAGNESIUM 2.3 MG/DL (1.3-2.1)
[2021-07-16] MEDS: APIXABAN 5 MG TABLET PO SCH ×2 (09:00→17:00)
[2021-07-16] MEDS: METOLAZONE 5 MG TAB PO SCH (09:00)
[2021-07-16] MEDS: ALFUZOSIN HCL 10 MG TAB.ER.24H PO SCH (09:00)
[2021-07-16] MEDS: FUROSEMIDE INJ 10 MG/ML 4 ML VIAL IV SCH (09:00)
[2021-07-16] MEDS: METOPROLOL TARTRATE 25 MG TAB PO SCH ×2 (09:00→17:00)
[2021-07-16] MEDS: FINASTERIDE 5 MG TAB PO SCH (09:00)
[2021-07-16] MEDS: ASPIRIN 81 MG CHEW TAB PO SCH (09:00)
[2021-07-16] MEDS ORDERED: ONDANSETRON HCL 4 MG ORAL DISINTEGRATING TAB PO PRN (09:30)
[2021-07-16] MEDS ORDERED: FUROSEMIDE INJ 10 MG/ML 4 ML VIAL IV ONE ×2 (17:15→17:50)
[2021-07-16] MEDS ORDERED: FUROSEMIDE IV SCH (17:30)
[2021-07-16] MEDS ORDERED: SODIUM CHLORIDE 0.9% IV SCH (17:30)
[2021-07-16] MEDS: FUROSEMIDE INJ 100 MG in SODIUM CHLORIDE 0.9% 100 ML 90 ML IV SCH (18:43)
[2021-07-16] MEDS: ATORVASTATIN 40 MG TAB PO SCH (21:42)
[2021-07-16] MEDS: GABAPENTIN 300 MG CAP PO SCH (21:42)
[2021-07-16] MEDS ORDERED: CEFTRIAXONE 1 GM in SODIUM CHLORIDE 0.9% 50ML 50 ML IV ONE (22:30)
[2021-07-17] VITALS (8 sets, daily range): BP systolic 104–131; BP diastolic 50–67
[2021-07-17] MEDS: FUROSEMIDE INJ 100 MG in SODIUM CHLORIDE 0.9% 100 ML 90 ML IV SCH ×2 (04:35→14:00)
[2021-07-17 06:11] LABS: BASOPHILS % 0.8 % (0.0-1.0); EOSINOPHILS # (AUTO) 0.1 (0.0-0.4); EOSINOPHILS % 3.9 % (0.0-6.0); HEMATOCRIT 31.7 % (38.2-49.6); HEMOGLOBIN 9.7 g/dL (14.0-18.0); LYMPHOCYTES # (AUTO) 0.7 (1.0-3.2); LYMPHOCYTES % 20.7 % (18.0-39.1); MEAN CORPUSCULAR HEMOGLOBIN 26.2 pg (28-32); MEAN CORPUSCULAR HGB CONC 30.6 g/dL (31-35); MEAN CORPUSCULAR VOLUME 85.7 fL (81-99); MONOCYTES # (AUTO) 0.5 (0.2-0.8); MONOCYTES % 14.2 % (4.4-11.3); NEUTROPHILS # (AUTO) 2.1 (2.1-6.9); NEUTROPHILS % 59.8 % (38.7-80.0); PLATELET COUNT 189 x10e3/uL (140-360); RED CELL DISTRIBUTION WIDTH 16.6 % (11.7-14.4)
[2021-07-17 06:38] LABS: ALBUMIN 1.9 g/dL (3.5-5.0); ALBUMIN/GLOBULIN RATIO 0.7 (0.8-2.0); CALCIUM 7.7 mg/dL (8.4-10.2); CREATININE, SERUM 1.36 mg/dL (0.72-1.25); POTASSIUM 3.5 mmol/L (3.5-5.1)
[2021-07-17] MEDS: LEVOTHYROXINE SODIUM 100 MCG TAB PO SCH (06:45)
[2021-07-17 06:57] LABS: THYROID STIMULATING HORMONE 7.393 uIU/mL (0.350-4.940)
[2021-07-17 07:20] LABS: ANION GAP 13.5 mmol/L (8-16)
[2021-07-17] MEDS: METOLAZONE 5 MG TAB PO SCH (09:00)
[2021-07-17] MEDS: FINASTERIDE 5 MG TAB PO SCH (09:00)
[2021-07-17] MEDS: ALFUZOSIN HCL 10 MG TAB.ER.24H PO SCH (09:00)
[2021-07-17] MEDS: METOPROLOL TARTRATE 25 MG TAB PO SCH ×2 (09:00→17:04)
[2021-07-17] MEDS: APIXABAN 5 MG TABLET PO SCH ×2 (09:00→17:03)
[2021-07-17] MEDS: ASPIRIN 81 MG CHEW TAB PO SCH (09:00)
[2021-07-17] MEDS: SPIRONOLACTONE 25 MG TAB PO SCH (09:00)
[2021-07-17] MEDS ORDERED: POTASSIUM CHLORIDE 20 MEQ TAB CR PO ONE (10:35)
[2021-07-17] MEDS ORDERED: CEFTRIAXONE 1 GM in SODIUM CHLORIDE 0.9% 50ML 50 ML IV ONE (18:30)
[2021-07-17] MEDS: ATORVASTATIN 40 MG TAB PO SCH (20:34)
[2021-07-17] MEDS: GABAPENTIN 300 MG CAP PO SCH (20:34)
[2021-07-18] VITALS (9 sets, daily range): BP systolic 98–114; BP diastolic 49–58
[2021-07-18] MEDS: FUROSEMIDE INJ 100 MG in SODIUM CHLORIDE 0.9% 100 ML 90 ML IV SCH ×3 (02:20→20:34)
[2021-07-18 05:51] LABS: BASOPHILS % 1.2 % (0.0-1.0); EOSINOPHILS # (AUTO) 0.2 (0.0-0.4); EOSINOPHILS % 7.3 % (0.0-6.0); HEMATOCRIT 31.2 % (38.2-49.6); HEMOGLOBIN 9.7 g/dL (14.0-18.0); LYMPHOCYTES # (AUTO) 0.8 (1.0-3.2); MEAN CORPUSCULAR HEMOGLOBIN 26.2 pg (28-32); MEAN CORPUSCULAR HGB CONC 31.1 g/dL (31-35); MEAN CORPUSCULAR VOLUME 84.3 fL (81-99); MONOCYTES # (AUTO) 0.7 (0.2-0.8); MONOCYTES % 19.8 % (4.4-11.3); NEUTROPHILS # (AUTO) 1.6 (2.1-6.9); NEUTROPHILS % 47.4 % (38.7-80.0); PLATELET COUNT 186 x10e3/uL (140-360); RED CELL DISTRIBUTION WIDTH 16.5 % (11.7-14.4)
[2021-07-18 06:35] LABS: ALBUMIN 1.8 g/dL (3.5-5.0); ALBUMIN/GLOBULIN RATIO 0.7 (0.8-2.0); ANION GAP 10.5 mmol/L (8-16); CALCIUM 7.5 mg/dL (8.4-10.2); CREATININE, SERUM 1.44 mg/dL (0.72-1.25); POTASSIUM 3.5 mmol/L (3.5-5.1)
[2021-07-18] MEDS: LEVOTHYROXINE SODIUM 100 MCG TAB PO SCH (06:43)
[2021-07-18] MEDS: METOPROLOL TARTRATE 25 MG TAB PO SCH ×2 (10:00→17:07)
[2021-07-18] MEDS: APIXABAN 5 MG TABLET PO SCH ×2 (10:00→17:07)
[2021-07-18] MEDS: METOLAZONE 5 MG TAB PO SCH (10:00)
[2021-07-18] MEDS: ALFUZOSIN HCL 10 MG TAB.ER.24H PO SCH (10:00)
[2021-07-18] MEDS: SPIRONOLACTONE 25 MG TAB PO SCH (10:00)
[2021-07-18] MEDS: ASPIRIN 81 MG CHEW TAB PO SCH (10:00)
[2021-07-18] MEDS: FINASTERIDE 5 MG TAB PO SCH (10:00)
[2021-07-18] MEDS: GABAPENTIN 300 MG CAP PO SCH (20:34)
[2021-07-18] MEDS: ATORVASTATIN 40 MG TAB PO SCH (20:34)
[2021-07-18] MEDS: INSULIN LISPRO 100 UNIT/1 ML 3ML VIAL SQ SCH (21:18)
[2021-07-18] MEDS: INSULIN GLARGINE 100 UNITS/ML VIAL SQ SCH (21:19)
[2021-07-19] VITALS (10 sets, daily range): BP systolic 103–112; BP diastolic 45–57
[2021-07-19] MEDS: LEVOTHYROXINE SODIUM 100 MCG TAB PO SCH (05:50)
[2021-07-19] MEDS: FUROSEMIDE INJ 100 MG in SODIUM CHLORIDE 0.9% 100 ML 90 ML IV SCH ×2 (05:50→15:24)
[2021-07-19 05:57] LABS: BASOPHILS % 1.2 % (0.0-1.0); EOSINOPHILS # (AUTO) 0.3 (0.0-0.4); HEMATOCRIT 31.5 % (38.2-49.6); HEMOGLOBIN 9.6 g/dL (14.0-18.0); LYMPHOCYTES # (AUTO) 0.9 (1.0-3.2); MEAN CORPUSCULAR HEMOGLOBIN 26.1 pg (28-32); MEAN CORPUSCULAR HGB CONC 30.5 g/dL (31-35); MEAN CORPUSCULAR VOLUME 85.6 fL (81-99); MONOCYTES # (AUTO) 0.7 (0.2-0.8); MONOCYTES % 19.5 % (4.4-11.3); NEUTROPHILS # (AUTO) 1.4 (2.1-6.9); PLATELET COUNT 182 x10e3/uL (140-360); RED BLOOD COUNT 3.68 x10e6/uL (4.3-5.7); RED CELL DISTRIBUTION WIDTH 16.2 % (11.7-14.4)
[2021-07-19 06:31] LABS: ALBUMIN 1.8 g/dL (3.5-5.0); ALBUMIN/GLOBULIN RATIO 0.7 (0.8-2.0); ANION GAP 9.4 mmol/L (8-16); CALCIUM 7.7 mg/dL (8.4-10.2); CREATININE, SERUM 1.39 mg/dL (0.72-1.25); POTASSIUM 3.4 mmol/L (3.5-5.1)
[2021-07-19] MEDS: INSULIN LISPRO 100 UNIT/1 ML 3ML VIAL SQ SCH ×4 (07:11→21:05)
[2021-07-19] MEDS: FINASTERIDE 5 MG TAB PO SCH (09:11)
[2021-07-19] MEDS: APIXABAN 5 MG TABLET PO SCH ×2 (09:11→17:19)
[2021-07-19] MEDS: ASPIRIN 81 MG CHEW TAB PO SCH (09:11)
[2021-07-19] MEDS: METOLAZONE 5 MG TAB PO SCH (09:11)
[2021-07-19] MEDS: ALFUZOSIN HCL 10 MG TAB.ER.24H PO SCH (09:11)
[2021-07-19] MEDS: METOPROLOL TARTRATE 25 MG TAB PO SCH ×2 (09:11→17:19)
[2021-07-19] MEDS: SPIRONOLACTONE 25 MG TAB PO SCH (09:11)
[2021-07-19] MEDS ORDERED: POTASSIUM CHLORIDE 20 MEQ TAB CR PO ONE (16:45)
[2021-07-19] MEDS ORDERED: ACETAZOLAMIDE SODIUM 500 MG/VIAL IV ONE (17:00)
[2021-07-19] MEDS: ATORVASTATIN 40 MG TAB PO SCH (21:04)
[2021-07-19] MEDS: GABAPENTIN 300 MG CAP PO SCH (21:04)
[2021-07-19] MEDS: INSULIN GLARGINE 100 UNITS/ML VIAL SQ SCH (21:05)
[2021-07-20 01:00] VITALS: BP 101/50
[2021-07-20] MEDS: FUROSEMIDE INJ 100 MG in SODIUM CHLORIDE 0.9% 100 ML 90 ML IV SCH ×2 (01:59→12:02)
[2021-07-20] MEDS: LEVOTHYROXINE SODIUM 100 MCG TAB PO SCH (05:20)
[2021-07-20 05:32] VITALS: BP 96/48
[2021-07-20 05:59] LABS: ANION GAP 10.2 mmol/L (8-16); CALCIUM 8.4 mg/dL (8.4-10.2); CREATININE, SERUM 1.46 mg/dL (0.72-1.25); POTASSIUM 3.2 mmol/L (3.5-5.1)
[2021-07-20 08:00] VITALS: BP 96/48
[2021-07-20] MEDS: FINASTERIDE 5 MG TAB PO SCH (09:00)
[2021-07-20] MEDS: ALFUZOSIN HCL 10 MG TAB.ER.24H PO SCH (09:39)
[2021-07-20] MEDS: SPIRONOLACTONE 25 MG TAB PO SCH (09:39)
[2021-07-20] MEDS: INSULIN LISPRO 100 UNIT/1 ML 3ML VIAL SQ SCH ×3 (09:39→16:53)
[2021-07-20] MEDS: APIXABAN 5 MG TABLET PO SCH ×2 (09:39→16:53)
[2021-07-20] MEDS: METOLAZONE 5 MG TAB PO SCH (09:40)
[2021-07-20] MEDS: METOPROLOL TARTRATE 25 MG TAB PO SCH ×2 (09:40→16:54)
[2021-07-20 09:59] VITALS: BP 98/58
[2021-07-20] MEDS ORDERED: POTASSIUM CHLORIDE 20 MEQ TAB CR PO ONE ×2 (11:00→16:00)
[2021-07-20 12:25] VITALS: BP 97/60
[2021-07-20] MEDS ORDERED: ALDACTONE25 MG PO (13:35)
[2021-07-20] MEDS ORDERED: TORSEMIDE20 MG PO (13:35)
[2021-07-20] MEDS ORDERED: METOLAZONE5 MG PO (13:35)
[2021-07-20] MEDS ORDERED: ACETAZOLAMIDE SODIUM 500 MG/VIAL IV SCH (18:00)
== END 2021-07-20 18:18 | disposition home or self-care (01) | DRG 291 ==
LOC: ER 06:45 → ERHOLD 08:50 → MED/SURG2 09:47
PROVIDERS: ADMIT Internal Medicine; ATTEND Internal Medicine
DX: I11.0 Hypertensive heart disease with heart failure (principal); I50.43 Acute on chronic combined systolic (congestive) and diastolic (congestive) heart failure; E87.3 Alkalosis; E03.9 Hypothyroidism, unspecified; I25.10 Atherosclerotic heart disease of native coronary artery without angina pectoris; N40.0 Benign prostatic hyperplasia without lower urinary tract symptoms; I48.91 Unspecified atrial fibrillation; E78.00 Pure hypercholesterolemia, unspecified; R82.71 Bacteriuria; B96.89 Other specified bacterial agents as the cause of diseases classified elsewhere; E11.65 Type 2 diabetes mellitus with hyperglycemia; E88.09 Other disorders of plasma-protein metabolism, not elsewhere classified; E11.21 Type 2 diabetes mellitus with diabetic nephropathy; Z79.02 Long term (current) use of antithrombotics/antiplatelets; I25.2 Old myocardial infarction; Z68.31 Body mass index [BMI] 31.0-31.9, adult; Z95.1 Presence of aortocoronary bypass graft; Z95.810 Presence of automatic (implantable) cardiac defibrillator; Z82.49 Family history of ischemic heart disease and other diseases of the circulatory system; Z20.822 Contact with and (suspected) exposure to COVID-19; Z79.82 Long term (current) use of aspirin
CPT/HCPCS: 36415; 36600; 71045; 80048; 80053; 81001; 82550; 82553; 82805; 82948; 83735; 83880; 84443; 84484; 85025; 85610; 85730; 87086; 87186; 93005; 94799; 97139; 99251; 99284; 99285; J0696; J1815; J1940; U0002

== ENCOUNTER 2021-09-03 06:49 | Inpatient (IN) | payer MEDICARE ==
[~2021-09-03] VITALS: Ht 157.5 cm; Wt 77.3 kg
[~2021-09-03 06:49] MED LIST changes: +ALDACTONE25 MG PO; +METOPROLOL SUCC25 MG PO
[2021-09-03 07:26] LABS: BASOPHILS % 0.7 % (0.0-1.0); EOSINOPHILS # (AUTO) 0.1 (0.0-0.4); HEMATOCRIT 31.7 % (38.2-49.6); LYMPHOCYTES # (AUTO) 0.8 (1.0-3.2); MEAN CORPUSCULAR HGB CONC 31.5 g/dL (31-35); MEAN CORPUSCULAR VOLUME 82.3 fL (81-99); MONOCYTES # (AUTO) 0.6 (0.2-0.8); MONOCYTES % 12.3 % (4.4-11.3); NEUTROPHILS # (AUTO) 3.1 (2.1-6.9); NEUTROPHILS % 66.8 % (38.7-80.0); PLATELET COUNT 219 x10e3/uL (140-360); RED BLOOD COUNT 3.85 x10e6/uL (4.3-5.7)
[2021-09-03] MEDS ORDERED: BUMETANIDE2 MG PO (07:35)
[2021-09-03] MEDS ORDERED: ACETAMIN-CODE12.5 ML (07:35)
[2021-09-03 07:36] LABS: INR 1.1; PROTHROMBIN TIME 15.2 seconds (11.9-14.5)
[2021-09-03 07:37] LABS: PARTIAL THROMBOPLASTIN TIME 31.7 seconds (23.8-35.5)
[2021-09-03 07:43] LABS: ALBUMIN 1.7 g/dL (3.5-5.0); ALBUMIN/GLOBULIN RATIO 0.6 (0.8-2.0); ANION GAP 10.1 mmol/L (8-16); CALCIUM 7.1 mg/dL (8.4-10.2); CREATININE, SERUM 1.23 mg/dL (0.72-1.25); POTASSIUM 4.1 mmol/L (3.5-5.1)
[2021-09-03 07:49] LABS: CREATINE KINASE MB 4.3 ng/mL (0-5.0)
[2021-09-03] MEDS ORDERED: ONDANSETRON HCL INJ 2MG/ML 2ML 2 MG/ML VIAL IV PRN ×2 (08:15→10:45)
[2021-09-03] MEDS ORDERED: FUROSEMIDE INJ 10 MG/ML 4 ML VIAL IV ONE (08:15)
[2021-09-03 10:31] VITALS: BP 125/62
[2021-09-03] MEDS ORDERED: ACETAMINOPHEN/CODEINE 300MG - 30MG TAB PO PRN (10:45)
[2021-09-03] MEDS ORDERED: ACETAMINOPHEN 325 MG TAB PO PRN (10:45)
[2021-09-03 12:08] VITALS: BP 115/54
[2021-09-03] MEDS: FUROSEMIDE INJ 10 MG/ML 4 ML VIAL IV SCH ×2 (12:30→17:29)
[2021-09-03 16:02] VITALS: BP 107/57
[2021-09-03] MEDS: APIXABAN 5 MG TABLET PO SCH (17:29)
[2021-09-03 17:38] VITALS: BP 107/57
[2021-09-03 20:00] VITALS: BP_SYST 107; BP_SYST 135; BP_DIAS 62; BP_DIAS 98
[2021-09-03] MEDS: GABAPENTIN 300 MG CAP PO SCH (20:59)
[2021-09-03] MEDS: ATORVASTATIN 40 MG TAB PO SCH (20:59)
[2021-09-03] MEDS: INSULIN LISPRO 100 UNIT/1 ML 3ML VIAL SQ SCH (21:13)
[2021-09-04] VITALS (7 sets, daily range): BP systolic 104–121; BP diastolic 45–60
[2021-09-04 05:45] LABS: BASOPHILS % 0.4 % (0.0-1.0); EOSINOPHILS # (AUTO) 0.2 (0.0-0.4); EOSINOPHILS % 3.2 % (0.0-6.0); HEMATOCRIT 30.4 % (38.2-49.6); HEMOGLOBIN 9.4 g/dL (14.0-18.0); LYMPHOCYTES # (AUTO) 0.9 (1.0-3.2); LYMPHOCYTES % 18.2 % (18.0-39.1); MEAN CORPUSCULAR HEMOGLOBIN 25.5 pg (28-32); MEAN CORPUSCULAR HGB CONC 30.9 g/dL (31-35); MEAN CORPUSCULAR VOLUME 82.4 fL (81-99); MONOCYTES # (AUTO) 0.6 (0.2-0.8); MONOCYTES % 12.2 % (4.4-11.3); NEUTROPHILS # (AUTO) 3.3 (2.1-6.9); NEUTROPHILS % 65.8 % (38.7-80.0); PLATELET COUNT 208 x10e3/uL (140-360); RED BLOOD COUNT 3.69 x10e6/uL (4.3-5.7); RED CELL DISTRIBUTION WIDTH 16.2 % (11.7-14.4)
[2021-09-04] MEDS ORDERED: LEVOTHYROXINE SODIUM 100 MCG TAB PO SCH (06:00)
[2021-09-04 06:05] LABS: ALBUMIN 1.6 g/dL (3.5-5.0); ALBUMIN/GLOBULIN RATIO 0.6 (0.8-2.0); ANION GAP 9.6 mmol/L (8-16); CALCIUM 7.1 mg/dL (8.4-10.2); CREATININE, SERUM 1.05 mg/dL (0.72-1.25); POTASSIUM 3.6 mmol/L (3.5-5.1)
[2021-09-04 06:06] LABS: CHOL/HDL RATIO 3.8 (3.9-4.7); MAGNESIUM 1.9 MG/DL (1.3-2.1)
[2021-09-04 06:28] LABS: THYROID STIMULATING HORMONE 6.543 uIU/mL (0.350-4.940)
[2021-09-04] MEDS: INSULIN LISPRO 100 UNIT/1 ML 3ML VIAL SQ SCH ×4 (07:30→20:38)
[2021-09-04] MEDS: PANTOPRAZOLE SOD 40 MG TABEC PO SCH (08:03)
[2021-09-04] MEDS: FUROSEMIDE INJ 10 MG/ML 4 ML VIAL IV SCH ×3 (08:03→17:11)
[2021-09-04] MEDS: ALFUZOSIN HCL 10 MG TAB.ER.24H PO SCH (08:04)
[2021-09-04] MEDS: ASPIRIN 81 MG CHEW TAB PO SCH (08:04)
[2021-09-04] MEDS: APIXABAN 5 MG TABLET PO SCH ×2 (08:04→17:11)
[2021-09-04] MEDS: METOPROLOL SUCCINATE 25 MG TAB XL PO SCH (08:13)
[2021-09-04] MEDS: IRON SUCROSE 100 MG in SODIUM CHLORIDE 0.9% 100 ML 100 ML IV SCH (13:30)
[2021-09-04] MEDS ORDERED: GUAIFENESIN/CODEINE 5 ML LIQD PO PRN (14:00)
[2021-09-04] MEDS: ATORVASTATIN 40 MG TAB PO SCH (20:32)
[2021-09-04] MEDS: GABAPENTIN 300 MG CAP PO SCH (20:32)
[2021-09-05] VITALS (10 sets, daily range): BP systolic 93–142; BP diastolic 50–90
[2021-09-05 05:28] LABS: BASOPHILS % 0.9 % (0.0-1.0); EOSINOPHILS # (AUTO) 0.3 (0.0-0.4); EOSINOPHILS % 6.2 % (0.0-6.0); HEMATOCRIT 29.5 % (38.2-49.6); HEMOGLOBIN 9.2 g/dL (14.0-18.0); LYMPHOCYTES # (AUTO) 0.8 (1.0-3.2); LYMPHOCYTES % 19.2 % (18.0-39.1); MEAN CORPUSCULAR HEMOGLOBIN 25.8 pg (28-32); MEAN CORPUSCULAR HGB CONC 31.2 g/dL (31-35); MEAN CORPUSCULAR VOLUME 82.9 fL (81-99); MONOCYTES # (AUTO) 0.6 (0.2-0.8); NEUTROPHILS # (AUTO) 2.7 (2.1-6.9); NEUTROPHILS % 60.7 % (38.7-80.0); PLATELET COUNT 190 x10e3/uL (140-360); RED BLOOD COUNT 3.56 x10e6/uL (4.3-5.7); RED CELL DISTRIBUTION WIDTH 16.1 % (11.7-14.4)
[2021-09-05] MEDS: LEVOTHYROXINE SODIUM 112 MCG TAB PO SCH (06:06)
[2021-09-05 06:12] LABS: ANION GAP 9.6 mmol/L (8-16); CREATININE, SERUM 1.08 mg/dL (0.72-1.25); MAGNESIUM 2.1 MG/DL (1.3-2.1); POTASSIUM 3.6 mmol/L (3.5-5.1)
[2021-09-05 06:21] LABS: CALCIUM 6.9 mg/dL (8.4-10.2)
[2021-09-05] MEDS ORDERED: CALCIUM GLUC 1 G/50 ML NACL 50 ML IV ONE (07:00)
[2021-09-05] MEDS: INSULIN LISPRO 100 UNIT/1 ML 3ML VIAL SQ SCH ×4 (07:30→21:25)
[2021-09-05] MEDS: PANTOPRAZOLE SOD 40 MG TABEC PO SCH (08:20)
[2021-09-05] MEDS: ALFUZOSIN HCL 10 MG TAB.ER.24H PO SCH (08:21)
[2021-09-05] MEDS: ASPIRIN 81 MG CHEW TAB PO SCH (08:21)
[2021-09-05] MEDS: APIXABAN 5 MG TABLET PO SCH ×2 (08:21→18:19)
[2021-09-05] MEDS: METOPROLOL SUCCINATE 25 MG TAB XL PO SCH (08:21)
[2021-09-05] MEDS: FUROSEMIDE INJ 10 MG/ML 4 ML VIAL IV SCH ×3 (08:27→18:19)
[2021-09-05] MEDS: IRON SUCROSE 100 MG in SODIUM CHLORIDE 0.9% 100 ML 100 ML IV SCH (11:43)
[2021-09-05] MEDS: BENZONATATE 100 MG CAP PO PRN (14:31)
[2021-09-05] MEDS: ATORVASTATIN 40 MG TAB PO SCH (21:24)
[2021-09-05] MEDS: GABAPENTIN 300 MG CAP PO SCH (21:24)
[2021-09-06] VITALS (8 sets, daily range): BP systolic 105–123; BP diastolic 50–63
[2021-09-06 05:56] LABS: BASOPHILS % 0.6 % (0.0-1.0); EOSINOPHILS # (AUTO) 0.2 (0.0-0.4); EOSINOPHILS % 4.9 % (0.0-6.0); HEMATOCRIT 30.1 % (38.2-49.6); HEMOGLOBIN 9.3 g/dL (14.0-18.0); LYMPHOCYTES # (AUTO) 0.8 (1.0-3.2); LYMPHOCYTES % 16.2 % (18.0-39.1); MEAN CORPUSCULAR HEMOGLOBIN 25.8 pg (28-32); MEAN CORPUSCULAR HGB CONC 30.9 g/dL (31-35); MEAN CORPUSCULAR VOLUME 83.4 fL (81-99); MONOCYTES # (AUTO) 0.5 (0.2-0.8); MONOCYTES % 10.2 % (4.4-11.3); NEUTROPHILS # (AUTO) 3.2 (2.1-6.9); NEUTROPHILS % 67.9 % (38.7-80.0); PLATELET COUNT 190 x10e3/uL (140-360); RED BLOOD COUNT 3.61 x10e6/uL (4.3-5.7); RED CELL DISTRIBUTION WIDTH 16.1 % (11.7-14.4)
[2021-09-06] MEDS: LEVOTHYROXINE SODIUM 112 MCG TAB PO SCH (06:17)
[2021-09-06 06:22] LABS: ANION GAP 7.6 mmol/L (8-16); CALCIUM 7.1 mg/dL (8.4-10.2); CREATININE, SERUM 0.97 mg/dL (0.72-1.25); POTASSIUM 3.6 mmol/L (3.5-5.1)
[2021-09-06] MEDS: INSULIN LISPRO 100 UNIT/1 ML 3ML VIAL SQ SCH ×4 (07:30→20:05)
[2021-09-06] MEDS: PANTOPRAZOLE SOD 40 MG TABEC PO SCH (08:30)
[2021-09-06] MEDS: ALFUZOSIN HCL 10 MG TAB.ER.24H PO SCH (08:30)
[2021-09-06] MEDS: APIXABAN 5 MG TABLET PO SCH ×2 (08:30→17:09)
[2021-09-06] MEDS: ASPIRIN 81 MG CHEW TAB PO SCH (08:30)
[2021-09-06] MEDS: METOPROLOL SUCCINATE 25 MG TAB XL PO SCH (08:31)
[2021-09-06] MEDS: FUROSEMIDE INJ 10 MG/ML 4 ML VIAL IV SCH ×3 (08:33→17:09)
[2021-09-06] MEDS: INSULIN GLARGINE 100 UNITS/ML VIAL SQ SCH (08:33)
[2021-09-06] MEDS: IRON SUCROSE 100 MG in SODIUM CHLORIDE 0.9% 100 ML 100 ML IV SCH (12:12)
[2021-09-06] MEDS: METOLAZONE 5 MG TAB PO SCH (13:44)
[2021-09-06] MEDS: ATORVASTATIN 40 MG TAB PO SCH (20:05)
[2021-09-06] MEDS: GABAPENTIN 300 MG CAP PO SCH (20:05)
[2021-09-07 04:00] VITALS: BP 131/48
[2021-09-07 06:15] LABS: ANION GAP 10.2 mmol/L (8-16); CALCIUM 7.1 mg/dL (8.4-10.2); CREATININE, SERUM 1.1 mg/dL (0.72-1.25); POTASSIUM 3.2 mmol/L (3.5-5.1)
[2021-09-07] MEDS: LEVOTHYROXINE SODIUM 112 MCG TAB PO SCH (06:30)
[2021-09-07] MEDS: BENZONATATE 100 MG CAP PO PRN (07:14)
[2021-09-07] MEDS: INSULIN LISPRO 100 UNIT/1 ML 3ML VIAL SQ SCH ×4 (07:30→20:47)
[2021-09-07 08:29] VITALS: BP 100/62
[2021-09-07] MEDS ORDERED: ONDANSETRON HCL 4 MG ORAL DISINTEGRATING TAB PO PRN (08:45)
[2021-09-07] MEDS: METOPROLOL SUCCINATE 25 MG TAB XL PO SCH (09:00)
[2021-09-07] MEDS: PANTOPRAZOLE SOD 40 MG TABEC PO SCH (09:49)
[2021-09-07] MEDS: ASPIRIN 81 MG CHEW TAB PO SCH (09:50)
[2021-09-07] MEDS: APIXABAN 5 MG TABLET PO SCH ×2 (09:50→17:37)
[2021-09-07] MEDS: ALFUZOSIN HCL 10 MG TAB.ER.24H PO SCH (09:50)
[2021-09-07] MEDS: METOLAZONE 5 MG TAB PO SCH (09:51)
[2021-09-07] MEDS: INSULIN GLARGINE 100 UNITS/ML VIAL SQ SCH (09:54)
[2021-09-07] MEDS: FUROSEMIDE INJ 10 MG/ML 4 ML VIAL IV SCH (09:57)
[2021-09-07 10:37] VITALS: BP 100/62
[2021-09-07] MEDS ORDERED: POTASSIUM CHLORIDE 10MEQ EA PO ONE (12:30)
[2021-09-07 13:03] VITALS: BP 126/92
[2021-09-07] MEDS ORDERED: FUROSEMIDE INJ 100 MG in SODIUM CHLORIDE 0.9% 90 ML IV SCH (14:00)
[2021-09-07] MEDS ORDERED: SODIUM CHLORIDE 0.9% 250ML 250 ML ONE (14:42)
[2021-09-07] MEDS ORDERED: ALBUMIN 25% 12.5GM 0.25 GM/ML BTL IV ONE (15:00)
[2021-09-07] MEDS: FUROSEMIDE INJ 100 MG in SODIUM CHLORIDE 0.9% 90 ML IV SCH (15:14)
[2021-09-07 17:24] VITALS: BP 125/60
[2021-09-07 20:00] VITALS: BP 110/55
[2021-09-07] MEDS: GABAPENTIN 300 MG CAP PO SCH (20:46)
[2021-09-07] MEDS: ATORVASTATIN 40 MG TAB PO SCH (20:46)
[2021-09-08] VITALS (8 sets, daily range): BP systolic 92–114; BP diastolic 53–73
[2021-09-08] MEDS: FUROSEMIDE INJ 100 MG in SODIUM CHLORIDE 0.9% 90 ML IV SCH ×3 (03:24→21:08)
[2021-09-08] MEDS: LEVOTHYROXINE SODIUM 112 MCG TAB PO SCH (05:51)
[2021-09-08 05:53] LABS: BASOPHILS % 0.5 % (0.0-1.0); EOSINOPHILS # (AUTO) 0.2 (0.0-0.4); EOSINOPHILS % 4.8 % (0.0-6.0); LYMPHOCYTES # (AUTO) 0.8 (1.0-3.2); MEAN CORPUSCULAR HEMOGLOBIN 25.7 pg (28-32); MEAN CORPUSCULAR VOLUME 82.9 fL (81-99); MONOCYTES # (AUTO) 0.5 (0.2-0.8); MONOCYTES % 11.5 % (4.4-11.3); NEUTROPHILS # (AUTO) 2.7 (2.1-6.9); NEUTROPHILS % 64.7 % (38.7-80.0); PLATELET COUNT 201 x10e3/uL (140-360); RED CELL DISTRIBUTION WIDTH 16.4 % (11.7-14.4)
[2021-09-08 06:14] LABS: ANION GAP 9.9 mmol/L (8-16); CALCIUM 7.5 mg/dL (8.4-10.2); CREATININE, SERUM 1.02 mg/dL (0.72-1.25)
[2021-09-08 06:17] LABS: POTASSIUM 2.9 mmol/L (3.5-5.1)
[2021-09-08] MEDS ORDERED: POTASSIUM CHLORIDE 20 MEQ TAB CR PO STA (06:27)
[2021-09-08] MEDS: INSULIN LISPRO 100 UNIT/1 ML 3ML VIAL SQ SCH ×4 (07:30→21:00)
[2021-09-08] MEDS ORDERED: POTASSIUM CHLORIDE 20 MEQ TAB CR PO ONE (08:30)
[2021-09-08] MEDS: ASPIRIN 81 MG CHEW TAB PO SCH (09:46)
[2021-09-08] MEDS: APIXABAN 5 MG TABLET PO SCH ×2 (09:46→17:00)
[2021-09-08] MEDS: ALFUZOSIN HCL 10 MG TAB.ER.24H PO SCH (09:46)
[2021-09-08] MEDS: METOPROLOL SUCCINATE 25 MG TAB XL PO SCH (09:46)
[2021-09-08] MEDS: PANTOPRAZOLE SOD 40 MG TABEC PO SCH (09:46)
[2021-09-08] MEDS: METOLAZONE 5 MG TAB PO SCH (09:47)
[2021-09-08] MEDS: POTASSIUM CHLORIDE 20 MEQ TAB CR PO ONE ×2 (10:12→10:25)
[2021-09-08] MEDS: INSULIN GLARGINE 100 UNITS/ML VIAL SQ SCH (13:00)
[2021-09-08] MEDS: ACETAZOLAMIDE SODIUM 500 MG/VIAL IV SCH ×2 (15:00→22:30)
[2021-09-08] MEDS: ATORVASTATIN 40 MG TAB PO SCH (21:08)
[2021-09-08] MEDS: GABAPENTIN 300 MG CAP PO SCH (21:08)
[2021-09-09] VITALS: BP 112/56
[2021-09-09 04:00] VITALS: BP 101/51
[2021-09-09 06:06] LABS: BASOPHILS % 0.6 % (0.0-1.0); EOSINOPHILS # (AUTO) 0.2 (0.0-0.4); EOSINOPHILS % 4.2 % (0.0-6.0); HEMOGLOBIN 9.5 g/dL (14.0-18.0); LYMPHOCYTES # (AUTO) 1.2 (1.0-3.2); LYMPHOCYTES % 24.4 % (18.0-39.1); MEAN CORPUSCULAR HEMOGLOBIN 25.9 pg (28-32); MEAN CORPUSCULAR HGB CONC 30.6 g/dL (31-35); MEAN CORPUSCULAR VOLUME 84.5 fL (81-99); MONOCYTES # (AUTO) 0.6 (0.2-0.8); NEUTROPHILS # (AUTO) 2.8 (2.1-6.9); NEUTROPHILS % 58.6 % (38.7-80.0); PLATELET COUNT 226 x10e3/uL (140-360); RED BLOOD COUNT 3.67 x10e6/uL (4.3-5.7); RED CELL DISTRIBUTION WIDTH 16.7 % (11.7-14.4)
[2021-09-09] MEDS: ACETAZOLAMIDE SODIUM 500 MG/VIAL IV SCH ×2 (06:33→14:00)
[2021-09-09] MEDS: LEVOTHYROXINE SODIUM 112 MCG TAB PO SCH (06:33)
[2021-09-09] MEDS: FUROSEMIDE INJ 100 MG in SODIUM CHLORIDE 0.9% 90 ML IV SCH (06:34)
[2021-09-09 06:50] LABS: ALBUMIN 2.1 g/dL (3.5-5.0); ALBUMIN/GLOBULIN RATIO 0.7 (0.8-2.0); CREATININE, SERUM 1.28 mg/dL (0.72-1.25)
[2021-09-09] MEDS: INSULIN LISPRO 100 UNIT/1 ML 3ML VIAL SQ SCH ×2 (07:30→11:30)
[2021-09-09] MEDS ORDERED: POTASSIUM CHLORIDE 20 MEQ TAB CR PO ONE ×2 (08:00→12:30)
[2021-09-09 08:15] VITALS: BP 96/54
[2021-09-09] MEDS: PANTOPRAZOLE SOD 40 MG TABEC PO SCH (08:30)
[2021-09-09 08:31] VITALS: BP 96/54
[2021-09-09] MEDS: INSULIN GLARGINE 100 UNITS/ML VIAL SQ SCH (09:00)
[2021-09-09] MEDS: METOPROLOL SUCCINATE 25 MG TAB XL PO SCH (09:00)
[2021-09-09] MEDS: METOLAZONE 5 MG TAB PO SCH (09:45)
[2021-09-09] MEDS: APIXABAN 5 MG TABLET PO SCH (09:45)
[2021-09-09] MEDS: ALFUZOSIN HCL 10 MG TAB.ER.24H PO SCH (09:45)
[2021-09-09] MEDS: ASPIRIN 81 MG CHEW TAB PO SCH (09:45)
[2021-09-09] MEDS ORDERED: BUMETANIDE2 MG PO (11:57)
[2021-09-09] MEDS ORDERED: ROBITUSSIN COU118 M4 PO (11:57)
[2021-09-09] MEDS ORDERED: METOLAZONE5 MG PO (11:57)
[2021-09-09 12:20] VITALS: BP 109/57
== END 2021-09-09 14:56 | disposition home or self-care (01) | DRG 291 ==
LOC: ER 08:13 → ERHOLD 08:15 → MED/SURG 09:45 → OBSVTOIN 20:28
PROVIDERS: ADMIT Internal Medicine; ATTEND Internal Medicine
DX: I11.0 Hypertensive heart disease with heart failure (principal); J81.0 Acute pulmonary edema; I50.23 Acute on chronic systolic (congestive) heart failure; E87.1 Hypo-osmolality and hyponatremia; E87.6 Hypokalemia; I48.91 Unspecified atrial fibrillation; I25.10 Atherosclerotic heart disease of native coronary artery without angina pectoris; Z95.1 Presence of aortocoronary bypass graft; E03.9 Hypothyroidism, unspecified; Z79.01 Long term (current) use of anticoagulants; N40.0 Benign prostatic hyperplasia without lower urinary tract symptoms; D64.9 Anemia, unspecified; E11.9 Type 2 diabetes mellitus without complications; D50.9 Iron deficiency anemia, unspecified; Z20.822 Contact with and (suspected) exposure to COVID-19
CPT/HCPCS: 36415; 71045; 80048; 80053; 80061; 82550; 82553; 82948; 83540; 83735; 83880; 84132; 84443; 84466; 84484; 85025; 85610; 85730; 93005; 94799; 99284; J1756; J1940; J7050; U0002

== ENCOUNTER 2021-10-23 05:58 | Emergency (ER) | payer MEDICARE ==
[~2021-10-23] VITALS: Ht 309.9 cm; Wt 77.1 kg
[~2021-10-23 05:58] MED LIST changes: +ACETAMIN-CODE12.5 ML; +ROBITUSSIN COU118 M4 PO
[2021-10-23 06:18] LABS: BASOPHILS # (AUTO) 0.1 (0.0-0.1); BASOPHILS % 1.3 % (0.0-1.0); EOSINOPHILS # (AUTO) 0.2 (0.0-0.4); EOSINOPHILS % 5.1 % (0.0-6.0); HEMOGLOBIN 9.6 g/dL (14.0-18.0); LYMPHOCYTES # (AUTO) 0.9 (1.0-3.2); MEAN CORPUSCULAR HEMOGLOBIN 26.3 pg (28-32); MEAN CORPUSCULAR VOLUME 84.9 fL (81-99); MONOCYTES # (AUTO) 0.5 (0.2-0.8); MONOCYTES % 11.9 % (4.4-11.3); NEUTROPHILS # (AUTO) 2.8 (2.1-6.9); NEUTROPHILS % 62.5 % (38.7-80.0); PLATELET COUNT 223 x10e3/uL (140-360); RED BLOOD COUNT 3.65 x10e6/uL (4.3-5.7); RED CELL DISTRIBUTION WIDTH 16.4 % (11.7-14.4)
[2021-10-23 06:46] LABS: ALBUMIN 1.7 g/dL (3.5-5.0); ALBUMIN/GLOBULIN RATIO 0.7 (0.8-2.0); ANION GAP 7.7 mmol/L (8-16); CREATININE, SERUM 1.05 mg/dL (0.72-1.25); POTASSIUM 4.7 mmol/L (3.5-5.1)
[2021-10-23] MEDS ORDERED: FUROSEMIDE INJ 10 MG/ML 4 ML VIAL IV ONE (07:15)
[2021-10-23 07:40] VITALS: BP 122/70
== END 2021-10-23 07:45 | disposition home or self-care (01) ==
LOC: ER 06:06
DX: R06.00 Dyspnea, unspecified (principal); I50.9 Heart failure, unspecified; E11.65 Type 2 diabetes mellitus with hyperglycemia; I10 Essential (primary) hypertension; I48.91 Unspecified atrial fibrillation; E03.9 Hypothyroidism, unspecified; E78.5 Hyperlipidemia, unspecified; R94.31 Abnormal electrocardiogram [ECG] [EKG]; I25.2 Old myocardial infarction; Z95.1 Presence of aortocoronary bypass graft; Z95.810 Presence of automatic (implantable) cardiac defibrillator
CPT/HCPCS: 36415; 71045; 80053; 83880; 84484; 85025; 93005; 99284; J1940

== ENCOUNTER 2021-11-05 12:50 | Inpatient (IN) | payer MEDICARE ==
[~2021-11-05] VITALS: Ht 309.9 cm; Wt 64.9 kg
[2021-11-05 14:05] LABS: BASOPHILS % 0.7 % (0.0-1.0); EOSINOPHILS # (AUTO) 0.2 (0.0-0.4); EOSINOPHILS % 3.8 % (0.0-6.0); HEMATOCRIT 32.6 % (38.2-49.6); LYMPHOCYTES # (AUTO) 1.2 (1.0-3.2); LYMPHOCYTES % 21.4 % (18.0-39.1); MEAN CORPUSCULAR HEMOGLOBIN 26.1 pg (28-32); MEAN CORPUSCULAR HGB CONC 30.7 g/dL (31-35); MEAN CORPUSCULAR VOLUME 85.1 fL (81-99); MONOCYTES # (AUTO) 0.6 (0.2-0.8); MONOCYTES % 10.3 % (4.4-11.3); NEUTROPHILS # (AUTO) 3.7 (2.1-6.9); NEUTROPHILS % 63.6 % (38.7-80.0); PLATELET COUNT 189 x10e3/uL (140-360); RED BLOOD COUNT 3.83 x10e6/uL (4.3-5.7); RED CELL DISTRIBUTION WIDTH 16.5 % (11.7-14.4)
[2021-11-05] MEDS ORDERED: BUMETANIDE INJ 0.25MG/ML 4ML VIAL IV ONE (14:15)
[2021-11-05] MEDS ORDERED: BUMETANIDE 10 MG in SODIUM CHLORIDE 0.9% 100 ML 60 ML IV SCH (14:15)
[2021-11-05 14:28] LABS: INR 1.02; PARTIAL THROMBOPLASTIN TIME 29.3 seconds (23.8-35.5); PROTHROMBIN TIME 14.3 seconds (11.9-14.5)
[2021-11-05 14:37] LABS: ALBUMIN 1.6 g/dL (3.5-5.0); ALBUMIN/GLOBULIN RATIO 0.6 (0.8-2.0); ANION GAP 7.3 mmol/L (8-16); CALCIUM 7.1 mg/dL (8.4-10.2); CREATININE, SERUM 0.96 mg/dL (0.72-1.25); POTASSIUM 4.3 mmol/L (3.5-5.1)
[2021-11-05] MEDS ORDERED: ONDANSETRON HCL INJ 2MG/ML 2ML 2 MG/ML VIAL IV PRN (16:00)
[2021-11-05] MEDS ORDERED: ASPIRIN 81 MG CHEW TAB PO ONE (16:00)
[2021-11-05] MEDS ORDERED: SODIUM CHLORIDE FLUSH 10 ML SYR INJ PRN (16:00)
[2021-11-05] MEDS ORDERED: DEXTROSE 50% SYRINGE 50 ML IV PRN (16:15)
[2021-11-05] MEDS ORDERED: ACETAMINOPHEN 325 MG TAB PO PRN (16:15)
[2021-11-05] MEDS: INSULIN REGULAR, HUMAN 100 UNIT/1 ML SQ SCH ×2 (16:30→21:00)
[2021-11-05 17:15] VITALS: BP_SYST 111; BP_SYST 117; BP_DIAS 58; BP_DIAS 65
[2021-11-05] MEDS: APIXABAN 5 MG TABLET PO SCH (17:44)
[2021-11-05 20:00] VITALS: BP 130/61
[2021-11-05] MEDS: ATORVASTATIN 40 MG TAB PO SCH (21:00)
[2021-11-05] MEDS: GABAPENTIN 300 MG CAP PO SCH (21:00)
[2021-11-05] MEDS: FUROSEMIDE INJ 10 MG/ML 4 ML VIAL IV SCH (22:00)
[2021-11-06] VITALS (8 sets, daily range): BP systolic 88–111; BP diastolic 54–63
[2021-11-06] MEDS: LEVOTHYROXINE SODIUM 100 MCG TAB PO SCH (05:32)
[2021-11-06] MEDS: FUROSEMIDE INJ 10 MG/ML 4 ML VIAL IV SCH ×3 (05:32→22:11)
[2021-11-06 07:10] LABS: ANION GAP 8.8 mmol/L (8-16); CALCIUM 7.3 mg/dL (8.4-10.2); CREATININE, SERUM 0.9 mg/dL (0.72-1.25); POTASSIUM 3.8 mmol/L (3.5-5.1)
[2021-11-06] MEDS: INSULIN REGULAR, HUMAN 100 UNIT/1 ML SQ SCH ×4 (07:30→22:15)
[2021-11-06] MEDS: PANTOPRAZOLE SOD 40 MG TABEC PO SCH (08:10)
[2021-11-06 08:33] LABS: CREATINE KINASE MB 4.5 ng/mL (0-5.0)
[2021-11-06] MEDS: METOPROLOL SUCCINATE 25 MG TAB XL PO SCH (09:00)
[2021-11-06] MEDS: SPIRONOLACTONE 25 MG TAB PO SCH (09:12)
[2021-11-06] MEDS: ASPIRIN 81 MG CHEW TAB PO SCH (09:12)
[2021-11-06] MEDS: FINASTERIDE 5 MG TAB PO SCH (09:12)
[2021-11-06] MEDS: MULTIVITAMINS/MINERALS TAB PO SCH (09:12)
[2021-11-06] MEDS: METOLAZONE 5 MG TAB PO SCH (09:12)
[2021-11-06] MEDS: APIXABAN 5 MG TABLET PO SCH ×2 (09:12→17:31)
[2021-11-06] MEDS: ALFUZOSIN HCL 10 MG TAB.ER.24H PO SCH (11:09)
[2021-11-06] MEDS ORDERED: ALBUMIN 25% 25GM 100ML 0.25 GM/ML BTL IV ONE (15:15)
[2021-11-06] MEDS ORDERED: ALBUMIN 25% 25GM 100ML 100 ML IV ONE (15:30)
[2021-11-06 16:42] LABS: CREATINE KINASE MB 5.1 ng/mL (0-5.0)
[2021-11-06] MEDS ORDERED: SODIUM CHLORIDE 0.9% 100 ML ONE (17:37)
[2021-11-06] MEDS: ATORVASTATIN 40 MG TAB PO SCH (20:18)
[2021-11-06] MEDS: GABAPENTIN 300 MG CAP PO SCH (20:18)
[2021-11-07] VITALS (8 sets, daily range): BP systolic 97–134; BP diastolic 46–74
[2021-11-07] MEDS: LEVOTHYROXINE SODIUM 100 MCG TAB PO SCH (05:50)
[2021-11-07] MEDS: FUROSEMIDE INJ 10 MG/ML 4 ML VIAL IV SCH ×4 (05:50→23:00)
[2021-11-07 06:36] LABS: ANION GAP 10.5 mmol/L (8-16); CALCIUM 7.4 mg/dL (8.4-10.2); CREATININE, SERUM 1.03 mg/dL (0.72-1.25); POTASSIUM 3.5 mmol/L (3.5-5.1)
[2021-11-07] MEDS: INSULIN REGULAR, HUMAN 100 UNIT/1 ML SQ SCH ×4 (07:30→21:03)
[2021-11-07] MEDS: METOPROLOL SUCCINATE 25 MG TAB XL PO SCH (08:03)
[2021-11-07] MEDS: PANTOPRAZOLE SOD 40 MG TABEC PO SCH (08:30)
[2021-11-07] MEDS: FINASTERIDE 5 MG TAB PO SCH (09:48)
[2021-11-07] MEDS: ASPIRIN 81 MG CHEW TAB PO SCH (09:48)
[2021-11-07] MEDS: APIXABAN 5 MG TABLET PO SCH ×2 (09:48→16:33)
[2021-11-07] MEDS: ALFUZOSIN HCL 10 MG TAB.ER.24H PO SCH (09:48)
[2021-11-07] MEDS: MULTIVITAMINS/MINERALS TAB PO SCH (09:48)
[2021-11-07] MEDS: SPIRONOLACTONE 25 MG TAB PO SCH (09:48)
[2021-11-07] MEDS: METOLAZONE 5 MG TAB PO SCH (09:49)
[2021-11-07] MEDS: GABAPENTIN 300 MG CAP PO SCH (20:14)
[2021-11-07] MEDS: ATORVASTATIN 40 MG TAB PO SCH (20:14)
[2021-11-08] VITALS (7 sets, daily range): BP systolic 104–122; BP diastolic 41–58
[2021-11-08] MEDS: LEVOTHYROXINE SODIUM 100 MCG TAB PO SCH (05:13)
[2021-11-08] MEDS: FUROSEMIDE INJ 10 MG/ML 4 ML VIAL IV SCH ×2 (05:13→15:00)
[2021-11-08 06:20] LABS: ANION GAP 11.4 mmol/L (8-16); CALCIUM 7.3 mg/dL (8.4-10.2); CREATININE, SERUM 1.1 mg/dL (0.72-1.25); POTASSIUM 3.4 mmol/L (3.5-5.1)
[2021-11-08] MEDS: INSULIN REGULAR, HUMAN 100 UNIT/1 ML SQ SCH ×4 (07:30→21:00)
[2021-11-08] MEDS: PANTOPRAZOLE SOD 40 MG TABEC PO SCH (08:30)
[2021-11-08] MEDS: ALFUZOSIN HCL 10 MG TAB.ER.24H PO SCH (08:45)
[2021-11-08] MEDS: ASPIRIN 81 MG CHEW TAB PO SCH (08:45)
[2021-11-08] MEDS: APIXABAN 5 MG TABLET PO SCH ×2 (08:45→16:25)
[2021-11-08] MEDS: SPIRONOLACTONE 25 MG TAB PO SCH (08:45)
[2021-11-08] MEDS: MULTIVITAMINS/MINERALS TAB PO SCH (08:46)
[2021-11-08] MEDS: FINASTERIDE 5 MG TAB PO SCH (08:46)
[2021-11-08] MEDS: METOPROLOL SUCCINATE 25 MG TAB XL PO SCH (08:46)
[2021-11-08] MEDS: METOLAZONE 5 MG TAB PO SCH (08:47)
[2021-11-08] MEDS ORDERED: POTASSIUM CHLORIDE 10MEQ EA PO ONE (11:00)
[2021-11-08] MEDS: ATORVASTATIN 40 MG TAB PO SCH (22:26)
[2021-11-08] MEDS: GABAPENTIN 300 MG CAP PO SCH (22:26)
[2021-11-09 04:00] VITALS: BP 126/53
[2021-11-09] MEDS: FUROSEMIDE INJ 10 MG/ML 4 ML VIAL IV SCH ×3 (06:00→22:30)
[2021-11-09] MEDS: LEVOTHYROXINE SODIUM 100 MCG TAB PO SCH (06:39)
[2021-11-09] MEDS: INSULIN REGULAR, HUMAN 100 UNIT/1 ML SQ SCH ×4 (07:30→21:00)
[2021-11-09 07:44] LABS: ALBUMIN 1.9 g/dL (3.5-5.0); ALBUMIN/GLOBULIN RATIO 0.7 (0.8-2.0); ANION GAP 11.3 mmol/L (8-16); CALCIUM 7.3 mg/dL (8.4-10.2); CREATININE, SERUM 1.26 mg/dL (0.72-1.25); POTASSIUM 3.3 mmol/L (3.5-5.1)
[2021-11-09 08:10] VITALS: BP 111/63
[2021-11-09 08:34] VITALS: BP 111/63
[2021-11-09] MEDS: METOLAZONE 5 MG TAB PO SCH (08:52)
[2021-11-09] MEDS: METOPROLOL SUCCINATE 25 MG TAB XL PO SCH (08:53)
[2021-11-09] MEDS: PANTOPRAZOLE SOD 40 MG TABEC PO SCH (08:53)
[2021-11-09] MEDS: ASPIRIN 81 MG CHEW TAB PO SCH (08:53)
[2021-11-09] MEDS: MULTIVITAMINS/MINERALS TAB PO SCH (08:53)
[2021-11-09] MEDS: ALFUZOSIN HCL 10 MG TAB.ER.24H PO SCH (08:53)
[2021-11-09] MEDS: FINASTERIDE 5 MG TAB PO SCH (08:53)
[2021-11-09] MEDS: SPIRONOLACTONE 25 MG TAB PO SCH (08:53)
[2021-11-09] MEDS: APIXABAN 5 MG TABLET PO SCH ×2 (09:00→16:31)
[2021-11-09] MEDS ORDERED: POTASSIUM CHLORIDE 10MEQ EA PO ONE (11:00)
[2021-11-09 11:27] VITALS: BP 114/50
[2021-11-09] MEDS ORDERED: ONDANSETRON HCL 4 MG ORAL DISINTEGRATING TAB SL PRN (15:15)
[2021-11-09 15:58] VITALS: BP 103/46
[2021-11-09 20:00] VITALS: BP_SYST 104; BP_SYST 115; BP_DIAS 54; BP_DIAS 57
[2021-11-09] MEDS: ATORVASTATIN 40 MG TAB PO SCH (22:30)
[2021-11-09] MEDS: GABAPENTIN 300 MG CAP PO SCH (22:30)
[2021-11-10] VITALS: BP 112/49
[2021-11-10] MEDS: LEVOTHYROXINE SODIUM 100 MCG TAB PO SCH (05:15)
[2021-11-10] MEDS: FUROSEMIDE INJ 10 MG/ML 4 ML VIAL IV SCH ×2 (05:15→14:00)
[2021-11-10 07:07] LABS: ALBUMIN 1.9 g/dL (3.5-5.0); ALBUMIN/GLOBULIN RATIO 0.8 (0.8-2.0); ANION GAP 11.3 mmol/L (8-16); CALCIUM 7.7 mg/dL (8.4-10.2); CREATININE, SERUM 1.29 mg/dL (0.72-1.25); POTASSIUM 3.3 mmol/L (3.5-5.1)
[2021-11-10] MEDS: INSULIN REGULAR, HUMAN 100 UNIT/1 ML SQ SCH ×2 (07:30→11:30)
[2021-11-10] MEDS: PANTOPRAZOLE SOD 40 MG TABEC PO SCH (07:30)
[2021-11-10 08:00] VITALS: BP 112/49
[2021-11-10 08:34] VITALS: BP 106/49
[2021-11-10] MEDS: APIXABAN 5 MG TABLET PO SCH (09:00)
[2021-11-10] MEDS: METOLAZONE 5 MG TAB PO SCH (09:00)
[2021-11-10] MEDS: METOPROLOL SUCCINATE 25 MG TAB XL PO SCH (09:00)
[2021-11-10] MEDS: ALFUZOSIN HCL 10 MG TAB.ER.24H PO SCH (09:00)
[2021-11-10] MEDS: MULTIVITAMINS/MINERALS TAB PO SCH (09:00)
[2021-11-10] MEDS: SPIRONOLACTONE 25 MG TAB PO SCH (09:00)
[2021-11-10] MEDS: ASPIRIN 81 MG CHEW TAB PO SCH (09:00)
[2021-11-10] MEDS: FINASTERIDE 5 MG TAB PO SCH (09:00)
[2021-11-10] MEDS ORDERED: BUMETANIDE2 MG PO (11:28)
[2021-11-10] MEDS ORDERED: METOLAZONE5 MG PO (11:28)
[2021-11-10 12:00] VITALS: BP 101/49
[2021-11-10] MEDS ORDERED: POTASSIUM CHLORIDE 20 MEQ TAB CR PO NR (12:30)
== END 2021-11-10 14:30 | disposition home or self-care (01) | DRG 291 ==
LOC: ER 13:19 → INTOOBSV 15:11 → ERHOLD 15:11 → MED/SURG3 17:00 → OBSVTOIN 11-07 14:34
PROVIDERS: ADMIT Internal Medicine; ATTEND Internal Medicine
DX: I11.0 Hypertensive heart disease with heart failure (principal); I50.23 Acute on chronic systolic (congestive) heart failure; N17.9 Acute kidney failure, unspecified; N40.0 Benign prostatic hyperplasia without lower urinary tract symptoms; I25.10 Atherosclerotic heart disease of native coronary artery without angina pectoris; E11.9 Type 2 diabetes mellitus without complications; I48.91 Unspecified atrial fibrillation; Z79.01 Long term (current) use of anticoagulants; E03.9 Hypothyroidism, unspecified; E78.00 Pure hypercholesterolemia, unspecified; K21.9 Gastro-esophageal reflux disease without esophagitis; I25.2 Old myocardial infarction; Z95.0 Presence of cardiac pacemaker; Z95.1 Presence of aortocoronary bypass graft; Z20.822 Contact with and (suspected) exposure to COVID-19
CPT/HCPCS: 36415; 71045; 80048; 80053; 82550; 82553; 82948; 83735; 83880; 84484; 85025; 85610; 85730; 93005; 94799; 99284; G0378; J1817; J1940; J7050; P9047; U0002

== ENCOUNTER 2021-12-18 06:31 | Inpatient (IN) | payer MEDICARE ==
[~2021-12-18] VITALS: Ht 177.8 cm; Wt 79.1 kg
[~2021-12-18 06:31] MED LIST changes: +SODIUM CHLORIDE FLUSH 10 ML SYR IV PRN
[2021-12-18] MEDS ORDERED: FUROSEMIDE INJ 10 MG/ML 4 ML VIAL IV ONE ×2 (06:45→12:00)
[2021-12-18] MEDS ORDERED: ASPIRIN 325 MG TAB PO ONE (06:45)
[2021-12-18 06:55] LABS: BASOPHILS % 0.8 % (0.0-1.0); EOSINOPHILS # (AUTO) 0.3 (0.0-0.4); EOSINOPHILS % 5.7 % (0.0-6.0); HEMATOCRIT 32.2 % (38.2-49.6); HEMOGLOBIN 9.6 g/dL (14.0-18.0); LYMPHOCYTES # (AUTO) 0.8 (1.0-3.2); MEAN CORPUSCULAR HEMOGLOBIN 25.1 pg (28-32); MEAN CORPUSCULAR HGB CONC 29.8 g/dL (31-35); MEAN CORPUSCULAR VOLUME 84.3 fL (81-99); MONOCYTES # (AUTO) 0.5 (0.2-0.8); MONOCYTES % 10.9 % (4.4-11.3); NEUTROPHILS # (AUTO) 3.2 (2.1-6.9); NEUTROPHILS % 66.4 % (38.7-80.0); PLATELET COUNT 242 x10e3/uL (140-360); RED BLOOD COUNT 3.82 x10e6/uL (4.3-5.7)
[2021-12-18 07:05] LABS: INR 1.01; PARTIAL THROMBOPLASTIN TIME 33.6 seconds (23.8-35.5); PROTHROMBIN TIME 14.2 seconds (11.9-14.5)
[2021-12-18 07:14] LABS: ALBUMIN 1.6 g/dL (3.5-5.0); ALBUMIN/GLOBULIN RATIO 0.6 (0.8-2.0); ANION GAP 12.2 mmol/L (8-16); CREATININE, SERUM 0.92 mg/dL (0.72-1.25); POTASSIUM 4.2 mmol/L (3.5-5.1)
[2021-12-18] MEDS ORDERED: POTASSIUM CHLO20 ME1 PO (07:15)
[2021-12-18] MEDS ORDERED: BUMETANIDE1 MG PO (07:15)
[2021-12-18] MEDS ORDERED: ENTRESTO 24 MG1 EACH PO (07:15)
[2021-12-18] MEDS ORDERED: OMEPRAZOLE40 MG PO (07:15)
[2021-12-18] MEDS ORDERED: TYLENOL #3 PO (07:17)
[2021-12-18 07:55] LABS: CLARITY,URINE CLEAR (CLEAR); COLOR,URINE YELLOW (YELLOW); KETONES,URINE NEGATIVE (NEGATIVE); LEUKOCYTE ESTERASE ,URINE SMALL (NEGATIVE); NITRITE,URINE NEGATIVE (NEGATIVE); PROTEIN,URINE DIPSTICK NEGATIVE (NEGATIVE); URINE UROBILINOGEN 0.2 mg/dL (0.2 - 1)
[2021-12-18 08:03] LABS: BACTERIA,URINE RARE /HPF; EPITHELIAL CELLS,URINE FEW /LPF; RBC,URINE 0-5 /HPF (0-5)
[2021-12-18] MEDS ORDERED: ASPIRIN 81 MG CHEW TAB PO ONE (09:00)
[2021-12-18] MEDS ORDERED: ONDANSETRON HCL INJ 2MG/ML 2ML 2 MG/ML VIAL IV PRN (09:00)
[2021-12-18] MEDS ORDERED: METOLAZONE 5 MG TAB PO ONE (12:00)
[2021-12-18 16:53] LABS: CREATINE KINASE MB 6.4 ng/mL (0-5.0)
[2021-12-18] MEDS: APIXABAN 5 MG TABLET PO SCH (17:00)
[2021-12-18] MEDS ORDERED: ACETAMINOPHEN/CODEINE 300MG - 30MG TAB PO PRN (17:15)
[2021-12-18 17:25] VITALS: BP 110/67
[2021-12-18 20:00] VITALS: BP 102/56
[2021-12-18 20:30] VITALS: BP 102/56
[2021-12-18 20:45] VITALS: BP 102/56
[2021-12-18] MEDS: FUROSEMIDE INJ 10 MG/ML 4 ML VIAL IV SCH (21:45)
[2021-12-18] MEDS: ATORVASTATIN 40 MG TAB PO SCH (21:46)
[2021-12-18] MEDS: GABAPENTIN 300 MG CAP PO SCH (21:46)
[2021-12-19] VITALS (8 sets, daily range): BP systolic 95–116; BP diastolic 53–72
[2021-12-19] MEDS ORDERED: LEVOTHYROXINE SODIUM 100 MCG TAB PO SCH (06:00)
[2021-12-19 06:32] LABS: BASOPHILS # (AUTO) 0.1 (0.0-0.1); BASOPHILS % 0.9 % (0.0-1.0); EOSINOPHILS # (AUTO) 0.4 (0.0-0.4); EOSINOPHILS % 6.4 % (0.0-6.0); HEMOGLOBIN 9.4 g/dL (14.0-18.0); LYMPHOCYTES # (AUTO) 0.8 (1.0-3.2); LYMPHOCYTES % 14.6 % (18.0-39.1); MEAN CORPUSCULAR HEMOGLOBIN 25.4 pg (28-32); MEAN CORPUSCULAR HGB CONC 30.3 g/dL (31-35); MEAN CORPUSCULAR VOLUME 83.8 fL (81-99); MONOCYTES # (AUTO) 0.6 (0.2-0.8); MONOCYTES % 11.3 % (4.4-11.3); NEUTROPHILS # (AUTO) 3.6 (2.1-6.9); NEUTROPHILS % 66.4 % (38.7-80.0); PLATELET COUNT 236 x10e3/uL (140-360); RED CELL DISTRIBUTION WIDTH 15.9 % (11.7-14.4)
[2021-12-19 07:12] LABS: ALBUMIN 1.5 g/dL (3.5-5.0); ALBUMIN/GLOBULIN RATIO 0.6 (0.8-2.0); CREATININE, SERUM 1.08 mg/dL (0.72-1.25)
[2021-12-19 07:13] LABS: MAGNESIUM 1.5 MG/DL (1.3-2.1); THYROID STIMULATING HORMONE 11.609 uIU/mL (0.350-4.940)
[2021-12-19 07:18] LABS: CALCIUM 6.6 mg/dL (8.4-10.2)
[2021-12-19] MEDS: FINASTERIDE 5 MG TAB PO SCH (09:00)
[2021-12-19] MEDS: APIXABAN 5 MG TABLET PO SCH ×2 (09:00→17:18)
[2021-12-19] MEDS: FUROSEMIDE INJ 10 MG/ML 4 ML VIAL IV SCH ×2 (09:00→17:18)
[2021-12-19] MEDS: ALFUZOSIN HCL 10 MG TAB.ER.24H PO SCH (09:00)
[2021-12-19] MEDS: METOPROLOL SUCCINATE 25 MG TAB XL PO SCH (09:00)
[2021-12-19] MEDS: ASPIRIN 81 MG CHEW TAB PO SCH (09:00)
[2021-12-19] MEDS ORDERED: VALSARTAN/SACUBITRIL 24MG/26MG 1 EA TAB PO SCH (09:00)
[2021-12-19] MEDS ORDERED: CALCIUM GLUC 1 G/50 ML NACL 50 ML IV ONE (09:30)
[2021-12-19] MEDS ORDERED: METOLAZONE 5 MG TAB PO ONE (10:00)
[2021-12-19] MEDS ORDERED: SODIUM CHLORIDE 0.9% 250ML 250 ML ONE (10:12)
[2021-12-19] MEDS: MAGNESIUM SULFATE 2GM/50ML 50 ML IV SCH ×2 (10:23→12:55)
[2021-12-19] MEDS ORDERED: IRON SUCROSE 100 MG in SODIUM CHLORIDE 0.9% 100 ML 100 ML IV SCH (14:00)
[2021-12-19] MEDS: IRON SUCROSE 100 MG in SODIUM CHLORIDE 0.9% 100 ML 100 ML IV SCH (20:00)
[2021-12-19] MEDS: ATORVASTATIN 40 MG TAB PO SCH (21:12)
[2021-12-19] MEDS: VALSARTAN/SACUBITRIL 24MG/26MG 1 EA TAB PO SCH (21:12)
[2021-12-19] MEDS: GABAPENTIN 300 MG CAP PO SCH (21:13)
[2021-12-20] VITALS (8 sets, daily range): BP systolic 97–120; BP diastolic 45–62
[2021-12-20 05:31] LABS: ALBUMIN 1.5 g/dL (3.5-5.0); ALBUMIN/GLOBULIN RATIO 0.6 (0.8-2.0); ANION GAP 10.3 mmol/L (8-16); CREATININE, SERUM 0.97 mg/dL (0.72-1.25); MAGNESIUM 2.1 MG/DL (1.3-2.1); POTASSIUM 3.3 mmol/L (3.5-5.1)
[2021-12-20 05:34] LABS: CALCIUM 6.8 mg/dL (8.4-10.2)
[2021-12-20] MEDS: LEVOTHYROXINE SODIUM 112 MCG TAB PO SCH (06:00)
[2021-12-20] MEDS: VALSARTAN/SACUBITRIL 24MG/26MG 1 EA TAB PO SCH ×2 (09:00→20:29)
[2021-12-20] MEDS: APIXABAN 5 MG TABLET PO SCH ×2 (09:00→16:37)
[2021-12-20] MEDS: ASPIRIN 81 MG CHEW TAB PO SCH (09:00)
[2021-12-20] MEDS: FUROSEMIDE INJ 10 MG/ML 4 ML VIAL IV SCH ×2 (09:00→16:30)
[2021-12-20] MEDS: ALFUZOSIN HCL 10 MG TAB.ER.24H PO SCH (09:00)
[2021-12-20] MEDS ORDERED: ACETAZOLAMIDE SODIUM 500 MG/VIAL IV ONE ×2 (09:30→11:30)
[2021-12-20] MEDS ORDERED: POTASSIUM CHLORIDE 20 MEQ TAB CR PO ONE (10:00)
[2021-12-20] MEDS: METOPROLOL SUCCINATE 25 MG TAB XL PO SCH (11:53)
[2021-12-20] MEDS: FINASTERIDE 5 MG TAB PO SCH (11:54)
[2021-12-20] MEDS: GABAPENTIN 300 MG CAP PO SCH (20:28)
[2021-12-20] MEDS: ATORVASTATIN 40 MG TAB PO SCH (20:28)
[2021-12-20] MEDS: IRON SUCROSE 100 MG in SODIUM CHLORIDE 0.9% 100 ML 100 ML IV SCH (20:29)
[2021-12-21 00:49] VITALS: BP 102/51
[2021-12-21 05:44] VITALS: BP 100/57
[2021-12-21] MEDS: LEVOTHYROXINE SODIUM 112 MCG TAB PO SCH (06:00)
[2021-12-21 06:18] LABS: BASOPHILS # (AUTO) 0.1 (0.0-0.1); BASOPHILS % 1.1 % (0.0-1.0); EOSINOPHILS # (AUTO) 0.4 (0.0-0.4); EOSINOPHILS % 8.8 % (0.0-6.0); HEMATOCRIT 30.6 % (38.2-49.6); HEMOGLOBIN 9.2 g/dL (14.0-18.0); LYMPHOCYTES # (AUTO) 0.9 (1.0-3.2); LYMPHOCYTES % 19.3 % (18.0-39.1); MEAN CORPUSCULAR HEMOGLOBIN 25.3 pg (28-32); MEAN CORPUSCULAR HGB CONC 30.1 g/dL (31-35); MEAN CORPUSCULAR VOLUME 84.1 fL (81-99); MONOCYTES # (AUTO) 0.7 (0.2-0.8); MONOCYTES % 15.1 % (4.4-11.3); NEUTROPHILS # (AUTO) 2.5 (2.1-6.9); NEUTROPHILS % 55.5 % (38.7-80.0); PLATELET COUNT 236 x10e3/uL (140-360); RED BLOOD COUNT 3.64 x10e6/uL (4.3-5.7); RED CELL DISTRIBUTION WIDTH 15.9 % (11.7-14.4)
[2021-12-21 06:48] LABS: ANION GAP 9.7 mmol/L (8-16); CREATININE, SERUM 0.91 mg/dL (0.72-1.25); POTASSIUM 3.7 mmol/L (3.5-5.1)
[2021-12-21 06:59] LABS: CALCIUM 6.8 mg/dL (8.4-10.2)
[2021-12-21 08:18] VITALS: BP 113/58
[2021-12-21 08:46] VITALS: BP 113/58
[2021-12-21] MEDS: ALFUZOSIN HCL 10 MG TAB.ER.24H PO SCH (08:56)
[2021-12-21] MEDS: ASPIRIN 81 MG CHEW TAB PO SCH (08:57)
[2021-12-21] MEDS: FUROSEMIDE INJ 10 MG/ML 4 ML VIAL IV SCH ×3 (09:00→21:07)
[2021-12-21] MEDS: FINASTERIDE 5 MG TAB PO SCH (09:01)
[2021-12-21] MEDS: VALSARTAN/SACUBITRIL 24MG/26MG 1 EA TAB PO SCH ×2 (09:01→21:08)
[2021-12-21] MEDS: APIXABAN 5 MG TABLET PO SCH ×2 (09:01→17:06)
[2021-12-21] MEDS: METOPROLOL SUCCINATE 25 MG TAB XL PO SCH (09:02)
[2021-12-21] MEDS ORDERED: ALBUMIN 25% 25GM 100ML 0.25 GM/ML BTL IV ONE (14:00)
[2021-12-21] MEDS ORDERED: DEXTROSE 50% SYRINGE 50 ML IV PRN (14:15)
[2021-12-21] MEDS ORDERED: ALBUMIN 25% 12.5GM 50ML 100 ML IV ONE (14:30)
[2021-12-21] MEDS ORDERED: ACETAZOLAMIDE SODIUM 500 MG/VIAL IV ONE (14:30)
[2021-12-21] MEDS ORDERED: METOLAZONE 5 MG TAB PO ONE (16:00)
[2021-12-21] MEDS: SPIRONOLACTONE 25 MG TAB PO SCH (16:00)
[2021-12-21 16:51] VITALS: BP 97/46
[2021-12-21] MEDS ORDERED: ONDANSETRON HCL 4 MG ORAL DISINTEGRATING TAB PO PRN (17:00)
[2021-12-21] MEDS: INSULIN LISPRO 100 UNIT/1 ML 3ML VIAL SQ SCH ×2 (17:09→21:00)
[2021-12-21 20:00] VITALS: BP 92/51
[2021-12-21] MEDS: ATORVASTATIN 40 MG TAB PO SCH (21:08)
[2021-12-21] MEDS: TEMAZEPAM 15 MG CAP PO PRN (21:08)
[2021-12-21] MEDS: GABAPENTIN 300 MG CAP PO SCH (21:09)
[2021-12-21] MEDS: IRON SUCROSE 100 MG in SODIUM CHLORIDE 0.9% 100 ML 100 ML IV SCH (21:09)
[2021-12-22] VITALS (7 sets, daily range): BP systolic 79–103; BP diastolic 45–58
[2021-12-22] MEDS: LEVOTHYROXINE SODIUM 112 MCG TAB PO SCH (05:42)
[2021-12-22 06:54] LABS: BASOPHILS % 1.3 % (0.0-1.0); EOSINOPHILS # (AUTO) 0.3 (0.0-0.4); EOSINOPHILS % 8.2 % (0.0-6.0); HEMOGLOBIN 8.7 g/dL (14.0-18.0); LYMPHOCYTES # (AUTO) 0.5 (1.0-3.2); LYMPHOCYTES % 16.6 % (18.0-39.1); MEAN CORPUSCULAR HEMOGLOBIN 25.4 pg (28-32); MEAN CORPUSCULAR VOLUME 84.8 fL (81-99); MONOCYTES # (AUTO) 0.5 (0.2-0.8); MONOCYTES % 14.1 % (4.4-11.3); NEUTROPHILS # (AUTO) 1.9 (2.1-6.9); NEUTROPHILS % 59.5 % (38.7-80.0); PLATELET COUNT 172 x10e3/uL (140-360); RED BLOOD COUNT 3.42 x10e6/uL (4.3-5.7); RED CELL DISTRIBUTION WIDTH 15.9 % (11.7-14.4)
[2021-12-22 07:24] LABS: ANION GAP 8.4 mmol/L (8-16); CALCIUM 7.1 mg/dL (8.4-10.2); POTASSIUM 3.4 mmol/L (3.5-5.1)
[2021-12-22] MEDS: INSULIN LISPRO 100 UNIT/1 ML 3ML VIAL SQ SCH ×4 (07:30→21:00)
[2021-12-22] MEDS: ALFUZOSIN HCL 10 MG TAB.ER.24H PO SCH (08:50)
[2021-12-22] MEDS: SPIRONOLACTONE 25 MG TAB PO SCH (08:51)
[2021-12-22] MEDS: FINASTERIDE 5 MG TAB PO SCH (08:52)
[2021-12-22] MEDS: ASPIRIN 81 MG CHEW TAB PO SCH (08:52)
[2021-12-22] MEDS: APIXABAN 5 MG TABLET PO SCH ×2 (08:52→16:54)
[2021-12-22] MEDS: VALSARTAN/SACUBITRIL 24MG/26MG 1 EA TAB PO SCH ×2 (08:52→21:07)
[2021-12-22] MEDS: METOPROLOL SUCCINATE 25 MG TAB XL PO SCH (08:53)
[2021-12-22] MEDS ORDERED: ACETAZOLAMIDE SODIUM 500 MG/VIAL IV NR (09:45)
[2021-12-22] MEDS ORDERED: ALBUMIN 25% 25GM 100ML 0.25 GM/ML BTL IV NR (09:45)
[2021-12-22] MEDS ORDERED: FUROSEMIDE INJ 10 MG/ML 4 ML VIAL IV NR (09:45)
[2021-12-22] MEDS ORDERED: POTASSIUM CHLORIDE 20 MEQ TAB CR PO NR (09:45)
[2021-12-22] MEDS ORDERED: ALBUMIN 25% 12.5GM 0.25 GM/ML BTL IV ONE (12:30)
[2021-12-22] MEDS ORDERED: FUROSEMIDE INJ 10 MG/ML 4 ML VIAL IV ONE (18:30)
[2021-12-22] MEDS: GABAPENTIN 300 MG CAP PO SCH (21:06)
[2021-12-22] MEDS: ATORVASTATIN 40 MG TAB PO SCH (21:07)
[2021-12-23] VITALS (7 sets, daily range): BP systolic 88–116; BP diastolic 45–65
[2021-12-23] MEDS: LEVOTHYROXINE SODIUM 112 MCG TAB PO SCH (05:38)
[2021-12-23] MEDS: INSULIN LISPRO 100 UNIT/1 ML 3ML VIAL SQ SCH ×4 (07:30→21:01)
[2021-12-23 08:05] LABS: ANION GAP 9.4 mmol/L (8-16); CREATININE, SERUM 0.93 mg/dL (0.72-1.25); POTASSIUM 3.4 mmol/L (3.5-5.1)
[2021-12-23] MEDS: METOPROLOL SUCCINATE 25 MG TAB XL PO SCH (08:34)
[2021-12-23] MEDS: VALSARTAN/SACUBITRIL 24MG/26MG 1 EA TAB PO SCH ×2 (08:35→21:00)
[2021-12-23] MEDS: ALFUZOSIN HCL 10 MG TAB.ER.24H PO SCH (08:35)
[2021-12-23] MEDS: FINASTERIDE 5 MG TAB PO SCH (08:35)
[2021-12-23] MEDS: ASPIRIN 81 MG CHEW TAB PO SCH (08:35)
[2021-12-23] MEDS: SPIRONOLACTONE 25 MG TAB PO SCH (08:36)
[2021-12-23] MEDS: APIXABAN 5 MG TABLET PO SCH ×2 (08:36→17:08)
[2021-12-23] MEDS ORDERED: POTASSIUM CHLORIDE 20 MEQ TAB CR PO NR (10:45)
[2021-12-23] MEDS: FUROSEMIDE INJ 10 MG/ML 4 ML VIAL IV SCH ×2 (11:50→17:09)
[2021-12-23] MEDS ORDERED: ALBUMIN 25% 12.5GM 0.25 GM/ML BTL IV ONE (15:30)
[2021-12-23] MEDS ORDERED: SODIUM CHLORIDE 0.9% 250ML 250 ML ONE (15:38)
[2021-12-23] MEDS: GABAPENTIN 300 MG CAP PO SCH (21:00)
[2021-12-23] MEDS: ATORVASTATIN 40 MG TAB PO SCH (21:00)
[2021-12-23] MEDS: TEMAZEPAM 15 MG CAP PO PRN (21:03)
[2021-12-24 02:43] VITALS: BP 105/47
[2021-12-24 04:00] VITALS: BP 93/40
[2021-12-24] MEDS: LEVOTHYROXINE SODIUM 112 MCG TAB PO SCH (05:17)
[2021-12-24] MEDS: INSULIN LISPRO 100 UNIT/1 ML 3ML VIAL SQ SCH ×2 (07:30→12:10)
[2021-12-24 08:34] VITALS: BP 98/49
[2021-12-24] MEDS: VALSARTAN/SACUBITRIL 24MG/26MG 1 EA TAB PO SCH (08:48)
[2021-12-24] MEDS: ASPIRIN 81 MG CHEW TAB PO SCH (08:49)
[2021-12-24] MEDS: ALFUZOSIN HCL 10 MG TAB.ER.24H PO SCH (08:49)
[2021-12-24] MEDS: METOPROLOL SUCCINATE 25 MG TAB XL PO SCH (08:49)
[2021-12-24] MEDS: SPIRONOLACTONE 25 MG TAB PO SCH (08:49)
[2021-12-24] MEDS: FINASTERIDE 5 MG TAB PO SCH (08:49)
[2021-12-24] MEDS: FUROSEMIDE INJ 10 MG/ML 4 ML VIAL IV SCH (08:50)
[2021-12-24] MEDS: APIXABAN 5 MG TABLET PO SCH (08:50)
[2021-12-24] MEDS ORDERED: ALDACTONE25 MG PO (10:25)
[2021-12-24] MEDS ORDERED: RESTORIL15 MG PO (10:25)
[2021-12-24] MEDS ORDERED: LEVOTHYROXINE112 MCG PO (10:25)
[2021-12-24] MEDS ORDERED: BUMETANIDE1 MG PO (10:25)
[2021-12-24 12:17] VITALS: BP 102/48
== END 2021-12-24 14:25 | disposition home or self-care (01) | DRG 291 ==
LOC: ER 06:38 → ERHOLD 08:52 → MED/SURG2 16:43
PROVIDERS: ADMIT Internal Medicine; ATTEND Internal Medicine
DX: I11.0 Hypertensive heart disease with heart failure (principal); I50.43 Acute on chronic combined systolic (congestive) and diastolic (congestive) heart failure; E87.3 Alkalosis; I48.91 Unspecified atrial fibrillation; Z79.01 Long term (current) use of anticoagulants; D64.9 Anemia, unspecified; E11.9 Type 2 diabetes mellitus without complications; I25.10 Atherosclerotic heart disease of native coronary artery without angina pectoris; Z95.1 Presence of aortocoronary bypass graft; I25.5 Ischemic cardiomyopathy; E78.5 Hyperlipidemia, unspecified; Z95.810 Presence of automatic (implantable) cardiac defibrillator; N40.0 Benign prostatic hyperplasia without lower urinary tract symptoms; G47.00 Insomnia, unspecified; D50.9 Iron deficiency anemia, unspecified; I25.2 Old myocardial infarction; K21.9 Gastro-esophageal reflux disease without esophagitis; R09.02 Hypoxemia; E87.6 Hypokalemia; I49.5 Sick sinus syndrome; Z20.822 Contact with and (suspected) exposure to COVID-19; Z79.899 Other long term (current) drug therapy
CPT/HCPCS: 36415; 71045; 80048; 80053; 81001; 82550; 82553; 82948; 83540; 83735; 83880; 84443; 84466; 84484; 85025; 85610; 85730; 87040; 93005; 94799; 99284; J0456; J0696; J1756; J1940; J3475; J7050; P9047

== ENCOUNTER 2021-12-26 08:25 | Emergency (ER) | payer MEDICARE ==
[~2021-12-26] VITALS: Ht 177.8 cm; Wt 78.9 kg
[~2021-12-26 08:25] MED LIST changes: +ENTRESTO 24 MG1 EACH PO; +LEVOTHYROXINE112 MCG PO; +POTASSIUM CHLO20 ME1 PO; +RESTORIL15 MG PO; +TYLENOL #3 PO
[2021-12-26] MEDS ORDERED: FUROSEMIDE INJ 10 MG/ML 4 ML VIAL IV ONE (09:00)
[2021-12-26] MEDS ORDERED: ASPIRIN 325 MG TAB PO ONE (09:00)
== END 2021-12-26 09:45 | disposition home or self-care (01) ==
LOC: ER 08:37
DX: R60.9 Edema, unspecified (principal); I50.9 Heart failure, unspecified; I25.2 Old myocardial infarction; Z95.1 Presence of aortocoronary bypass graft; Z95.810 Presence of automatic (implantable) cardiac defibrillator
CPT/HCPCS: 99282

== ENCOUNTER 2023-06-22 07:04 | Inpatient (IN) | payer MEDICARE ==
[~2023-06-22] VITALS: Ht 167.6 cm; Wt 86.4 kg
[~2023-06-22 07:04] MED LIST changes: +CEFUROXIME500 MG PO; +SODIUM CHLORI1000 M2 PO; -SODIUM CHLORIDE FLUSH 10 ML SYR IV PRN
[2023-06-22] MEDS ORDERED: SODIUM CHLORIDE FLUSH 10 ML SYR IV PRN (07:30)
[2023-06-22 07:57] LABS: BASOPHILS # (AUTO) 0.1 (0.0-0.1); BASOPHILS % 0.8 % (0.0-1.0); EOSINOPHILS # (AUTO) 0.2 (0.0-0.4); EOSINOPHILS % 2.8 % (0.0-6.0); HEMATOCRIT 31.3 % (38.2-49.6); HEMOGLOBIN 9.6 g/dL (14.0-18.0); LYMPHOCYTES # (AUTO) 0.7 (1.0-3.2); LYMPHOCYTES % 11.4 % (18.0-39.1); MEAN CORPUSCULAR HEMOGLOBIN 25.4 pg (28-32); MEAN CORPUSCULAR HGB CONC 30.7 g/dL (31-35); MEAN CORPUSCULAR VOLUME 82.8 fL (81-99); MONOCYTES # (AUTO) 0.6 (0.2-0.8); MONOCYTES % 9.2 % (4.4-11.3); NEUTROPHILS # (AUTO) 4.9 (2.1-6.9); NEUTROPHILS % 75.6 % (38.7-80.0); PLATELET COUNT 227 x10e3/uL (140-360); RED BLOOD COUNT 3.78 x10e6/uL (4.3-5.7); RED CELL DISTRIBUTION WIDTH 15.2 % (11.7-14.4); WHITE BLOOD COUNT 6.51 x10e3/uL (4.8-10.8)
[2023-06-22 08:18] LABS: ALBUMIN 1.9 g/dL (3.5-5.0); ALBUMIN/GLOBULIN RATIO 0.6 (0.8-2.0); ANION GAP 13.5 mmol/L (8-16); BILIRUBIN,TOTAL 0.4 mg/dL (0.2-1.2); CALCIUM 7.3 mg/dL (8.4-10.2); CREATININE, SERUM 1.1 mg/dL (0.72-1.25); POTASSIUM 4.5 mmol/L (3.5-5.1); TOTAL PROTEIN 5.3 g/dL (6.5-8.1)
[2023-06-22 08:19] LABS: CLARITY,URINE CLEAR (CLEAR); COLOR,URINE YELLOW (YELLOW); GLUCOSE, URINE NEGATIVE (NEGATIVE); LEUKOCYTE ESTERASE ,URINE MODERATE (NEGATIVE); NITRITE,URINE NEGATIVE (NEGATIVE); PH,URINE 7 (5 - 7); PROTEIN,URINE DIPSTICK NEGATIVE (NEGATIVE)
[2023-06-22 08:20] LABS: BILIRUBIN,URINE NEGATIVE (NEGATIVE); KETONES,URINE TRACE (NEGATIVE); URINE UROBILINOGEN 0.2 mg/dL (0.2 - 1)
[2023-06-22 08:37] LABS: BACTERIA,URINE MODERATE /HPF; RBC,URINE 0-5 /HPF (0-5)
[2023-06-22 08:38] LABS: EPITHELIAL CELLS,URINE FEW /LPF
[2023-06-22 08:53] LABS: TROPONIN I 0.038 ng/mL (0-0.300)
[2023-06-22] MEDS ORDERED: CLINDAMYCIN 600MG / 50ML 50 ML IV ONE (09:15)
[2023-06-22] MEDS ORDERED: SODIUM CHLORIDE FLUSH 10 ML SYR INJ PRN (09:30)
[2023-06-22] MEDS: FUROSEMIDE INJ 10 MG/ML 4 ML VIAL IV SCH ×2 (09:47→20:06)
[2023-06-22 12:30] VITALS: BP 128/74; PULSE 83; RESP 18; TEMP 97.9; O2SAT 99
[2023-06-22] MEDS ORDERED: SODIUM CHLORIDE 0.9% 250ML 250 ML ONE (16:08)
[2023-06-22] MEDS: SACUBITRIL/VALSARTAN 24MG/26MG 1 EA TAB PO SCH (16:08)
[2023-06-22 16:10] VITALS: BP 113/78; PULSE 83; RESP 18; TEMP 97.9; O2SAT 98
[2023-06-22 16:29] VITALS: BP 113/78; PULSE 83; RESP 18; TEMP 97.9; O2SAT 98
[2023-06-22] MEDS: ONDANSETRON HCL INJ 2MG/ML 2ML 2 MG/ML VIAL IV PRN (20:05)
[2023-06-22] MEDS: ATORVASTATIN 40 MG TAB PO SCH (20:06)
[2023-06-22] MEDS: GABAPENTIN 300 MG CAP PO SCH (20:06)
[2023-06-22] MEDS: Morphine 2mg Syringe 2 MG/ML SYR IV PRN (20:06)
[2023-06-22 21:00] VITALS: BP 113/78; PULSE 83; RESP 18; TEMP 97.9; O2SAT 98
[2023-06-22] MEDS ORDERED: TEMAZEPAM 15 MG CAP PO PRN (21:00)
[2023-06-22 22:04] VITALS: BP 112/56; PULSE 89; RESP 17; TEMP 97.8; O2SAT 96
[2023-06-23] VITALS (11 sets, daily range): BP systolic 78–104; BP diastolic 47–55; PULSE 80–97; RESP 16–19; TEMP 97.6–98.4; O2SAT 96–99
[2023-06-23] MEDS ORDERED: SODIUM CHLORIDE 0.9% 500ML 500 ML ONE ×2 (03:48→07:18)
[2023-06-23] MEDS ORDERED: SODIUM CHLORIDE 0.9% 500ML 500 ML IV ONE (04:15)
[2023-06-23 04:29] LABS: ABG HCO3 29 mmol/L (22-26); ABG PCO2 43 mmHg (35-45); ABG PH 7.43 (7.35-7.45); ABG PO2 143 mmHg (80-105); ABG TCO2 30
[2023-06-23 04:32] LABS: BASOPHILS # (AUTO) 0.1 (0.0-0.1); BASOPHILS % 0.6 % (0.0-1.0); EOSINOPHILS % 0.2 % (0.0-6.0); HEMATOCRIT 31.3 % (38.2-49.6); HEMOGLOBIN 9.3 g/dL (14.0-18.0); LYMPHOCYTES # (AUTO) 1.2 (1.0-3.2); LYMPHOCYTES % 13.6 % (18.0-39.1); MEAN CORPUSCULAR HEMOGLOBIN 25.2 pg (28-32); MEAN CORPUSCULAR HGB CONC 29.7 g/dL (31-35); MEAN CORPUSCULAR VOLUME 84.8 fL (81-99); MONOCYTES # (AUTO) 1.1 (0.2-0.8); MONOCYTES % 13.3 % (4.4-11.3); NEUTROPHILS # (AUTO) 6.1 (2.1-6.9); NEUTROPHILS % 71.9 % (38.7-80.0); PLATELET COUNT 224 x10e3/uL (140-360); RED BLOOD COUNT 3.69 x10e6/uL (4.3-5.7); RED CELL DISTRIBUTION WIDTH 15.2 % (11.7-14.4); WHITE BLOOD COUNT 8.51 x10e3/uL (4.8-10.8)
[2023-06-23 04:44] LABS: ANION GAP 15.6 mmol/L (8-16); CALCIUM 7.1 mg/dL (8.4-10.2); CREATININE, SERUM 1.52 mg/dL (0.72-1.25); POTASSIUM 4.6 mmol/L (3.5-5.1)
[2023-06-23 04:54] LABS: TROPONIN I 1.295 ng/mL (0-0.300)
[2023-06-23] MEDS: LEVOTHYROXINE SODIUM 112 MCG TAB PO SCH (05:48)
[2023-06-23 06:27] LABS: ALBUMIN 1.7 g/dL (3.5-5.0); ALBUMIN/GLOBULIN RATIO 0.6 (0.8-2.0); ANION GAP 16.7 mmol/L (8-16); BILIRUBIN,TOTAL 0.5 mg/dL (0.2-1.2); CALCIUM 7.1 mg/dL (8.4-10.2); CREATININE, SERUM 1.52 mg/dL (0.72-1.25); POTASSIUM 4.7 mmol/L (3.5-5.1); TOTAL PROTEIN 4.7 g/dL (6.5-8.1)
[2023-06-23] MEDS ORDERED: SODIUM CHLORIDE 0.9% 1000ML 500 ML IV ONE (08:15)
[2023-06-23] MEDS ORDERED: SPIRONOLACTONE 25 MG TAB PO SCH (09:00)
[2023-06-23] MEDS ORDERED: METOPROLOL SUCCINATE 25 MG TAB XL PO SCH (09:00)
[2023-06-23] MEDS ORDERED: PANTOPRAZOLE SOD 40 MG TABEC PO SCH (09:00)
[2023-06-23] MEDS: SACUBITRIL/VALSARTAN 24MG/26MG 1 EA TAB PO SCH ×2 (09:00→16:42)
[2023-06-23] MEDS ORDERED: ALFUZOSIN HCL 10 MG TAB.ER.24H PO SCH (09:00)
[2023-06-23] MEDS: FUROSEMIDE INJ 10 MG/ML 4 ML VIAL IV SCH (09:00)
[2023-06-23] MEDS: MULTIVITAMINS/MINERALS TAB PO SCH (09:04)
[2023-06-23] MEDS: FINASTERIDE 5 MG TAB PO SCH (09:04)
[2023-06-23] MEDS: ASPIRIN 81 MG CHEW TAB PO SCH (09:04)
[2023-06-23] MEDS: MIDODRINE HCL 5 MG TABLET PO SCH ×3 (11:10→15:53)
[2023-06-23 12:50] LABS: THYROID STIMULATING HORMONE 8.79 uIU/mL (0.350-4.940)
[2023-06-23] MEDS ORDERED: BUMETANIDE 1 MG TAB PO SCH (17:00)
[2023-06-23] MEDS: ATORVASTATIN 40 MG TAB PO SCH (21:40)
[2023-06-23] MEDS: GABAPENTIN 300 MG CAP PO SCH (21:40)
[2023-06-23] MEDS: ONDANSETRON HCL INJ 2MG/ML 2ML 2 MG/ML VIAL IV PRN (22:59)
[2023-06-24] VITALS (44 sets, daily range): BP systolic 69–124; BP diastolic 33–77; PULSE 73–119; RESP 0–21; TEMP 97.6–98.2; O2SAT 88–100
[2023-06-24] MEDS ORDERED: FENTANYL CITRATE/PF 100MCG/2 ML INJ ONE (04:04)
[2023-06-24] MEDS ORDERED: MIDAZOLAM HCL IV PRN (04:15)
[2023-06-24] MEDS ORDERED: SODIUM CHLORIDE 0.9% IV PRN (04:15)
[2023-06-24] MEDS ORDERED: MIDAZOLAM HCL 5MG/ML 10ML VIAL 100 ML IV PRN ×3 (05:00→07:30)
[2023-06-24] MEDS ORDERED: NOREPINEPHRINE 8 MG/D5W 250 ML 250 ML IV SCH (05:00)
[2023-06-24] MEDS: NOREPINEPHRINE 8 MG/D5W 250 ML 250 ML IV SCH ×2 (05:31→16:01)
[2023-06-24] MEDS: FENTANYL 2000MCG/NS 250 250 ML IV PRN (05:41)
[2023-06-24] MEDS: LEVOTHYROXINE SODIUM 112 MCG TAB PO SCH (06:00)
[2023-06-24 06:39] LABS: BASOPHILS % 0.2 % (0.0-1.0); HEMATOCRIT 33.4 % (38.2-49.6); LYMPHOCYTES # (AUTO) 0.3 (1.0-3.2); LYMPHOCYTES % 2.3 % (18.0-39.1); MEAN CORPUSCULAR HEMOGLOBIN 25.4 pg (28-32); MEAN CORPUSCULAR HGB CONC 29.9 g/dL (31-35); MEAN CORPUSCULAR VOLUME 84.8 fL (81-99); MONOCYTES # (AUTO) 1.1 (0.2-0.8); MONOCYTES % 8.5 % (4.4-11.3); NEUTROPHILS # (AUTO) 11.4 (2.1-6.9); NEUTROPHILS % 88.4 % (38.7-80.0); PLATELET COUNT 274 x10e3/uL (140-360); RED BLOOD COUNT 3.94 x10e6/uL (4.3-5.7); RED CELL DISTRIBUTION WIDTH 15.4 % (11.7-14.4); WHITE BLOOD COUNT 12.84 x10e3/uL (4.8-10.8)
[2023-06-24 07:21] LABS: ABG PCO2 58 mmHg (35-45); ABG PH 7.28 (7.35-7.45)
[2023-06-24 07:22] LABS: ABG HCO3 27 mmol/L (22-26); ABG PO2 321 mmHg (80-105); ABG TCO2 29
[2023-06-24 07:39] LABS: ALBUMIN 1.6 g/dL (3.5-5.0); ALBUMIN/GLOBULIN RATIO 0.6 (0.8-2.0); ANION GAP 21.1 mmol/L (8-16); BILIRUBIN,TOTAL 0.4 mg/dL (0.2-1.2); CALCIUM 7.1 mg/dL (8.4-10.2); CREATININE, SERUM 2.93 mg/dL (0.72-1.25); POTASSIUM 5.1 mmol/L (3.5-5.1); TOTAL PROTEIN 4.4 g/dL (6.5-8.1)
[2023-06-24 07:55] LABS: TROPONIN I 23.198 ng/mL (0-0.300)
[2023-06-24] MEDS: ASPIRIN 81 MG CHEW TAB PO SCH ×2 (09:00→11:47)
[2023-06-24] MEDS ORDERED: SPIRONOLACTONE 25 MG TAB PO SCH (09:00)
[2023-06-24] MEDS ORDERED: AMIODARONE HCL 150 MG/100 ML BAG IV ONE (10:00)
[2023-06-24] MEDS ORDERED: DIGOXIN INJ 0.25 MG/ML 2 ML AMP IV ONE (10:15)
[2023-06-24] MEDS ORDERED: AMIODARONE 900MG 900 MG in Premix Bag 1 BAG IV SCH (10:30)
[2023-06-24] MEDS ORDERED: AMIODARONE HCL 100 ML IV ONE (10:30)
[2023-06-24 10:31] LABS: INR 1.26; PROTHROMBIN TIME 16.1 seconds (11.9-14.5)
[2023-06-24] MEDS: AMIODARONE 900MG 500 ML IV SCH (10:45)
[2023-06-24] MEDS: MULTIVITAMINS/MINERALS TAB PO SCH (11:46)
[2023-06-24] MEDS: MIDODRINE HCL 5 MG TABLET PO SCH ×3 (11:47→16:03)
[2023-06-24] MEDS: FINASTERIDE 5 MG TAB PO SCH (11:47)
[2023-06-24] MEDS ORDERED: SODIUM CHLORIDE 0.9% 1000ML 1,000 ML ONE (12:18)
[2023-06-24] MEDS ORDERED: EPINEPHRINE HCL SYRINGE ONE (12:18)
[2023-06-24 13:18] LABS: ABG PCO2 38 mmHg (35-45); ABG PH 7.43 (7.35-7.45); ABG PO2 191 mmHg (80-105)
[2023-06-24 13:19] LABS: ABG HCO3 25 mmol/L (22-26); ABG TCO2 27
[2023-06-24] MEDS ORDERED: BUMETANIDE INJ 0.25MG/ML 4ML VIAL IV ONE (14:30)
[2023-06-24 15:35] LABS: BODY FLUID COLOR YELLOW; BODY FLUID TYPE PLEURAL
[2023-06-24 17:13] LABS: BODY FLUID APPEARANCE SL.CLOUDY; RBC,BODY FLUID < 2000 cells/uL; WBC,BODY FLUID 65 cells/uL
[2023-06-24 19:01] LABS: LYMPHOCYTES,BODY FLUID 6 %; MONO/MACROPHG,BODY FLUID 54 %; NEUTROPHILS,BODY FLUID 5 %; OTHER CELLS,BODY FLUID 35 %; TOTAL CELLS COUNTED (DIFF) 100
[2023-06-24] MEDS: ATORVASTATIN 40 MG TAB PO SCH (19:52)
[2023-06-24] MEDS: GABAPENTIN 300 MG CAP PO SCH (19:53)
[2023-06-25] VITALS (51 sets, daily range): BP systolic 68–148; BP diastolic 38–75; PULSE 42–110; RESP 0–18; TEMP 97.8–99.2; O2SAT 100
[2023-06-25] MEDS: NOREPINEPHRINE 8 MG/D5W 250 ML 250 ML IV SCH ×2 (00:48→13:48)
[2023-06-25] MEDS: FENTANYL 2000MCG/NS 250 250 ML IV PRN (04:30)
[2023-06-25] MEDS: LEVOTHYROXINE SODIUM 112 MCG TAB PO SCH (05:23)
[2023-06-25 06:32] LABS: BASOPHILS % 0.2 % (0.0-1.0); HEMATOCRIT 36.7 % (38.2-49.6); LYMPHOCYTES # (AUTO) 0.7 (1.0-3.2); LYMPHOCYTES % 6.2 % (18.0-39.1); MEAN CORPUSCULAR HEMOGLOBIN 25.2 pg (28-32); MEAN CORPUSCULAR HGB CONC 32.7 g/dL (31-35); MEAN CORPUSCULAR VOLUME 77.1 fL (81-99); MONOCYTES # (AUTO) 1.5 (0.2-0.8); NEUTROPHILS % 80.2 % (38.7-80.0); PLATELET COUNT 305 x10e3/uL (140-360); RED BLOOD COUNT 4.76 x10e6/uL (4.3-5.7); RED CELL DISTRIBUTION WIDTH 15.5 % (11.7-14.4); WHITE BLOOD COUNT 11.26 x10e3/uL (4.8-10.8)
[2023-06-25 07:20] LABS: ALBUMIN 1.6 g/dL (3.5-5.0); ALBUMIN/GLOBULIN RATIO 0.5 (0.8-2.0); ANION GAP 15.8 mmol/L (8-16); BILIRUBIN,TOTAL 0.5 mg/dL (0.2-1.2); CALCIUM 7.1 mg/dL (8.4-10.2); CREATININE, SERUM 3.04 mg/dL (0.72-1.25); POTASSIUM 4.8 mmol/L (3.5-5.1); TOTAL PROTEIN 5.1 g/dL (6.5-8.1)
[2023-06-25] MEDS: MIDODRINE HCL 5 MG TABLET PO SCH ×3 (08:00→17:20)
[2023-06-25] MEDS ORDERED: MIDAZOLAM HCL 2 MG/2 ML VIAL IV PRN (08:00)
[2023-06-25 08:34] LABS: ABG PH 7.44 (7.35-7.45)
[2023-06-25 08:35] LABS: ABG HCO3 28 mmol/L (22-26); ABG PCO2 41 mmHg (35-45); ABG PO2 213 mmHg (80-105); ABG TCO2 29
[2023-06-25] MEDS: AMIODARONE 900MG 500 ML IV SCH (11:06)
[2023-06-25] MEDS: MULTIVITAMINS/MINERALS TAB PO SCH (11:55)
[2023-06-25] MEDS: FINASTERIDE 5 MG TAB PO SCH (11:55)
[2023-06-25] MEDS: ASPIRIN 81 MG CHEW TAB PO SCH (11:55)
[2023-06-25 16:55] LABS: ANION GAP 14.5 mmol/L (8-16); CREATININE, SERUM 2.6 mg/dL (0.72-1.25); POTASSIUM 4.5 mmol/L (3.5-5.1)
[2023-06-25 16:57] LABS: CALCIUM 6.9 mg/dL (8.4-10.2)
[2023-06-25] MEDS ORDERED: BUMETANIDE INJ 0.25 MG/ML 10 ML VIAL IV ONE (17:30)
[2023-06-25] MEDS: GABAPENTIN 300 MG CAP PO SCH (21:58)
[2023-06-25] MEDS: ATORVASTATIN 40 MG TAB PO SCH (21:58)
[2023-06-26] VITALS (87 sets, daily range): BP systolic 95–150; BP diastolic 36–82; PULSE 46–116; RESP 0–20; TEMP 97.6–99.4; O2SAT 99–100
[2023-06-26] MEDS: NOREPINEPHRINE 8 MG/D5W 250 ML 250 ML IV SCH (04:52)
[2023-06-26] MEDS: LEVOTHYROXINE SODIUM 112 MCG TAB PO SCH (05:39)
[2023-06-26 06:34] LABS: BASOPHILS % 0.1 % (0.0-1.0); EOSINOPHILS % 0.1 % (0.0-6.0); HEMATOCRIT 31.6 % (38.2-49.6); HEMOGLOBIN 10.3 g/dL (14.0-18.0); LYMPHOCYTES # (AUTO) 0.6 (1.0-3.2); LYMPHOCYTES % 5.6 % (18.0-39.1); MEAN CORPUSCULAR HEMOGLOBIN 25.2 pg (28-32); MEAN CORPUSCULAR HGB CONC 32.6 g/dL (31-35); MEAN CORPUSCULAR VOLUME 77.3 fL (81-99); MONOCYTES # (AUTO) 0.9 (0.2-0.8); MONOCYTES % 8.9 % (4.4-11.3); NEUTROPHILS # (AUTO) 8.5 (2.1-6.9); PLATELET COUNT 229 x10e3/uL (140-360); RED BLOOD COUNT 4.09 x10e6/uL (4.3-5.7); RED CELL DISTRIBUTION WIDTH 15.5 % (11.7-14.4); WHITE BLOOD COUNT 9.97 x10e3/uL (4.8-10.8)
[2023-06-26 07:04] LABS: ALBUMIN 1.3 g/dL (3.5-5.0); ALBUMIN/GLOBULIN RATIO 0.4 (0.8-2.0); ANION GAP 12.1 mmol/L (8-16); BILIRUBIN,TOTAL 0.5 mg/dL (0.2-1.2); CREATININE, SERUM 2.28 mg/dL (0.72-1.25); POTASSIUM 4.1 mmol/L (3.5-5.1); TOTAL PROTEIN 4.5 g/dL (6.5-8.1)
[2023-06-26 07:06] LABS: CALCIUM 6.7 mg/dL (8.4-10.2)
[2023-06-26 07:29] LABS: MAGNESIUM 1.8 MG/DL (1.3-2.1); PHOSPHORUS 3.5 MG/DL (2.3-4.7)
[2023-06-26] MEDS: ASPIRIN 81 MG CHEW TAB PO SCH (08:12)
[2023-06-26] MEDS: MULTIVITAMINS/MINERALS TAB PO SCH (08:12)
[2023-06-26] MEDS: FINASTERIDE 5 MG TAB PO SCH (08:12)
[2023-06-26] MEDS: MIDODRINE HCL 5 MG TABLET PO SCH ×3 (08:12→16:17)
[2023-06-26] MEDS ORDERED: MAGNESIUM SULF 1GRAM/DEXTROSE 100 ML IV ONE (08:30)
[2023-06-26] MEDS ORDERED: BUMETANIDE INJ 0.25MG/ML 4ML VIAL IV ONE (08:30)
[2023-06-26] MEDS ORDERED: CALCIUM GLUC 1 G/50 ML NACL 50 ML IV ONE (10:30)
[2023-06-26] MEDS: ONDANSETRON HCL INJ 2MG/ML 2ML 2 MG/ML VIAL IV PRN (10:51)
[2023-06-26 11:41] LABS: ABG HCO3 28 mmol/L (22-26); ABG PCO2 53 mmHg (35-45); ABG PH 7.33 (7.35-7.45); ABG PO2 135 mmHg (80-105); ABG TCO2 30
[2023-06-26] MEDS ORDERED: LORAZEPAM INJ 2 MG/ML VIAL IV PRN (15:15)
[2023-06-26] MEDS ORDERED: DEXMEDETOMIDINE 400MCG/NS100ML 100 ML IV PRN (15:15)
[2023-06-26 15:25] LABS: ABG PH 7.32 (7.35-7.45)
[2023-06-26 15:26] LABS: ABG HCO3 31 mmol/L (22-26); ABG PCO2 60 mmHg (35-45); ABG PO2 154 mmHg (80-105); ABG TCO2 33
[2023-06-26] MEDS: AMIODARONE 900MG 500 ML IV SCH (18:53)
[2023-06-26] MEDS: ATORVASTATIN 40 MG TAB PO SCH (20:51)
[2023-06-27] VITALS (104 sets, daily range): BP systolic 68–152; BP diastolic 34–108; PULSE 46–100; RESP 0–24; TEMP 97.5–98.3; O2SAT 91–100
[2023-06-27] MEDS: Morphine 2mg Syringe 2 MG/ML SYR IV PRN (01:22)
[2023-06-27] MEDS: NOREPINEPHRINE 8 MG/D5W 250 ML 250 ML IV SCH (04:31)
[2023-06-27 06:17] LABS: BASOPHILS % 0.3 % (0.0-1.0); EOSINOPHILS % 0.4 % (0.0-6.0); HEMATOCRIT 29.8 % (38.2-49.6); HEMOGLOBIN 9.4 g/dL (14.0-18.0); LYMPHOCYTES # (AUTO) 0.4 (1.0-3.2); LYMPHOCYTES % 5.6 % (18.0-39.1); MEAN CORPUSCULAR HEMOGLOBIN 25.3 pg (28-32); MEAN CORPUSCULAR HGB CONC 31.5 g/dL (31-35); MEAN CORPUSCULAR VOLUME 80.1 fL (81-99); MONOCYTES # (AUTO) 0.8 (0.2-0.8); MONOCYTES % 10.1 % (4.4-11.3); NEUTROPHILS # (AUTO) 6.4 (2.1-6.9); NEUTROPHILS % 83.2 % (38.7-80.0); PLATELET COUNT 175 x10e3/uL (140-360); RED BLOOD COUNT 3.72 x10e6/uL (4.3-5.7); RED CELL DISTRIBUTION WIDTH 15.6 % (11.7-14.4); WHITE BLOOD COUNT 7.65 x10e3/uL (4.8-10.8)
[2023-06-27] MEDS: LEVOTHYROXINE SODIUM 112 MCG TAB PO SCH (06:36)
[2023-06-27 08:10] LABS: ALBUMIN 1.2 g/dL (3.5-5.0); ALBUMIN/GLOBULIN RATIO 0.4 (0.8-2.0); BILIRUBIN,TOTAL 0.3 mg/dL (0.2-1.2); CREATININE, SERUM 1.77 mg/dL (0.72-1.25); TOTAL PROTEIN 4.5 g/dL (6.5-8.1)
[2023-06-27 08:16] LABS: CALCIUM 6.9 mg/dL (8.4-10.2)
[2023-06-27 08:47] LABS: ABG PCO2 49 mmHg (35-45); ABG PH 7.41 (7.35-7.45)
[2023-06-27 08:48] LABS: ABG HCO3 31 mmol/L (22-26); ABG PO2 116 mmHg (80-105); ABG TCO2 32
[2023-06-27] MEDS ORDERED: CALCIUM GLUC 1 G/50 ML NACL 50 ML IV ONE (10:00)
[2023-06-27] MEDS: BUMETANIDE INJ 0.25MG/ML 4ML VIAL IV SCH ×2 (14:47→21:18)
[2023-06-27] MEDS: MUPIROCIN 2% OINT 22 GM TUBE TOP SCH ×2 (15:11→17:00)
[2023-06-27] MEDS: MIDODRINE HCL 5 MG TABLET PO SCH ×2 (15:11→15:13)
[2023-06-27] MEDS: ASPIRIN 81 MG CHEW TAB PO SCH (15:11)
[2023-06-27] MEDS: FINASTERIDE 5 MG TAB PO SCH (15:12)
[2023-06-27] MEDS: MULTIVITAMINS/MINERALS TAB PO SCH (15:13)
[2023-06-27] MEDS: ONDANSETRON HCL INJ 2MG/ML 2ML 2 MG/ML VIAL IV PRN (15:51)
[2023-06-27] MEDS: AMIODARONE HCL 200 MG TAB PO SCH (17:00)
[2023-06-27] MEDS: ATORVASTATIN 40 MG TAB PO SCH (21:18)
[2023-06-27] MEDS: ENOXAPARIN INJ 80 MG/0.8 ML SYR SC SCH (21:18)
[2023-06-28] VITALS (61 sets, daily range): BP systolic 97–144; BP diastolic 34–110; PULSE 57–100; RESP 6–34; TEMP 97.2–98; O2SAT 89–100
[2023-06-28] MEDS: NOREPINEPHRINE 8 MG/D5W 250 ML 250 ML IV SCH (05:00)
[2023-06-28] MEDS: LEVOTHYROXINE SODIUM 112 MCG TAB PO SCH (05:55)
[2023-06-28] MEDS: BUMETANIDE INJ 0.25MG/ML 4ML VIAL IV SCH (05:55)
[2023-06-28 07:17] LABS: HEMATOCRIT 31.1 % (38.2-49.6); HEMOGLOBIN 9.6 g/dL (14.0-18.0); LYMPHOCYTES # (AUTO) 0.3 (1.0-3.2); LYMPHOCYTES % 4.4 % (18.0-39.1); MEAN CORPUSCULAR HEMOGLOBIN 25.4 pg (28-32); MEAN CORPUSCULAR HGB CONC 30.9 g/dL (31-35); MEAN CORPUSCULAR VOLUME 82.3 fL (81-99); MONOCYTES # (AUTO) 0.6 (0.2-0.8); MONOCYTES % 9.5 % (4.4-11.3); NEUTROPHILS # (AUTO) 5.4 (2.1-6.9); NEUTROPHILS % 85.6 % (38.7-80.0); PLATELET COUNT 180 x10e3/uL (140-360); RED BLOOD COUNT 3.78 x10e6/uL (4.3-5.7); RED CELL DISTRIBUTION WIDTH 15.2 % (11.7-14.4)
[2023-06-28 07:52] LABS: ALBUMIN 1.4 g/dL (3.5-5.0); ALBUMIN/GLOBULIN RATIO 0.4 (0.8-2.0); ANION GAP 11.3 mmol/L (8-16); BILIRUBIN,TOTAL 0.3 mg/dL (0.2-1.2); CALCIUM 7.3 mg/dL (8.4-10.2); CREATININE, SERUM 1.77 mg/dL (0.72-1.25); POTASSIUM 4.3 mmol/L (3.5-5.1); TOTAL PROTEIN 5.2 g/dL (6.5-8.1)
[2023-06-28] MEDS: MIDODRINE HCL 5 MG TABLET PO SCH ×3 (07:57→16:42)
[2023-06-28] MEDS: ENOXAPARIN INJ 80 MG/0.8 ML SYR SC SCH ×2 (08:46→20:53)
[2023-06-28] MEDS: MULTIVITAMINS/MINERALS TAB PO SCH (08:46)
[2023-06-28] MEDS: ASPIRIN 81 MG CHEW TAB PO SCH (08:46)
[2023-06-28] MEDS: AMIODARONE HCL 200 MG TAB PO SCH ×2 (08:47→16:42)
[2023-06-28] MEDS: FINASTERIDE 5 MG TAB PO SCH (08:47)
[2023-06-28] MEDS: MUPIROCIN 2% OINT 22 GM TUBE TOP SCH ×2 (08:47→16:43)
[2023-06-28] MEDS: BUMETANIDE 1 MG TAB NG SCH ×2 (11:13→16:42)
[2023-06-28] MEDS: SODIUM CHLORIDE 1 GM TAB NG SCH ×2 (11:13→16:42)
[2023-06-28] MEDS: ATORVASTATIN 40 MG TAB PO SCH (20:52)
[2023-06-29] VITALS (86 sets, daily range): BP systolic 95–153; BP diastolic 24–110; PULSE 62–96; RESP 4–36; TEMP 97.3–98.8; O2SAT 89–100
[2023-06-29] MEDS: NOREPINEPHRINE 8 MG/D5W 250 ML 250 ML IV SCH ×2 (05:00→10:09)
[2023-06-29] MEDS: LEVOTHYROXINE SODIUM 112 MCG TAB PO SCH (05:47)
[2023-06-29] MEDS: MIDODRINE HCL 5 MG TABLET PO SCH ×4 (08:00→16:00)
[2023-06-29] MEDS: MULTIVITAMINS/MINERALS TAB PO SCH ×2 (08:17→08:41)
[2023-06-29] MEDS: BUMETANIDE 1 MG TAB NG SCH ×2 (08:24→08:40)
[2023-06-29] MEDS: ASPIRIN 81 MG CHEW TAB PO SCH ×2 (08:24→08:41)
[2023-06-29] MEDS: AMIODARONE HCL 200 MG TAB PO SCH ×3 (08:24→17:00)
[2023-06-29] MEDS: ENOXAPARIN INJ 80 MG/0.8 ML SYR SC SCH ×2 (08:24→21:35)
[2023-06-29] MEDS: MUPIROCIN 2% OINT 22 GM TUBE TOP SCH ×2 (08:24→17:50)
[2023-06-29] MEDS: FINASTERIDE 5 MG TAB PO SCH ×2 (08:24→08:41)
[2023-06-29] MEDS: SODIUM CHLORIDE 1 GM TAB NG SCH ×3 (08:28→17:00)
[2023-06-29 08:38] LABS: BASOPHILS % 0.1 % (0.0-1.0); HEMATOCRIT 29.9 % (38.2-49.6); LYMPHOCYTES # (AUTO) 0.2 (1.0-3.2); LYMPHOCYTES % 2.5 % (18.0-39.1); MEAN CORPUSCULAR HEMOGLOBIN 25.1 pg (28-32); MEAN CORPUSCULAR HGB CONC 30.1 g/dL (31-35); MEAN CORPUSCULAR VOLUME 83.5 fL (81-99); MONOCYTES # (AUTO) 0.8 (0.2-0.8); MONOCYTES % 10.8 % (4.4-11.3); NEUTROPHILS # (AUTO) 6.5 (2.1-6.9); NEUTROPHILS % 86.1 % (38.7-80.0); PLATELET COUNT 151 x10e3/uL (140-360); RED BLOOD COUNT 3.58 x10e6/uL (4.3-5.7); RED CELL DISTRIBUTION WIDTH 15.3 % (11.7-14.4)
[2023-06-29] MEDS ORDERED: DEXTROSE 50% SYRINGE 50 ML IV PRN (09:00)
[2023-06-29 09:01] LABS: ALBUMIN 1.4 g/dL (3.5-5.0); ALBUMIN/GLOBULIN RATIO 0.4 (0.8-2.0); ANION GAP 13.2 mmol/L (8-16); BILIRUBIN,TOTAL 0.3 mg/dL (0.2-1.2); CALCIUM 7.1 mg/dL (8.4-10.2); CREATININE, SERUM 1.81 mg/dL (0.72-1.25); POTASSIUM 4.2 mmol/L (3.5-5.1); TOTAL PROTEIN 5.1 g/dL (6.5-8.1)
[2023-06-29] MEDS ORDERED: BUMETANIDE INJ 0.25MG/ML 4ML VIAL IV ONE ×2 (11:35→17:45)
[2023-06-29] MEDS: INSULIN REGULAR, HUMAN 100 UNIT/1 ML SQ SCH ×3 (11:38→21:00)
[2023-06-29] MEDS: BUMETANIDE 10 MG in SODIUM CHLORIDE 0.9% 60 ML IV SCH ×2 (12:24→19:06)
[2023-06-29] MEDS ORDERED: BUMETANIDE INJ 0.25MG/ML 4ML VIAL IV SCH (14:00)
[2023-06-29 15:10] LABS: ABG HCO3 28 mmol/L (22-26); ABG PCO2 61 mmHg (35-45); ABG PH 7.27 (7.35-7.45); ABG PO2 104 mmHg (80-105); ABG TCO2 30
[2023-06-29] MEDS: DEXMEDETOMIDINE 400MCG/NS100ML 100 ML IV PRN (16:00)
[2023-06-29] MEDS: ATORVASTATIN 40 MG TAB PO SCH (21:00)
[2023-06-30] VITALS (83 sets, daily range): BP systolic 99–157; BP diastolic 36–82; PULSE 39–132; RESP 0–35; TEMP 97–98.4; O2SAT 93–100
[2023-06-30] MEDS: BUMETANIDE 10 MG in SODIUM CHLORIDE 0.9% 60 ML IV SCH ×5 (01:25→22:14)
[2023-06-30] MEDS: DEXMEDETOMIDINE 400MCG/NS100ML 100 ML IV PRN (01:32)
[2023-06-30] MEDS: NOREPINEPHRINE 8 MG/D5W 250 ML 250 ML IV SCH (01:33)
[2023-06-30] MEDS: LEVOTHYROXINE SODIUM 112 MCG TAB PO SCH (06:00)
[2023-06-30] MEDS: MIDODRINE HCL 5 MG TABLET PO SCH ×3 (08:00→17:02)
[2023-06-30 08:09] LABS: ALBUMIN 1.4 g/dL (3.5-5.0); ALBUMIN/GLOBULIN RATIO 0.4 (0.8-2.0); ANION GAP 11.7 mmol/L (8-16); BILIRUBIN,TOTAL 0.3 mg/dL (0.2-1.2); CALCIUM 7.5 mg/dL (8.4-10.2); CREATININE, SERUM 1.55 mg/dL (0.72-1.25); POTASSIUM 3.7 mmol/L (3.5-5.1)
[2023-06-30] MEDS: MUPIROCIN 2% OINT 22 GM TUBE TOP SCH ×2 (08:42→17:02)
[2023-06-30] MEDS: MULTIVITAMINS/MINERALS TAB PO SCH (08:43)
[2023-06-30] MEDS: AMIODARONE HCL 200 MG TAB PO SCH ×2 (08:43→17:02)
[2023-06-30] MEDS: ASPIRIN 81 MG CHEW TAB PO SCH (08:43)
[2023-06-30] MEDS: SODIUM CHLORIDE 1 GM TAB NG SCH ×2 (08:43→17:01)
[2023-06-30] MEDS: FINASTERIDE 5 MG TAB PO SCH (08:43)
[2023-06-30] MEDS: ENOXAPARIN INJ 80 MG/0.8 ML SYR SC SCH ×2 (08:44→20:30)
[2023-06-30] MEDS: INSULIN REGULAR, HUMAN 100 UNIT/1 ML SQ SCH ×4 (08:45→20:32)
[2023-06-30 10:40] LABS: ABG HCO3 33 mmol/L (22-26); ABG PCO2 55 mmHg (35-45); ABG PH 7.38 (7.35-7.45); ABG PO2 97 mmHg (80-105); ABG TCO2 34
[2023-06-30] MEDS: ATORVASTATIN 40 MG TAB PO SCH (20:30)
[2023-07-01] VITALS (63 sets, daily range): BP systolic 79–153; BP diastolic 36–95; PULSE 33–108; RESP 0–33; TEMP 97.8–98.6; O2SAT 93–100
[2023-07-01] MEDS: BUMETANIDE 10 MG in SODIUM CHLORIDE 0.9% 60 ML IV SCH ×3 (02:38→19:34)
[2023-07-01] MEDS: NOREPINEPHRINE 8 MG/D5W 250 ML 250 ML IV SCH (05:00)
[2023-07-01] MEDS: LEVOTHYROXINE SODIUM 112 MCG TAB PO SCH (05:28)
[2023-07-01 07:09] LABS: ALBUMIN 1.6 g/dL (3.5-5.0); ALBUMIN/GLOBULIN RATIO 0.4 (0.8-2.0); ANION GAP 13.6 mmol/L (8-16); BILIRUBIN,TOTAL 0.3 mg/dL (0.2-1.2); CALCIUM 7.6 mg/dL (8.4-10.2); CREATININE, SERUM 1.43 mg/dL (0.72-1.25); POTASSIUM 3.6 mmol/L (3.5-5.1); TOTAL PROTEIN 5.3 g/dL (6.5-8.1)
[2023-07-01] MEDS: MIDODRINE HCL 5 MG TABLET PO SCH ×3 (07:51→16:00)
[2023-07-01] MEDS: SODIUM CHLORIDE 1 GM TAB NG SCH ×2 (07:54→08:57)
[2023-07-01] MEDS: MULTIVITAMINS/MINERALS TAB PO SCH ×2 (07:55→08:53)
[2023-07-01] MEDS: ASPIRIN 81 MG CHEW TAB PO SCH ×2 (07:55→08:57)
[2023-07-01] MEDS: AMIODARONE HCL 200 MG TAB PO SCH ×2 (07:55→08:51)
[2023-07-01] MEDS: FINASTERIDE 5 MG TAB PO SCH ×2 (07:56→08:52)
[2023-07-01] MEDS: INSULIN REGULAR, HUMAN 100 UNIT/1 ML SQ SCH ×4 (08:12→19:54)
[2023-07-01] MEDS: ENOXAPARIN INJ 80 MG/0.8 ML SYR SC SCH (08:59)
[2023-07-01] MEDS: MUPIROCIN 2% OINT 22 GM TUBE TOP SCH ×2 (11:46→17:18)
[2023-07-01] MEDS ORDERED: ALBUMIN 25% 25GM 100ML 100 ML ONE (13:31)
[2023-07-01] MEDS ORDERED: ALBUMIN 25% 25GM 100ML 0.25 GM/ML BTL IV SCH (13:35)
[2023-07-01 14:34] LABS: ABG PH 7.36 (7.35-7.45)
[2023-07-01 14:35] LABS: ABG HCO3 33 mmol/L (22-26); ABG PCO2 59 mmHg (35-45); ABG PO2 62 mmHg (80-105); ABG TCO2 35
[2023-07-01] MEDS: ALBUMIN 25% 25GM 100ML 100 ML IV SCH ×2 (15:11→19:34)
[2023-07-01] MEDS ORDERED: ALBUMIN 5% 0.05 GM/ML BTL IV ONE (18:00)
[2023-07-01 18:23] LABS: MEAN CORPUSCULAR HEMOGLOBIN 25.6 pg (28-32); MEAN CORPUSCULAR HGB CONC 30.8 g/dL (31-35); MEAN CORPUSCULAR VOLUME 83.2 fL (81-99); PLATELET COUNT 204 x10e3/uL (140-360); RED CELL DISTRIBUTION WIDTH 15.5 % (11.7-14.4); WHITE BLOOD COUNT 7.42 x10e3/uL (4.8-10.8)
[2023-07-01 18:26] LABS: HEMATOCRIT 20.8 % (38.2-49.6); HEMOGLOBIN 6.4 g/dL (14.0-18.0)
[2023-07-01] MEDS ORDERED: ALBUMIN 5% 250ML 250 ML IV ONE (18:30)
[2023-07-01 18:34] LABS: CALCIUM 7.5 mg/dL (8.4-10.2); CREATININE, SERUM 1.66 mg/dL (0.72-1.25)
[2023-07-01 18:41] LABS: POTASSIUM 3.6 mmol/L (3.5-5.1)
[2023-07-01 18:42] LABS: ANION GAP 15.6 mmol/L (8-16)
[2023-07-01] MEDS ORDERED: SODIUM CHLORIDE 0.9% 250ML 250 ML IV ONE (18:45)
[2023-07-01] MEDS ORDERED: ACETAMINOPHEN 325 MG TAB ONE (18:58)
[2023-07-01] MEDS: ATORVASTATIN 40 MG TAB PO SCH (19:35)
[2023-07-01 20:31] LABS: LYMPHOCYTES % (MANUAL) 1 % (19-48); MONOCYTES % (MANUAL) 7 % (3.4-9.0); NEUTROPHILS % (MANUAL) 92 % (40-74); NUCLEATED RED BLOOD CELLS 1; PLATELET ESTIMATE ADEQUATE; PLATELET MORPHOLOGY COMMENT NORMAL; RBC MORPHOLOGY COMMENT NORMAL
[2023-07-01 20:32] LABS: ANISOCYTOSIS SLIGHT
[2023-07-02] VITALS (60 sets, daily range): BP systolic 101–158; BP diastolic 45–73; PULSE 57–100; RESP 0–24; TEMP 97.7–98.4; O2SAT 95–100
[2023-07-02] MEDS: NOREPINEPHRINE 8 MG/D5W 250 ML 250 ML IV SCH (05:00)
[2023-07-02] MEDS: LEVOTHYROXINE SODIUM 112 MCG TAB PO SCH (05:02)
[2023-07-02 06:32] LABS: BASOPHILS % 0.1 % (0.0-1.0); HEMATOCRIT 25.6 % (38.2-49.6); HEMOGLOBIN 7.8 g/dL (14.0-18.0); LYMPHOCYTES # (AUTO) 0.4 (1.0-3.2); MEAN CORPUSCULAR HEMOGLOBIN 25.7 pg (28-32); MEAN CORPUSCULAR HGB CONC 30.5 g/dL (31-35); MEAN CORPUSCULAR VOLUME 84.5 fL (81-99); MONOCYTES # (AUTO) 0.7 (0.2-0.8); MONOCYTES % 7.9 % (4.4-11.3); NEUTROPHILS % 87.1 % (38.7-80.0); PLATELET COUNT 216 x10e3/uL (140-360); RED BLOOD COUNT 3.03 x10e6/uL (4.3-5.7); RED CELL DISTRIBUTION WIDTH 15.6 % (11.7-14.4)
[2023-07-02 06:59] LABS: ALBUMIN 2.1 g/dL (3.5-5.0); ALBUMIN/GLOBULIN RATIO 0.7 (0.8-2.0); ANION GAP 11.4 mmol/L (8-16); BILIRUBIN,TOTAL 0.5 mg/dL (0.2-1.2); CALCIUM 7.3 mg/dL (8.4-10.2); CREATININE, SERUM 1.57 mg/dL (0.72-1.25); TOTAL PROTEIN 5.2 g/dL (6.5-8.1)
[2023-07-02 07:00] LABS: POTASSIUM 3.4 mmol/L (3.5-5.1)
[2023-07-02] MEDS: FINASTERIDE 5 MG TAB PO SCH (08:11)
[2023-07-02] MEDS: ASPIRIN 81 MG CHEW TAB PO SCH (08:12)
[2023-07-02] MEDS: SODIUM CHLORIDE 1 GM TAB NG SCH ×2 (08:12→16:13)
[2023-07-02] MEDS: AMIODARONE HCL 200 MG TAB PO SCH ×2 (08:12→16:15)
[2023-07-02] MEDS: MIDODRINE HCL 5 MG TABLET PO SCH ×3 (08:12→16:13)
[2023-07-02] MEDS: MULTIVITAMINS/MINERALS TAB PO SCH (08:12)
[2023-07-02] MEDS: BUMETANIDE 10 MG in SODIUM CHLORIDE 0.9% 60 ML IV SCH ×3 (08:13→20:35)
[2023-07-02] MEDS: MUPIROCIN 2% OINT 22 GM TUBE TOP SCH ×2 (08:14→16:15)
[2023-07-02] MEDS: INSULIN REGULAR, HUMAN 100 UNIT/1 ML SQ SCH ×4 (08:14→20:04)
[2023-07-02] MEDS ORDERED: POTASSIUM CHLORIDE 20MEQ/100ML 100 ML IV ONE (10:30)
[2023-07-02 11:07] LABS: ABG HCO3 32 mmol/L (22-26); ABG PCO2 64 mmHg (35-45); ABG PH 7.31 (7.35-7.45); ABG PO2 80 mmHg (80-105); ABG TCO2 34
[2023-07-02] MEDS: DEXMEDETOMIDINE 400MCG/NS100ML 100 ML IV PRN (14:16)
[2023-07-02 14:25] LABS: BASOPHILS % 0.1 % (0.0-1.0); HEMATOCRIT 25.7 % (38.2-49.6); HEMOGLOBIN 7.9 g/dL (14.0-18.0); LYMPHOCYTES # (AUTO) 0.3 (1.0-3.2); LYMPHOCYTES % 3.6 % (18.0-39.1); MEAN CORPUSCULAR HEMOGLOBIN 25.8 pg (28-32); MEAN CORPUSCULAR HGB CONC 30.7 g/dL (31-35); MONOCYTES # (AUTO) 0.8 (0.2-0.8); MONOCYTES % 8.2 % (4.4-11.3); NEUTROPHILS # (AUTO) 8.1 (2.1-6.9); NEUTROPHILS % 87.2 % (38.7-80.0); PLATELET COUNT 215 x10e3/uL (140-360); RED BLOOD COUNT 3.06 x10e6/uL (4.3-5.7); RED CELL DISTRIBUTION WIDTH 15.6 % (11.7-14.4); WHITE BLOOD COUNT 9.29 x10e3/uL (4.8-10.8)
[2023-07-02] MEDS: ACETAMINOPHEN 325 MG TAB PO PRN (17:55)
[2023-07-02] MEDS: ATORVASTATIN 40 MG TAB PO SCH (20:03)
[2023-07-03] VITALS (49 sets, daily range): BP systolic 88–146; BP diastolic 40–89; PULSE 64–101; RESP 0–29; TEMP 97.6–98.5; O2SAT 94–100
[2023-07-03] MEDS: NOREPINEPHRINE 8 MG/D5W 250 ML 250 ML IV SCH (05:00)
[2023-07-03] MEDS: LEVOTHYROXINE SODIUM 112 MCG TAB PO SCH (05:57)
[2023-07-03 06:44] LABS: BASOPHILS % 0.1 % (0.0-1.0); HEMATOCRIT 25.1 % (38.2-49.6); HEMOGLOBIN 7.4 g/dL (14.0-18.0); LYMPHOCYTES # (AUTO) 0.3 (1.0-3.2); LYMPHOCYTES % 2.9 % (18.0-39.1); MEAN CORPUSCULAR HEMOGLOBIN 25.4 pg (28-32); MEAN CORPUSCULAR HGB CONC 29.5 g/dL (31-35); MEAN CORPUSCULAR VOLUME 86.3 fL (81-99); MONOCYTES # (AUTO) 0.8 (0.2-0.8); MONOCYTES % 7.6 % (4.4-11.3); NEUTROPHILS # (AUTO) 9.2 (2.1-6.9); NEUTROPHILS % 88.3 % (38.7-80.0); PLATELET COUNT 212 x10e3/uL (140-360); RED BLOOD COUNT 2.91 x10e6/uL (4.3-5.7); RED CELL DISTRIBUTION WIDTH 15.9 % (11.7-14.4); WHITE BLOOD COUNT 10.39 x10e3/uL (4.8-10.8)
[2023-07-03 07:08] LABS: ALBUMIN 1.9 g/dL (3.5-5.0); ALBUMIN/GLOBULIN RATIO 0.6 (0.8-2.0); ANION GAP 11.3 mmol/L (8-16); BILIRUBIN,TOTAL 0.5 mg/dL (0.2-1.2); CALCIUM 7.4 mg/dL (8.4-10.2); CREATININE, SERUM 1.56 mg/dL (0.72-1.25); TOTAL PROTEIN 5.1 g/dL (6.5-8.1)
[2023-07-03 07:09] LABS: POTASSIUM 3.3 mmol/L (3.5-5.1)
[2023-07-03 07:10] LABS: TOTAL PROTEIN,BODY FLUID 0.9 g/dL
[2023-07-03] MEDS: FINASTERIDE 5 MG TAB PO SCH (08:00)
[2023-07-03] MEDS: MULTIVITAMINS/MINERALS TAB PO SCH (08:00)
[2023-07-03] MEDS: AMIODARONE HCL 200 MG TAB PO SCH ×2 (08:00→16:23)
[2023-07-03] MEDS: MIDODRINE HCL 5 MG TABLET PO SCH ×3 (08:00→16:23)
[2023-07-03] MEDS: ASPIRIN 81 MG CHEW TAB PO SCH (08:01)
[2023-07-03] MEDS: INSULIN REGULAR, HUMAN 100 UNIT/1 ML SQ SCH ×4 (08:01→20:09)
[2023-07-03] MEDS: SODIUM CHLORIDE 1 GM TAB NG SCH ×2 (08:01→16:23)
[2023-07-03] MEDS: MUPIROCIN 2% OINT 22 GM TUBE TOP SCH ×2 (08:02→16:23)
[2023-07-03 09:57] LABS: ABG HCO3 36 mmol/L (22-26); ABG PCO2 67 mmHg (35-45); ABG PH 7.34 (7.35-7.45); ABG PO2 97 mmHg (80-105); ABG TCO2 38
[2023-07-03] MEDS: POTASSIUM CHLORIDE 20MEQ/100ML 100 ML IV SCH ×2 (10:50→10:52)
[2023-07-03] MEDS ORDERED: SODIUM CHLORIDE 0.9% 1000ML 1,000 ML ONE (10:57)
[2023-07-03] MEDS ORDERED: BUMETANIDE INJ 0.25MG/ML 4ML VIAL IV ONE (11:00)
[2023-07-03] MEDS ORDERED: MAGNESIUM SULF 1GRAM/DEXTROSE 100 ML IV ONE (11:00)
[2023-07-03] MEDS: ACETAMINOPHEN 325 MG TAB PO PRN ×2 (11:08→19:24)
[2023-07-03] MEDS: BUMETANIDE 10 MG in SODIUM CHLORIDE 0.9% 60 ML IV SCH ×3 (12:51→22:32)
[2023-07-03] MEDS: ENOXAPARIN SOD INJ 60 MG/0.6 ML SYR SC SCH (20:08)
[2023-07-03] MEDS: ATORVASTATIN 40 MG TAB PO SCH (20:08)
[2023-07-03] MEDS: DEXMEDETOMIDINE 400MCG/NS100ML 100 ML IV PRN (20:30)
[2023-07-04] VITALS (35 sets, daily range): BP systolic 93–138; BP diastolic 38–75; PULSE 60–87; RESP 0–24; TEMP 96.1–98.8; O2SAT 96–100
[2023-07-04] MEDS: BUMETANIDE 10 MG in SODIUM CHLORIDE 0.9% 60 ML IV SCH ×4 (04:08→20:41)
[2023-07-04] MEDS: NOREPINEPHRINE 8 MG/D5W 250 ML 250 ML IV SCH (05:00)
[2023-07-04] MEDS: LEVOTHYROXINE SODIUM 112 MCG TAB PO SCH (05:21)
[2023-07-04 07:35] LABS: ALBUMIN 1.7 g/dL (3.5-5.0); ALBUMIN/GLOBULIN RATIO 0.5 (0.8-2.0); ANION GAP 9.6 mmol/L (8-16); BILIRUBIN,TOTAL 0.5 mg/dL (0.2-1.2); CALCIUM 7.2 mg/dL (8.4-10.2); CREATININE, SERUM 1.63 mg/dL (0.72-1.25); PHOSPHORUS 2.3 MG/DL (2.3-4.7); POTASSIUM 3.6 mmol/L (3.5-5.1); TOTAL PROTEIN 4.9 g/dL (6.5-8.1)
[2023-07-04] MEDS: INSULIN REGULAR, HUMAN 100 UNIT/1 ML SQ SCH ×4 (07:50→20:39)
[2023-07-04] MEDS: MIDODRINE HCL 5 MG TABLET PO SCH ×3 (07:51→15:55)
[2023-07-04 08:45] LABS: ABG PH 7.32 (7.35-7.45)
[2023-07-04 08:46] LABS: ABG HCO3 36 mmol/L (22-26); ABG PCO2 70 mmHg (35-45); ABG PO2 85 mmHg (80-105); ABG TCO2 38
[2023-07-04] MEDS: FINASTERIDE 5 MG TAB PO SCH (08:50)
[2023-07-04] MEDS: SODIUM CHLORIDE 1 GM TAB NG SCH ×2 (08:50→16:22)
[2023-07-04] MEDS: MULTIVITAMINS/MINERALS TAB PO SCH (08:50)
[2023-07-04] MEDS: AMIODARONE HCL 200 MG TAB PO SCH ×2 (08:50→16:22)
[2023-07-04] MEDS: ASPIRIN 81 MG CHEW TAB PO SCH (08:50)
[2023-07-04] MEDS: ENOXAPARIN SOD INJ 60 MG/0.6 ML SYR SC SCH ×2 (08:50→20:37)
[2023-07-04] MEDS ORDERED: BUMETANIDE INJ 0.25MG/ML 4ML VIAL IV ONE (10:15)
[2023-07-04] MEDS: CHLOROTHIAZIDE SODIUM 500 MG VIAL IV SCH ×2 (11:33→20:37)
[2023-07-04] MEDS: ACETAMINOPHEN 325 MG TAB PO PRN (20:36)
[2023-07-04] MEDS: ATORVASTATIN 40 MG TAB PO SCH (20:36)
[2023-07-05] VITALS (48 sets, daily range): BP systolic 95–149; BP diastolic 27–84; PULSE 31–90; RESP 3–24; TEMP 97.4–98.5; O2SAT 98–100
[2023-07-05] MEDS: BUMETANIDE 10 MG in SODIUM CHLORIDE 0.9% 60 ML IV SCH ×5 (00:51→20:19)
[2023-07-05] MEDS: NOREPINEPHRINE 8 MG/D5W 250 ML 250 ML IV SCH ×2 (05:00→13:39)
[2023-07-05] MEDS: CHLOROTHIAZIDE SODIUM 500 MG VIAL IV SCH (05:18)
[2023-07-05] MEDS: LEVOTHYROXINE SODIUM 112 MCG TAB PO SCH (05:43)
[2023-07-05 06:08] LABS: ANION GAP 10.6 mmol/L (8-16); CALCIUM 7.2 mg/dL (8.4-10.2); CREATININE, SERUM 1.84 mg/dL (0.72-1.25); POTASSIUM 3.6 mmol/L (3.5-5.1)
[2023-07-05 07:52] LABS: BASOPHILS % 0.1 % (0.0-1.0); EOSINOPHILS % 0.3 % (0.0-6.0); HEMATOCRIT 28.1 % (38.2-49.6); LYMPHOCYTES # (AUTO) 0.4 (1.0-3.2); LYMPHOCYTES % 3.7 % (18.0-39.1); MEAN CORPUSCULAR HEMOGLOBIN 25.7 pg (28-32); MEAN CORPUSCULAR HGB CONC 28.5 g/dL (31-35); MEAN CORPUSCULAR VOLUME 90.4 fL (81-99); MONOCYTES # (AUTO) 0.7 (0.2-0.8); MONOCYTES % 5.9 % (4.4-11.3); NEUTROPHILS # (AUTO) 10.7 (2.1-6.9); NEUTROPHILS % 89.2 % (38.7-80.0); PLATELET COUNT 179 x10e3/uL (140-360); RED BLOOD COUNT 3.11 x10e6/uL (4.3-5.7); RED CELL DISTRIBUTION WIDTH 16.4 % (11.7-14.4); WHITE BLOOD COUNT 11.94 x10e3/uL (4.8-10.8)
[2023-07-05] MEDS: ASPIRIN 81 MG CHEW TAB PO SCH (08:00)
[2023-07-05] MEDS: SODIUM CHLORIDE 1 GM TAB NG SCH ×2 (08:00→16:04)
[2023-07-05] MEDS: AMIODARONE HCL 200 MG TAB PO SCH ×2 (08:00→16:05)
[2023-07-05] MEDS: FINASTERIDE 5 MG TAB PO SCH (08:00)
[2023-07-05] MEDS: MULTIVITAMINS/MINERALS TAB PO SCH (08:00)
[2023-07-05] MEDS: MIDODRINE HCL 5 MG TABLET PO SCH ×3 (08:01→16:04)
[2023-07-05] MEDS: ENOXAPARIN SOD INJ 60 MG/0.6 ML SYR SC SCH ×2 (08:01→21:02)
[2023-07-05] MEDS: INSULIN REGULAR, HUMAN 100 UNIT/1 ML SQ SCH ×4 (08:02→21:03)
[2023-07-05 10:55] LABS: ABG HCO3 37 mmol/L (22-26); ABG PCO2 79 mmHg (35-45); ABG PH 7.27 (7.35-7.45); ABG PO2 127 mmHg (80-105); ABG TCO2 39
[2023-07-05] MEDS: ATORVASTATIN 40 MG TAB PO SCH (21:02)
[2023-07-05] MEDS: DEXMEDETOMIDINE 400MCG/NS100ML 100 ML IV PRN (23:25)
[2023-07-06] VITALS (59 sets, daily range): BP systolic 91–150; BP diastolic 32–66; PULSE 31–83; RESP 0–28; TEMP 97.6–98.2; O2SAT 98–100
[2023-07-06] MEDS: BUMETANIDE 10 MG in SODIUM CHLORIDE 0.9% 60 ML IV SCH ×5 (01:03→19:59)
[2023-07-06] MEDS: LEVOTHYROXINE SODIUM 112 MCG TAB PO SCH (05:53)
[2023-07-06 06:45] LABS: ALBUMIN 1.8 g/dL (3.5-5.0); ALBUMIN/GLOBULIN RATIO 0.5 (0.8-2.0); ANION GAP 13.4 mmol/L (8-16); BILIRUBIN,TOTAL 0.5 mg/dL (0.2-1.2); CALCIUM 7.3 mg/dL (8.4-10.2); CREATININE, SERUM 1.93 mg/dL (0.72-1.25); MAGNESIUM 2.1 MG/DL (1.3-2.1); PHOSPHORUS 3.2 MG/DL (2.3-4.7); TOTAL PROTEIN 5.5 g/dL (6.5-8.1)
[2023-07-06 06:53] LABS: POTASSIUM 3.4 mmol/L (3.5-5.1)
[2023-07-06] MEDS: MIDODRINE HCL 5 MG TABLET PO SCH ×3 (07:55→16:03)
[2023-07-06] MEDS: INSULIN REGULAR, HUMAN 100 UNIT/1 ML SQ SCH ×4 (07:56→20:01)
[2023-07-06] MEDS: MULTIVITAMINS/MINERALS TAB PO SCH (08:57)
[2023-07-06] MEDS: ASPIRIN 81 MG CHEW TAB PO SCH (08:57)
[2023-07-06] MEDS: SODIUM CHLORIDE 1 GM TAB NG SCH ×3 (08:57→17:00)
[2023-07-06] MEDS: ENOXAPARIN SOD INJ 60 MG/0.6 ML SYR SC SCH ×2 (08:57→20:00)
[2023-07-06] MEDS: FINASTERIDE 5 MG TAB PO SCH (08:57)
[2023-07-06] MEDS: AMIODARONE HCL 200 MG TAB PO SCH ×2 (08:57→16:03)
[2023-07-06 09:25] LABS: ABG HCO3 32 mmol/L (22-26); ABG PCO2 61 mmHg (35-45); ABG PH 7.33 (7.35-7.45); ABG PO2 118 mmHg (80-105); ABG TCO2 34
[2023-07-06] MEDS: DEXMEDETOMIDINE 400MCG/NS100ML 100 ML IV PRN (13:26)
[2023-07-06] MEDS: NOREPINEPHRINE 8 MG/D5W 250 ML 250 ML IV SCH (13:32)
[2023-07-06] MEDS ORDERED: NOREPINEPHRINE 8 MG/D5W 250 ML 250 ML IV SCH (14:45)
[2023-07-06] MEDS: ACETAMINOPHEN 325 MG TAB PO PRN (16:03)
[2023-07-06] MEDS: ATORVASTATIN 40 MG TAB PO SCH (20:00)
[2023-07-07] VITALS (64 sets, daily range): BP systolic 94–122; BP diastolic 33–64; PULSE 34–78; RESP 1–25; TEMP 97.2–97.8; O2SAT 96–100
[2023-07-07] MEDS: BUMETANIDE 10 MG in SODIUM CHLORIDE 0.9% 60 ML IV SCH ×5 (01:01→23:05)
[2023-07-07] MEDS: LEVOTHYROXINE SODIUM 112 MCG TAB PO SCH (05:04)
[2023-07-07 07:13] LABS: BASOPHILS % 0.1 % (0.0-1.0); EOSINOPHILS # (AUTO) 0.2 (0.0-0.4); HEMATOCRIT 23.2 % (38.2-49.6); LYMPHOCYTES # (AUTO) 0.4 (1.0-3.2); MEAN CORPUSCULAR HEMOGLOBIN 25.4 pg (28-32); MEAN CORPUSCULAR HGB CONC 28.9 g/dL (31-35); MEAN CORPUSCULAR VOLUME 87.9 fL (81-99); MONOCYTES # (AUTO) 0.5 (0.2-0.8); MONOCYTES % 5.2 % (4.4-11.3); NEUTROPHILS # (AUTO) 8.2 (2.1-6.9); NEUTROPHILS % 87.9 % (38.7-80.0); PLATELET COUNT 220 x10e3/uL (140-360); RED BLOOD COUNT 2.64 x10e6/uL (4.3-5.7); RED CELL DISTRIBUTION WIDTH 16.5 % (11.7-14.4)
[2023-07-07] MEDS: INSULIN REGULAR, HUMAN 100 UNIT/1 ML SQ SCH ×4 (07:30→21:07)
[2023-07-07 07:44] LABS: ALBUMIN 1.6 g/dL (3.5-5.0); ALBUMIN/GLOBULIN RATIO 0.5 (0.8-2.0); ANION GAP 8.8 mmol/L (8-16); BILIRUBIN,TOTAL 0.4 mg/dL (0.2-1.2); CALCIUM 7.2 mg/dL (8.4-10.2); CREATININE, SERUM 2.2 mg/dL (0.72-1.25); POTASSIUM 3.8 mmol/L (3.5-5.1)
[2023-07-07 07:45] LABS: HEMOGLOBIN 6.7 g/dL (14.0-18.0)
[2023-07-07] MEDS ORDERED: SODIUM CHLORIDE 0.9% 250ML 250 ML IV ONE (08:30)
[2023-07-07] MEDS: ENOXAPARIN SOD INJ 60 MG/0.6 ML SYR SC SCH (09:00)
[2023-07-07 09:04] LABS: ABG PCO2 75 mmHg (35-45); ABG PH 7.29 (7.35-7.45)
[2023-07-07 09:05] LABS: ABG HCO3 36 mmol/L (22-26); ABG PO2 122 mmHg (80-105); ABG TCO2 38
[2023-07-07] MEDS: FINASTERIDE 5 MG TAB PO SCH (09:28)
[2023-07-07] MEDS: MULTIVITAMINS/MINERALS TAB PO SCH (09:28)
[2023-07-07] MEDS: ASPIRIN 81 MG CHEW TAB PO SCH (09:28)
[2023-07-07] MEDS: MIDODRINE HCL 5 MG TABLET PO SCH ×3 (09:28→16:00)
[2023-07-07] MEDS: AMIODARONE HCL 200 MG TAB PO SCH ×2 (09:28→17:00)
[2023-07-07] MEDS: SODIUM CHLORIDE 1 GM TAB NG SCH ×2 (09:29→17:00)
[2023-07-07] MEDS: DEXMEDETOMIDINE 400MCG/NS100ML 100 ML IV PRN ×2 (11:24→22:37)
[2023-07-07] MEDS: ATORVASTATIN 40 MG TAB PO SCH (20:32)
[2023-07-08] VITALS (53 sets, daily range): BP systolic 88–130; BP diastolic 34–74; PULSE 37–93; RESP 0–25; TEMP 97.6–98.8; O2SAT 94–100
[2023-07-08] MEDS: LEVOTHYROXINE SODIUM 112 MCG TAB PO SCH (05:06)
[2023-07-08] MEDS: BUMETANIDE 10 MG in SODIUM CHLORIDE 0.9% 60 ML IV SCH ×5 (05:40→23:35)
[2023-07-08 06:51] LABS: BASOPHILS % 0.1 % (0.0-1.0); EOSINOPHILS # (AUTO) 0.1 (0.0-0.4); EOSINOPHILS % 0.8 % (0.0-6.0); HEMATOCRIT 26.1 % (38.2-49.6); HEMOGLOBIN 7.6 g/dL (14.0-18.0); LYMPHOCYTES # (AUTO) 0.4 (1.0-3.2); LYMPHOCYTES % 4.1 % (18.0-39.1); MEAN CORPUSCULAR HGB CONC 29.1 g/dL (31-35); MEAN CORPUSCULAR VOLUME 85.9 fL (81-99); MONOCYTES # (AUTO) 0.5 (0.2-0.8); MONOCYTES % 4.5 % (4.4-11.3); NEUTROPHILS # (AUTO) 9.3 (2.1-6.9); NEUTROPHILS % 89.2 % (38.7-80.0); PLATELET COUNT 232 x10e3/uL (140-360); RED BLOOD COUNT 3.04 x10e6/uL (4.3-5.7); RED CELL DISTRIBUTION WIDTH 18.3 % (11.7-14.4); WHITE BLOOD COUNT 10.43 x10e3/uL (4.8-10.8)
[2023-07-08 07:08] LABS: ALBUMIN 1.6 g/dL (3.5-5.0); ALBUMIN/GLOBULIN RATIO 0.5 (0.8-2.0); ANION GAP 11.8 mmol/L (8-16); BILIRUBIN,TOTAL 0.5 mg/dL (0.2-1.2); CALCIUM 7.1 mg/dL (8.4-10.2); CREATININE, SERUM 2.49 mg/dL (0.72-1.25); POTASSIUM 3.8 mmol/L (3.5-5.1); TOTAL PROTEIN 5.1 g/dL (6.5-8.1)
[2023-07-08 07:45] LABS: ABG PH 7.33 (7.35-7.45)
[2023-07-08 07:46] LABS: ABG HCO3 37 mmol/L (22-26); ABG PCO2 69 mmHg (35-45); ABG PO2 92 mmHg (80-105); ABG TCO2 39
[2023-07-08] MEDS: FINASTERIDE 5 MG TAB PO SCH (08:12)
[2023-07-08] MEDS: MULTIVITAMINS/MINERALS TAB PO SCH (08:12)
[2023-07-08] MEDS: SODIUM CHLORIDE 1 GM TAB NG SCH ×2 (08:12→16:37)
[2023-07-08] MEDS: MIDODRINE HCL 5 MG TABLET PO SCH ×3 (08:12→16:37)
[2023-07-08] MEDS: AMIODARONE HCL 200 MG TAB PO SCH ×2 (08:12→16:37)
[2023-07-08] MEDS: INSULIN REGULAR, HUMAN 100 UNIT/1 ML SQ SCH ×4 (08:14→20:23)
[2023-07-08] MEDS: DEXMEDETOMIDINE 400MCG/NS100ML 100 ML IV PRN ×2 (10:51→23:43)
[2023-07-08] MEDS: CHLOROTHIAZIDE SODIUM 500 MG VIAL IV SCH (16:36)
[2023-07-08] MEDS: ATORVASTATIN 40 MG TAB PO SCH (20:12)
[2023-07-09] VITALS (50 sets, daily range): BP systolic 98–130; BP diastolic 28–46; PULSE 57–81; RESP 0–41; TEMP 97.4–98; O2SAT 90–100
[2023-07-09] MEDS: BUMETANIDE 10 MG in SODIUM CHLORIDE 0.9% 60 ML IV SCH ×3 (05:47→14:31)
[2023-07-09] MEDS: LEVOTHYROXINE SODIUM 112 MCG TAB PO SCH (05:47)
[2023-07-09 06:22] LABS: BASOPHILS % 0.1 % (0.0-1.0); EOSINOPHILS % 0.3 % (0.0-6.0); HEMATOCRIT 26.1 % (38.2-49.6); HEMOGLOBIN 7.8 g/dL (14.0-18.0); LYMPHOCYTES # (AUTO) 0.4 (1.0-3.2); LYMPHOCYTES % 3.7 % (18.0-39.1); MEAN CORPUSCULAR HEMOGLOBIN 25.2 pg (28-32); MEAN CORPUSCULAR HGB CONC 29.9 g/dL (31-35); MEAN CORPUSCULAR VOLUME 84.5 fL (81-99); MONOCYTES # (AUTO) 0.6 (0.2-0.8); MONOCYTES % 4.9 % (4.4-11.3); NEUTROPHILS % 89.3 % (38.7-80.0); PLATELET COUNT 230 x10e3/uL (140-360); RED BLOOD COUNT 3.09 x10e6/uL (4.3-5.7); RED CELL DISTRIBUTION WIDTH 17.8 % (11.7-14.4)
[2023-07-09 06:55] LABS: ALBUMIN 1.7 g/dL (3.5-5.0); ALBUMIN/GLOBULIN RATIO 0.5 (0.8-2.0); ANION GAP 12.4 mmol/L (8-16); BILIRUBIN,TOTAL 0.4 mg/dL (0.2-1.2); CALCIUM 7.2 mg/dL (8.4-10.2); CREATININE, SERUM 2.7 mg/dL (0.72-1.25); POTASSIUM 4.4 mmol/L (3.5-5.1); TOTAL PROTEIN 5.4 g/dL (6.5-8.1)
[2023-07-09] MEDS: FINASTERIDE 5 MG TAB PO SCH (08:31)
[2023-07-09] MEDS: AMIODARONE HCL 200 MG TAB PO SCH (08:32)
[2023-07-09] MEDS: MIDODRINE HCL 5 MG TABLET PO SCH ×2 (08:32→11:22)
[2023-07-09] MEDS: MULTIVITAMINS/MINERALS TAB PO SCH (08:32)
[2023-07-09] MEDS: SODIUM CHLORIDE 1 GM TAB NG SCH (08:32)
[2023-07-09] MEDS: CHLOROTHIAZIDE SODIUM 500 MG VIAL IV SCH (08:33)
[2023-07-09] MEDS: INSULIN REGULAR, HUMAN 100 UNIT/1 ML SQ SCH ×2 (08:35→11:18)
[2023-07-09] MEDS: DEXMEDETOMIDINE 400MCG/NS100ML 100 ML IV PRN (08:52)
== END 2023-07-09 15:37 | DRG 291 ==
LOC: ER 07:13 → ERHOLD 09:23 → MED/SURG2 12:01 → OBSVTOIN 06-23 09:11 → ICU 06-24 04:05
PROVIDERS: ADMIT Internal Medicine; ATTEND Internal Medicine
PROC: 5A1945Z Respiratory Ventilation, 24-96 Consecutive Hours (ICD-10-PCS; principal; 2023-06-24)
PROC: 0BH17EZ Insertion of Endotracheal Airway into Trachea, Via Natural or Artificial Opening (ICD-10-PCS; 2023-06-24)
PROC: 06HY33Z Insertion of Infusion Device into Lower Vein, Percutaneous Approach (ICD-10-PCS; 2023-06-24)
PROC: 03HY32Z Insertion of Monitoring Device into Upper Artery, Percutaneous Approach (ICD-10-PCS; 2023-06-24)
PROC: 5A12012 Performance of Cardiac Output, Single, Manual (ICD-10-PCS; 2023-06-24)
PROC: 0W993ZZ Drainage of Right Pleural Cavity, Percutaneous Approach (ICD-10-PCS; 2023-06-24)
PROC: 4A133R1 Monitoring of Arterial Saturation, Peripheral, Percutaneous Approach (ICD-10-PCS; 2023-06-24)
PROC: 0T7D8ZZ Dilation of Urethra, Via Natural or Artificial Opening Endoscopic (ICD-10-PCS; 2023-06-25)
PROC: 0T9B70Z Drainage of Bladder with Drainage Device, Via Natural or Artificial Opening (ICD-10-PCS; 2023-06-25)
PROC: 02HV33Z Insertion of Infusion Device into Superior Vena Cava, Percutaneous Approach (ICD-10-PCS; 2023-06-27)
PROC: B548ZZA Ultrasonography of Superior Vena Cava, Guidance (ICD-10-PCS; 2023-06-27)
PROC: 30243N1 Transfusion of Nonautologous Red Blood Cells into Central Vein, Percutaneous Approach (ICD-10-PCS; 2023-07-01)
DX: I13.0 Hypertensive heart and chronic kidney disease with heart failure and stage 1 through stage 4 chronic kidney disease, or unspecified chronic kidney disease (principal); A41.9 Sepsis, unspecified organism; E43 Unspecified severe protein-calorie malnutrition; R65.21 Severe sepsis with septic shock; I46.9 Cardiac arrest, cause unspecified; R57.0 Cardiogenic shock; J96.01 Acute respiratory failure with hypoxia; N17.0 Acute kidney failure with tubular necrosis; I50.23 Acute on chronic systolic (congestive) heart failure; N39.0 Urinary tract infection, site not specified; J90 Pleural effusion, not elsewhere classified; E87.1 Hypo-osmolality and hyponatremia; D62 Acute posthemorrhagic anemia; I48.91 Unspecified atrial fibrillation; K74.60 Unspecified cirrhosis of liver; I25.10 Atherosclerotic heart disease of native coronary artery without angina pectoris; N40.1 Benign prostatic hyperplasia with lower urinary tract symptoms; N35.819 Other urethral stricture, male, unspecified site; R33.8 Other retention of urine; N49.2 Inflammatory disorders of scrotum; E03.9 Hypothyroidism, unspecified; N13.9 Obstructive and reflux uropathy, unspecified; B96.89 Other specified bacterial agents as the cause of diseases classified elsewhere; N18.31 Chronic kidney disease, stage 3a; E11.22 Type 2 diabetes mellitus with diabetic chronic kidney disease; R60.0 Localized edema; N47.1 Phimosis; E78.00 Pure hypercholesterolemia, unspecified; E88.09 Other disorders of plasma-protein metabolism, not elsewhere classified; I25.5 Ischemic cardiomyopathy; R39.14 Feeling of incomplete bladder emptying; R53.81 Other malaise; R31.9 Hematuria, unspecified; Z95.0 Presence of cardiac pacemaker; I25.2 Old myocardial infarction; Z79.890 Hormone replacement therapy; Z79.899 Other long term (current) drug therapy; Z79.82 Long term (current) use of aspirin; Z95.1 Presence of aortocoronary bypass graft; Z68.30 Body mass index [BMI] 30.0-30.9, adult; Z20.822 Contact with and (suspected) exposure to COVID-19
CPT/HCPCS: 31500; 32555; 36415; 36569; 36600; 71045; 74018; 74230; 76604; 76770; 76870; 80048; 80053; 80061; 81001; 82550; 82805; 82948; 83036; 83615; 83735; 83880; 84100; 84157; 84443; 84484; 85007; 85025; 85027; 85610; 86850; 86900; 86920; 87070; 87086; 87186; 87205; 89051; 93005; 93976; 94002; 94003; 94660; 94760; 94799; 96372; 97139; 99252; 99284; C1729; C1769; G0378; J0171; J0612; J0696; J1160; J1650; J1940; J2060; J2185; J2250; J2270; J2405; J3475; J3480; J7030; J7040; J7050; P9016; P9047; U0002